=== PATIENT | male | born 1955 | race Caucasian/White ===

== ENCOUNTER 2018-02-18 09:46 | Observation (INO) | payer OTHER, SELFPAY ==
[2018-02-18] VITALS (14 sets, daily range): BP systolic 130–165; BP diastolic 60–105; PULSE 65–92; RESP 14–19; TEMP 36.5–37; O2SAT 93–100; BMI 21.2; BMI 20.2; BMI 20.3
--- NOTE | 2018-02-18 09:54 | EKG12_ITS ---
Test Reason : DYSRHYTHMIA Blood Pressure : / mmHG Vent. Rate : 074 BPM Atrial Rate : 074 BPM P-R Int : 116 ms QRS Dur : 102 ms QT Int : 404 ms P-R-T Axes : 069 067 058 degrees QTc Int : 448 ms Normal sinus rhythm Normal ECG Confirmed by RACQUEL CRANDALL, KARISSA ([id number]), material expeditor CHAVO CONTRERAS ([id number]) on 02/23/2018 2:43:55 PM Referred By: KALPESH Confirmed By:KARISSA CLEMENT MD
--- NOTE | 2018-02-18 09:54 | RAD_ITS ---
STUDY: X-RAY CHEST REASON FOR EXAM: Male, 62 years old. Disorientation TECHNIQUE: 2 AP portable views. 2 views needed to include the costophrenic angles COMPARISON: None. FINDINGS: EKG leads overlie the chest Lungs are hyperexpanded with chronic interstitial changes, no superimposed acute pulmonary process. There is no demonstrated pleural abnormality. Normal size heart. Normal mediastinum and chandrika. Normal visualized pulmonary arteries. Normal visualized aortic arch and descending thoracic aorta. Normal visualized thoracic spine. Normal visualized ribs, clavicles, and shoulders. There is no demonstrated abnormality of the visualized soft tissue structures of the upper abdomen. RAD/Chest 1 View IMPRESSION: Hyperexpanded lungs with chronic interstitial changes, no superimposed acute pulmonary process Electronically Signed: Osvaldo Weston MD at 10:44 EDT , Service support ,
--- NOTE | 2018-02-18 09:54 | CT_ITS ---
STUDY: CT BRAIN WITHOUT CONTRAST REASON FOR EXAM: Male, 62 years old. Headache and blurred vision upon awakening, disorientation RADIATION DOSAGE (If Supplied By Facility): CTDIvol = ( 44.99 ) mGy, DLP = ( 796.11 ) mGycm TECHNIQUE: Transaxial CT imaging of the brain was performed without administration of intravenous contrast material. Individualized dose optimization techniques were used for this CT. COMPARISON: None. FINDINGS: Normal soft tissue structures. Normal calvarium. Normal size ventricles and extra-axial spaces for the patient's age. Normal white matter tracts of the cerebral hemispheres. Normal basal ganglia and thalami. Normal brainstem. Normal cerebellum. There is no intracranial hemorrhage. There are no findings of an acute ischemic infarction. Normal visualized paranasal sinuses. CT/Brain/Head without Contrast IMPRESSION: Chronic involutional changes of the brain. No acute hemorrhage Electronically Signed: Osvaldo Weston MD at 10:36 EDT , Service support ,
--- NOTE | 2018-02-18 09:59 | NURSING ---
NO OLD EKGS
--- NOTE | 2018-02-18 10:00 | ED.VISSUMM ---
- ER Visit Summary Date of Service: 02/18/18 Chief Complaint: Awoke with right frontal headache, diplopia and nausea and vomiting ?1. History of Present Illness: The patient is a 62 M who awoke at 0500 with right frontal headache with diplopia and had one episode of emesis. He states his balance is off. Female diesel inspector with him states she has had a significant weight loss recently. The weight loss is unintentional. He is a smoker one pack per day since he was a teenager. Upon further questioning he has history of sweats. He denies any blurred vision, trouble with speech or swallowing. Denies ringing in his ears or decreased hearing. He denies cough, sputum production, dyspnea at rest. He has had slight dyspnea with exertion. He denies any chest discomfort or any type of chest pain. He denies hematemesis, melena hematochezia. He denies dysuria, frequency, urgency hematuria. He denies any bone or back pain. He denies any skin lesions. He is not a good informant. Physical Examination: Vital signs are unremarkable. Blood pressure is slightly elevated. Head is atraumatic normocephalic. Pupils are equal round reactive. Extraocular muscles are intact. TMs are pearly white with landmarks noted. Nares patent with no drainage. Posterior pharynx without erythema or exudate. Uvula is midline. There is no dysphonia or dysphasia. Trachea is midline. There is no stridor with auscultation of the neck. There is no carotid bruit. Heart is regular without murmur, gallop or rub. S1 and S2 are normal. Lungs are clear to auscultation with good movement of air bilaterally. Abdomen soft nontender. There is no palpable cell mass. He is alert and oriented ?3. Motor spiral 5. Sensations intact. Cerebellar testing with finger-nose to finger and heel to taylor was performed adequately. He has a shuffled gait. DTRs are symmetric. There is no clonus or Babinski sign. He withdraws when assessing for Babinski sign and difficult to determine if he does or does not have a Babinski sign. Cranial 2 through 12 are intact. There is no nystagmus. There is evidence of peripheral cataracts. No papilledema was noted on funduscopic exam Test Results: CBC, BMP and coags are normal. Two-view chest x-ray reveals hyperaeration with no acute pulmonary process. Cardiac silhouette and mediastinum are normal. Osseous structures are normal. CT of the head was reviewed by me interpreted radiologist as negative for any acute findings. Emergency Department Course and Treatment: With unintentional weight loss sweats concern patient may have malignancy. With complaint of headache diplopia concern for intracranial bleed, versus metastasis versus other cause. Will obtain a CT of the head to evaluate for intercranial process. Chest x-ray since she is a smoker and to evaluate for mass, neoplasm. Baseline blood work was ordered as well. Treatment Plan: Since patient is complaining of diplopia the hospitalist was paged for further evaluation i.e. MRI etc. Disposition: 23 hours observation PCU Impression: 1. Diplopia 2. Right frontal headache with nausea and vomiting 3. Unintentional weight loss 4. History of COPD 5. History of tobacco use This note was generated with [employer] dictation software. It may contain incorrect words, spelling, and punctuation that were not noted in review of the chart prior to signing ED Disposition - Plan for ED Patient: Chief Complaint: Neuro S/Sx
[2018-02-18 10:13] LABS: Absolute Lymphocyte Count 1.58 X10^3/ul (0.83-4.51); Absolute Neutrophil Count 4.4 X10^3/uL (2.0-7.7); Basophil# 0.01 X10^3/uL; Basophil% 0.1 % (0-1); Eosinophil# 0.08 X10^3/uL; Eosinophils% 1.2 % (0-5); Hematocrit 43.6 % (40-54); Lymphocyte # 1.58 X10^3/ul (4.0); Lymphocyte % 22.8 % (19-41); Mean Corp Hgb Conc 34.4 g/gl (32-36); Mean Platelet Vol. 9.7 fl (6.2-12.0); Neutrophil # 4.35 X10^3/uL (2.7-7.7); Neutrophil % 62.6 % (47-70); Platelet Count 172 K/mm3 (150-450); RBC Distribution Width CV 13.6 % (11.6-14.6); RBC Distribution Width SD 46.8 fl (35.1-43.9); Red Blood Count 4.54 M/mm3 (4.6-6.2); White Blood Count 6.9 K/mm3 (4.4-11.0)
[2018-02-18 10:17] LABS: POSITIVE COUNT NO; POSITIVE DIFFERENTIAL NO; POSITIVE MORPHOLOGY NO
[2018-02-18 10:19] LABS: Prothrombin Time (Protime)PT. 12.8 SECONDS (11.7-14.9)
[2018-02-18 10:20] LABS: Partial Thromboplast Time 26.4 Seconds (24.1-36.2)
[2018-02-18 10:24] LABS: Anion Gap 3 (5-15); BUN 10 mg/dL (7-18); BUN/Creat Ratio 13.8 RATIO (10-20); Calcium,Total 8.8 mg/dL (8.5-10.1); Chloride 105 mmol/L (98-107); Creatinine, Serum 0.72 mg/dL (0.70-1.30); EST Glomerular Filtration Rate 117 mL/min (>60); Est Glom Filt Rate - Afr Amer 141 mL/min (>60); Estimated Creatinine Clearance 93.72 ml/min; Glucose 98 mg/dL (74-106); Potassium 4.3 mmol/L (3.5-5.1); Sodium Level 139 mmol/L (136-145)
[2018-02-18] MEDS: Ondansetron 4 MG/2 ML Vial IV (10:31)
[2018-02-18 11:01] LABS: Bedside Glucose 93 mg/dL (70-110)
--- NOTE | 2018-02-18 11:35 | NURSING ---
DR HERNANDEZ FOR DR POSEY
--- NOTE | 2018-02-18 11:41 | NURSING ---
PCU OBS DIPLOPIA PAINTSIL
--- NOTE | 2018-02-18 12:20 | NURSING ---
called er charge to accept patient
--- NOTE | 2018-02-18 13:23 | MRI_ITS ---
STUDY: MRA OF THE HEAD WITHOUT CONTRAST REASON FOR EXAM: Male, 62 years old. Diplopia and dizziness TECHNIQUE: 3-D pcuh-xn-ltnhmv (TOF) imaging was performed with MIPs. The study was performed unenhanced. COMPARISON: None. FINDINGS: Normal bilateral petrous carotid arteries. Normal right cavernous carotid artery with a normal supraclinoid bifurcation. Normal left cavernous carotid artery with a normal supraclinoid bifurcation. Severe diffuse narrowing of the right A1 segments of the anterior cerebral artery. Normal left A1 segments of the anterior cerebral artery. Anterior communicating artery not visualized consistent with normal variant. Normal bilateral A2 segments of the anterior cerebral arteries. Normal right M1 and M2 segments of the middle cerebral arteries, with a normal M1 bifurcation. Normal left M1 and M2 segments of the middle cerebral arteries, with a normal M1 bifurcation. Posterior communicating arteries are not visualized consistent with normal variant. Normal bilateral vertebral arteries. Normal basilar artery with a normal basilar bifurcation. The visualized bilateral superior cerebellar (SCA) arteries are normal. Normal bilateral P1, P2 and visualized P3 segments of the posterior cerebral arteries. There is no demonstrated aneurysm of the [place]. There is no major vessel occlusion or hemodynamically significant stenosis. There is no demonstrated abnormality of the visualized brain. MRI/MRA Head ONLY without Contrast IMPRESSION: Severely diffusely narrowed A1 segment of the right anterior cerebral artery. No other significant atherosclerotic changes Electronically Signed: Dave Diez MD at 16:09 EDT , Service support ,
--- NOTE | 2018-02-18 13:23 | MRI_ITS ---
STUDY: MRA NECK WITH AND WITHOUT CONTRAST REASON FOR EXAM: Male, 62 years old. Diplopia and dizziness TECHNIQUE: 3-D wmuz-bp-opjyaf (TOF) imaging was performed in an 1.5 T MRI scanner. 6 ml of Gadavist was administered for the contrast enhanced images. COMPARISON: None. FINDINGS: RIGHT CAROTID ARTERIES: Normal right common carotid artery (CCA). Normal right common carotid bulb. Normal origin of the right internal carotid (ICA) artery without a hemodynamically significant stenosis. Normal visualized cervical portion of the right internal carotid artery. Normal origin of the right external carotid artery (ECA). LEFT CAROTID ARTERIES: Normal left common carotid artery (CCA). Normal left common carotid bulb. Normal origin of the left internal carotid (ICA) artery without a hemodynamically significant stenosis. Normal visualized cervical portion of the left internal carotid artery. Normal origin of the left external carotid artery (ECA). VERTEBRAL ARTERIES: Normal antegrade flow within the bilateral vertebral artery without a hemodynamically significant stenosis. MRI/MRA Neck WITH and W/O Contrast IMPRESSION: Normal bilateral cervical carotid and vertebral arteries. Electronically Signed: Dave Diez MD at 16:10 EDT , Service support ,
--- NOTE | 2018-02-18 13:25 | MRI_ITS ---
STUDY: MRI BRAIN WITHOUT CONTRAST REASON FOR EXAM: Male, 62 years old. Diplopia and dizziness TECHNIQUE: Standardized multiplanar fat and water weighted pulse sequences were obtained. COMPARISON: CT of the brain on February 18, 2018 FINDINGS: Mild atrophy and minor periventricular white matter ischemic changes without evidence for acute infarct. Normal bilateral basal ganglia. Normal thalami. There is no extra-axial fluid accumulation. Normal flow voids within the major intracranial circulation suggesting patency by spin echo criteria. Normal sella turcica, pituitary gland, infundibular stalk, optic chiasm and hypothalamus. Normal tectal plate and pineal gland. Normal midbrain, carmen and medulla. Normal cerebellum. Normal basal cisterns. Normal bilateral temporal bones. Normal bilateral internal auditory canals. No demonstrated orbital abnormality, within the constraints of a routine brain study. Mild bilateral maxillary and ethmoid sinusitis. Normal calvarium and skull base. Normal visualized soft tissue structures. Normal visualized upper cervical spine. MRI/Brain without Contrast IMPRESSION: Minor periventricular white matter ischemic change without evidence for acute infarct Electronically Signed: Dave Diez MD at 16:07 EDT , Service support ,
--- NOTE | 2018-02-18 13:27 | HP.PCM_ITS ---
Problem List (1) Diplopia Status: Acute (2) COPD (chronic obstructive pulmonary disease) Status: Chronic Qualifiers: Emphysema type: unspecified (3) Nicotine dependence Status: Chronic Qualifiers: Nicotine product type: cigarettes Substance use status: unspecified nicotine-induced disorder Qualified Code(s): F17.219 - Nicotine dependence, cigarettes, with unspecified nicotine-induced disorders History of Present Illness Date of Admission: 02/18/18 Chief Complaint: Double vision - 1 day The patient is a 62 year old M past medical history of nicotine dependence, COPD , not on home oxygen who comes seen with complaints of sudden onset of difficulty seen. Patient at baseline with glasses for reading but started seeing double today. Denies any headaches or numbness or tingling in any of his extremities. The double vision is worse when he bends his head down or tries to look far. Vitals in the ED was stable, routine blood work was unremarkable. CT scan of the brain showed chronic indwelling treat changes with no acute hemorrhage. CXR was negative Patient had an MRI of the brain that showed no acute infarct. MRA of the head showed severely narrowed anterior cerebral artery stenosis MRA of the head was normal Past Medical History Past Medical History (Chronic Problems): Chronic Problems COPD (chronic obstructive pulmonary disease) (Chronic) Nicotine dependence (Chronic) Allergies No Known Allergies Allergy (Verified 02/18/18 09:48) Home Medications: Ambulatory Orders Medication Instructions Recorded Albuterol Aerosols [Ventolin 2.5 mg INHALATION Q6H PRN PRN 02/18/18 Aerosols] Albuterol Inhaler [Ventolin Hfa 1 - 2 puff INHALATION Q4H PRN PRN 02/18/18 (SP)] Surgical History: no surgical history Lives: Spouse/ Significant Other Smoking Status: Current every day smoker - *Family History Paternal History Items: Cancer - brain Maternal History Items: Unknown Review of Systems Constitutional: Denies: Anorexia, Chills, Fever, Malaise, Weakness, Weight Change Eyes: Reports: Blurred vision, Double vision, Vision Change. Denies: Cataracts , Conjunctivae Inflammation, Pain, Redness HEENT: Denies: Difficulty Hearing, Difficulty Swallowing, Head Aches, Sinus Congestion, Sinus Drainage Cardiovascular: Denies: Chest Pain, Claudication, Chest Pressure, Chest Tightness, Orthopnea, Palpitations, Paroxysmal Noc. Dyspnea Respiratory: Denies: Cough, Hemoptysis, Pleuritic Pain, Shortness of Breath, Shortness of breath at rest, Shortness of breath upon exertion, Sputum production Gastrointestinal: Denies: Abdominal Pain, Constipation, Hematemesis, Nausea, Vomiting Genitourinary: Denies: Dysuria, Frequency, Incontinence Musculoskeletal: Denies: Joint Pain, Joint stiffness, Joint swelling, Joint Tenderness Skin: Denies: Rash, Wounds Neurological: Denies: Difficulty swallowing, Focal weakness, Numbness, Tingling Psychiatric: Denies: Anxiety, Depression, Homicidal Ideations, Suicidal Ideations Hematologic/ Lymphatic: Denies: Easy Bruising, Easy Bleeding VTE Information - Inpt Only VTE Present on Admission: No VTE Pharm Prophylaxis ordered?: Yes Patient Problems: Active and Suspected Problems Diplopia (Acute) - Physical Exam General: Alert, Oriented x3, Cooperative, No apparent distress HEENT: Atraumatic, PERRLA, EOMI, Normocephalic Oral: Moist Mucosa Neck: Supple Lungs: Clear to auscultation, Normal air movement Cardiovascular: Regular rate, Regular Rhythm, Normal S1, Normal S2, No murmurs Abdomen: Bowel Sounds Present, Soft, Non Tender, Non-Distended, No Hepato- splenomegaly Extremities: No edema Skin: No rashes, No breakdown Musculoskeletal: No Tenderness to Palpation of Joints or Extremities Neurological: Cranial nerves II-XII grossly intact, Neuro grossly intact Psych/Mental Status: Normal Affect, Appropriate Vital Signs Temp Pulse Resp BP Pulse Ox 98.0 F 82 18 135/82 H 94 02/18/18 12:47 02/18/18 13:20 02/18/18 12:47 02/18/18 12:47 02/18/18 12:47 Oxygen Delivery Method Room Air Weight: 58.8 kg Body Mass Index (BMI) 20.2 Assessment/Plan All Active Problems Diplopia (Acute) 62 year old M past medical history of nicotine dependence, COPD, not on home oxygen who comes seen with complaints of sudden onset of difficulty seen. Patient at baseline with glasses for reading but started seeing double today. 1. Acute onset diplopia, related to acute stroke, MRI showed no stroke, will monitor overnight, would need referral to ophthalmology for further evaluation 2. Incidental finding of severely narrowed right cerebral artery, will put patient on aspirin, lipid profile in am 3. Nicotine dependence, will put on nicotine patch and gum 4. COPD, not on oxygen 5. DVT PPx- Lovenox SC Code Visit Inpatient E&M: 04615 Init Hosp L3
[2018-02-18 14:16] LABS: Hemoglobin A1c 5.1 % (4.2-6.3)
[2018-02-18] MEDS: Acetaminophen 325 MG Tablet 650 MG PO (15:21)
[2018-02-18] MEDS: Thiamine Hydrochloride 100 MG Tablet PO (16:13)
[2018-02-18] MEDS: Ipratropium/Albuterol Sulfate 3 ML AMPUL.NEB INHALATION (21:50)
[2018-02-19] VITALS (15 sets, daily range): BP systolic 117–142; BP diastolic 64–88; PULSE 59–81; RESP 16–18; TEMP 36.5–37; O2SAT 96–99
[2018-02-19] MEDS: Acetaminophen 325 MG Tablet 650 MG PO (00:34)
[2018-02-19 06:13] LABS: Anion Gap 6 (5-15); BUN 14 mg/dL (7-18); BUN/Creat Ratio 19.3 RATIO (10-20); Calcium,Total 8.5 mg/dL (8.5-10.1); Chloride 108 mmol/L (98-107); Cholesterol 127 mg/dL (200); Creatinine, Serum 0.72 mg/dL (0.70-1.30); EST Glomerular Filtration Rate 117 mL/min (>60); Est Glom Filt Rate - Afr Amer 142 mL/min (>60); Estimated Creatinine Clearance 89.61 ml/min; Glucose 88 mg/dL (74-106); High Density Lipoprotein 63 mg/dL; Sodium Level 142 mmol/L (136-145); Triglycerides 77 mg/dL; Very Low Density Lipoprotein 15 mg/dL (5-40)
[2018-02-19] MEDS: Ipratropium/Albuterol Sulfate 3 ML AMPUL.NEB INHALATION ×4 (07:45→19:07)
[2018-02-19] MEDS: Folic Acid 1 MG Tablet PO (09:36)
[2018-02-19] MEDS: Multivitamins,Ther W-Minerals Tablet 1 TABLET PO (09:37)
[2018-02-19] MEDS: Thiamine Hydrochloride 100 MG Tablet PO ×2 (09:37→16:22)
[2018-02-19] MEDS: Enoxaparin 40 MG/0.4 ML Syringe SC (09:38)
--- NOTE | 2018-02-19 11:48 | ECHOCS_ITS ---
Reason For Study: Stroke Procedure This was a 2D Doppler, Color Flow transthoracic echocardiogram. The exam was of adequate technical quality. Exam performed portable in patient room. Left Ventricle Normal LV size. Left ventricular systolic function is normal. The estimated ejection fraction is 55 %. Normal diastology for age. No regional wall motion abnormalities noted. Right Ventricle Normal RV size. Normal systolic function. Atria Normal left atrium. Normal right atrium. Agitated saline contrast study c/w a right to left interatrial shunt cw/ a small PFO vs. ASD. Mitral Valve There is no mitral annular calcification. Normal mitral valve. Trivial mitral valve insufficiency. Tricuspid Valve Normal tricuspid valve. Trivial tricuspid valve insufficiency. Aortic Valve Trisinus/trileaflet aortic valve. Normal aortic valve. Pulmonic Valve The pulmonic valve is not well visualized. Trivial pulmonic valve insufficiency. Great Vessels Normal sized aortic root. Pericardium/Pleural No pericardial effusion. Medication Performed a rapid injection of agitated mix of 9 cc saline and 1cc air to assess for atrial septal defect. MMode/2D Measurements & Calculations LVIDd: 4.8 cm IVSd: 0.66 cm Ao root diam: 3.8 cm LVIDs: 3.8 cm LVPWd: 1.1 cm LA dimension: 3.0 cm FS: 20.8 % LAV(MOD-bp): 40.7 ml LVAd ap4: 27.1 cm2 SV(MOD-sp4): 39.8 ml LAV(MOD-bp) Indexed: 24.2 ml/m2 EDV(MOD-sp4): 79.4 ml LAV(MOD-sp2): 53.2 ml EDV(sp4-el): 80.7 ml LAV(MOD-sp4): 30.7 ml LVAs ap4: 16.7 cm2 ESV(MOD-sp4): 39.5 ml ESV(sp4-el): 37.4 ml EF(MOD-sp4): 50.2 % EF(sp4-el): 53.7 % SV(sp4-el): 43.3 ml LA A4 area: 13.6 cm2 RA A4 area: 11.0 cm2 Time Measurements MV dec time: 0.28 sec Doppler Measurements & Calculations MV E max magnus: 73.6 cm/sec Lat Peak E' Magnus: 11.5 cm/sec Med Peak E' Magnus: 8.9 cm/sec MV A max magnus: 88.3 cm/sec E/E' lat: 6.4 E/E' med: 8.2 MV E/A: 0.83 MV V2 max: 96.6 cm/sec MV P1/2t max magnus: 84.6 cm/sec Ao V2 max: 132.6 cm/sec MV max P.7 mmHg MV P1/2t: 123.2 msec Ao max P.0 mmHg MV V2 mean: 56.0 cm/sec MV dec slope: 201.2 cm/sec2 Ao V2 mean: 87.0 cm/sec MV mean P.4 mmHg MVA(P1/2t): 1.8 cm2 Ao mean P.4 mmHg MV V2 VTI: 33.4 cm Ao V2 VTI: 23.3 cm LV V1 max: 107.2 cm/sec PA V2 max: 88.3 cm/sec LV V1 max P.6 mmHg LV V1 mean P.0 mmHg LV V1 mean: 65.2 cm/sec LV V1 VTI: 20.6 cm Interpretation Summary Left ventricular systolic function is normal. The estimated ejection fraction is 55 %. Trivial mitral valve insufficiency. Trivial tricuspid valve insufficiency. Trivial pulmonic valve insufficiency. Normal diastology for age. Agitated saline contrast study c/w a right to left interatrial shunt cw/ a small PFO vs. ASD. Ordering Physician: Edward Morocho Performed By: Tyree Crespo RCS
--- NOTE | 2018-02-19 17:26 | PCM.PN.HOSP ---
Patient Problems: Active and Suspected Problems Diplopia (Acute) Subjective: Patient seen and examined. He feels better, blurred vision is still present when he is looking very far. Denies headache, dizziness. Vitals/I&O's: Vital Signs Temp Pulse Resp BP Pulse Ox 98.6 F 72 18 117/64 96 02/19/18 16:15 02/19/18 16:15 02/19/18 16:15 02/19/18 16:15 02/19/18 16:15 Oxygen Delivery Method Room Air Weight: 58.8 kg Body Mass Index (BMI) 20.2 Intake and Output for Last 24 Hours 02/17/18 02/18/18 02/19/18 23:59 23:59 23:59 Intake Total 480 / 480 1080 / 1080 Balance 480 / 480 1080 / 1080 General: Alert, Oriented x3, Cooperative HEENT: Atraumatic, PERRLA, EOMI, Normocephalic Oral: Moist Mucosa Neck: Supple, No JVD, Negative Carotid Bruits Lungs: Clear to auscultation, Normal air movement Cardiovascular: Regular rate, Regular Rhythm, Normal S1, Normal S2, No murmurs Abdomen: Bowel Sounds Present, Soft, Non Tender, Non-Distended, No Hepato-splenomegaly Extremities: No edema Skin: No rashes, No breakdown Musculoskeletal: No Tenderness to Palpation of Joints or Extremities Lymphatic: No Cervical, Supraclavicular, or Inguinal Adenopathy Neurological: Cranial nerves II-XII grossly intact, Neuro grossly intact Psych/Mental Status: Normal Affect, Appropriate Laboratory Results 02/19/18 05:26: Sodium 142, Potassium 4.0, Chloride 108 H, Carbon Dioxide 28.0, Anion Gap 6, BUN 14, Creatinine 0.72, Estim Creat Clear Calc 89.61, Est GFR (MDRD) Af Amer 142, Est GFR (MDRD) Non-Af 117, BUN/Creatinine Ratio 19.3, Glucose 88, Calcium 8.5, Triglycerides 77, Cholesterol 127, LDL Cholesterol 49, VLDL Cholesterol 15, HDL Cholesterol 63 Current Medications Acetaminophen (Tylenol) 650 mg PO Q6H PRN PRN PRN Reason: Mild Pain (1-3)/Temp > 100.7 F Last Admin: 02/19/18 00:34 Dose: 650 mg Albuterol Sulfate (Ventolin Aerosols) 2.5 mg INHALATION Q6H PRN PRN PRN Reason: SOB &/OR WHEEZING Albuterol/Ipratropium (Duoneb) 3 ml INHALATION Q4HWA.RT [facility] Last Admin: 02/19/18 14:58 Dose: 3 ml Bisacodyl (Dulcolax) 5 mg PO DAILY PRN PRN PRN Reason: Constipation Enoxaparin Sodium (Lovenox) 40 mg SC DAILY@1000 [facility] Last Admin: 02/19/18 09:38 Dose: 40 mg Folic Acid (Folic Acid) 1 mg PO DAILY@0800 [facility] Stop: 02/21/18 08:01 Last Admin: 02/19/18 09:36 Dose: 1 mg Lorazepam (Ativan) 2 mg PO Q2H PRN PRN; Protocol PRN Reason: CIWA score > 8 but <15 Lorazepam (Ativan) 2 mg PO UD PRN; Protocol PRN Reason: CIWA score >/=15. Lorazepam (Ativan) 2 mg IV Q2H PRN PRN; Protocol PRN Reason: CIWA score > 8 but <15 Lorazepam (Ativan) 2 mg IV UD PRN; Protocol PRN Reason: CIWA score >/=15. Magnesium Hydroxide (Milk Of Magnesia) 30 ml PO DAILY PRN PRN Reason: Constipation Multivitamins/Minerals ([facility]ivitamin With Minerals) [facility] Last Admin: 02/19/18 09:37 Dose: 1 tablet Nicotine (Nicoderm Cq (Pbkc)) 21 mg TRANSDERM. DAILY [facility] Last Admin: 02/19/18 09:37 Dose: Not Given Nicotine Polacrilex ([place] Nicotine (Bkc)) 2 mg PO Q2H PRN PRN PRN Reason: Nicotine Craving Nutritional Formula (Lactose Free) (Ensure Enlive) 120 ml PO 4X/DAY [facility] Last Admin: 02/19/18 16:23 Dose: 120 ml Ondansetron HCl (Zofran) 4 mg IV Q8H PRN PRN PRN Reason: NAUSEA Psyllium Hydrophilic Mucilloid (Metamucil) 1 packet PO DAILY PRN PRN PRN Reason: CONSTIPATION Sodium Chloride () 5 - 30 ml IV UD PRN PRN Reason: SALINE FLUSH Thiamine HCl (Vitamin B1) 100 mg PO BIDCM [facility] Stop: 02/21/18 08:01 Last Admin: 02/19/18 16:22 Dose: 100 mg Medical Necessity - Tobacco Use Smoking Status: Current every day smoker Assessment/Plan All Active Problems Diplopia (Acute) 62 year old M past medical history of nicotine dependence, COPD, not on home oxygen who comes seen with complaints of sudden onset of difficulty seen. Patient at baseline with glasses for reading but started seeing double today. 1. Acute onset diplopia, likely related to acute stroke, MRI showed no stroke, 2d-ECHO is pending, neurology consultged HgbA1c 5.1, Lipid profile shows TChol 127, LDL 49, Tri 77, HDL 63. Will wait on 2d-ech report. Would need referral to ophthalmology for further evaluation 2. Incidental finding of severely narrowed right cerebral artery, on aspirin, lipid profile appears controlled 3. Nicotine dependence, on nicotine patch and gum 4. COPD, not on oxygen, on as needed breathing treatment 5. DVT PPx- Lovenox SC Code Visit Inpatient E&M: 12031 Subs Hosp L2
--- NOTE | 2018-02-19 17:31 | PN_ITS ---
Patient Problems: Active and Suspected Problems Diplopia (Acute) Subjective: Patient seen and examined. He feels better, blurred vision is still present when he is looking very far. Denies headache, dizziness. Vitals/I&O's: Vital Signs Temp Pulse Resp BP Pulse Ox 98.6 F 72 18 117/64 96 02/19/18 16:15 02/19/18 16:15 02/19/18 16:15 02/19/18 16:15 02/19/18 16:15 Oxygen Delivery Method Room Air Weight: 58.8 kg Body Mass Index (BMI) 20.2 Intake and Output for Last 24 Hours 02/17/18 02/18/18 02/19/18 23:59 23:59 23:59 Intake Total 480 / 480 1080 / 1080 Balance 480 / 480 1080 / 1080 General: Alert, Oriented x3, Cooperative HEENT: Atraumatic, PERRLA, EOMI, Normocephalic Oral: Moist Mucosa Neck: Supple, No JVD, Negative Carotid Bruits Lungs: Clear to auscultation, Normal air movement Cardiovascular: Regular rate, Regular Rhythm, Normal S1, Normal S2, No murmurs Abdomen: Bowel Sounds Present, Soft, Non Tender, Non-Distended, No Hepato- splenomegaly Extremities: No edema Skin: No rashes, No breakdown Musculoskeletal: No Tenderness to Palpation of Joints or Extremities Lymphatic: No Cervical, Supraclavicular, or Inguinal Adenopathy Neurological: Cranial nerves II-XII grossly intact, Neuro grossly intact Psych/Mental Status: Normal Affect, Appropriate Laboratory Results 02/19/18 05:26: Sodium 142, Potassium 4.0, Chloride 108 H, Carbon Dioxide 28.0, Anion Gap 6, BUN 14, Creatinine 0.72, Estim Creat Clear Calc 89.61, Est GFR ( MDRD) Af Amer 142, Est GFR (MDRD) Non-Af 117, BUN/Creatinine Ratio 19.3, Glucose 88, Calcium 8.5, Triglycerides 77, Cholesterol 127, LDL Cholesterol 49, VLDL Cholesterol 15, HDL Cholesterol 63 Current Medications Acetaminophen (Tylenol) 650 mg PO Q6H PRN PRN PRN Reason: Mild Pain (1-3)/Temp > 100.7 F Last Admin: 02/19/18 00:34 Dose: 650 mg Albuterol Sulfate (Ventolin Aerosols) 2.5 mg INHALATION Q6H PRN PRN PRN Reason: SOB &/OR WHEEZING Albuterol/Ipratropium (Duoneb) 3 ml INHALATION Q4HWA.RT [facility] Last Admin: 02/19/18 14:58 Dose: 3 ml Bisacodyl (Dulcolax) 5 mg PO DAILY PRN PRN PRN Reason: Constipation Enoxaparin Sodium (Lovenox) 40 mg SC DAILY@1000 [facility] Last Admin: 02/19/18 09:38 Dose: 40 mg Folic Acid (Folic Acid) 1 mg PO DAILY@0800 [facility] Stop: 02/21/18 08:01 Last Admin: 02/19/18 09:36 Dose: 1 mg Lorazepam (Ativan) 2 mg PO Q2H PRN PRN; Protocol PRN Reason: CIWA score > 8 but <15 Lorazepam (Ativan) 2 mg PO UD PRN; Protocol PRN Reason: CIWA score >/=15. Lorazepam (Ativan) 2 mg IV Q2H PRN PRN; Protocol PRN Reason: CIWA score > 8 but <15 Lorazepam (Ativan) 2 mg IV UD PRN; Protocol PRN Reason: CIWA score >/=15. Magnesium Hydroxide (Milk Of Magnesia) 30 ml PO DAILY PRN PRN Reason: Constipation Multivitamins/Minerals ([facility]amin [facility]erals) [facility] Last Admin: 02/19/18 09:37 Dose: 1 tablet Nicotine (Nicoderm Cq (Pbkc)) 21 mg TRANSDERM. DAILY [facility] Last Admin: 02/19/18 09:37 Dose: Not Given Nicotine Polacrilex (Rugby Nicotine (Bkc)) 2 mg PO Q2H PRN PRN PRN Reason: Nicotine Craving Nutritional Formula (Lactose Free) (Ensure Enlive) 120 ml PO 4X/DAY [facility] Last Admin: 02/19/18 16:23 Dose: 120 ml Ondansetron HCl (Zofran) 4 mg IV Q8H PRN PRN PRN Reason: NAUSEA Psyllium Hydrophilic Mucilloid (Metamucil) 1 packet PO DAILY PRN PRN PRN Reason: CONSTIPATION Sodium Chloride () 5 - 30 ml IV UD PRN PRN Reason: SALINE FLUSH Thiamine HCl (Vitamin B1) 100 mg PO BIDCM [facility] Stop: 02/21/18 08:01 Last Admin: 02/19/18 16:22 Dose: 100 mg Medical Necessity - Tobacco Use Smoking Status: Current every day smoker Assessment/Plan All Active Problems Diplopia (Acute) 62 year old M past medical history of nicotine dependence, COPD, not on home oxygen who comes seen with complaints of sudden onset of difficulty seen. Patient at baseline with glasses for reading but started seeing double today. 1. Acute onset diplopia, likely related to acute stroke, MRI showed no stroke, 2d-ECHO is pending, neurology consultged HgbA1c 5.1, Lipid profile shows TChol 127, LDL 49, Tri 77, HDL 63. Will wait on 2d-ech report. Would need referral to ophthalmology for further evaluation 2. Incidental finding of severely narrowed right cerebral artery, on aspirin, lipid profile appears controlled 3. Nicotine dependence, on nicotine patch and gum 4. COPD, not on oxygen, on as needed breathing treatment 5. DVT PPx- Lovenox SC Code Visit Inpatient E&M: 17760 Subs Hosp L2
[2018-02-20] VITALS (8 sets, daily range): BP systolic 118–143; BP diastolic 71–78; PULSE 68–98; RESP 16–18; TEMP 36.5–36.9; O2SAT 95–99
[2018-02-20] MEDS: Ipratropium/Albuterol Sulfate 3 ML AMPUL.NEB INHALATION ×2 (07:35→10:42)
--- NOTE | 2018-02-20 09:00 | PN_ITS ---
Patient Problems: Active and Suspected Problems Diplopia (Acute) Vitals/I&O's: Vital Signs Temp Pulse Resp BP Pulse Ox 97.7 F L 72 16 139/78 H 95 02/20/18 03:45 02/20/18 07:35 02/20/18 07:35 02/20/18 03:45 02/20/18 07:35 Oxygen Delivery Method Room Air Weight: 58.8 kg Body Mass Index (BMI) 20.2 Intake and Output for Last 24 Hours 02/18/18 02/19/18 02/20/18 23:59 23:59 23:59 Intake Total 480 / 480 1440 / 1440 240 / 240 Balance 480 / 480 1440 / 1440 240 / 240 Current Medications Acetaminophen (Tylenol) 650 mg PO Q6H PRN PRN PRN Reason: Mild Pain (1-3)/Temp > 100.7 F Last Admin: 02/19/18 00:34 Dose: 650 mg Albuterol Sulfate (Ventolin Aerosols) 2.5 mg INHALATION Q6H PRN PRN PRN Reason: SOB &/OR WHEEZING Albuterol/Ipratropium (Duoneb) 3 ml INHALATION Q4HWA.RT [facility] Last Admin: 02/20/18 07:35 Dose: 3 ml Bisacodyl (Dulcolax) 5 mg PO DAILY PRN PRN PRN Reason: Constipation Enoxaparin Sodium (Lovenox) 40 mg SC DAILY@1000 [facility] Last Admin: 02/19/18 09:38 Dose: 40 mg Folic Acid (Folic Acid) 1 mg PO DAILY@0800 [facility] Stop: 02/21/18 08:01 Last Admin: 02/19/18 09:36 Dose: 1 mg Lorazepam (Ativan) 2 mg PO Q2H PRN PRN; Protocol PRN Reason: CIWA score > 8 but <15 Lorazepam (Ativan) 2 mg PO UD PRN; Protocol PRN Reason: CIWA score >/=15. Lorazepam (Ativan) 2 mg IV Q2H PRN PRN; Protocol PRN Reason: CIWA score > 8 but <15 Lorazepam (Ativan) 2 mg IV UD PRN; Protocol PRN Reason: CIWA score >/=15. Magnesium Hydroxide (Milk Of Magnesia) 30 ml PO DAILY PRN PRN Reason: Constipation Multivitamins/Minerals (Multivitamin With Minerals) 1 tablet PO DAILYCM [facility] Last Admin: 02/19/18 09:37 Dose: 1 tablet Nicotine (Nicoderm Cq (Pbkc)) 21 mg TRANSDERM. DAILY [facility] Last Admin: 02/19/18 09:37 Dose: Not Given Nicotine Polacrilex (Rugby Nicotine (Bkc)) 2 mg PO Q2H PRN PRN PRN Reason: Nicotine Craving Nutritional Formula (Lactose Free) (Ensure Enlive) 120 ml PO 4X/DAY [facility] Last Admin: 02/19/18 21:41 Dose: 120 ml Ondansetron HCl (Zofran) 4 mg IV Q8H PRN PRN PRN Reason: NAUSEA Psyllium Hydrophilic Mucilloid (Metamucil) 1 packet PO DAILY PRN PRN PRN Reason: CONSTIPATION Sodium Chloride () 5 - 30 ml IV UD PRN PRN Reason: SALINE FLUSH Thiamine HCl (Vitamin B1) 100 mg PO BIDCM [facility] Stop: 02/21/18 08:01 Last Admin: 02/19/18 16:22 Dose: 100 mg Medical Necessity - Tobacco Use Smoking Status: Current every day smoker Assessment/Plan All Active Problems Diplopia (Acute)
--- NOTE | 2018-02-20 09:01 | NURSING ---
called [facility] to cancel appointment for 02/20.
[2018-02-20] MEDS: Thiamine Hydrochloride 100 MG Tablet PO (10:34)
[2018-02-20] MEDS: Enoxaparin 40 MG/0.4 ML Syringe SC (10:34)
[2018-02-20] MEDS: Folic Acid 1 MG Tablet PO (10:34)
[2018-02-20] MEDS: Multivitamins,Ther W-Minerals Tablet 1 TABLET PO (10:34)
[2018-02-20] MEDS: Atorvastatin Calcium 40 MG Tablet PO (10:38)
--- NOTE | 2018-02-20 11:58 | DCINST_ITS ---
- Discharge Diagnoses Current Active Problems: Current Active and Chronic Problems Diplopia (Acute) COPD (chronic obstructive pulmonary disease) (Chronic) Nicotine dependence (Chronic) You will use the following diet at home:: Calorie/Carbohydrate Controlled ( specify 1200, 1400, etc), Other - no alcohol Your food should be the consistency of: Regular Your liquids should be the consistency of: Regular/Thin Discharge Activity: May Not Drive - until cleared by opthalmology Allergies/Adverse Reactions: Allergies No Known Allergies Allergy (Verified 02/18/18 09:48) Medications to take at Discharge Albuterol Aerosols [Ventolin Aerosols] 2.5 mg INHALATION Q6H PRN PRN 02/18/18 Albuterol Inhaler [Ventolin Hfa] 1 - 2 puff INHALATION Q4H PRN PRN 02/18/18 Aspirin [Aspirin, Baby] 81 mg PO DAILY@0800 tab.chew 02/20/18 Atorvastatin Calcium [Lipitor] 40 mg PO DAILY #30 tab 02/20/18 Folic Acid 1 mg PO DAILY@0800 #30 tab 02/20/18 Nicotine [Nicoderm Cq] 21 mg TRANSDERM. DAILY #14 patch 02/20/18 Thiamine Hydrochloride [Vitamin B1] 100 mg PO BIDCM #30 tab 02/20/18 The following prescriptions were given: Atorvastatin Calcium [Lipitor] 40 mg PO DAILY #30 tab Folic Acid 1 mg PO DAILY@0800 #30 tab Nicotine [Nicoderm Cq] 21 mg TRANSDERM. DAILY #14 patch Thiamine Hydrochloride [Vitamin B1] 100 mg PO BIDCM #30 tab Please follow up with your Primary Care Physician in: 2 weeks Test Results: Test results from this visit will be discussed in further detail at your follow- up appointment, if applicable. Please Follow Up With: Paul Raymond MD - opthalmology When: 1-2 days Please Follow Up With: Edward Morocho MD When: 2-4 weeks Proposed Discharge Date: 02/20/18
--- NOTE | 2018-02-20 14:25 | PCM.DC.SUM ---
<Arthur Santana - Last Filed: 02/20/18 14:25> Discharge Date and Diagnosis Date of Admission: 02/18/18 Date of Discharge: 02/20/18 - Primary Discharge Diagnosis Diplopia 2/2 MRI negative CVA/acute stroke incidental finding of severely narrowed Right anterior cerebral artery small PFO/ASD not felt to be clinically significant Nicotine abuse Alcohol abuse COPD - Secondary Discharge Diagnosis Chronic Problems COPD (chronic obstructive pulmonary disease) (Chronic) Nicotine dependence (Chronic) Hospital Course and Treatment Imaging Results: CT/Brain/Head without Contrast IMPRESSION: Chronic involutional changes of the brain. No acute hemorrhage MRI/MRA Head ONLY without Contrast IMPRESSION: Severely diffusely narrowed A1 segment of the right anterior cerebral artery. No other significant atherosclerotic changes MRI/Brain without Contrast IMPRESSION: Minor periventricular white matter ischemic change without evidence for acute infarct Echo: Interpretation Summary Left ventricular systolic function is normal. The estimated ejection fraction is 55 %. Trivial mitral valve insufficiency. Trivial tricuspid valve insufficiency. Trivial pulmonic valve insufficiency. Normal diastology for age. Agitated saline contrast study c/w a right to left interatrial shunt cw/ a small PFO vs. ASD. Consults: Neurology - Morocho Operations: None Procedures: 2-D Echocardiogram Summary of Care Provided: Physical exam on day of discharge: General: Resting comfortably NAD Psych: A/Ox3 normal affect HEENT: PEARRLA AT NC Neck: Supple NT CV: RRR no m/t/r/g/h Resp: CTA Abd: [id number] Soft NT no guarding or rigidity Ext: DP2+= no edema Skin: W/D normal turgor Lymph/Heme: No active bleeding or adenopathy Neuro: CN2-12 intact Hospital course: The patient is a 62 year old M with a hx of nicotine abuse, alcohol abuse, COPD, who presented to the ER with chief complaint of diplopia and blurry right sided vision of sudden onset on the day of presentation. He udnerwent CT brain, MRI and MRA of the head and neck and was not fount to have any changes c/w a stroke. He did have an incidental finding of a severely narrowed right cerebral artery. Neuro was consulted. He was felt to have had an MRI negative stroke. He was placed on aspirin and statin. He was placed on nicotine patches and CIWA protocol while here as well. He underwent an echocardiogram which did show a small right to left shunt c/w either a VSD or PFO. LDL was 49. A1C was 5.1. His diplopia had resolved on the day of discharge, and his blurry vision had significantly improved. He did have intact peripheral vision and was able to read with the affected eye up close, stating that his vision was rapidly improving. he was advised to follow up with ophthalmology within the next 2 days and was advised not to drive until cleared by ophthalmology. He was prescribed nicotine patches and strongly advised to discontinue smoking. Please also follow up with your PCP in 1-2 weeks and with neurology as an outpatient in 2-4 weeks. The patient was discharged home in stable condition. This patient was seen by Arthur Santana PA-C under the supervision of Doctor Cheung. [] Discharge Diet: No Restrictions Discharge Activity: May Not Drive - until cleared by opthalmology Home Medications: Medications to take at Discharge Albuterol Aerosols [Ventolin Aerosols] 2.5 mg INHALATION Q6H PRN PRN 02/18/18 Albuterol Inhaler [Ventolin Hfa] 1 - 2 puff INHALATION Q4H PRN PRN 02/18/18 Aspirin [Aspirin, Baby] 81 mg PO DAILY@0800 tab.chew 02/20/18 Atorvastatin Calcium [Lipitor] 40 mg PO DAILY #30 tab 02/20/18 Folic Acid 1 mg PO DAILY@0800 #30 tab 02/20/18 Nicotine [Nicoderm Cq] 21 mg TRANSDERM. DAILY #14 patch 02/20/18 Thiamine Hydrochloride [Vitamin B1] 100 mg PO BIDCM #30 tab 02/20/18 Following Prescrptions Were Given to Patient: Atorvastatin Calcium [Lipitor] 40 mg PO DAILY #30 tab Folic Acid 1 mg PO DAILY@0800 #30 tab Nicotine [Nicoderm Cq] 21 mg TRANSDERM. DAILY #14 patch Thiamine Hydrochloride [Vitamin B1] 100 mg PO BIDCM #30 tab Primary Care Physician: Justino Cook MD [Primary Care Provider] - Please follow up with your Primary Care Physician in: 2 weeks Please Follow Up With: Paul Raymond MD - opthalmology When: 1-2 days Please Follow Up With: Edward Morocho MD When: 2-4 weeks Medical Necessity - Tobacco Use Smoking Status: Current every day smoker Meaningful Use Info Meaningful Use Diagnoses (Choose all that apply): Ischemic CVA - CVA Therapy Assessed for PT,OT and/or ST?: Yes - Ischemic Stroke Antithrombotic order at d/c?: Yes Dx of Atrial fib/flutter?: No Statins at discharge?: Yes Primary Dx Acute Ischemic CVA?: Yes IV tPA ordered during stay?: No Reason IV t-PA not ordered: Procedure not Indicated <Veronica Cheung - Last Filed: 02/20/18 14:57> Discharge Date and Diagnosis - Secondary Discharge Diagnosis Chronic Problems COPD (chronic obstructive pulmonary disease) (Chronic) Nicotine dependence (Chronic) Hospital Course and Treatment Summary of Care Provided: The patient is a 62 year old M [] Disposition: Home Minutes spent on discharge:: 45 Patient Condition:: Stable Code Visit Inpatient E&M: 76225 Disch Hosp
--- NOTE | 2018-02-20 14:37 | DS.PCM_ITS ---
<Arthur Santana - Last Filed: 02/20/18 14:25> Discharge Date and Diagnosis Date of Admission: 02/18/18 Date of Discharge: 02/20/18 - Primary Discharge Diagnosis Diplopia 2/2 MRI negative CVA/acute stroke incidental finding of severely narrowed Right anterior cerebral artery small PFO/ASD not felt to be clinically significant Nicotine abuse Alcohol abuse COPD - Secondary Discharge Diagnosis Chronic Problems COPD (chronic obstructive pulmonary disease) (Chronic) Nicotine dependence (Chronic) Hospital Course and Treatment Imaging Results: CT/Brain/Head without Contrast IMPRESSION: Chronic involutional changes of the brain. No acute hemorrhage MRI/MRA Head ONLY without Contrast IMPRESSION: Severely diffusely narrowed A1 segment of the right anterior cerebral artery. No other significant atherosclerotic changes MRI/Brain without Contrast IMPRESSION: Minor periventricular white matter ischemic change without evidence for acute infarct Echo: Interpretation Summary Left ventricular systolic function is normal. The estimated ejection fraction is 55 %. Trivial mitral valve insufficiency. Trivial tricuspid valve insufficiency. Trivial pulmonic valve insufficiency. Normal diastology for age. Agitated saline contrast study c/w a right to left interatrial shunt cw/ a small PFO vs. ASD. Consults: Neurology - Morocho Operations: None Procedures: 2-D Echocardiogram Summary of Care Provided: Physical exam on day of discharge: General: Resting comfortably NAD Psych: A/Ox3 normal affect HEENT: PEARRLA AT NC Neck: Supple NT CV: RRR no m/t/r/g/h Resp: CTA Abd: [id number] Soft NT no guarding or rigidity Ext: DP2+= no edema Skin: W/D normal turgor Lymph/Heme: No active bleeding or adenopathy Neuro: CN2-12 intact Hospital course: The patient is a 62 year old M with a hx of nicotine abuse, alcohol abuse, COPD , who presented to the ER with chief complaint of diplopia and blurry right sided vision of sudden onset on the day of presentation. He udnerwent CT brain, MRI and MRA of the head and neck and was not fount to have any changes c/w a stroke. He did have an incidental finding of a severely narrowed right cerebral artery. Neuro was consulted. He was felt to have had an MRI negative stroke. He was placed on aspirin and statin. He was placed on nicotine patches and CIWA protocol while here as well. He underwent an echocardiogram which did show a small right to left shunt c/w either a VSD or PFO. LDL was 49. A1C was 5.1. His diplopia had resolved on the day of discharge, and his blurry vision had significantly improved. He did have intact peripheral vision and was able to read with the affected eye up close, stating that his vision was rapidly improving. he was advised to follow up with ophthalmology within the next 2 days and was advised not to drive until cleared by ophthalmology. He was prescribed nicotine patches and strongly advised to discontinue smoking. Please also follow up with your PCP in 1-2 weeks and with neurology as an outpatient in 2-4 weeks. The patient was discharged home in stable condition. This patient was seen by Arthur Santana PA-C under the supervision of Doctor Cheung. [] Discharge Diet: No Restrictions Discharge Activity: May Not Drive - until cleared by opthalmology Home Medications: Medications to take at Discharge Albuterol Aerosols [Ventolin Aerosols] 2.5 mg INHALATION Q6H PRN PRN 02/18/18 Albuterol Inhaler [Ventolin Hfa] 1 - 2 puff INHALATION Q4H PRN PRN 02/18/18 Aspirin [Aspirin, Baby] 81 mg PO DAILY@0800 tab.chew 02/20/18 Atorvastatin Calcium [Lipitor] 40 mg PO DAILY #30 tab 02/20/18 Folic Acid 1 mg PO DAILY@0800 #30 tab 02/20/18 Nicotine [Nicoderm Cq] 21 mg TRANSDERM. DAILY #14 patch 02/20/18 Thiamine Hydrochloride [Vitamin B1] 100 mg PO BIDCM #30 tab 02/20/18 Following Prescrptions Were Given to Patient: Atorvastatin Calcium [Lipitor] 40 mg PO DAILY #30 tab Folic Acid 1 mg PO DAILY@0800 #30 tab Nicotine [Nicoderm Cq] 21 mg TRANSDERM. DAILY #14 patch Thiamine Hydrochloride [Vitamin B1] 100 mg PO BIDCM #30 tab Primary Care Physician: Justino Cook MD [Primary Care Provider] - Please follow up with your Primary Care Physician in: 2 weeks Please Follow Up With: Paul Raymond MD - opthalmology When: 1-2 days Please Follow Up With: Edward Morocho MD When: 2-4 weeks Medical Necessity - Tobacco Use Smoking Status: Current every day smoker Meaningful Use Info Meaningful Use Diagnoses (Choose all that apply): Ischemic CVA - CVA Therapy Assessed for PT,OT and/or ST?: Yes - Ischemic Stroke Antithrombotic order at d/c?: Yes Dx of Atrial fib/flutter?: No Statins at discharge?: Yes Primary Dx Acute Ischemic CVA?: Yes IV tPA ordered during stay?: No Reason IV t-PA not ordered: Procedure not Indicated <Veronica Cheung - Last Filed: 02/20/18 14:57> Discharge Date and Diagnosis - Secondary Discharge Diagnosis Chronic Problems COPD (chronic obstructive pulmonary disease) (Chronic) Nicotine dependence (Chronic) Hospital Course and Treatment Summary of Care Provided: The patient is a 62 year old M [] Disposition: Home Minutes spent on discharge:: 45 Patient Condition:: Stable Code Visit Inpatient E&M: 42320 Disch Hosp
== END 2018-02-20 13:23 | disposition home or self-care (01) ==
LOC: ED 11:43 → PCU 11:50
PROVIDERS: Admitting Provider Internal Medicine; Emergency Provider Emergency Medicine; Visit Provider Internal Medicine
DX: H53.2 Diplopia (principal); Q21.1 Atrial septal defect; J44.9 Chronic obstructive pulmonary disease, unspecified; I08.1 Rheumatic disorders of both mitral and tricuspid valves; F17.210 Nicotine dependence, cigarettes, uncomplicated; R11.2 Nausea with vomiting, unspecified; G44.89 Other headache syndrome; R42 Dizziness and giddiness
CPT/HCPCS: 36415; 70450; 70544; 70549; 70551; 71045; 80048; 80061; 82962; 83036; 85025; 85610; 85730; 92507; 92523; 93005; 93306; 94640; 96372; 96374; 97161; 97802; 99218; 99285; A9585; A4216; G0378; J2405

== ENCOUNTER 2019-12-27 21:56 | Emergency (ER) | payer OTHER, SELFPAY ==
[2019-03-29 14:34] VITALS: BMI 20.2
[2019-12-27 21:57] VITALS: BP 155/93; PULSE 87; RESP 18; TEMP 37.1; O2SAT 96; BMI 20.1
[2019-12-27 23:03] LABS: Absolute Lymphocyte Count 2.63 X10^3/uL (0.83-4.51); Basophil# 0.04 X10^3/uL; Basophil% 0.5 % (0-1); Eosinophils% 5.1 % (0-5); Hematocrit 39.5 % (40-54); Hemoglobin 13.2 g/dL (13.0-16.5); Lymphocyte # 2.63 X10^3/ul (4.0); Lymphocyte % 33.2 % (19-41); Mean Corp Hgb Conc 33.4 g/dL (32-36); Mean Corpuscular Hgb 32.8 pg (27.0-32.0); Mean Corpuscular Volume 98.3 fL (80-94); Mean Platelet Vol. 9.5 fl (6.2-12.0); Monocyte# 0.81 X10^3/uL; Monocyte% 10.2 % (0-10); NRBC Flagged by Analyzer 0 % (0-5); Neutrophil % 50.6 % (47-70); Platelet Count 156 K/mm3 (150-450); RBC Distribution Width SD 46.1 fl (35.1-43.9); Red Blood Count 4.02 M/mm3 (4.6-6.2); White Blood Count 7.9 K/mm3 (4.4-11.0)
--- NOTE | 2019-12-27 23:10 | ED.DCSUM_ITS ---
History of Present Illness Chief Complaint: Rash Detail of Chief Complaint: Rash followed by blistering Informant: Patient Onset: Today Context: Sudden Onset Timing: Continuous Quality: Nonpruritic rash followed by blisters Location: Leg Current Severity: Mild Maximum Severity: Mild Worsened by: Nothing Relieved by: Nothing Associated Symptoms: Slight pain at best Narrative: Patient is a 64-year-old male with history hypertension who presents with rash that was first noted this morning. He now has blisters. He denies fever, chills or night sweats. He denies recent radiation or ultraviolet light therapy. He has no known history of autoimmune disorder. He denies myalgias or arthralgias. He denies joint swelling. Prior similar symptoms: No Recent Illness/Hospitalization: No - Past Medical History (1) Diplopia Status: Acute (2) COPD (chronic obstructive pulmonary disease) Status: Chronic (3) Nicotine dependence Status: Chronic Past Medical History - Allergies and Home Meds Allergies/Adverse Reactions: Allergies No Known Allergies Allergy (Verified 03/29/19 11:04) Primary Care Physician: Justino Hodgson MD [Primary Care Provider] - Prior records reviewed: Yes Surgical History: no surgical history Lives: Alone Smoking Status: Current every day smoker Alcohol: None Drugs: None - Family History Paternal Family History: Reports: Cancer - brain Maternal Family History: Reports: Unknown Review of Systems General: Denies: Chills, Fever, Malaise, Subjective, Weight loss Eyes: Denies: Visual changes - bilaterally, Blurred Vision - bilaterally ENT: Denies: Bilateral ear pain, Rhinorrhea, Sore throat Cardiovascular: Denies: Chest pain, Palpitations Respiratory: Denies: Dyspnea, Cough, Dyspnea on exertion Gastrointestinal: Denies: Abdominal pain, Nausea, Vomiting Genitourinary: Denies: Dysuria, Hematuria Musculoskeletal: Denies: Myalgias, Arthralgias, Neck pain, Back pain, Swelling, Extremity Pain Skin: Denies: Rash, Wounds Neurological: Denies: Headache, Parasthesia Endocrine: Denies: Polyuria, Polydipsia Hematologic: Denies: Easy bruising, Easy bleeding Physical Exam Vital Signs/Narrative: Vital Signs Temp Pulse Resp BP Pulse Ox 12/27/19 21:57 98.8 F 87 18 155/93 H 96 Inital Vital Signs reviewed: Yes General: Well nourished, Well developed, No Acute Distress Head: Normocephalic, Atraumatic Eyes: Perrl, EOMI ENT: Moist mucous membranes, No rhinorrhea, TM's clear, - - There are no mucosal lesions i.e. oral or conjunctivo- Neck: Supple, Nontender, No lymphadenopathy, No JVD Cardiovascular: Regular rate, Regular rhythm, No murmurs, Normal S1, Normal S2 Respiratory: No distress, CTA bilaterally, Chest nontender Abdomen: Soft, Nontender, Nondistended, Normal bowel sounds Back: Nontender, Normal Inspection. Negative for: CVA tenderness Extremities: Nontender, No edema Skin: Normal color, No rash, No Trauma. Negative for: Cyanosis, Diaphoresis, Jaundice Neurological: Alert, Oriented x3, Cranial nerves II-XII grossly intact, Normal Strength, Normal Sensation Psychological: Normal affect, Normal Mood Diagnostic/Tx/Re-eval Laboratory Results 12/27/19 12/27/19 22:50 22:50 WBC 7.9 RBC 4.02 L Hgb 13.2 Hct 39.5 L MCV 98.3 H MCH 32.8 H MCHC 33.4 RDW Std Deviation 46.1 H RDW Coeff of Jose 13.0 Plt Count 156 MPV 9.5 Immature Gran % (Auto) 0.400 Neut % (Auto) 50.6 Lymph % (Auto) 33.2 Nelson % (Auto) 10.2 H Eos % (Auto) 5.1 H Baso % (Auto) 0.5 Absolute Neuts (auto) 4.0 Absolute Lymphs (auto) 2.63 Nucleated RBC % 0 Sodium 139 Potassium 3.7 Chloride 101 Carbon Dioxide 28.0 Anion Gap 10 BUN 7 Creatinine 0.75 Estim Creat Clear Calc 83.31 Est GFR (MDRD) Af Amer 135 Est GFR (MDRD) Non-Af 112 BUN/Creatinine Ratio 9.4 L Glucose 91 Calcium 8.6 Total Bilirubin 0.50 AST 24 ALT 30 Alkaline Phosphatase 71 Total Protein 6.7 Albumin 3.4 Globulin 3.3 Albumin/Globulin Ratio 1.0 Comprehensive metabolic panel is normal. CBC is unremarkable. - Medical Decision Making She presents with initially erythematous rash and now blisters. Concern patient has pemphigoid. Other causes would include pemphigus. Doubt patient has ETN since he does not have a Nikolsky sign. Patient's presentation does not suggest herpes varicella-zoster, contact dermatitis or general herpes. Patient's laboratory studies unremarkable. Dr. Henderson who is apparently on-call for dermatology was paged. There is been no response. ED Disposition - Plan for ED Patient: Disposition: Home or Assisted Living Diagnosis: Bullous pemphigoid Referrals: Justino Hodgson MD [Primary Care Provider] - Wendy Dalton MD [NON-STAFF] - 1 Day for another exam Additional Instructions: Your diagnosis is pemphigoid. There is no information on this. It is important for you to call Dr. Dalton in the morning for urgent follow-up.
[2019-12-27 23:14] LABS: AST(SGOT) 24 U/L (15-37); Alanine Aminotransfer ALT/SGPT 30 U/L (16-61); Albumin, Serum 3.4 g/dL (3.2-5.0); Alkaline Phosphatase 71 U/L (45-117); Anion Gap 10 (5-15); BUN 7 mg/dL (7-18); BUN/Creat Ratio 9.4 RATIO (10-20); Calcium,Total 8.6 mg/dL (8.5-10.1); Chloride 101 mmol/L (98-107); Creatinine, Serum 0.75 mg/dL (0.70-1.30); EST Glomerular Filtration Rate 112 mL/min (>60); Est Glom Filt Rate - Afr Amer 135 mL/min (>60); Estimated Creatinine Clearance 83.31 ml/min; Globulin 3.3 g/dL (2.2-4.2); Glucose 91 mg/dL (74-106); Potassium 3.7 mmol/L (3.5-5.1); Protein, Total 6.7 g/dL (6.4-8.2); Sodium Level 139 mmol/L (136-145)
== END 2019-12-28 00:11 | disposition home or self-care (01) ==
LOC: ED 12-28 00:04
PROVIDERS: Emergency Provider Emergency Medicine; PCP Family Medicine
DX: L12.0 Bullous pemphigoid (principal); J44.9 Chronic obstructive pulmonary disease, unspecified; I10 Essential (primary) hypertension; F17.200 Nicotine dependence, unspecified, uncomplicated
CPT/HCPCS: 80053; 85025; 99283; A4216

== ENCOUNTER 2021-03-11 10:21 | Day surgery (SDC) | payer BC, SELFPAY ==
--- NOTE | 2021-03-11 | COLBX_PTH ---
PATIENT: WILY ARSHAD LOC: EN U#:[id number] AGE/SX: 65/M ROOM: RE03/11/[address]: Dr. Joni Sky MD : 1955 BED: DIS: 03/11/2021 SPEC #: [id number] RECD: 03/11/21 15:52 STATUS: RON REEmre #: [id number] CHING: 03/11/21 00:[address]: Joni Sky DEPT: SURGICAL PATHOLOGY RECD BY: Zac Roche ENTERED: 03/12/21 08:03 SP TYPE: COLON BX OT DR: Dr. Justino Hodgson MD Tissues: A - Descending colon B - Rectum, NOS Procedures: Surgery Specimen Level IV HEADER OPERATION: Colonoscopy (MAC) PRE-OP DIAGNOSIS: Screening TISSUE SUBMITTED: A ? Descending colon polyp, B ? Rectum polyp MICROSCOPIC DIAGNOSIS A. Descending colon polyp, biopsy: Minute fragments of tissue did not survive processing. B. Rectum polyp, biopsy: Fragments of tubular adenoma. SJ:emperatriz 03/13/2021 COMMENT Case has been reviewed in consultation with Dr. Galan who concurs with the above diagnosis. IDC:AM MICROSCOPIC DESCRIPTION Slides are reviewed. GROSS DESCRIPTION A - Received in fixative is one container labeled with the patient's name and designated descending colon polyp. The specimen consists of minute fragments of light [place] rio tissue that in aggregate measure <0.1 x <0.1 x <0.1 cm. The specimen is totally submitted in one cassette. B - Received in fixative is one container labeled with the patient's name and designated rectal polyp. The specimen consists of multiple irregular fragments of light [place] ri[place] soft tissue that in aggregate measure 0.5 x 0.3 x 0.1 cm. The specimen is totally submitted in one cassette. / AM:emperatriz 03/12/21 TC:1 CPT: 97555 x2
[2021-03-11 12:08] VITALS: BP 153/103; PULSE 73; RESP 16; TEMP 36.3; O2SAT 100; BMI 18.4
--- NOTE | 2021-03-11 12:50 | PCM.HP.BLA ---
History and Physical Date of Admission: 03/11/21 HISTORY AND PHYSICAL ? Luís Brady 1955 ? REFERRING PHYSICIAN: Dee Hayden APRN.C* ? CHIEF COMPLAINT: Consult (colonoscopy consult) ? HPI: The patient is a 65 year old male referred for endoscopy. Luís notes no history of colon complaints. ? The patient notes no history of upper GI complaints. ? Luís has not undergone prior endoscopy. ? The patient is being seen by me today at the request of Dr. Hayden for my opinion and advice regarding Special screening for malignant neoplasms, colon. ? ? PAST MEDICAL HISTORY PAST MEDICAL HISTORY Diagnosis Date ? Alcohol abuse ? ? BPH (benign prostatic hyperplasia) ? ? Cerebral artery disease ? ? COPD (chronic obstructive pulmonary disease) (HCC) ? ? Marijuana use ? ? weekly ? Noncompliance ? ? Right inguinal hernia 11/17/14 ? Tobacco use ? ? ? PAST SURGICAL HISTORY PAST SURGICAL HISTORY Procedure Laterality Date ? PAST SURGICAL HISTORY OF ? 11/17/14 ? laparoscopic R inguinal herniorrhaphy; Dr. Sky ? ? ? CURRENT MEDICATIONS Current Outpatient Medications Medication Sig ? albuterol HFA (VENTOLIN HFA) 90 mcg/actuation inhaler Inhale 2 Puffs as instructed every 4 hours as needed for wheezing/shortness of breath. ? ipratropium-albuterol (DUONEB) 0.5 mg-3 mg(2.5 mg base)/3 mL nebu IInhale by nebulizer over 5-15 minutes four (4) times a day. ? guaiFENesin (MUCINEX) 600 mg 12 hr tablet Take 2 tablets by mouth twice daily. ? aspirin, enteric coated (ASPIRIN, ENTERIC COATED) 81 mg EC tablet Take 81 mg by mouth once daily. ? COMPOUNDED PRESCRIPTION 1 Each as needed. NEBULIZER FOR HOME USE. ICD10: J44.9 ? COMPOUNDED PRESCRIPTION aerosol nebulizer Dx copd ? tamsulosin ER (FLOMAX) 0.4 mg cap Take 1 capsule by mouth daily at bedtime. (Patient not taking: Reported on 01/18/2021 ) ? Thiamine HCl (VITAMIN B-1) 250 mg tablet Take 250 mg by mouth once daily. (Patient not taking: Reported on 01/18/2021 ) ? atorvastatin (LIPITOR) 40 mg tablet Take 1 tablet by mouth daily at bedtime. For cholesterol. (Patient not taking: Reported on 01/09/2021 ) ? folic acid 1 mg tablet Take 1 tablet by mouth once daily. (Patient not taking: Reported on 01/09/2021 ) ? No current facility-administered medications for this visit. ? ? ALLERGIES: Patient has no known allergies. ? PERSONAL HISTORY: SOCIAL HISTORY Social History ? Tobacco Use ? Smoking status: Current Every Day Smoker ? ? Packs/day: 1.00 ? ? Years: 50.00 ? ? Pack years: 50.00 ? ? Types: Cigarettes ? Smokeless tobacco: Never Used Vaping Use ? Vaping Use: Never used Substance Use Topics ? Alcohol use: Yes ? ? Alcohol/week: 150.0 standard drinks ? ? Types: 60 Cans of Beer (12oz) per week ? ? Comment: 6 pack daily, 30 cans on weekend ? Drug use: Yes ? ? Types: Marijuana ? ? Comment: occasional ? FAMILY HISTORY: FAMILY HISTORY FAMILY HISTORY Problem Relation Age of Onset ? Heart Father ? ? Stroke Father ? ? Coronary Artery Disease Father 80 ? CABG x4 ? Diabetes Sister ? ? Diabetes Paternal Grandmother ? ? ? REVIEW OF SYMPTOMS: The review of systems data was entered by the nurse and reviewed by me ? Nursing Notes: Shameka Dooley RN 01/18/2021 9:18 AM Signed REVIEW OF SYSTEMS: General: The patient notes fatigue, notes weight loss, denies weight gain, denies feeling hot, and denies feelings of cold. Eyes: The patient denies glaucoma, denies eye injury/surgery, wears glasses or contacts. Ear/Nose/Throat: The patient denies allergies, denies hayfever, denies ear infections, and denies bloody noses. Cardiovascular: The patient denies chest pain, denies heart disease, denies high blood pressure,denies cardiac stent, denies prior heart attack, denies irregular heart beat, denies high cholesterol, denies poor circulation, denies heart failure, other cardiac issues, denies claudication, denies cold feet, denies peripheral arterial stent. Respiratory: The patient denies tuberculosis, denies pneumonia, notes frequent cough, denies pulmonary embolism, denies shortness of breath, and denies coughing up blood. Gastrointestinal: The patient denies difficulty swallowing, denies acid reflux, denies ulcers, denies vomiting, denies jaundice/hepatitis, denies gallbladder problems, denies black or tarry stools, denies hemorrhoids, denies bleeding from rectum, denies diverticulitis, denies constipation, denies diarrhea, denies loss of stool control, and denies hernias. Kidney/Bladder: The patient denies kidney stones, denies urine infections, and denies bloody urine. Skin: The patient denies a history of skin cancer, notes bleeding/changing moles, and denies a history of skin rash. Neurologic: The patient denies a history of epilepsy/convulsions, denies headaches, denies head/spinal injuries, and denies stroke/TIA. Psychiatric: The patient denies psychiatric medications, denies depression, and denies voices, denies substance abuse. Endocrine: The patient denies thyroid disorders, denies diabetes, and denies hormonal problems. Hematologic: The patient denies a history of bruising, denies bleeding, and denies anemia, denies blood clots. Infections: The patient denies a history of measles and mumps, denies rheumatic fever, and denies sexually transmitted diseases. Musculoskeletal: The patient denies back pain/injury, denies back problems, denies sciatica, denies knee/foot trouble, denies arthritis, or denies gout. ? ? When was patient's last Mammogram screening? N/A ? Last Colonoscopy: None ? Shameka Dooley RN ? PHYSICAL EXAMINATION: ? General: The patient is 65 year old male, well nourished, well hydrated in no acute distress. The patient is oriented to time, place, and person. ? VITALS: Blood pressure 146/80, pulse 90, temperature 36.1 ?C (97 ?F), height 170.2 cm (5' 7), weight 55.2 kg (121 lb 12.8 oz), SpO2 99 %. Body mass index is 19.08 kg/m?. ? HEENT: Normal cephalic, ataumatic, pupils are equally round, sclera are anicteric, mucous membranes are moist, oropharynx is clear. Neck has no masses, asymmetry or lymphadenopathy. Thyroid is unremarkable. ? Respiratory: Clear to auscultation and percussion. Normal respiratory excursion and pattern. ? Cardiac: Examination is regular rate and rhythm. ? Abdominal exam: Soft, nontender, with no palpable masses. No hepatosplenomegaly. No palpable hernias. ? Rectal exam: exam deferred ? Extremities: no clubbing, cyanosis or edema. No adenopathy. ? Other: ? LABORATORY VALUES: As Noted ? RADIOLOGIC STUDIES: As Noted ? Assessment IMPRESSION: Special screening for malignant neoplasms, colon ? PLAN: I plan to perform lower endoscopy. We discussed the risks and benefits of the planned endoscopy. I have informed the patient that complications can occur including failure to complete the endoscopy and perforation. The patient had the opportunity to ask questions concerning the planned endoscopy. My staff has also explained the procedure to the patient in understandable terms and has given the patient printed material concerning the procedure. The patient freely consents to surgery. ? I plan to use Miralax bowel preperation for endoscopy ? The patient has medical comorbidities for which I plan to perform the procedure under monitored anesthetic care. ? Diagnoses: (Z12.11) Special screening for malignant neoplasms, colon ? ? My findings have been communicated to Tre Hodgson MD via shared medical record. This note will be forwarded to Tre Hodgson MD. Return to Clinic: The patient is instructed to follow-up with me 1 week post operatively. ? COVID (Procedure Consent) Procedure Criteria ? Procedure Criteria: Yes Elective The surgeon/proceduralist and patient have discussed in detail the risk of exposure to and/or potential harm posed by the COVID-19 virus with having a surgery/procedure at this time versus the risk of? delaying the surgery/procedure. It is not possible to know either the risk of delaying the surgery or procedure or chance of getting an infection with perfect accuracy, but a joint decision was made between the patient and the surgeon/proceduralist ?to proceed at this time with the scheduled surgery/procedure as indicated on the consent form. ? ? Joni Sky III, MD I have re-examined the patient. There are no clinical changes since date of exam.
--- NOTE | 2021-03-11 12:55 | OP.COLON_ITS ---
Patient Name: Luís Brady Procedure Date: 03/11/2021 12:17 PM Date of : 1955 Age: 65 Procedure: Colonoscopy Indications: Screening for colorectal malignant neoplasm Providers: Joni Sky MD Medicines: See the Anesthesia note for documentation of the administered medications Patient Profile: This is a 65 year old male. Refer to note in patient chart for documentation of history and physical. Last Colonoscopy: none. The patient's first colonoscopy is today. Complications: No immediate complications. Procedure: Pre-Anesthesia Assessment: - Prior to the procedure, a History and Physical was performed, and patient medications and allergies were reviewed. The patient's tolerance of previous anesthesia was also reviewed. The risks and benefits of the procedure and the sedation options and risks were discussed with the patient. All questions were answered, and informed consent was obtained. Prior Anticoagulants: The patient has taken aspirin, last dose was 7 days prior to procedure. ASA Grade Assessment: II - A patient with mild systemic disease. After reviewing the risks and benefits, the patient was deemed in satisfactory condition to undergo the procedure. After I obtained informed consent, the scope was passed under direct vision. Throughout the procedure, the patient's blood pressure, pulse, and oxygen saturations were monitored continuously. The colonoscope was introduced through the anus and advanced to the cecum, identified by appendiceal orifice and ileocecal valve. The colonoscopy was performed without difficulty. The patient tolerated the procedure well. The quality of the bowel preparation was good. Scope In: 12:30:20 PM Scope Withdrawal Time 0 hours 9 minutes 16 seconds Scope Out: 12:48:14 PM Total Procedure Duration Time 0 hours 17 minutes 54 seconds Findings: Two sessile polyps were found in the rectum and descending colon. The polyps were 6 to 7 mm in size. These polyps were removed with a hot snare. Resection and retrieval were complete. Non-bleeding internal hemorrhoids were found during retroflexion. The hemorrhoids were mild and small. The exam was otherwise without abnormality. Impression: - Two 6 to 7 mm polyps in the rectum and in the descending colon, removed with a hot snare. Resected and retrieved. - Non-bleeding internal hemorrhoids. - The examination was otherwise normal. The polyp that was located in the descending colon I did place a small clip on. I had good hemostasis. He had a very tortuous colon and it did take quite a bit of time to get through it. He would not be a good candidate for anything less then MAC anesthesia. Recommendation: - Discharge patient to home. - Resume previous diet. - Continue present medications. - Await pathology results. - Repeat colonoscopy in 3 - 5 years for surveillance. - Return to my office in 1 week. Procedure Code(s): --- Professional --- 29827, Colonoscopy, flexible; with removal of tumor(s), polyp(s), or other lesion(s) by snare technique Diagnosis Code(s): --- Professional --- Z12.11, Encounter for screening for malignant neoplasm of colon K62.1, Rectal polyp D12.4, Benign neoplasm of descending colon K64.8, Other hemorrhoids CPT copyright 2017 [employer]. All rights reserved. The codes documented in this report are preliminary and upon automobile and property underwriter review may be revised to meet current compliance requirements. MD Joni Wood MD 03/11/2021 12:54:59 PM This report has been signed electronically. Number of Addenda: 0 Note Initiated On: 03/11/2021 12:17 PM
--- NOTE | 2021-03-11 12:55 | OP.CCLET_ITS ---
03/11/2021 Justino Hodgson Re : Colonoscopy procedure for Luís Cr Rema This procedure was performed on Thursday, March 11, 2021. My impressions and recommendations are as follows: Impressions : - Two 6 to 7 mm polyps in the rectum and in the descending colon, removed with a hot snare. Resected and retrieved. - Non-bleeding internal hemorrhoids. - The examination was otherwise normal. The polyp that was located in the descending colon I did place a small clip on. I had good hemostasis. He had a very tortuous colon and it did take quite a bit of time to get through it. He would not be a good candidate for anything less then MAC anesthesia. Recommendations : - Discharge patient to home. - Resume previous diet. - Continue present medications. - Await pathology results. - Repeat colonoscopy in 3 - 5 years for surveillance. - Return to my office in 1 week. My findings are described in the full procedure note, which is enclosed. If I can be of further assistance, please feel free to contact me at Doctor phone number(s): , Fax: [phone], Work: . Sincerely, MD Joni Wood MD 03/11/2021 12:54:59 PM This report has been signed electronically.
[2021-03-11 12:56] VITALS: BP 143/93; BP 153/103; PULSE 79; RESP 14; TEMP 36; O2SAT 98
[2021-03-11 13:00] VITALS: BP 142/77; BP 153/103; PULSE 74; RESP 14; O2SAT 100
[2021-03-11 13:05] VITALS: BP 145/71; BP 153/103; PULSE 63; RESP 16; O2SAT 99
[2021-03-11 13:10] VITALS: BP 153/103; BP 162/76; PULSE 62; RESP 16; TEMP 35.9; O2SAT 100
[2021-03-11 13:30] VITALS: BP 153/103
== END 2021-03-11 13:43 | disposition home or self-care (01) ==
LOC: EN 10:22 → AC 12:00
PROVIDERS: PCP Family Medicine; Referring Provider Family Medicine; Visit Provider Surgery
PROC: 0DJD8ZZ Inspection of Lower Intestinal Tract, Via Natural or Artificial Opening Endoscopic (ICD-10-PCS; CPT 45378; principal; 2021-03-11 11:55)
DX: Z12.11 Encounter for screening for malignant neoplasm of colon (principal); K62.1 Rectal polyp; D12.4 Benign neoplasm of descending colon; K64.8 Other hemorrhoids; J44.9 Chronic obstructive pulmonary disease, unspecified; N40.0 Benign prostatic hyperplasia without lower urinary tract symptoms; F17.210 Nicotine dependence, cigarettes, uncomplicated; Z79.82 Long term (current) use of aspirin; Z82.49 Family history of ischemic heart disease and other diseases of the circulatory system; Z83.3 Family history of diabetes mellitus
CPT/HCPCS: 45385; 88305; J2405

== ENCOUNTER 2025-02-09 07:11 | Day surgery (SDC) | payer MEDICARE, SELFPAY ==
[2025-02-09] VITALS (7 sets, daily range): BP systolic 124–148; BP diastolic 73–90; PULSE 69–90; RESP 16; TEMP 36.1–37.2; O2SAT 100; BMI 19.9
[2025-02-09] MEDS: Lactated Ringers 1,000 ML 15 ML IV (07:53)
--- NOTE | 2025-02-09 08:30 | COLBX_PTH ---
PATIENT: WILY ARSHAD LOC: EN U#:[id number] AGE/SX: 69/M ROOM: RE02/09/[address]: Dr. Phil Sands DO : 1955 BED: DIS: 02/09/2025 SPEC #: [id number] RECD: 02/09/25 11:00 STATUS: RON BHUMI #: [id number] CHING: 02/09/25 08:[address]: Phil Sands DEPT: SURGICAL PATHOLOGY RECD BY: Lizzie Carvalho ENTERED: 02/09/25 11:37 SP TYPE: COLON BX OTHR DR: Dr. Justino Hodgson MD Tissues: A - Cecum, NOS B - Ascending colon C - COLON BIOPSY D - COLON BIOPSY E - Sigmoid colon biopsy Procedures: Surgery Specimen Level IV HEADER OPERATION: Colonoscopy, polypectomy, hemostasis PRE-OP DIAGNOSIS: Colonic polyp TISSUE SUBMITTED: Cecum polyp, ascending colon polyp, hepatic flexure post polypectomy site, splenic flexure polyp, sigmoid colon polyp. MICROSCOPIC DIAGNOSIS A. Colon, cecum, polyp, polypectomy: - Tubulovillous adenoma, multiple fragments. B. Colon, ascending, polyp, polypectomy: - Tubulovillous adenoma, multiple fragments. C. Colon, hepatic flexure, post polypectomy site, biopsy: - Hyperplastic polyp with focal fibrinopurulent debris consistent with ulceration. D. Colon, splenic flexure, polyp, polypectomy: - Tubular adenoma. E. Colon, sigmoid, polyp, polypectomy: - Tubular adenoma. MICROSCOPIC DESCRIPTION Slides are reviewed. GROSS DESCRIPTION Received in 5 formalin containers labeled with the patient's name and date of . Designated as: A. Cecum polyp is a 2.6 x 2.5 x 0.3 cm aggregate of del rio tissue fragments. Entirely submitted in 2 cassettes. B. Ascending colon polyp is a 2.7 x 1.5 x 0.3 cm aggregate of del rio tissue fragments. Entirely submitted in 1 cassette. C. Hepatic flexure post polypectomy site BX are 4 del rio tissue fragments, 0.1 cm to 0.4 cm. Entirely submitted in 1 cassette. D. Splenic flexure polyp is a 2.2 x 1.0 x 0.3 cm aggregate of del rio tissue fragments. Entirely submitted in 1 cassette. E. Sigmoid colon polyp are 2 del rio polypoid tissue fragments, 0.3 x 0.3 x 0.3 cm and 0.9 x 0.7 x 0.5 cm (inked black, sectioned). Entirely submitted in 1 cassette. MT 02/09/2025 CPT: 97902u9
--- NOTE | 2025-02-09 08:41 | PCM.PRE.AN2 ---
ASA Classification* ASA Classification ASA Classification: 3 Assessment & Plan Anesthesia* Anesthesia Assessment Anesthesia Assessment: Discussed sedation and/or anesthesia options, risks, benefits, and alternatives with patient/parents/legal guardian/POA. Questions invited. The patient/parents/legal guardian/POA seems to understand and agrees to proceed with anesthesia plan. Reviewed the physical assessment, medical history, allergy history and patient home medications list prior to surgery/procedure/anesthetic and documented any changes. Performed airway and anesthesia risk assessments. Anesthesia Type Anesthesia Type: MAC History Source History Obtained from:: Patient and Chart Anesthesia Focused Assessment* Temperature: 99.0 F Pulse Rate: 90 Blood Pressure: 148/81 Respiratory Rate: 16 Pulse Ox: 100 Oxygen Delivery Method: Room Air Airway Assessment Mouth opens: >3 cm Mallampati Score: II Teeth Condition: Missing Neck Range of motion (ROM): Full ROM Labs Anesthesia Preop lab: CBC WBC 7.9 K/mm3 (4.4-11.0) 12/27/19 22:50 12/27/19 RBC 4.02 M/mm3 (4.6-6.2) L 12/27/19 22:50 12/27/19 Hgb 13.2 g/dL (13.0-16.5) 12/27/19 22:50 12/27/19 Hct 39.5 % (40-54) L 12/27/19 22:50 12/27/19 Plt Count 156 K/mm3 (150-450) 12/27/19 22:50 12/27/19 CHEMISTRY Potassium 3.7 mmol/L (3.5-5.1) 12/27/19 22:50 12/27/19 Sodium 139 mmol/L (136-145) 12/27/19 22:50 12/27/19 BUN 7 mg/dL (7-18) 12/27/19 22:50 12/27/19 Creatinine 0.75 mg/dL (0.70-1.30) 12/27/19 22:50 12/27/19 Glucose 91 mg/dL (74-106) 12/27/19 22:50 12/27/19 POC Glucose 93 mg/dL (70-110) 02/18/18 10:30 02/18/18 COAG PT 12.8 SECONDS (11.7-14.9) 02/18/18 10:00 02/18/18 Pre-Assessment Diagnosis/Proposed Procedure Planned Operative Procedure(s): COLONOSCOPY Anesthesia History Anesthesia History - office professional: Anesthesia History - office professional Hx Hospitalization No 02/07/25 09:53 Any Problems With Anesthesia No 02/07/25 09:53 Cholinesterase deficiency No 02/07/25 09:53 You/Your Family Experience No 02/07/25 09:53 fever (hyperthermia) with Relationship Recent Exposure to Contagious No 02/09/25 07:50 Disease Does patient have nerve No 02/07/25 09:53 stimulator Patient instructed to have device shut off --Does patient have Pacemaker No 02/09/25 07:50 or ICD? When Was Last Pacemaker Check QUESTION #4 FULL TEXT: You/Your Family Experience fever (hyperthermia) with Anesthesia Last Oral Intake Last Oral intake: Last Oral Intake NPO since 06:15 02/09/25 07:50 Meds taken in AM with sips of Yes 02/09/25 07:50 water? Meds patient instructed to take am of surgery PONV PONV - office professional: PONV - office professional Female No 02/07/25 09:53 HX of Motion Sickness No 02/07/25 09:53 HX of N/V After Surgery No 02/07/25 09:53 Non-Smoker No 02/07/25 09:53 Duration of Surgery greater No 02/07/25 09:53 than 60 minutes Number of Risk Factors PONV Score Height & Weight Height & Weight: Anesthesia: Height & Weight Height 5 ft 7 in 02/09/25 07:50 Weight: 57.7 kg 02/09/25 07:50 Body Mass Index (BMI) 19.9 02/09/25 07:50 Respiratory Assessment Respiratory Assessment - office professional: Respiratory Tract Infection Hx - office professional Hx Respiratory Tract Infection No 02/07/25 09:53 STOP Sleep Apnea STOP Sleep Apnea - office professional: STOP Sleep Apnea - office professional Hx Hypertension Yes 02/07/25 09:53 Hx Sleep Apnea No 02/07/25 09:53 CPAP No 03/11/21 12:56 BIPAP No 11/10/14 10:20 Do you snore loudly (louder No 02/07/25 09:53 than talking or can be heard Do you often feel tired/ No 02/07/25 09:53 fatigued/ sleepy during daytime? Has anyone observed you stop No 02/07/25 09:53 breathing during sleep? STOP Results Negative 02/07/25 09:53 QUESTION #5 FULL TEXT : Do you snore loudly (louder than talking or can be heard through closed doors)? Tobacco Use History Tobacco Use History - office professional: Tobacco Use History - office professional Tobacco Use Smoking Status Current every day smoker 02/07/25 09:53 Hx Tobacco Use Yes 02/07/25 09:53 Years Smoking Packs Smoked per Day Smoking Cessation Date was within the last 15 years Hx Smoking Cessation Date Hx Smoking Cessation Counseling Hematologic Medial History Hematologic Hx - office professional: Hematologic Medical Hx - camp assistant Hx of Blood Transfusion No 02/07/25 09:53 Hx of Transfusion in last 3 No 02/07/25 09:53 Months Date of Last Transfusion (if within last 3 months) Ever experience any problems No 02/07/25 09:53 with transfusion(s)? Specify any problems Hx of Preganancy in last 3 N/A 02/07/25 09:53 Months Nurse Filling Out Transfusion [facility] 02/07/25 09:53 & Questions: Date: 02/07/25 02/07/25 09:53 Time: 10:00 02/07/25 09:53 Patient unable to answer at this time (ie. confused, unrespo /Reproduction History /Reproductive History - office professional: /Reproductive Hx- office professional Hx Now No 02/07/25 09:53 Gestational Age (in weeks): EDC: Hx Hx Para Hx Section SAB No 02/07/25 09:53 Active Medications Active Medications: Current Medications Generic Name Dose Route Start Last Admin Trade Name Freq PRN Reason Stop Dose Admin Lactated Ringer's 1,000 mls @ 15 mls/hr 02/09/25 07:30 02/09/25 07:53 IV 15 mls/hr .Q48H JOSÉ MIGUEL Administration PFSH Medical History Open wound High cholesterol Injury of head and neck Shortness of breath on exertion Wears glasses Alcohol use Smoker Emphysema, unspecified History of echocardiogram Asthma Anemia Shortness of breath Weight loss, unintentional Home Medications ?Medication ?Instructions ?Recorded ?Last Taken ?Type albuterol sulfate 2.5 mg/3 mL 2.5 mg inhalation Q6H PRN PRN Sob 02/18/18 02/09/25 06:30 History (0.083 %) solution for nebulization &/Or Wheezing albuterol sulfate 90 mcg/actuation 1 - 2 puff inhalation Q4H PRN PRN 02/18/18 02/18/18 History aerosol inhaler Sob &/Or Wheezing atorvastatin 20 mg tablet 20 mg PO QDAY 12/07/24 Unknown History lisinopril 20 mg tablet 20 mg PO QDAY 12/07/24 Unknown History fluticasone 250 mcg-salmeterol 50 1 ea inhalation BID 02/07/25 Unknown History mcg/dose blistr powdr for inhalation umeclidinium 62.5 mcg/actuation 1 inh inhalation DAILY 02/07/25 02/09/25 06:30 History blister powder for inhalation (Incruse Ellipta) Allergy/AdvReac Type Severity Reaction Status Date / Time No Known Allergies Allergy Verified 02/09/25 07:48 Surgical History History of hernia repair Social History Smoking Status: Current every day smoker tobacco type: cigarettes Tobacco: How many years used: 40 alcohol intake: current alcohol intake frequency: 0-2 drinks per day Alcohol type: beer Review of Systems (Anesthesia) ROS Narrative System reviewed and no additional complaints, except as documented.
--- NOTE | 2025-02-09 09:11 | HP.PCM_ITS ---
HPI - General General Date of Admission: 02/09/25 Date of Service: 02/09/25 Chief Complaint: Personal history of polyps HPI Narrative WILY ARSHAD, is a 69 M who presents with the Chief Complaint: large colon polyps Screening colonoscopy 8.; - Two 6 to 7 mm polyps in the rectum and in the descending colon, removed with a hot snare. Resected and retrieved. - Non-bleeding internal hemorrhoids. - The examination was otherwise normal. The polyp that was located in the descending colon I did place a small clip on. I had good hemostasis. He had a very tortuous colon and it did take quite a bit of time to get through it. He would not be a good candidate for anything less then MAC anesthesia. Colonoscopy 11.23.24; non bleeding internal hemorrhoids, polyps in the cecum, hepatic flexure, transverse colon and descending colon. Path consistent with TA. Large polyps unable to be remove at the proximal cecal rim, pre and post hepatic flexure and sigmoid colon. OV 5.14.25 Pt here today for establishment with [facility] for colonposcy. Pt underwent recent colonoscopy with [facility] general surgery showed many polyps with a few too large to remove. He denies abd pain, constipation, diarrhea, or blood in her stool. [facility] Medical History Open wound High cholesterol Injury of head and neck Shortness of breath on exertion Wears glasses Alcohol use Smoker Emphysema, unspecified History of echocardiogram Asthma Anemia Shortness of breath Weight loss, unintentional Home Medications ?Medication ?Instructions ?Recorded ?Last Taken ?Type albuterol sulfate 2.5 mg/3 mL 2.5 mg inhalation Q6H NJ N PRN Sob 02/18/18 02/09/25 06:30 History (0.083 %) solution for nebulization &/Or Wheezing albuterol sulfate 90 mcg/actuation 1 - 2 puff inhalati on Q4H PRN PRN 02/18/18 02/18/18 History aerosol inhaler Sob &/Or Wheezing atorvastatin 20 mg tablet 20 mg PO QDAY 12/07/24 Unkno wn History lisinopril 20 mg tablet 20 mg PO QDAY 12/07/24 Unkno wn History fluticasone 250 mcg-salmeterol 50 1 ea inhalation BID 02/07/25 Unknown History mcg/dose blistr powdr for inhalation umeclidinium 62.5 mcg/actuation 1 inh inhalation DAILY 02/07/25 02/09/25 06:30 History blister powder for inhalation (Incruse Ellipta) Allergy/AdvReac Type Severity Reaction Status Date / Time No Known Allergies Allergy Verified 02/09/25 07:48 Surgical History History of hernia repair Social History Smoking Status: Current every day smoker tobacco type: cigarettes Tobacco: How many years used: 40 alcohol intake: current alcohol intake frequency: 0-2 drinks per day Alcohol type: beer ROS Constitutional Constitutional: Denies fatigue, fever(s), poor appetite, weight gain or weight loss Gastrointestinal Gastrointestinal: Denies belching, bloating, change in bowel habits, change in stool character, chewing difficulty, coffee ground emesis, constipation, cramping, diarrhea, dyspepsia, dysphagia, early satiety, excessive flatus, fecal incontinence, heartburn, hematemesis, hematochezia, hemorrhoids, loose stools, melena, nausea, odynophagia, rectal bleeding, tenesmus, vomiting or weight changes Vital Signs Vital Signs Vital Signs: 02/09/25 07:50 02/09/25 07:50 02/09/25 08:42 Temperature 99.0 F 99.0 F Temperature Source Temporal Pulse Rate 90 90 Respiratory Rate 16 16 Respiratory Pattern Normal Blood Pressure 148/81 H 148/81 H Blood Pressure Mean 103 Blood Pressure Source Monitor Blood Pressure Position Sitting Blood Pressure Location Right Arm Pulse Ox 100 100 Oxygen Delivery Method Room Air Room Air Weight Weight: 127 lb 3.307 oz Body Mass Index (BMI) 19.9 Physical Exam Const alert, oriented x3, no apparent distress and healthy appearing General Appearance: cooperative GI normal to inspection, nondistended, normoactive bowel sounds, soft to palpation, non-tender and non-distended Percussion: normal to percussion Rectal Exam: deferred Assessment & Plan Assessment/Plan (1) Colonic polyp: PLAN: Assessment and Plan Assessment and Plan (1) Colonic polyp: Status: Acute Plan: This is a 69 yo male pt here today after colonoscopy in October 2023 with many polyps (pathology revealing tubular adenomas). Pt had polyps that were too large for removal. Report does not mention the size of the unresected polyps but locations include the cecal rim, pre and post hepatic flexure and the sigmoid colon. He was referred to [facility] but preferred to stay local. He will be scheduled for colonoscopy today. -Colonoscopy with polyp resection -f/u after procedure
--- NOTE | 2025-02-09 10:14 | PCM.POST.ANE ---
Anesthesia: Postop Eval I Current Vital Signs Temperature: 97 F Pulse Rate: 74 Blood Pressure: 124/73 Respiratory Rate: 16 Pulse Ox: 100 Oxygen Delivery Method: Room Air Assessment Airway patent: Yes Spontaneous unlabored respirations: Yes Mental status: Awake and Calm nausea: No Vomiting: No Anesthesia Complication: No Fluid Hydration Crystalloid volume administer (ml): 500 Total IV fluid infused: 500 Progress Note Anesthesia document: Postop Eval 1 completed: Yes
--- NOTE | 2025-02-09 10:16 | OP.COLON_ITS ---
Patient Name: Luís Brady Procedure Date: 02/09/2025 9:13 AM Date of : 1955 Age: 69 Procedure: Colonoscopy Indications: High risk colon cancer surveillance: Personal history of colonic polyps Providers: Phil Sands DO Referring MD: Justino Hodgson Medicines: Monitored Anesthesia Care Patient Profile: This is a 69 year old male. Refer to note in patient chart for documentation of history and physical. Last Colonoscopy: several years ago. Complications: No immediate complications. Procedure: Pre-Anesthesia Assessment: - Prior to the procedure, a History and Physical was performed, and patient medications and allergies were reviewed. The patient is competent. The risks and benefits of the procedure and the sedation options and risks were discussed with the patient. All questions were answered and informed consent was obtained. Patient identification and proposed procedure were verified by the physician in the pre-procedure area. Mental Status Examination: alert and oriented. Airway Examination: normal oropharyngeal airway and neck mobility. Respiratory Examination: clear to auscultation. CV Examination: normal. Prophylactic Antibiotics: The patient does not require prophylactic antibiotics. Prior Anticoagulants: The patient has taken no anticoagulant or antiplatelet agents. ASA Grade Assessment: II - A patient with mild systemic disease. After reviewing the risks and benefits, the patient was deemed in satisfactory condition to undergo the procedure. The anesthesia plan was to use monitored anesthesia care (MAC). Immediately prior to administration of medications, the patient was re-assessed for adequacy to receive sedatives. The heart rate, respiratory rate, oxygen saturations, blood pressure, adequacy of pulmonary ventilation, and response to care were monitored throughout the procedure. The physical status of the patient was re-assessed after the procedure. After I obtained informed consent, the scope was passed under direct vision. Throughout the procedure, the patient's blood pressure, pulse, and oxygen saturations were monitored continuously. The Colonoscope was introduced through the anus and advanced to the cecum, identified by appendiceal orifice and ileocecal valve. The colonoscopy was performed without difficulty. The patient tolerated the procedure well. The quality of the bowel preparation was adequate. The ileocecal valve, appendiceal orifice, and rectum were photographed. Scope In: 9:24:02 AM Scope Withdrawal Time 0 hours 32 minutes 46 seconds Scope Out: 10:00:54 AM Total Procedure Duration Time 0 hours 36 minutes 52 seconds Findings: The perianal and digital rectal examinations were normal. Ten sessile polyps were found in the sigmoid colon, splenic flexure, hepatic flexure, ascending colon and cecum. The polyps were 1 to 2 mm in size. These polyps were removed with a piecemeal technique using a hot snare. Resection and retrieval were complete. Verification of patient identification for the specimen was done by the nurse. Estimated blood loss was minimal. To prevent bleeding post-intervention, two hemostatic clips were successfully placed. 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 There was no bleeding at the end of the procedure. Eight sessile polyps were found in the splenic flexure, hepatic flexure and ascending colon. The polyps were 4 mm in size. Coagulation for destruction of remaining portion of lesion using monopolar probe was successful. Estimated blood loss was minimal. Localized moderate mucosal changes characterized by congestion (edema), erosions and erythema were found at the hepatic flexure. Biopsies were taken with a cold forceps for histology. Verification of patient identification for the specimen was done. Estimated blood loss was minimal. Impression: - Ten 1 to 2 mm polyps in the sigmoid colon, at the splenic flexure, at the hepatic flexure, in the ascending colon and in the cecum, removed piecemeal using a hot snare. Resected and retrieved. - Eight 4 mm polyps at the splenic flexure, at the hepatic flexure and in the ascending colon. Treated with a monopolar probe. - Localized moderate mucosal changes were found at the hepatic flexure secondary to ischemic colitis. Biopsied. Recommendation: - Discharge patient to home. - Resume previous diet. - Continue present medications. - Await pathology results. - Repeat colonoscopy in 1 year for surveillance. Procedure Code(s): --- Professional --- 42344, Colonoscopy, flexible; with ablation of tumor(s), polyp(s), or other lesion(s) (includes pre- and post-dilation and guide wire passage, when performed) 33151, 59, Colonoscopy, flexible; with removal of tumor(s), polyp(s), or other lesion(s) by snare technique 72497, 59, Colonoscopy, flexible; with biopsy, single or multiple CPT copyright 2021 [employer]. All rights reserved. The codes documented in this report are preliminary and upon clerical investigator review may be revised to meet current compliance requirements. Phil Sands DO 02/09/2025 10:16:08 AM This report has been signed electronically. Number of Addenda: 0 Note Initiated On: 02/09/2025 9:13 AM
--- NOTE | 2025-02-09 10:17 | OP.CCLET_ITS ---
02/09/2025 Justino Hodgson Re : Colonoscopy procedure for Luís Menjivarantonio This procedure was performed on January. My impressions and recommendations are as follows: Impressions : - Ten 1 to 2 mm polyps in the sigmoid colon, at the splenic flexure, at the hepatic flexure, in the ascending colon and in the cecum, removed piecemeal using a hot snare. Resected and retrieved. - Eight 4 mm polyps at the splenic flexure, at the hepatic flexure and in the ascending colon. Treated with a monopolar probe. - Localized moderate mucosal changes were found at the hepatic flexure secondary to ischemic colitis. Biopsied. Recommendations : - Discharge patient to home. - Resume previous diet. - Continue present medications. - Await pathology results. - Repeat colonoscopy in 1 year for surveillance. My findings are described in the full procedure note, which is enclosed. If I can be of further assistance, please feel free to contact me at . Sincerely, Phil Sands, 02/09/2025 10:16:08 AM This report has been signed electronically.
--- NOTE | 2025-02-09 10:44 | PCM.POSTANE2 ---
Anesthesia Postop Eval I Sum Postop Eval Completion status Anesthesia document: Postop Eval 1 completed: Yes Anesthesia Postop Eval I Summary Anesthesia Postop Eval I Summary: Anesthesia Postop Eval I: Assessment Summary Airway patent Yes 02/09/25 10:15 [email or web address] Spontaneous unlabored Yes 02/09/25 10:15 [email or web address] respirations Mental status Awake,Calm 02/09/25 10:15 [email or web address] nausea No 02/09/25 10:15 [email or web address] Vomiting No 02/09/25 10:15 [email or web address] Anesthesia Postop Eval I: Fluid Summary Crystalloid volume administer 500 02/09/25 10:15 [email or web address] (ml) Colloids volume administered ( ml) Blood Product volume administered (ml) Total IV fluid infused 500 02/09/25 10:15 [email or web address] Anesthesia Postop Eval I: Summary Notes Anesthesia Complication No 02/09/25 10:15 [email or web address] Anesthesia Complication Comment: Post-operative progress note Anesthesia: Postop Eval II Evaluation Mental status: Awake and Calm Pain Level: 1 nausea: No Vomiting: No Complications Anesthesia Complication: No
== END 2025-02-09 11:02 | disposition home or self-care (01) ==
LOC: EN 07:11 → AC 07:13
PROVIDERS: PCP Family Medicine; Referring Provider Family Medicine; Visit Provider Internal Medicine Gastroenterology
PROC: 0DJD8ZZ Inspection of Lower Intestinal Tract, Via Natural or Artificial Opening Endoscopic (ICD-10-PCS; CPT 45378; principal; 2025-02-09 08:25)
DX: Z12.11 Encounter for screening for malignant neoplasm of colon (principal); K55.9 Vascular disorder of intestine, unspecified; Z86.0100 Personal history of colon polyps, unspecified; E78.00 Pure hypercholesterolemia, unspecified; D12.0 Benign neoplasm of cecum; D12.2 Benign neoplasm of ascending colon; D12.3 Benign neoplasm of transverse colon; D12.5 Benign neoplasm of sigmoid colon
CPT/HCPCS: 45380; 45385; 45388; 88305; J2405

== ENCOUNTER 2025-02-11 13:20 | Emergency (ER) | payer MEDICARE, SELFPAY ==
[2025-02-11 13:21] VITALS: BP 138/92; PULSE 96; RESP 18; TEMP 36.6; O2SAT 98; BMI 19.6
--- NOTE | 2025-02-11 13:49 | CT_ITS ---
PROCEDURE: ABDOMEN/PELVIS W IV CONT ONLY 02/11/2025 REASON FOR EXAM: PAIN, S/P POLYPECTOMIES TECHNIQUE: ABDOMEN/PELVIS W IV CONT ONLY Coronal and Sagittal reconstruction series were provided. CONTRAST: Isovue 370 VOLUME: 100 mL One or more dose reduction techniques were used (e.g., Automated exposure control, adjustment of the mA and/or kV according to patient size, use of iterative reconstruction technique. RADIATION DOSE SUMMARY: DLP: 300 mGycm COMPARISON: None. FINDINGS: Lung bases: Emphysema with bibasilar atelectasis. Liver: The liver is normal in size without suspicious hepatic mass. The major portal veins are patent. No biliary ductal dilation. Gallbladder: No radiopaque stones within the gallbladder. Spleen: Normal in size. Pancreas: Mildly atrophic. Adrenals: Tiny right adrenal nodule, likely an adenoma. Kidneys: No hydronephrosis or nephrolithiasis. Bladder: The urinary bladder is minimally distended. Reproductive Organs: Dystrophic calcifications within the prostate gland. Bowel: The bowel loops are nondilated. Mild multifocal wall thickening of the ascending and transverse colon. Surgical clips seen within the terminal ileum. No ascites or free air. Normal appendix. Lymph nodes: No suspicious lymphadenopathy. Vasculature: Severe mixed plaque of the aortoiliac vessels. Bones/soft tissues: Mild thoracolumbar spondylosis. Numerous surgical anchors throughout the ventral abdominal wall, compatible with prior hernia repair. CT/Abdomen/Pelvis W IV Cont ONLY IMPRESSION: 1. No acute abdominopelvic finding. 2. Mild wall thickening of the ascending and transverse colon, which may be sec ondary to incomplete distention or focal colitis. 3. Emphysema. Reading Location: [id number]
--- NOTE | 2025-02-11 13:53 | ED.VIS.GI ---
HPI HPI - GI History of Present Illness Chief Complaint: Abd Pain Informant: patient and family Narrative Narrative: Referred here by GI for evaluation. 2 days post colonoscopy with multiple polypectomies. Brother was on the phone reporting nearly 20 was removed. Patient had bowel movement yesterday with laxative denies any bloody stools. Appendectomy in the past. Pain in the right lower quadrant. No fever or chills. They spoke with on-call provider today was referred to the ED. No nausea vomiting no fevers. [facility] Medical History Open wound High cholesterol Injury of head and neck Shortness of breath on exertion Wears glasses Alcohol use Smoker Emphysema, unspecified History of echocardiogram Asthma Anemia Shortness of breath Weight loss, unintentional Home Medications ?Medication ?Instructions ?Recorded ?Last Taken ?Type albuterol sulfate 2.5 mg/3 mL 2.5 mg inhalation Q6H PRN PRN Sob 02/18/18 02/09/25 06:30 History (0.083 %) solution for nebulization &/Or Wheezing albuterol sulfate 90 mcg/actuation 1 - 2 puff inhalation Q4H PRN PRN 02/18/18 02/18/18 History aerosol inhaler Sob &/Or Wheezing atorvastatin 20 mg tablet 20 mg PO QDAY 12/07/24 Unknown History lisinopril 20 mg tablet 20 mg PO QDAY 12/07/24 Unknown History fluticasone 250 mcg-salmeterol 50 1 ea inhalation BID 02/07/25 Unknown History mcg/dose blistr powdr for inhalation umeclidinium 62.5 mcg/actuation 1 inh inhalation DAILY 02/07/25 02/09/25 06:30 History blister powder for inhalation (Incruse Ellipta) ciprofloxacin HCl 500 mg tablet 500 mg PO BID #14 TABLETS 02/11/25 Unknown Rx docusate sodium 100 mg capsule 100 mg PO BID #60 caps 02/11/25 Unknown Rx (Colace) metronidazole 500 mg tablet 500 mg PO TID #20 tabs 02/11/25 Unknown Rx oxycodone-acetaminophen 5 mg-325 1 tab PO Q6H PRN PRN Pain 3 days 02/11/25 Unknown Rx mg tablet #12 TABLETS Allergy/AdvReac Type Severity Reaction Status Date / Time No Known Allergies Allergy Verified 02/11/25 13:23 Surgical History History of hernia repair Social History Smoking Status: Current every day smoker tobacco type: cigarettes Tobacco: How many years used: 40 alcohol intake: current alcohol intake frequency: 0-2 drinks per day Alcohol type: beer ROS ROS ED Constitutional Constitutional ED: Denies chills, fever(s) or sweats ENT ENT ED: Denies sore throat Cardiovascular Cardiovascular: Denies chest pain, leg edema, palpitations or racing heartbeat Respiratory/Chest Respiratory/Chest: Denies cough, dyspnea or dyspnea on exertion Gastrointestinal Gastrointestinal: Reports abdominal pain; Denies diarrhea, nausea or vomiting Genitourinary Genitourinary ED: Denies dysuria, hematuria or urinary frequency Musculoskeletal Musculoskeletal: Denies back pain, extremity pain or neck pain Integumentary Denies rash or wounds Neurologic Neurologic: Denies headache(s), paresthesias or weakness EXAM Physical Exam Const Vital Signs: 02/11/25 13:21 02/11/25 15:21 02/11/25 17:00 Temperature 98 F Temperature Source Oral Pulse Rate 96 65 82 Respiratory Rate 18 16 16 Blood Pressure 138/92 H 144/77 H 164/84 H Blood Pressure Mean 107 99 110 Pulse Ox 98 98 99 Oxygen Delivery Method Room Air Room Air Room Air 02/11/25 18:22 Temperature 98 F Temperature Source Pulse Rate 72 Respiratory Rate 16 Blood Pressure 165/88 H Blood Pressure Mean 113 Pulse Ox 99 Oxygen Delivery Method Positive well nourished and well developed General Appearance ED: well developed and NAD HEENT Reports moist mucous membranes normocephalic and atraumatic Eyes General Eye ED: Yes normal appearance of both eyes Neck full ROM Chest Wall Chest: Negative for tenderness Resp normal respiratory effort and normal air movement Effort and Inspection: symmetric chest movement; Negative for respiratory distress Cardio regular rate, regular rhythm and no murmurs Peripheral Pulses: pulses 2+ throughout GI normal to inspection, nondistended, normoactive bowel sounds GI Narrative: Tenderness right lower quadrant no guarding or rebound. No distention. Palpation: Negative for guarding or rebound tenderness present Extremity normal to inspection General Extremety ED: Negative for edema or tenderness General Extremity: Negative for edema Neuro oriented x3 and no sensory deficits noted Sensorium / Orientation: awake and alert Skin no rashes or lesions noted and no wounds MDM MDM MDM Narrative Medical decision making narrative: Interventions / MDM: Differential diagnosis:postop abdominal pain, colitis Diagnosis considered but do not suspect: Pneumoperitoneum however CT negative. My EKG interpretation: N/A Imaging independently reviewed and interpreted by myself: CT abdomen pelvis IV contrast: No perforations, thickening ascending and transverse colon incomplete distention versus focal colitis per radiology. External documents reviewed: Colonoscopy 2 days ago total of 18 polyps removed. Test considered but not ordered:N/A ED course: Vital stable nontoxic bowel movement yesterday no bloody stools. Increasing pain right lower quadrant no peritonitis findings. Recheck labs obtain CT scan to rule out any complications. 1525: White count normal at 9.3 hemoglobin [address] Creatinine 0.[address]. CT scan thickening a; was transverse colon. There is no perforations. I backline discussion with GI DrMarcelle Sands, who knows him well. Reported there were ischemic colitis concerns on his colonoscopy. Biopsies were pending. He recommended 2 L of lactic ringer bolus. Started him on Cipro and Flagyl for 7 days pain control as needed. Patient declines any pain medicines. Fluids and antibiotics are ordered. 1655: Patient changes mind requesting pain medicines. Oral oxycodone ordered. 1730: Fluids and antibiotic still running at this time. Pain controlled. I did update patient and brother as he requested. Plan for discharge outpatient follow-up once fluids are all done. Patient given prescription for stool softeners as he states difficulty with bowel movements. Re-evaluation: stable Disposition discussed with patient/family/significant other: Patient and family Case discussed with consulting clinician: Gastroenterology This note was generated with PowerPot dictation software. It may contain incorrect words, spelling, and punctuation that were not noted in checking the note before signing. Lab Data Attestation: I reviewed the patient's lab results. Labs: Laboratory Results - last 24 hr 02/11/25 13:56 WBC 9.3 RBC 3.96 L Hgb 13.2 Hct 38.1 L MCV 96.2 H MCH 33.3 H MCHC 34.6 RDW Std Deviation 41.9 RDW Coeff of Jose 11.9 Plt Count 165 MPV 9.6 Immature Gran % (Auto) 0.500 Neut % (Auto) 71.4 H Lymph % (Auto) 15.0 L Darke % (Auto) 11.1 H Eos % (Auto) 1.7 Baso % (Auto) 0.3 Absolute Neuts (auto) 6.7 Absolute Lymphs (auto) 1.40 Nucleated RBC % 0 Sodium 136 Potassium 4.0 Chloride 103 Carbon Dioxide 21.7 Anion Gap 12 BUN 8 Creatinine 0.79 Estim Creat Clear Calc 71.12 Est GFR (MDRD) Non-Af 97 BUN/Creatinine Ratio 9.6 L Glucose 81 Calcium 9.0 Radiography Diagnostic Testing: Clinical Impression(s) from Imaging Studies Abdomen/Pelvis CT 02/11/25 13:49 IMPRESSION: 1. No acute abdominopelvic finding. 2. Mild wall thickening of the ascending and transverse colon, which may be secondary to incomplete distention or focal colitis. 3. Emphysema. Reading Location: [facility] Discharge Plan Triage Chief Complaint: Abd Pain ED Provider: Alex Bateman Dx/Rx/DC Orders Clinical Impression: Colitis, Abdominal pain, Status post colonoscopy with polypectomy Instructions: ED Understanding Colitis Prescriptions: New metronidazole 500 mg tablet 500 mg PO TID Qty: 20 0RF ciprofloxacin HCl 500 mg tablet 500 mg PO BID Qty: 14 0RF oxycodone-acetaminophen 5-325 mg tablet 1 tab PO Q6H PRN PRN (Reason: Pain) 3 Days Qty: 12 0RF docusate sodium [Colace] 100 mg capsule 100 mg PO BID Qty: 60 0RF No Action lisinopril 20 mg tablet 20 mg PO QDAY atorvastatin 20 mg tablet 20 mg PO QDAY albuterol sulfate 2.5 MG/3 ML solution for nebulization 2.5 mg inhalation Q6H PRN PRN (Reason: Sob &/Or Wheezing) Patient Comments: NORMALLY USES IT BID albuterol sulfate 1 INHALER inhaler 1 - 2 puff inhalation Q4H PRN PRN (Reason: Sob &/Or Wheezing) fluticasone propion-salmeterol 250-50 mcg/dose blister with device 1 ea inhalation BID Incruse Ellipta 62.5 mcg/actuation blister with device 1 inh inhalation DAILY Primary Care Provider: Justino Hodgson Referrals: Justino Hodgson MD [Primary Care Provider] - Phil Sands DO [Med Staff - Active Staff] - 1-2 Weeks Activity Restrictions/Additional Instructions: CT scan with no perforations. Thickening bowels ascending transverse colon. Discussed with Dr. Sands, you are given additional fluids take antibiotic as prescribed pain medicine as needed. Take the stool softeners. Follow-up with him in the next 1 to 2 weeks. Print Language: Mexican Disposition Disposition: Home, Self Care Discharge Date/Time: 02/11/25 18:23
[2025-02-11] MEDS: 0.9% Normal Saline (1000mL) 1,000 ML 125 ML IV (13:56)
--- OUTSIDE RECORDS SUMMARY | 2025-02-11 14:08 | XMS RPT_ITS | CCD ---
Author Organization [facility] CliniSymd Care Team Providers Care Industrial Technology Teacher Name Role Phone Lucia Hodgson MD Primary Care Provider Lucia Hodgson MD Primary Care Provider Podlogar RN SURGICAL.Dee DELGADILLO Unavailable Knoble RN SURGICAL.Gladis DELGADILLO Unavailable Knoble RN SURGICAL.Gladis DELGADILLO Unavailable MELINDA WRIGHT Attending Unavailable RAEGAN GONZALEZ Referring Unavailable LUCIA HODGSON Primary Care Unavailab yodit Hodgson MD, Dr. Badillo Primary Care Provider Dr. Justino Hodgson MD Referring Provider [phone] Shruthi Loaiza Attending Provider [phone] Knoble RN SURGICAL.Gladis DELGADILLO Unavailable Knoble RN SURGICAL.Gladis DELGADILLO Unavailable LUCIA HODGSON Attending Unavailab LUCIA Gore Primary Care Unavailab LUCIA Gore Referring Unavailab LUCIA Gore Primary Care Unavailab LUCIA Gore Referring Unavailab le LUCIA HODGSON Primary Care Unavailab RAEGAN Bauer Attending Unavailable LUCIA HODGSON Primary Care Unavailab LUCIA Gore Referring Unavailab KENNEDY Ng Attending Unavailable LUCIA HODGSON Primary Care Unavailab LUCIA Gore Primary Care Unavailab le PODDEE SHANE Attending Unavailable LUCIA HODGSON Primary Care Unavailab le DEE HAYDEN Referring Unavailable Dr. Phil Sands DO Attending Provider Friend Dr. Phil MIRANDA Other Provider [phone] Shruthi De La Cruz Attending Unavailable Justino Hodgson Referring Unavailable Justino Hodgson Primary Care Unavailable Justino Hodgson Primary Care Unavailable FriendPhil Attending Unavailable Phil Sands Consulting Unavailable Justino Hodgson Referring Unavailable FriendPhil Attending Unavailable Justino Hodgson Referring Unavailable Justino Hodgson Primary Care Unavailable Medications Current Medications Medication Drug Class(es) Dates Sig (Normalized) Sig (Original) [id number] actuat albuterol 0.09 mg/actuat metered dose inhaler (20 sources) beta2-Adrenergic Agonist Start: 08-04-2023 End: 05-18-2024 take 2 puff(s) by inhalation every four hours as needed for wheezing albuterol HFA (VENTOLIN HFA) 90 mcg/actuation inhaler Indications: COPD (chronic obstructive pulmonary disease) with acute bronchitis (HCC) Inhale 2 Puffs as instructed every 4 hours as needed for wheezing/shortness of breath. 18 g 3 05/18/2024 Active Start: 12-17-2022 take 2 puff(s) by in halation every four hours as needed for wheezing albuterol HFA (VENTOLIN HFA) 90 mcg/actuation inhaler Indications: COPD (chronic obstructive pulmonary disease) with acute bronchitis (HCC) Inhale 2 Puffs as instructed every 4 hours as needed for wheezing/shortness of breath. 18 g 3 12/17/2022 Active Start: 05-08-2022 End: 08-05-2022 take 2 puff(s) by inhalation every four hours as needed for wheezing albuterol HFA (VENTOLIN HFA) 90 mcg/actuation inhaler Indications: COPD (chronic obstructive pulmonary disease) with acute bronchitis (HCC) Inhale 2 Puffs as instructed every 4 hours as needed for wheezing/shortness of breath. 18 g 3 08/05/2022 Active Start: 04-08-2021 End: 02-06-2022 take 2 puff(s) by inhalation every four hours as needed for wheezing albuterol HFA (VENTOLIN HFA) 90 mcg/actuation inhaler Indications: COPD (chronic obstructive pulmonary disease) with acute bronchitis (HCC) Inhale 2 Puffs as instructed every 4 hours as needed for wheezing/shortness of breath. 18 g 1 02/06/2022 Active Start: 01-09-2021 End: 02-12-2021 take 2 puff(s) by inhalation every four hours as needed for wheezing albuterol HFA (VENTOLIN HFA) 90 mcg/actuation inhaler Indications: COPD (chronic obstructive pulmonary disease) with acute bronchitis (HCC) (HCC) Inhale 2 Puffs as instructed every 4 hours as needed for wheezing/shortness of breath. 18 g 01/09/2021 02/12/2021 Discontinued Start: 02-18-2018 Albuterol Sulf ate 1 INHALER inhaler Active 1 - 2 NMA inhalation EVERY 4 HOURS NEEDED as needed for Sob &/Or Wheezing February 18, 2018 12:00am Start: 11-10-2014 End: 03-29-2019 take 2.5 mg by inhalation every six hours as needed for wheezing Albuterol Sulfate 2.5 MG/3 ML solution for nebulization Active 2.5 mg inhalation EVERY 6 HOURS NEEDED as needed for Sob &/Or Wheezing February 18, 2018 12:00am Start: 11-10-2014 End: 03-29-2019 Albuterol Sulfate 1 INHALER inhaler Discontinued 2 NMA INHALATION EVERY 6 HOURS NEEDED as needed for Sob &/Or Wheezing November 10, 2014 12:00am March 29, 2019 11:06am Comment on above: Inhale 2 Puffs as in structed every 4 hours as needed for wheezing/shortness of breath. albuterol 0.833 mg/ml / ipratropium bromide 0.167 mg/ml inhalation solution (20 sources) Anticholinergic, beta2-Adrenergic Agonist Start: 12-15-2024 ipratropium-albuterol (DUONEB) 0.5 mg-3 mg(2.5 mg base)/3 mL nebu Indications: COPD (chronic obstructive pulmonary disease) with acute bronchitis (HCC) , Other emphysema (HCC) IInhale by nebulizer over 5-15 minutes four (4) times a day. 150 mL 3 12/15/2024 Active Start: 08-04-2023 End: 12-29-2023 ipratropium-albuterol (DUONE B) 0.5 mg-3 mg(2.5 mg base)/3 mL nebu Indications: COPD (chronic obstructive pulmonary disease) with acute bronchitis (HCC) , Other emphysema (HCC) IInhale by nebulizer over 5-15 minutes four (4) times a day. 150 mL 3 12/29/2023 Active Start: 04-08-2021 End: 10-27-2022 ipratropium-albuterol (DUONE B) 0.5 mg-3 mg(2.5 mg base)/3 mL nebu Indications: COPD (chronic obstructive pulmonary disease) with acute bronchitis (HCC) , Other emphysema (HCC) IInhale by nebulizer over 5-15 minutes four (4) times a day. 150 mL 3 10/27/2022 Active Start: 01-09-2021 End: 02-12-2021 ipratropium-albuterol (DUONE B) 0.5 mg-3 mg(2.5 mg base)/3 mL nebu Indications: COPD (chronic obstructive pulmonary disease) with acute bronchitis (HCC) (HCC) , Other emphysema (HCC) IInhale by nebulizer over 5-15 minutes four (4) times a day. 50 Vial 01/09/2021 02/12/2021 Discontinued Comment on above: IInhale by nebulizer over 5-15 minutes four (4) times a day. atorvastatin 20 mg oral tablet (20 sources) HMG-CoA Reductase Inhibitor Start: take 1 tablet by mouth once daily Atorvastatin 20 mg tablet Active 20 mg PO daily December 07, 2024 12:00am Start: 02-20-2018 End: 03-08-2021 take 1 tablet by mouth once daily Atorvastatin 40 MG tablet Discontinued 40 mg PO DAILY 30 February 20, 2018 12:00am March 29, 2019 11:05am COMPOUNDED PRESCRIPTION (20 sources) Start: 03-20-2017 COMPOUNDED PRE SCRIPTION Indications: Chronic obstructive pulmonary disease, unspecified COPD type (HCC) 1 Each as needed. NEBULIZER FOR HOME USE. ICD10: J44.9 1 Each 03/20/2017 Active Start: 03-20-2017 COMPOUNDED PRE SCRIPTION Indications: Chronic obstructive pulmonary disease, unspecified COPD type (HCC) 1 Each as needed. NEBULIZER FOR HOME USE. ICD10: J44.9 1 Each 0 03/20/2017 Active Start: 01-01-2010 COMPOUNDED PRE SCRIPTION aerosol nebulizer Dx copd 1 0 01/01/2010 Active Comment on above: aerosol nebulizer Dx copd 1 Each as needed. NE BULIZER FOR HOME USE. ICD10: J44.9 Fluticasone Propion-Salmeterol (20 sources) Corticosteroid, beta2-Adrenergic Agonist Start: 02-07-2025 Fluticasone Propion-Salmeterol 250-50 mcg/dose blister with device Active 1 NMA INHALATION TWICE A DAY February 07, 2025 12:00am Start: 09-19-2024 End: 03-18-2025 take 1 puff(s) by mouth twice daily fluticasone-salmeterol (ADVAIR DISKUS) 250-50 mcg/dose inhaler Indications: COPD (chronic obstructive pulmonary disease) with acute bronchitis (HCC) Inhale 1 Puff as instructed two times a day. Rinse and gargle mouth after use with water. 180 Each 1 09/19/2024 03/18/2025 Active Start: 09-19-2024 End: 03-18-2025 take 1 puff(s) by mouth twice daily fluticasone-salmeterol (ADVAIR DISKUS) 250-50 mcg/dose inhaler Indications: COPD (chronic obstructive pulmonary disease) with acute bronchitis (HCC) (HCC) Inhale 1 Puff as instructed two times a day. Rinse and gargle mouth after use with water. 180 Each 1 09/19/2024 03/18/2025 Active Start: 12-31-2022 take 1 puff(s) by mo ut twice daily fluticasone-salmeterol (ADVAIR DISKUS) 250-50 mcg/dose inhaler Indications: COPD (chronic obstructive pulmonary disease) with acute bronchitis (HCC) Inhale 1 Puff as instructed twice daily. Rinse and gargle mouth after use with water. 60 Each 5 12/31/2022 Active Start: 12-14-2021 End: 12-31-2022 take 1 puff(s) by mouth twice daily fluticasone-salmeterol (ADVAIR DISKUS) 250-50 mcg/dose inhaler Indications: COPD (chronic obstructive pulmonary disease) with acute bronchitis (HCC) Inhale 1 Puff as instructed twice daily. Rinse and gargle mouth after use with water. 60 Each 12/14/2021 12/31/2022 Discontinued Start: 12-14-2021 take 1 puff(s) by [facility] twice daily fluticasone-salmeterol (ADVAIR DISKUS) 250-50 mcg/dose inhaler Indications: COPD (chronic obstructive pulmonary disease) with acute bronchitis (HCC) Inhale 1 Puff as instructed twice daily. Rinse and gargle mouth after use with water. 60 Each 12/14/2021 Active Start: 12-14-2021 take 1 puff(s) by [facility] twice daily fluticasone-salmeterol (ADVAIR DISKUS) 250-50 mcg/dose inhaler Indications: COPD (chronic obstructive pulmonary disease) with acute bronchitis (HCC) Inhale 1 Puff as instructed twice daily. Rinse and gargle mouth after use with water. 60 Each 12/14/2021 Active Comment on above: Inhale 1 Puff as ins tructed twice daily. Rinse and gargle mouth after use with water. hydroCHLOROthiazide 25 mg oral tablet (20 sources) Thiazide Diuretic Start: 2023 End: 2023 take 1 tablet by mouth once daily hydroCHLOROthiazide 25 mg tablet Indications: Essential hypertension Take 1 tablet by mouth once daily. 30 tablet 2 03/23/2024 Active Start: 08-25-2023 End: 09-08-2023 take 1 capsule by mouth once daily hydroCHLOROthiazide 12.5 mg capsule Indications: Essential hypertension Take 1 capsule by mouth once daily. 30 capsule 2 08/25/2023 09/08/2023 Discontinued Comment on above: Take 1 tablet by [facility] once daily. Take 1 capsule by [facility] once daily. lisinopril 20 mg oral tablet (2 sources) Angiotensin Converting Enzyme Inhibitor Start: take 1 tablet by mouth once daily Lisinopril 20 mg tablet Active 20 mg PO daily December 07, 2024 12:00am polyethylene glycol 3350 026801 mg / potassium chloride 2970 mg / sodium bicarbonate 6740 mg / sodium chloride 5860 mg / sodium sulfate 00504 mg powder for oral solution (2 sources) Osmotic Laxative Start: End: peg 3350-Electrolytes (GOLYTELY) 236-22.74-6.74 -5.86 gram suspension Indications: Colon cancer screening , History of colonic polyps Take 4,000 mL by mouth one time only for 1 dose. Refer to printed prep instructions from your provider. 4000 mL 10/20/2024 10/20/2024 Active Start: 01-09-2021 End: 01-09-2021 peg 3350-electrolytes (COLYT E) 240-22.72-6.72 -5.84 gram solution Indications: Special screening for malignant neoplasms, colon Take 4,000 mL by mouth one time only for 1 dose. 4000 mL 01/09/2021 01/09/2021 10 actuat tiotropium 0.0025 mg/actuat inhalation spray (5 sources) Anticholinergic Start: 07-02-2022 End: 06-29-2023 take 2 puff(s) by inhalation once daily, then take 2 puff(s) by inhalation once daily tiotropium bromide (SPIRIVA RESPIMAT) 2.5 mcg/actuation inhaler Indications: COPD (chronic obstructive pulmonary disease) with acute bronchitis (HCC) Inhale 2 Puffs as instructed once daily. Inhale two puffs once daily. 1 Each 5 12/31/2022 06/29/2023 Active Comment on above: Inhale 2 Puffs as in structed once daily. Inhale two puffs once daily. Umeclidinium (20 sources) Anticholinergic Start: 02-07-2025 take 62.5 ug by inhalation once daily Umeclidinium (Umeclidinium 62.5 Mcg/Actuation Blister Powder For Inhalation) 62.5 mcg/actuation blister with device Active 1 NMA INHALATION DAILY February 07, 2025 12:00am Start: 01-01-2023 End: 09-19-2024 take 1 puff(s) by inhalation once daily umeclidinium (INCRUSE ELLIPTA) 62.5 mcg/actuation inhaler Indications: COPD (chronic obstructive pulmonary disease) with acute bronchitis (HCC) Inhale 1 Puff as instructed once daily. 30 Each 5 03/23/2024 Active Comment on above: Inhale 1 Puff as ins tructed once daily. Completed/Discontinued Medications Medication Drug Class(es) Dates Sig (Normalized) Sig (Original) acetaminophen 325 mg / oxyCODONE hydrochloride 5 mg oral tablet (2 sources) Opioid Agonist Start: 11-17-2014 End: 03-29-2019 Oxycodone-Acetamin ophen 1 TABLET tablet Discontinued 1 - 2 {tbl} PO EVERY 4 HOURS NEEDED as needed for Pain 30 0 November 17, 2014 12:00am March 29, 2019 11:05am aspirin 81 mg chewable tablet (5 sources) Platelet Aggregation Inhibitor, Nonsteroidal Anti-inflammatory Drug Start: 02-20-2018 End: 03-29-2019 take 1 tablet by mouth once daily Aspirin 81 MG tablet,chewable Discontinued 81 mg PO DAILY@0800 0 February 20, 2018 12:00am March 29, 2019 11:05am End: 12-14-2021 take 1 tablet by mouth once daily aspirin, enteric coated (ASPIRIN, ENTERIC COATED) 81 mg EC tablet Take 81 mg by mouth once daily. 12/14/2021 Discontinued Comment on above: Take 81 mg by mouth once daily. betamethasone 3 mg/ml / betamethasone acetate 3 mg/ml injectable suspension (1 source) Corticosteroid Start: 2023 End: 2023 betamethasone acetate-betamethaso ne sodium phosphate 6 mg injection (CELESTONE) bisacodyl 5 mg delayed release oral tablet (2 sources) Stimulant Laxative Start: 2020 End: 2021 Bisacodyl (DULCOLAX) 5 mg tab Use as directed for Miralax / Gatorade Bowel Prep Kit 4 tablet 0 01/24/2021 12/14/2021 Discontinued Comment on above: Use as directed for Miralax / Gatorade Bowel Prep Kit calcium chloride 0.0014 meq/ml / potassium chloride 0.004 meq/ml / sodium chloride 0.103 meq/ml / sodium lactate 0.028 meq/ml injectable solution (1 source) Start: 2024 End: 2024 take 30 mL intravenously every hour 30 mL/hr, INTRAVENOUS, CONTINUOUS, Starting on Thu11/23/24 at 1000, Until Thu11/23/24 at 1154, Preprocedure folic acid 1 mg oral tablet (3 sources) Start: 2017 End: 2020 take 1 tablet by mouth once daily Folic Acid 1 MG tablet Discontinued 1 mg PO DAILY@0800 30 0 February 20, 2018 12:00am March 29, 2019 11:05am Gatorade Sports Drink (2 sources) Start: 2020 End: 2021 Gatorade Sports Drink Use as directed for Miralax / Gatorade Bowel Prep Kit 64 oz 0 01/24/2021 12/14/2021 Discontinued Start: 01-24-2021 Gatorade Sport s Drink Use as directed for Miralax / Gatorade Bowel Prep Kit 64 oz 0 01/24/2021 Active Comment on above: Use as directed for Miralax / Gatorade Bowel Prep Kit 12 hr guaiFENesin 600 mg extended release oral tablet (3 sources) Start: End: take 2 tablets by mouth twice daily guaiFENesin (MUCINEX) 600 mg 12 hr tablet Take 2 tablets by mouth twice daily. 60 tablet 01/09/2021 12/14/2021 Discontinued Comment on above: Take 2 tablets by [facility] twice daily. 10 ml lidocaine hydrochloride 10 mg/ml injection (1 source) Antiarrhythmic, Amide Local Anesthetic Start: End: lidocaine (PF) 10 mg/mL (1 %) 4 mL injection (XYLOCAINE) meloxicam 15 mg oral tablet (5 sources) Nonsteroidal Anti-inflammatory Drug Start: End: take 1 tablet by mouth once daily at mealtime meloxicam (MOBIC) 15 mg tablet Indications: Chronic right shoulder pain Take 1 tablet by mouth once daily. With food. 30 tablet 08/25/2023 09/23/2023 Discontinued Comment on above: Take 1 tablet by [facility] once daily. With food. 24 hr nicotine 0.875 mg/hr transdermal system (2 sources) Cholinergic Nicotinic Agonist Start: End: apply 21 mg transdermal route once daily Nicotine 21 MG patch Discontinued 21 mg TRANSDERM. DAILY 14 February 20, 2018 12:00am March 29, 2019 11:05am polyethylene glycol 3350 43144 mg powder for oral solution (2 sources) Osmotic Laxative Start: End: polyethylene glycol 3350 (MIRALAX, GLYCOLAX) 17 gram/dose powder Use as directed for Miralax / Gatorade Bowel Prep Kit 238 g 0 01/24/2021 12/14/2021 Discontinued Comment on above: Use as directed for Miralax / Gatorade Bowel Prep Kit tamsulosin hydrochloride 0.4 mg oral capsule (1 source) alpha-Adrenergic Elif Start: 020 End: take 1 capsule by mouth once daily at bedtime tamsulosin ER (FLOMAX) 0.4 mg cap Take 1 capsule by mouth daily at bedtime. 30 capsule 5 09/12/2019 03/08/2021 Discontinued thiamine 100 mg oral tablet (3 sources) Start: 018 End: 019 take 1 tablet by mouth twice daily at mealtime Thiamine Hcl (Vitamin B1) 100 MG tablet Discontinued 100 mg PO TWICE DAILY WITH MEALS 30 0 February 20, 2018 12:00am March 29, 2019 11:05am End: 03-08-2021 take 1 tablet by mouth once daily Thiamine HCl (VITAMIN B-1) 250 mg tablet Take 250 mg by mouth once daily. 03/08/2021 Discontinued Problems Active Problems Problem Classification Problem Date Documented Date Episodic/Chronic Alcohol-related disorders (20 sources) Alcohol abuse; Translations: [Alcohol abuse, uncomplicated] 08-30-2018 Chronic Blindness and vision defects (2 sources) Diplopia; Translations: [Diplopia] 03-09-2018 Episodic Chronic obstructive pulmonary disease and bronchiectasis (20 sources) Chronic obstructive lung disease co-occurrent with acute bronchitis; Translations: [Chronic obstructive pulmonary disease with (acute) lower respiratory infection] Onset: 05-25-2012 Chronic Disorders of lipid metabolism (4 sources) Mixed hyperlipidemia; Translations: [Mixed hyperlipidemia] Onset: 09-19-2024 Chronic Essential hypertension (20 sources) Essential hypertension; Translations: [Essential (primary) hypertension] Onset: 08-25-2023 09-08-2023 Chronic Hyperplasia of prostate (20 sources) Benign prostatic hyperplasia; Translations: [Benign prostatic hyperplasia without lower urinary tract symptoms] 09-12-2019 Chronic Immunizations and screening for infectious disease (12 sources) Patient encounter status; Translations: [Encounter for immunization] Episodic Osteoarthritis (1 source) Arthritis of shoulder region joint; Translations: [Primary osteoarthritis, unspecified shoulder] 08-31-2023 Chronic Other and ill-defined cerebrovascular disease (20 sources) Cerebrovascular disease; Translations: [Cerebrovascular disease, unspecified] 08-30-2018 Chronic Other and unspecified benign neoplasm (6 sources) History of polyp of colon; Translations: [History of colonic polyps] 09-25-2024 Episodic Other and unspecified benign neoplasm (5 sources) Polyp of colon; Translations: [Polyp of colon] 12-07-2024 Episodic Other and unspecified benign neoplasm (2 sources) Polyp of colon; Translations: [Polyp of colon] Onset: 02-09-2025 Episodic Other circulatory disease (3 sources) Elevated blood-pressure reading without diagnosis of hypertension; Translations: [Elevated blood-pressure reading, without diagnosis of hypertension] Episodic Other ear and sense organ disorders (1 source) Impacted cerumen of bilateral ears; Translations: [Impacted cerumen, bilateral] Episodic Other inflammatory condition of skin (2 sources) Bullous pemphigoid; Translations: [Bullous pemphigoid] 12-29-2019 Chronic Other non-traumatic joint disorders (3 sources) Chronic pain of right upper limb; Translations: [Pain in right shoulder] 08-31-2023 Episodic Other nutritional; endocrine; and metabolic disorders (4 sources) Weight loss; Translations: [Abnormal weight loss] Episodic Other screening for suspected conditions (not mental disorders or infectious disease) (5 sources) Encounter for screening for malignant neoplasm of colon; Translations: [Encounter for screening for malignant neoplasm of respiratory organs] Onset: 03-23-2024 Episodic Residual codes; unclassified (20 sources) Noncompliance with treatment; Translations: [Patient's noncompliance with other medical treatment and regimen] 08-31-2018 Episodic Residual codes; unclassified (20 sources) Tobacco use and exposure - finding; Translations: [Tobacco use] 09-12-2019 Episodic Residual codes; unclassified (1 source) Family history of cancer of colon; Translations: [Family history of malignant neoplasm of digestive organs] 10-20-2024 Episodic Residual codes; unclassified (2 sources) Tobacco use; Translations: [Tobacco use current] Onset: 09-12-2019 Episodic Substance-related disorders (2 sources) Nicotine dependence; Translations: [Nicotine dependence, unspecified, uncomplicated] 03-09-2018 Chronic Unclassified (1 source) History of colonic polyps; Translations: [History of colonic polyps] Onset: 11-23-2024 Past or Other Problems Problem Classification Problem Date Documented Da te Episodic/Chronic Abdominal hernia (20 sources) Right inguinal hernia ; Translations: [Unilateral inguinal hernia, without obstruction or gangrene, not specified as recurrent] Onset: 11-30-2014 07-22-2021 Episodic Acute bronchitis (1 source) Acute bronchitis, unspecified; Translations: [COPD (chronic obstructive pulmonary disease) with acute bronchitis (HCC) (HCC)] Onset: 03-23-2024 Episodic Other nutritional; endocrine; and metabolic disorders (1 source) Abnormal weight loss; Translations: [Weight loss] Onset: 03-23-2024 Episodic Residual codes; unclassified (20 sources) Tobacco user; Translations: [Tobacco use] Onset: 05-25-2012 05-25-2012 Episodic Substance-related disorders (20 sources) Marijuana user; Translations: [Cannabis use, unspecified, uncomplicated] Onset: 07-02-2022 Episodic Unclassified (5 sources) Patient encounter status 09-25-2024 Results Test Name Value Interpretation Reference Range Facility Colonoscopy Reporton 025 Colonoscopy Report [facility] Medical Records Department [address] [place] [address] Colonoscopy Report MR#: [id number] Acct: [id number] Name: WILY ARSHAD Rep #: [id number] : 1955 69 From: Phil Sands DO PCP: Dr. Justino Hodgson MD Status:[facility] Patient Name: Wily Arshad Procedure Date: 02/09/2025 9:13 AM Date of : 1955 Age: 69 Procedure: Colonoscopy Indications: High risk colon cancer surveillance: Personal history of colonic polyps Providers: Phil Sands DO Referring MD: Justino Hodgson Medicines: Monitored Anesthesia Care Patient Profile: This is a 69 year old male. Refer to note in patient chart for documentation of history and physical. Last Colonoscopy: several years ago. Complications: No immediate complications. Procedure: Pre-Anesthesia Assessment: - Prior to the procedure, a History and Physical was performed, and patient medications and allergies were reviewed. The patient is competent. The risks and benefits of the procedure and the sedation options and risks were discussed with the patient. All questions were answered and informed consent was obtained. Patient identification and proposed procedure were verified by the physician in the pre-procedure area. Mental Status Examination: alert and oriented. Airway Examination: normal oropharyngeal airway and neck mobility. Respiratory Examination: clear to auscultation. CV Examination: normal. Prophylactic Antibiotics: The patient does not require prophylactic antibiotics. Prior Anticoagulants: The patient has taken no anticoagulant or antiplatelet agents. ASA Grade Assessment: II - A patient with mild systemic disease. After reviewing the risks and benefits, the patient was deemed in satisfactory condition to undergo the procedure. The anesthesia plan was to use monitored anesthesia care (MAC). Immediately prior to administration of medications, the patient was re-assessed for adequacy to receive sedatives. The heart rate, respiratory rate, oxygen saturations, blood pressure, adequacy of pulmonary ventilation, and response to care were monitored throughout the procedure. The physical status of the patient was re-assessed after the procedure. After I obtained informed consent, the scope was passed under direct vision. Throughout the procedure, the patient's blood pressure, pulse, and oxygen saturations were monitored continuously. The Colonoscope was introduced through the anus and advanced to the cecum, identified by appendiceal orifice and ileocecal valve. The colonoscopy was performed without difficulty. The patient tolerated the procedure well. The quality of the bowel preparation was adequate. The ileocecal valve, appendiceal orifice, and rectum were photographed. Scope In: 9:24:02 AM Scope Withdrawal Time 0 hours 32 minutes 46 seconds Scope Out: 10:00:54 AM Total Procedure Duration Time 0 hours 36 minutes 52 seconds Findings: The perianal and digital rectal examinations were normal. Ten sessile polyps were found in the sigmoid colon, splenic flexure, hepatic flexure, ascending colon and cecum. The polyps were 1 to 2 mm in size. These polyps were removed with a piecemeal technique using a hot snare. Resection and retrieval were complete. Verification of patient identification for the specimen was done by the nurse. Estimated blood loss was minimal. To prevent bleeding post-intervention, two hemostatic clips were successfully placed. 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 There was no bleeding at the end of the procedure. Eight sessile polyps were found in the splenic flexure, hepatic flexure and ascending colon. The polyps were 4 mm in size. Coagulation for destruction of remaining portion of lesion using monopolar probe was successful. Estimated blood loss was minimal. Localized moderate mucosal changes characterized by congestion (edema), erosions and erythema were found at the hepatic flexure. Biopsies were taken with a cold forceps for histology. Verification of patient identification for the specimen was done. Estimated blood loss was minimal. Impression: - Ten 1 to 2 mm polyps in the sigmoid colon, at the splenic flexure, at the hepatic flexure, in the ascending colon and in the cecum, removed piecemeal using a hot snare. Resected and retrieved. - Eight 4 mm polyps at the splenic flexure, at the hepatic flexure and in the ascending colon. Treated with a monopolar probe. - Localized moderate mucosal changes were found at the hepatic flexure secondary to ischemic colitis. Biopsied. Recommendation: - Discharge patient to home. - Resume previous diet. - Continue present medications. - Await pathology results. - Repeat colonoscopy in 1 year for surveillance. Procedure Code(s): --- Professional --- 33080, Colonoscopy, flexib (more content not included)... [facility] MR/POSTOP.[facility] 02-09-2025 MR/POSTOP.[facility] Medical Records Department [address] [place] [address] Anesthesia Postop Eval I 02/09/25 1014 MR#: [id number] Acct: [id number] Name: WILY ARSHAD Rep #: [id number] : 1955 69 From: Paul Santiago PCP: Dr. Justino Hodgson MD Status:REG SDC Y Race: C Location: [place] [address] Anesthesia: Postop Eval I Current Vital Signs Temperature: 97 F Pulse Rate: 74 Blood Pressure: 124/73 Respiratory Rate: 16 Pulse Ox: 100 Oxygen Delivery Method: Room Air Assessment Airway patent: Yes Spontaneous unlabored respirations: Yes Mental status: Awake and Calm nausea: No Vomiting: No Anesthesia Complication: No Fluid Hydration Crystalloid volume administer (ml): 500 Total IV fluid infused: 500 Progress Note Anesthesia document: Postop Eval 1 completed: Yes 02/09/25 1015 Date Paul Santiago Cosigner Signature: Date CC: Signed Normal [facility] MR/[id number] 02-09-2025 MR/POSTOPAN2 [facility] Medical Records Department [address] [place] [address] Anesthesia Postop Eval II 02/09/25 1044 MR#: [id number] Acct: [id number] Name: WILY ARSHAD Rep #: [id number] : 1955 69 From: Valente Jensen MD PCP: Dr. Justino Hodgson MD Status:REG SDC Y Race: C Location: [facility] Anesthesia Postop Eval I Sum Postop Eval Completion status Anesthesia document: Postop Eval 1 completed: Yes Anesthesia Postop Eval I Summary Anesthesia Postop Eval I Summary: Anesthesia Postop Eval I: Assessment Summary Airway patent Yes 02/09/25 10:15 [email or web address] Spontaneous unlabored Yes 02/09/25 10:15 [email or web address] respirations Mental status Awake,Calm 02/09/25 10:15 [email or web address] nausea No 02/09/25 10:15 [email or web address] Vomiting No 02/09/25 10:15 [email or web address] Anesthesia Postop Eval I: Fluid Summary Crystalloid volume administer 500 02/09/25 10:15 [email or web address] (ml) Colloids volume administered ( ml) Blood Product volume administered (ml) Total IV fluid infused 500 02/09/25 10:15 [email or web address] Anesthesia Postop Eval I: Summary Notes Anesthesia Complication No 02/09/25 10:15 [email or web address] Anesthesia Complication Comment: Post-operative progress note Anesthesia: Postop Eval II Evaluation Mental status: Awake and Calm Pain Level: 1 nausea: No Vomiting: No Complications Anesthesia Complication: No 02/09/25 1044 Date Valente Jensen MD Cosigner Signature: Date CC: Signed Normal [facility] Surgery Specimen Level Dennis 02-09-2025 Surgery Specimen Level IV Patient Age/Sex Location Account Attending Physician WILY ARSHAD 69/M EN [id number] Phil Sands DO Specimen: [id number] Received: 02/09/25 Status: RON Granados Num: [id number] Spec Type: COLON BX Subm Dr: Phil Sands, HEADER OPERATION: Colonoscopy, polypectomy, hemostasis PRE-OP DIAGNOSIS: Colonic polyp TISSUE SUBMITTED: Cecum polyp, ascending colon polyp, hepatic flexure post polypectomy site, splenic flexure polyp, sigmoid colon polyp. MICROSCOPIC DIAGNOSIS A. Colon, cecum, polyp, polypectomy: - Tubulovillous adenoma, multiple fragments. B. Colon, ascending, polyp, polypectomy: - Tubulovillous adenoma, multiple fragments. C. Colon, hepatic flexure, post polypectomy site, biopsy: - Hyperplastic polyp with focal fibrinopurulent debris consistent with ulceration. D. Colon, splenic flexure, polyp, polypectomy: - Tubular adenoma. E. Colon, sigmoid, polyp, polypectomy: - Tubular adenoma. MICROSCOPIC DESCRIPTION Slides are reviewed. GROSS DESCRIPTION Received in 5 formalin containers labeled with the patient's name and date of . Designated as: A. Cecum polyp is a 2.6 x 2.5 x 0.3 cm aggregate of [place] rio tissue fragments. Entirely submitted in 2 cassettes. B. Ascending colon polyp is a 2.7 x 1.5 x 0.3 cm aggregate of [place] rio tissue fragments. Entirely submitted in 1 cassette. C. Hepatic flexure post polypectomy site BX are 4 [place] tissue fragments, 0.1 cm to 0.4 cm. Entirely submitted in 1 cassette. D. Splenic flexure polyp is a 2.2 x 1.0 x 0.3 cm aggregate of [place] rio tissue fragments. Entirely submitted in 1 cassette. E. Sigmoid colon polyp are 2 [place] polypoid tissue fragments, 0.3 x 0.3 x 0.3 cm and 0.9 x 0.7 x 0.5 cm (inked black, sectioned). Entirely submitted in 1 cassette. AK 02/09/2025 [facility]: [id number] Patient Age/Sex Location Account Attending Physician WILY ARSHAD 69/M EN [id number] Philronald Sands DO Signed (signature on file) Dr. Kennedy Trammell MD 02/10/[address] [facility] Comment on above: Performed By: #### P DARREN #### [facility] Laboratory [facility] [place] [address] [place], [address] CNOVchristophe 01-30-2025 CN Office Visit (PULMWS ) WILY ARSHAD ([id number]) 1955 M Date Time Provider Department 7/7/25 2:30 PM KENNEDY MORENO PULMWS During your visit today, we recorded the following information about you: Pulse Respiration Blood pressure Weight 77/minute 16/minute 122/80 58.5 kg Kennedy Moreno APRN.CNP 01/30/2025 4:23 PM Signed LUNG SCREENING VISIT PRIMARY CARE PHYSICIAN: Lucia Hodgson MD PULMONARY PROVIDER: none Results will be communicated via letter or electronic record if applicable. Visit Delivery: In Person Patient Visit Type: New to Screening Current or Ex-smoker? [Current Exam Type: baseline LDCT Number of Pack Years: 53 Current smoker (=0) or Number of Years since Quit: 0 REQUESTER: The referring provider advised the patient to have screening. HISTORY OF PRESENT ILLNESS: Wily Arshad is a 69 year old Active smoker who presents for lung screening. Currently smoking 1/2 PPD. Using nicorette gum. Spoke to his brother Luis and he agrees with recommendation for LDCT. Respiratory symptoms include: SOB: No Chest tightness: No Coughing: Yes: With mucus Clear Hemoptysis: No Wheezing: Yes Fever/Chills: No Recent Respiratory Infection: No Unintentional weight loss: No, drops weight in the summer usually. Never weighed more than 140-150 lbs Last 6 Encounter Wt Readings: Date: Wt: 01/30/2025 58.5 kg (128 lb 15.5 oz) 10/20/2024 59.9 kg (132 lb) 09/19/2024 60.3 kg (133 lb) 03/23/2024 57.5 kg (126 lb 12.8 oz) 09/23/2023 62.4 kg (137 lb 9.6 oz) 09/08/2023 62.1 kg (137 lb) ECOG PERFORMANCE STATUS: 0- Fully active, able to carry on all pre-disease performance w/o restriction. Modified Medical Research [place] Dyspnea Scale (MMRC) I only get breathless with strenous exercise 0 PAST MEDICAL HISTORY Diagnosis Date Alcohol abuse BPH (benign prostatic hyperplasia) Cerebral artery disease COPD (chronic obstructive pulmonary disease) (HCC) Diastasis recti Essential hypertension Marijuana use weekly Noncompliance Right inguinal hernia 11/17/2014 Tobacco use PAST SURGICAL HISTORY Procedure Laterality Date COLSC FLX W/RMVL OF TUMOR POLYP LESION SNARE TQ 03/11/2021 Dr. Sky. 2 polyps. repeat 3-5 years PAST SURGICAL HISTORY OF 11/17/2014 laparoscopic R inguinal herniorrhaphy; Dr. Sky FAMILY HISTORY Problem Relation Age of Onset Stroke Mother other (CKD) Mother COPD Mother Depression Mother other (CHF) Mother other (High cholesterol) Mother Heart Father Stroke Father Coronary Artery Disease Father 80 CABG x4 Prostate Cancer Father Colon Cancer Father Diabetes Sister COPD Sister Asthma Sister other (RLS) Sister other (High cholesterol) Brother Depression Brother Anxiety disorder Brother other (High cholesterol) Brother Hypertension Brother No Known Problems Brother Cancer Maternal Grandmother No Known Problems Maternal Grandfather Diabetes Paternal Grandmother Pancreatic Cancer Paternal Grandfather ipratropium-albuterol (DUONEB) 0.5 mg-3 mg(2.5 mg base)/3 mL nebu IInhale by nebulizer over 5-15 minutes four (4) times a day. fluticasone-salmeterol (ADVAIR DISKUS) 250-50 mcg/dose inhaler Inhale 1 Puff as instructed two times a day. Rinse and gargle mouth after use with water. albuterol HFA (VENTOLIN HFA) 90 mcg/actuation inhaler Inhale 2 Puffs as instructed every 4 hours as needed for wheezing/shortness of breath. atorvastatin (LIPITOR) 20 mg tablet Take 1 tablet by mouth daily at bedtime. For cholesterol. hydroCHLOROthiazide 25 mg tablet Take 1 tablet by mouth once daily. umeclidinium (INCRUSE ELLIPTA) 62.5 mcg/actuation inhaler Inhale 1 Puff as instructed once daily. COMPOUNDED PRESCRIPTION 1 Each as needed. NEBULIZER FOR HOME USE. ICD10: J44.9 COMPOUNDED PRESCRIPTION aerosol nebulizer Dx copd ALLERGIES No Known Allergies The medications and allergies were reviewed and reconciled for this patient and deemed current. Lung Cancer Risk Factors: 1.Tobacco Use: Start Age 16, Quit Age: N/A, Average packs per day 1, Pack Years 54 2. Passive Smoke Exposure: Yes, as an Adult 3. Personal hx of malignancy: No, Type of Cancer: 4. Significant exposures (1 year or more of exposure): Painting, 5. Race: White 6. Education: Less than High School 7. BMI:Body mass index is 20.2 kg/m?. Patient-entered Height: 5'7 Patient-entered Weight: 125 pounds 8. COPD: No 9. Pneumonia in the past 5 years: No 10. Is there a history of lung cancer in a first degree relative? No 11. Is there a history of lung cancer in a non-first degree relative? No 12. Is there a history of any other cancer in a first degree relative? Yes Health Maintenance Immunization History Administered Date(s) Administered COVID-19 original vaccine, age 12+ yr, monovalent ([employer] - PURPLE TOP) 10/22/2020 11/12/2020 COV (more content not included)... Normal [facility] Gastroenterology Visit Repor ton 12-07-2024 Gastroenterology Visit Report [facility] Gastroenterology [address] [place] [address] OFFICE VISIT Date of Service: 12/07/24 MR#: [id number] Acct: [id number] Name: WILY ARSHAD Rep #: [id number] : 1955 Provider: REFUGIO Hameed Age/Sex: 69/M [place] [facility] [place] Signed Intake Vital Signs 03/11/21 12:08 Height 5 ft 7 in Intake Visit Reasons: needs another colonoscopy Chief Complaint: large colon polyps Allergies No Known Allergies Allergy (Verified 03/11/21 12:18) Medications ???Medication ???Instructions ???Recorded ???Confirmed ???Type albuterol sulfate 2.5 mg/3 mL 2.5 mg inhalation Q6H PRN PRN Sob 02/18/18 03/08/21 History (0.083 %) solution for nebulization /Or Wheezing albuterol sulfate 90 mcg/actuation 1 - 2 puff inhalation Q4H PRN ID N 02/18/18 03/08/21 History aerosol inhaler Sob /Or Wheezing atorvastatin 20 mg tablet 20 mg PO QDAY 12/07/24 12/07/24 Hi story lisinopril 20 mg tablet 20 mg PO QDAY 12/07/24 12/07/24 Hi story Have you fallen in the past year?: No PFSH Medical History (Updated 12/07/24 @ 16:10 by REFUGIO Hameed) Wears glasses Alcohol use Smoker Emphysema, unspecified History of echocardiogram Asthma Anemia Shortness of breath Weight loss, unintentional Surgical History History of hernia repair Social History (Updated 03/29/19 @ 16:16 by Tanna Panchal NP, SILVERWARE BUFFER-C) Smoking Status: Current every day smoker tobacco type: cigarettes Tobacco: How many years used: 40 alcohol intake: current alcohol intake frequency: 0-2 drinks per day Alcohol type: beer HPI HPI Chief Complaint: large colon polyps Details: WILY ARSHAD, is a 69 M who presents to the office today for establishment with [facility]. Screening colonoscopy 03.11.21; - Two 6 to 7 mm polyps in the rectum and in the descending colon, removed with a hot snare. Resected and retrieved. - Non-bleeding internal hemorrhoids. - The examination was otherwise normal. The polyp that was located in the descending colon I did place a small clip on. I had good hemostasis. He had a very tortuous colon and it did take quite a bit of time to get through it. He would not be a good candidate for anything less then MAC anesthesia. Colonoscopy ..25; non bleeding internal hemorrhoids, polyps in the cecum, hepatic flexure, transverse colon and descending colon. Path consistent with TA. Large polyps unable to be remove at the proximal cecal rim, pre and post hepatic flexure and sigmoid colon. OV 5.14.25 Pt here today for establishment with [facility] for colonposcy. Pt underwent recent colonoscopy with [facility] general surgery showed many polyps with a few too large to remove. He denies abd pain, constipation, diarrhea, or blood in her stool. ROS Const Constitutional: No fatigue, fever(s) or weight change ENT ENT: No difficulty swallowing Cardio Cardiology: Positive for leg pain with exertion Gastro GI: No abdominal pain, belching, bloating, change in bowel habits, change in stool character, coffee ground emesis, constipation, cramping, diarrhea, heartburn, difficulty swallowing, feeling full early, excessive flatus, incontinent of stools, Vomiting blood/hematemesis, Blood in stool, loose stools, Black,tarry stools, nausea/dyspepsia, pain with swallowing, vomiting or other Musc Musculoskeletal: Positive for joint pain, back pain, joint swelling, muscle cramps, numbness, stiffness, tingling, Arthritis, leg pain at night and leg pain with exertion Skin Skin: No yellowing of the eye or itchy eyes Neuro Neurology: Positive for numbness and tingling Psych Psychiatric: Positive for anxiety and Positive for depression Endo Endocrine: No fatigue or weight change Aller/Imm Allergy/Immunologic: No itchy eyes Kash/Lymp Hematologic/Lymphatic: Positive for easy bruising; No easy bleeding Exam Const General: cooperative and comfortable Nutritional Appearance: thin HENMT Head: normal to inspection Neck Neck: normal visual inspection Chest Chest palpation inspection: normal inspection of the chest Resp Effort Inspection: normal respiratory effort and able to speak in complete sentences Cardio Rate: regular rate Rhythm: regular rhythm GI Inspection: normal to inspection Auscultation: normal bowel sounds Palpation: soft Assessment and Plan Assessment and Plan (1) Colonic polyp: Status: Acute Plan: This is a 69 yo male pt here today after colonoscopy in October 2023 with many polyps (pathology revealing tubular adenomas). Pt had polyps that were too large for removal. Report does not mention the size of the unresected polyps but locations include the cecal rim, pre and post hepatic flexure and the sigmoid colon. [facility] was [facility] b (more content not included)... Normal [facility] ANES POSTPROC EVALon 025 ANES POSTPROC EVAL HNO ID: [id number] Author: MED COREA MD Service: Anesthesiology Author Type: Anesthesiologist Type: Anesthesia Postprocedure Evaluation Filed: 11/23/2024 12:33 Note Text: POST ANESTHESIA EVALUATION NOTE : 1955 Procedure Summary Date: 11/23/24 Room / Location: [facility] Endoscopy Anesthesia Start: 1101 Anesthesia Stop: 1156 Procedure: COLONOSCOPY SCREENING Diagnosis: Colon cancer screening History of colonic polyps (High risk colon cancer surveillance: Personal History of adenomatous polyps) Scheduled Providers: Leigh Jacinto MD; Melinda Wright APRN.MAINTENANCE GROUNDSKEEPER Responsible Provider: Med Corea MD Anesthesia Type: general ASA Status: 3 Anesthesia Type: general Last Vitals Vitals Value Taken Time BP 175/91 11/23/24 1210 Temp 37 11/23/24 1230 Pulse 75 11/23/24 1216 Resp 18 11/23/24 1151 SpO2 100 % 11/23/24 1216 Vitals shown include unfiled device data. Post Anesthesia Patient Status Patient Evaluation: PACU. PACU/ICU Patient Condition: stable. Anticipated Disposition: phase 2 then home. Neurological Status: aware and responsive. Pulmonary Status: breathing comfortably on room air Airway Control: returned to baseline unsupported. Cardiovascular Status: stable. Pain Management: clinically adequate - multimodal analgesia pain management approach Postoperative Hydration: acceptable. Intraoperative Events: no significant anesthesia events Recommendation: continue current plan of care. Anesthesia Observations No Documentation SIGNATURE: Med Corea MD PATIENT NAME: Wily Arshad DATE: November 23, 2024 TIME: 12:30 PM CSN: [id number] Normal [facility] ANES PRE-OPon 11-23-2024 ANES PRE-OP HNO ID: [id number] Author: MED COREA MD Service: Anesthesiology Author Type: Anesthesiologist Type: Anesthesia Preprocedure Evaluation Filed: 11/23/2024 10:39 Note Text: ANESTHESIOLOGY DAY OF SURGERY NOTE : 1955 Procedure Information Date/Time: 11/23/24 1145 Scheduled providers: Leigh Jacinto MD; Melinda Wright APRN.MAINTENANCE GROUNDSKEEPER Procedure: COLONOSCOPY SCREENING Location: [facility] Endoscopy Estimated body mass index is 20.67 kg/m? as calculated from the following: Height as of 10/20/24: 170.2 cm (5' 7). Weight as of 10/20/24: 59.9 kg (132 lb). Most recent hematocrit and potassium results: Hematocrit 42.5 03/23/2024 Potassium 4.2 09/19/2024 Relevant Problems CARDIO (+) Essential hypertension PULMONARY (+) COPD (chronic obstructive pulmonary disease) (HCC) I - PHYSICAL EVALUATION AIRWAY Patient intubated: No. Mallampati: II. TM distance: >3 FB. Neck ROM: full ROM without neurological symptoms. Mouth opening: adequate. Short neck: no. Thick neck: no DENTAL Dental findings: teeth intact and poor dentition. Additional exam findings: no II - ANESTHESIA PLAN ASA Score: 3 Anesthetic Plan: MAC NPO Status: adequate Beta Elif Monitoring Plan Monitoring plan: Standard ASA. Post Procedure Analgesic Plan Postoperative analgesic plan: parenteral or oral opioids and multimodal analgesia. Informed Consent Anesthetic risks, benefits, alternatives, personnel and consent discussed: yes. Patient / Responsible Republican agrees to proceed: yes Patient / Surrogate agrees to blood products: yes DNR status not reviewed with patient and/or family prior to surgery. Significant changes in the patient condition since the History and Physical, not otherwise documented in primary service progress note: no. Potential Anesthesia issues that may suggest increased risk of complications or contraindication to planned procedure: none. BP 163/83 11/23/24945 Pulse 91 11/23/24945 Resp 16 11/23/24945 Temp 36.6 ?C (97.9 ?F) 11/23/24945 SpO2 98 % 11/23/24945 Outpatient Medications as of 11/23/2024 Medication Sig - albuterol HFA (VENTOLIN HFA) 90 mcg/actuation inhaler Inhale 2 Puffs as instructed every 4 hours as needed for wheezing/shortness of breath. - atorvastatin (LIPITOR) 20 mg tablet Take 1 tablet by mouth daily at bedtime. For cholesterol. - fluticasone-salmeterol (ADVAIR DISKUS) 250-50 mcg/dose inhaler Inhale 1 Puff as instructed two times a day. Rinse and gargle mouth after use with water. - hydroCHLOROthiazide 25 mg tablet Take 1 tablet by mouth once daily. - umeclidinium (INCRUSE ELLIPTA) 62.5 mcg/actuation inhaler Inhale 1 Puff as instructed once daily. - ipratropium-albuterol (DUONEB) 0.5 mg-3 mg(2.5 mg base)/3 mL nebu IInhale by nebulizer over 5-15 minutes four (4) times a day. - COMPOUNDED PRESCRIPTION 1 Each as needed. NEBULIZER FOR HOME USE. ICD10: J44.9 - COMPOUNDED PRESCRIPTION aerosol nebulizer Dx copd Facility-Administered Medications as of 11/23/2024 Medication Dose Route Frequency - lidocaine (PF) 10 mg/mL (1 %) 1-2 mg injection (XYLOCAINE) 0.1-0.2 mL INTRADERMAL PRN - lactated ringers iv infusion 30 mL/hr INTRAVENOUS CONTINUOUS I have interviewed and examined the patient. I have reviewed the medical record and/or the pre-anesthesia evaluation, pertinent labs, and test results. This contains updated information obtained within 48 hours of Surgery/Procedure. SIGNATURE: Med Corea MD PATIENT NAME: Wily Arshad DATE: November 23, 2024 TIME: 10:37 AM CSN: [id number] Normal [facility] Colonoscopyon 11-23-2024 Colonoscopy [facility] Gastrointestinal Endoscopy Patient Name: Wily Arshad Procedure Date: 11/23/2024 10:59 AM Date of : 1955 Admit Type: Outpatient Age: 69 Room: [facility] Gender: Male Note Status: Finalized Attending MD: Leigh Jacinto MD, [id number] Procedure: Colonoscopy - screening high risk Indications: High risk colon cancer surveillance: Personal history of adenomatous colonic polyps Providers: Leigh Jacinto MD Patient Profile: Refer to note in patient chart for documentation of history and physical. Last Colonoscopy: 3 years ago. Referring Physician: Raegan Gonzalez (Referring MD) Medicines: See the Anesthesia note for documentation of the administered medications Complications: No immediate complications. Requesting Provider: Procedure: Pre-Anesthesia Assessment: - Monitored anesthesia care under the supervision of a MAINTENANCE GROUNDSKEEPER was determined to be medically necessary for this procedure based on review of the patient's medical history, medications, and prior anesthesia history. After I obtained informed consent, the scope was passed under direct vision. Throughout the procedure, the patient's blood pressure, pulse, and oxygen saturations were monitored continuously. The Colonoscope was introduced through the anus and advanced to the cecum, identified by the appendiceal orifice, IC valve and transillumination. The colonoscopy was performed without difficulty. The patient tolerated the procedure well. The quality of the bowel preparation was adequate to identify polyps greater than 10 mm in size. The appendiceal orifice and the rectum were photographed. Scope Withdrawal Time: 0 hours 24 minutes 3 seconds Moderate Sedation: MAC anesthesia was administered by the anesthesia team. Total Procedure Duration: 0 hours 31 minutes 54 seconds Findings: The perianal and digital rectal examinations were normal. Non-bleeding internal hemorrhoids were found. A 3 to 4 mm polyp was found in the hepatic flexure. The polyp was sessile. The polyp was removed with a cold snare. Resection and retrieval were complete. Verification of patient identification for the specimen was done by the nurse. Estimated blood loss was minimal. A 1 to 2 mm polyp was found in the cecum. The polyp was sessile. The polyp was removed with a cold snare. Resection and retrieval were complete. Estimated blood loss was minimal. A 3 to 5 mm polyp was found in the hepatic flexure. The polyp was sessile. The polyp was removed with a cold snare. Resection and retrieval were complete. Verification of patient identification for the specimen was done by the nurse. Estimated blood loss was minimal. A 7 to 10 mm polyp was found in the transverse colon. The polyp was sessile. The polyp was removed with a cold snare. Resection and retrieval were complete. To prevent bleeding after the polypectomy, one hemostatic clip was successfully placed (MR conditional). 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 There was no bleeding at the end of the procedure. Three sessile polyps were found in the descending colon. The polyps were 3 to 6 mm in size. These polyps were removed with a cold snare. Resection and retrieval were complete. Verification of patient identification for the specimen was done by the nurse. Estimated blood loss was minimal. The following polyps not removed due to large size - at proximal cecal rim, pre and post hepatic flexure, sigmoid colon (see images) -will refer to ELS at main [facility] Impression: - Non-bleeding internal hemorrhoids. - One 3 to 4 mm polyp at the hepatic flexure, removed with a cold snare. Resected and retrieved. - One 1 to 2 mm polyp in the cecum, removed with a cold snare. Resected and retrieved. - One 3 to 5 mm polyp at the hepatic flexure, removed with a cold snare. Resected and retrieved. - One 7 to 10 mm polyp in the transverse colon, removed with a cold snare. Resected and retrieved. Clip (MR conditional) was placed. Clip plug making operator: [employer]. - Three 3 to 6 mm polyps in the descending colon, removed with a cold snare. Resected and retrieved. Recommendation: - Repeat colonoscopy at the next available appointment next available location for advance endoscopist - will refer to main [facility]. They will review the above information and call you for an appointment. - Discharge patient to home (ambulatory). - Resume previous diet. - Patient has a contact number available for emergencies. The signs and symptoms of potential delayed complications were discussed with the patient. Return to normal activities tomorrow. Written discharge instructions were provided to the patient. - Continue present medications. Procedure Code(s): --- Professional --- 87996, Colonoscopy, flexible; with removal of tumor(s), polyp(s), or other lesion(s) by snare technique Diagnosis Code(s): --- Professional (more content not included)... Normal [facility] Colonoscopy Study observatio non 11-23-2024 [facility] Gastrointestinal Endoscopy Patient Name: Wily Arshad Procedure Date: 11/23/2024 10:59 AM Date of : 1955 Admit Type: Outpatient Age: 69 Room: [facility] A Gender: Male Note Status: Finalized Attending MD: Leigh Jacinto MD, [id number] Procedure: Colonoscopy - screening high risk Indications: High risk colon cancer surveillance: Personal history of adenomatous colonic polyps Providers: Leigh Jacinto MD Patient Profile: Refer to note in patient chart for documentation of history and physical. Last Colonoscopy: 3 years ago. Referring Physician: Raegan Gonzalez (Referring MD) Medicines: See the Anesthesia note for documentation of the administered medications Complications: No immediate complications. Requesting Provider: Procedure: Pre-Anesthesia Assessment: - Monitored anesthesia care under the supervision of a MAINTENANCE GROUNDSKEEPER was determined to be medically necessary for this procedure based on review of the patient's medical history, medications, and prior anesthesia history. After I obtained informed consent, the scope was passed under direct vision. Throughout the procedure, the patient's blood pressure, pulse, and oxygen saturations were monitored continuously. The Colonoscope was introduced through the anus and advanced to the cecum, identified by the appendiceal orifice, IC valve and transillumination. The colonoscopy was performed without difficulty. The patient tolerated the procedure well. The quality of the bowel preparation was adequate to identify polyps greater than 10 mm in size. The appendiceal orifice and the rectum were photographed. Scope Withdrawal Time: 0 hours 24 minutes 3 seconds Moderate Sedation: MAC anesthesia was administered by the anesthesia team. Total Procedure Duration: 0 hours 31 minutes 54 seconds Findings: The perianal and digital rectal examinations were normal. Non-bleeding internal hemorrhoids were found. A 3 to 4 mm polyp was found in the hepatic flexure. The polyp was sessile. The polyp was removed with a cold snare. Resection and retrieval were complete. Verification of patient identification for the specimen was done by the nurse. Estimated blood loss was minimal. A 1 to 2 mm polyp was found in the cecum. The polyp was sessile. The polyp was removed with a cold snare. Resection and retrieval were complete. Estimated blood loss was minimal. A 3 to 5 mm polyp was found in the hepatic flexure. The polyp was sessile. The polyp was removed with a cold snare. Resection and retrieval were complete. Verification of patient identification for the specimen was done by the nurse. Estimated blood loss was minimal. A 7 to 10 mm polyp was found in the transverse colon. The polyp was sessile. The polyp was removed with a cold snare. Resection and retrieval were complete. To prevent bleeding after the polypectomy, one hemostatic clip was successfully placed (MR conditional). 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 There was no bleeding at the end of the procedure. Three sessile polyps were found in the descending colon. The polyps were 3 to 6 mm in size. These polyps were removed with a cold snare. Resection and retrieval were complete. Verification of patient identification for the specimen was done by the nurse. Estimated blood loss was minimal. The following polyps not removed due to large size - at proximal cecal rim, pre and post hepatic flexure, sigmoid colon (see images) -will refer to ELS at main [facility] Impression: - Non-bleeding internal hemorrhoids. - One 3 to 4 mm polyp at the hepatic flexure, removed with a cold snare. Resected and retrieved. - One 1 to 2 mm polyp in the cecum, removed with a cold snare. Resected and retrieved. - One 3 to 5 mm polyp at the hepatic flexure, removed with a cold snare. Resected and retrieved. - One 7 to 10 mm polyp in the transverse colon, removed with a cold snare. Resected and retrieved. Clip (MR conditional) was placed. 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 (more content not included)... PROVATION [facility] Radiology Study observation (narrative) [facility] HISTORY PHYSICALon HISTORY PHYSICAL HNO ID: [id number] Author: LEIGH JACINTO MD Service: General Surgery Author Type: Physician Type: H&P Filed: 11/23/2024 09:49 Note Text: HISTORY AND PHYSICAL Wily Arshad : 1955 REFERRING PHYSICIAN: No referring provider defined for this encounter. CHIEF COMPLAINT: Patient presents with: Consult HPI: Wily is a 69 year old male referred for endoscopy. Wily notes due for screening colonoscopy- hx of polyps (2020) AND father with colon cancer. Wily denies abdominal pain.. Wily denies diarrhea. Wily denies constipation. Wily denies a change in bowel habits. Wily denies melena. Wily denies bright red blood per rectum. Wily denies hemorrhoids. Wily denies heartburn. Wily denies dysphagia. Wily denies a history of ulcers/ peptic ulcer disease. Wily has a hx of COPD- uses daily Incruse and advair- Has not needed nebulizer, denies worsening SOB, wheezing, recent illnesses or hospitalizations. COPD is managed by PCP. Wily has undergone prior endoscopy. Last colonoscopy was 02/[address] Sky at [facility]. Sedation:MAC Impression: -Two 6 to 7mm polyps in the rectum and in the descending colon, removed with a hot snare. Resected and retrieved. -Non bleeding internal hemorrhoids. -The examination was otherwise normal. The colon polyp that was located in the descending colon I did place a small clip on. I had good hemostasis. He had a very torturous colon and it did take quite a bit of time to get through it. He would no be a good candidate for anything less than MAC anesthesia. CURRENT MEDICATIONS Current Outpatient Medications Medication Sig fluticasone-salmeterol (ADVAIR DISKUS) 250-50 mcg/dose inhaler Inhale 1 Puff as instructed two times a day. Rinse and gargle mouth after use with water. albuterol HFA (VENTOLIN HFA) 90 mcg/actuation inhaler Inhale 2 Puffs as instructed every 4 hours as needed for wheezing/shortness of breath. atorvastatin (LIPITOR) 20 mg tablet Take 1 tablet by mouth daily at bedtime. For cholesterol. umeclidinium (INCRUSE ELLIPTA) 62.5 mcg/actuation inhaler Inhale 1 Puff as instructed once daily. ipratropium-albuterol (DUONEB) 0.5 mg-3 mg(2.5 mg base)/3 mL nebu IInhale by nebulizer over 5-15 minutes four (4) times a day. COMPOUNDED PRESCRIPTION 1 Each as needed. NEBULIZER FOR HOME USE. ICD10: J44.9 COMPOUNDED PRESCRIPTION aerosol nebulizer Dx copd peg 3350-Electrolytes (GOLYTELY) 236-22.74-6.74 -5.86 gram suspension Take 4,000 mL by mouth one time only for 1 dose. Refer to printed prep instructions from your provider. hydroCHLOROthiazide 25 mg tablet Take 1 tablet by mouth once daily. No current facility-administered medications for this visit. ALLERGIES: Patient has no known allergies. PAST MEDICAL HISTORY PAST MEDICAL HISTORY Diagnosis Date Alcohol abuse BPH (benign prostatic hyperplasia) Cerebral artery disease COPD (chronic obstructive pulmonary disease) (HCC) Diastasis recti Essential hypertension Marijuana use weekly Noncompliance Right inguinal hernia 11/17/2014 Tobacco use PAST SURGICAL HISTORY PAST SURGICAL HISTORY Procedure Laterality Date COLSC FLX W/RMVL OF TUMOR POLYP LESION SNARE TQ 03/11/2021 Dr. Sky. 2 polyps. repeat 3-5 years PAST SURGICAL HISTORY OF 11/17/2014 laparoscopic R inguinal herniorrhaphy; Dr. Sky FAMILY HISTORY FAMILY HISTORY Problem Relation Age of Onset Stroke Mother other (CKD) Mother COPD Mother Depression Mother other (CHF) Mother other (High cholesterol) Mother Heart Father Stroke Father Coronary Artery Disease Father 80 CABG x4 Prostate Cancer Father Colon Cancer Father Diabetes Sister COPD Sister Asthma Sister other (RLS) Sister other (High cholesterol) Brother Depression Brother Anxiety disorder Brother other (High cholesterol) Brother Hypertension Brother No Known Problems Brother Cancer Maternal Grandmother No Known Problems Maternal Grandfather Diabetes Paternal Grandmother Pancreatic Cancer Paternal Grandfather SOCIAL HISTORY Social History Tobacco Use Smoking status: Every Day Current packs/day: 1.00 Average packs/day: 1 pack/day for 50.0 years (50.0 ttl pk-yrs) Types: Cigarettes Smokeless tobacco: Never Vaping Use Vaping status: Never Used Substance Use Topics Alcohol use: Not Currently Alcohol/week: 21.0 standard drinks of alcohol Types: 21 Cans of beer per week Drug use: Yes Frequency: 2.0 times per week Types: Marijuana REVIEW OF SYMPTOMS: REVIEW OF SYSTEMS: General: The patient denies fatigue, denies weight loss, denies weight gain, denies feeling hot, and feelings of cold. Eyes: The patient denies glaucoma, denies eye injury/surgery, + glasses or contacts. Ear/Nose/Throat: The patient denies allergies, denies hayfever, denies ear infections, and denies bloody noses. Cardiovascular: The patient denies chest pain, denies he (more content not included)... [facility] Pathology biopsy report Tan (Tiss)on 11-23-2024 AP DISCLAIMER [facility] Comment on above: Order Comment: Speci men Type: TISSUE SPECIMEN Ordering Facility: [facility] Address: [address] [place] [address] Result Comment: Kobe Callahan Test (LDT) Disclaimer: Performance characteristics of immunohistochemical, immunofluorescent, and chromogenic in-situ hybridization tests have been determined by the performing laboratory within [facility]'s [facility] Pathology and Laboratory Medicine Department ([facility], [facility], [facility], [facility], [facility], [facility], or [facility]) in a manner consistent with CLIA requirements. One or more of these tests may not have been cleared or approved by the FDA. [facility] is regulated under CLIA as qualified to perform high-complexity testing. These tests are used for clinical purposes. These should not be regarded as investigational or for research. Positive and negative controls stain appropriately. Performed By: #### 6 6121-5 #### [facility] CLIA [id number] [address] [place] [address] [place] CASE REPORT Normal [facility] Comment on above: Order Comment: Speci men Type: TISSUE SPECIMEN Ordering Facility: [facility] Address: [address] [place] [address] Result Comment: Surg [facility] Pathology Report Case: [id number] Authorizing Provider: Leigh Jacinto MD Collected: 11/23/2024 11:12 AM Ordering Location: [facility] Endoscopy Received: 11/23/2024 01:43 PM Pathologist: Luis Morocho MD Specimens: A) - Colon, Descending, Polyp B) - Colon, Cecum, Polyp C) - Colon, Hepatic Flexure, Polyp D) - Colon, Transverse, Polyp Performed By: #### 6 6121-5 #### [facility] CLIA [id number] [address] [place] [address] [place] FINAL DIAGNOSIS [facility] Comment on above: Order Comment: Speci men Type: TISSUE SPECIMEN Ordering Facility: [facility] Address: [address] [place] [address] Result Comment: Jaqueline Ryan olon, descending, polyp, biopsy: - Fragments of tubular adenoma. B. Colon, cecum, polyp, biopsy: - Fragments of tubular adenoma. C. Colon, hepatic flexure, polyp, biopsy: - Fragments of tubular adenoma. D. Colon, transverse, polyp, biopsy: - Fragments of tubular adenoma. at 1207 EDT Performed By: #### 6 6121-5 #### [facility] CLIA [id number] [address] [place] [address] OF [facility] FINAL PERFORMING LAB Normal [facility] Comment on above: Order Comment: Speci men Type: TISSUE SPECIMEN Ordering Facility: [facility] Address: [address] [place] [address] Result Comment: Diag nostic interpretation performed at: [facility], [address] [place] [address] CLIA# [id number] Mems Device Scientist: José Antonio Montiel MD Performed By: #### 6 6121-5 #### [facility] CLIA [id number] [address] [place] [address] GROSS DESCRIPTION [facility] Comment on above: Order Comment: Speci men Type: TISSUE SPECIMEN Ordering Facility: [facility] Address: [address] [place] [address] Result Comment: A. C olon, Descending, Polyp Received in formalin are multiple pieces of [place], soft tissue aggregating to 1.4 x 0.3 x 0.1 cm. Totally submitted in one cassette. B. Colon, Cecum, Polyp Received in formalin are two pieces of [place], soft tissue aggregating to 0.8 x 0.2 x 0.1 cm. Totally submitted in one cassette. C. Colon, Hepatic Flexure, Polyp Received in formalin are two pieces of [place], soft tissue aggregating to 0.7 x 0.3 x 0.1 cm. Totally submitted in one cassette. D. Colon, Transverse, Polyp Received in formalin are multiple pieces of del iro, soft tissue aggregating to 0.9 x 0.3 x 0.1 cm. Totally submitted in one cassette. DB November 23, 2024 8:46 PM Gross examination performed at [facility], [address] [place] [address] Performed By: #### 6 6121-5 #### [facility] CLIA [id number] [address] [place] [address] [place] CNOVon 10-20-2024 CNOV Office Visit (GENSWS ) WILY ARSHAD ([id number]) 1955 M Date Time Provider Department 10/20/24 3:30 PM RAEGAN GONZALEZ During your visit today, we recorded the following information about you: Temperature Pulse Respiration Blood pressure 97.8 degrees 90/minute 14/minute 128/78 Weight Height 59.9 kg 1.702 m Raegan Gonzalez APRN.LEAD PONY RIDER 10/20/2024 3:47 PM Signed HISTORY AND PHYSICAL Wily Arshad : 1955 REFERRING PHYSICIAN: No referring provider defined for this encounter. CHIEF COMPLAINT: Patient presents with: Consult HPI: Wily is a 69 year old male referred for endoscopy. Wily notes due for screening colonoscopy- hx of polyps (2020) AND father with colon cancer. Wily denies abdominal pain.. Wily denies diarrhea. Wily denies constipation. Wily denies a change in bowel habits. Wily denies melena. Wily denies bright red blood per rectum. Wily denies hemorrhoids. Wily denies heartburn. Wily denies dysphagia. Wily denies a history of ulcers/ peptic ulcer disease. Wily has a hx of COPD- uses daily Incruse and advair- Has not needed nebulizer, denies worsening SOB, wheezing, recent illnesses or hospitalizations. COPD is managed by PCP. Wily has undergone prior endoscopy. Last colonoscopy was 02/[address] Sky at [facility]. Sedation:MAC Impression: -Two 6 to 7mm polyps in the rectum and in the descending colon, removed with a hot snare. Resected and retrieved. -Non bleeding internal hemorrhoids. -The examination was otherwise normal. The colon polyp that was located in the descending colon I did place a small clip on. I had good hemostasis. He had a very torturous colon and it did take quite a bit of time to get through it. He would no be a good candidate for anything less than MAC anesthesia. Current Outpatient Medications Medication Sig fluticasone-salmeterol (ADVAIR DISKUS) 250-50 mcg/dose inhaler Inhale 1 Puff as instructed two times a day. Rinse and gargle mouth after use with water. albuterol HFA (VENTOLIN HFA) 90 mcg/actuation inhaler Inhale 2 Puffs as instructed every 4 hours as needed for wheezing/shortness of breath. atorvastatin (LIPITOR) 20 mg tablet Take 1 tablet by mouth daily at bedtime. For cholesterol. umeclidinium (INCRUSE ELLIPTA) 62.5 mcg/actuation inhaler Inhale 1 Puff as instructed once daily. ipratropium-albuterol (DUONEB) 0.5 mg-3 mg(2.5 mg base)/3 mL nebu IInhale by nebulizer over 5-15 minutes four (4) times a day. COMPOUNDED PRESCRIPTION 1 Each as needed. NEBULIZER FOR HOME USE. ICD10: J44.9 COMPOUNDED PRESCRIPTION aerosol nebulizer Dx copd peg 3350-Electrolytes (GOLYTELY) 236-22.74-6.74 -5.86 gram suspension Take 4,000 mL by mouth one time only for 1 dose. Refer to printed prep instructions from your provider. hydroCHLOROthiazide 25 mg tablet Take 1 tablet by mouth once daily. No current facility-administered medications for this visit. ALLERGIES: Patient has no known allergies. PAST MEDICAL HISTORY Diagnosis Date Alcohol abuse BPH (benign prostatic hyperplasia) Cerebral artery disease COPD (chronic obstructive pulmonary disease) (HCC) Diastasis recti Essential hypertension Marijuana use weekly Noncompliance Right inguinal hernia 11/17/2014 Tobacco use PAST SURGICAL HISTORY Procedure Laterality Date COLSC FLX W/RMVL OF TUMOR POLYP LESION SNARE TQ 03/11/2021 Dr. Sky. 2 polyps. repeat 3-5 years PAST SURGICAL HISTORY OF 11/17/2014 laparoscopic R inguinal herniorrhaphy; Dr. Sky FAMILY HISTORY Problem Relation Age of Onset Stroke Mother other (CKD) Mother COPD Mother Depression Mother other (CHF) Mother other (High cholesterol) Mother Heart Father Stroke Father Coronary Artery Disease Father 80 CABG x4 Prostate Cancer Father Colon Cancer Father Diabetes Sister COPD Sister Asthma Sister other (RLS) Sister other (High cholesterol) Brother Depression Brother Anxiety disorder Brother other (High cholesterol) Brother Hypertension Brother No Known Problems Brother Cancer Maternal Grandmother No Known Problems Maternal Grandfather Diabetes Paternal Grandmother Pancreatic Cancer Paternal Grandfather Social History Tobacco Use Smoking status: Every Day Current packs/day: 1.00 Average packs/day: 1 pack/day for 50.0 years (50.0 ttl pk-yrs) Types: Cigarettes Smokeless tobacco: Never Vaping Use Vaping status: Never Used Substance Use Topics Alcohol use: Not Currently Alcohol/week: 21.0 standard drinks of alcohol Types: 21 Cans of beer per week Drug use: Yes Frequency: 2.0 times per week Types: Marijuana REVIEW OF SYMPTOMS: REVIEW OF SYSTEMS: General: The patient denies fatigue, denies weight loss, denies weight gain, denies feeling hot, and feelings of cold. Eyes: The patient denies glaucoma, den (more content not included)... [facility] Telephone (Trump[facility]) WILY ARSHAD ([id number]) 1955 M Date Time Provider Department 10/20/24 RAEGAN GONZALEZ [employer] During your visit today, we recorded the following information about you: Nathanael Paiz 10/20/2024 3:50 PM Signed 11-23-2024 Colon Arline Harding 11/16/2024 4:40 PM Signed Spoke with patient today to confirm colonoscopy procedure date AND bowel prep instructions with my phone number [phone]. Allergies As of Date: 10/20/2024 (No Known Allergies) Date Reviewed: 10/20/2024 Reviewed by: Raegan Gonzalez APRN.[employer] - Fully Assessed Reason for Visit: 11-23-2024 Colon [place] [Other] Prescriptions as of 11/16/2024 - fluticasone-salmeterol (ADVAIR DISKUS) 250-50 mcg/dose inhaler Inhale 1 Puff as instructed two times a day. Rinse and gargle mouth after use with water. - albuterol HFA (VENTOLIN HFA) 90 mcg/actuation inhaler Inhale 2 Puffs as instructed every 4 hours as needed for wheezing/shortness of breath. - atorvastatin (LIPITOR) 20 mg tablet Take 1 tablet by mouth daily at bedtime. For cholesterol. - hydroCHLOROthiazide 25 mg tablet Take 1 tablet by mouth once daily. - umeclidinium (INCRUSE ELLIPTA) 62.5 mcg/actuation inhaler Inhale 1 Puff as instructed once daily. - ipratropium-albuterol (DUONEB) 0.5 mg-3 mg(2.5 mg base)/3 mL nebu IInhale by nebulizer over 5-15 minutes four (4) times a day. - COMPOUNDED PRESCRIPTION 1 Each as needed. NEBULIZER FOR HOME USE. ICD10: J44.9 - COMPOUNDED PRESCRIPTION aerosol nebulizer Dx copd Meds Comments as of 12/27/2019: 12/27/19 Only using Albuterol inhaler and Duoneb. Does not take any other medications. Mary Masterson RN Problem List As Of Date 10/20/2024 Noted Resolved COPD (chronic obstructive pulmonary disease) [J*05/25/2012 Tobacco abuse [Z72.0] 05/25/2012 Right inguinal hernia [K40.90] 11/30/2014 Alcohol abuse [F10.10] Cerebral artery disease [I67.9] Noncompliance [Z91.199] Tobacco use [Z72.0] BPH (benign prostatic hyperplasia) [N40.0] Marijuana use [F12.90] 07/02/2022 Essential hypertension [I10] 08/25/2023 Encounter Status:Closed by ARLINE OSMAN on 11/16/[address] [facility] Abdominal Aorta for scree ningon 09-30-2024 IMPRESSION: No sonographic evidence of AAA. Investor Relations Associate: XUAN Transcribe Date/Time: Sep 30 2024 3:18P Dictated by : DICK CURRY MD This examination was interpreted and the report reviewed and electronically signed by: DICK CURRY MD on Sep 30 2024 3:19PM [facility] DIVISION OF RADIOLOGY * * *Final Report* * * DATE OF EXAM: Sep 30 2024 2:03PM [facility]28 - US SCREENING AAA / PROCEDURE REASON: Screening for abdominal aortic aneurysm * * * * Physician Interpretation * * * * EXAMINATION: SCREENING ABDOMINAL AORTA ULTRASOUND HISTORY: Screening. TECHNIQUE: Sonography of the abdominal aorta was performed. Images were obtained and stored in a permanent archive. MQ: USAOS_1 COMPARISON: None RESULT: Limitations: Bowel gas. AORTA (AP x TV): Proximal: 2.0 cm x 2.3 cm Mid (level of renal arteries): 1.9 cm x 1.9 cm Distal:2.0 cm x 2.1 cm Common Iliac Arteries (AP x TV): Right:1.1 cm x 1.1 cm Left: 1.2 cm x 1.2 cm Atherosclerotic plaque: present DIVISION OF RADIOLOGY Provider, [facility] - 09/30/2024 * * *Final Report* * * DATE OF EXAM: Sep 30 2024 2:03PM [facility] 1028 - US SCREENING AAA / PROCEDURE REASON: Screening for abdominal aortic aneurysm * * * * Physician Interpretation * * * * EXAMINATION: SCREENING ABDOMINAL AORTA ULTRASOUND HISTORY: Screening. TECHNIQUE: Sonography of the abdominal aorta was performed. Images were obtained and stored in a permanent archive. MQ: USAOS_1 COMPARISON: None RESULT: Limitations: Bowel gas. AORTA (AP x TV): Proximal: 2.0 cm x 2.3 cm Mid (level of renal arteries): 1.9 cm x 1.9 cm Distal:2.0 cm x 2.1 cm Common Iliac Arteries (AP x TV): Right:1.1 cm x 1.1 cm Left: 1.2 cm x 1.2 cm Atherosclerotic plaque: present IMPRESSION IMPRESSION: No sonographic evidence of AAA. Investor Relations Associate: XUAN Transcribe Date/Time: Sep 30 2024 3:18P Dictated by : DICK CURRY MD This examination was interpreted and the report reviewed and electronically signed by: DICK CURRY MD on Sep 30 2024 3:19PM EST [facility] Radiology Study observation (narrative) [facility] US Abdominal Aorta for chas Tapiaered By: Ccf Provider on 09-30-2024 [facility] US SCREENING AAAon US SCREENING AAA * * *Final Report* * * DATE OF EXAM: Sep 30 2024 2:03PM WR 1028 - US SCREENING AAA / PROCEDURE REASON: Screening for abdominal aortic aneurysm * * * * Physician Interpretation * * * * EXAMINATION: SCREENING ABDOMINAL AORTA ULTRASOUND HISTORY: Screening. TECHNIQUE: Sonography of the abdominal aorta was performed. Images were obtained and stored in a permanent archive. MQ: USAOS_1 COMPARISON: None RESULT: Limitations: Bowel gas. AORTA (AP x TV): Proximal: 2.0 cm x 2.3 cm Mid (level of renal arteries): 1.9 cm x 1.9 cm Distal:2.0 cm x 2.1 cm Common Iliac Arteries (AP x TV): Right:1.1 cm x 1.1 cm Left: 1.2 cm x 1.2 cm Atherosclerotic plaque: present IMPRESSION: No sonographic evidence of AAA. Investor Relations Associate: PSCB Transcribe Date/Time: Sep 30 2024 3:18P Dictated by : DICK CURRY MD This examination was interpreted and the report reviewed and electronically signed by: DICK CURRY MD on Sep 30 2024 3:19PM EST [id number] Normal [facility] CNPNon 09-21-2024 [facility] ([id number]) 1955 M Date Time Provider Department 09/21/24 [facility] During your visit today, we recorded the following information about you: Aminata Drake LPN 09/21/2024 1:20 PM Signed [facility] pharmacy calling asking to try to help patient get lower tier cost for his generic Advair rx. Was asking what diagnosis which gave what was on the rx. Asked if an other medication would work just as well, explained that is what the Dr ordered for the patient to be taking at visit on 09/19/2024. He said this case #[id number] would be going to review and patient would be notified via mail or phone call. Allergies As of Date: 09/21/2024 (No Known Allergies) Date Reviewed: 09/19/2024 Reviewed by: Sweetie Hutchinson LPN - Fully Assessed Reason for Visit: patient to get lower tier cost for rx [Other] Prescriptions as of 09/21/2024 - fluticasone-salmeterol (ADVAIR DISKUS) 250-50 mcg/dose inhaler Inhale 1 Puff as instructed two times a day. Rinse and gargle mouth after use with water. - albuterol HFA (VENTOLIN HFA) 90 mcg/actuation inhaler Inhale 2 Puffs as instructed every 4 hours as needed for wheezing/shortness of breath. - atorvastatin (LIPITOR) 20 mg tablet Take 1 tablet by mouth daily at bedtime. For cholesterol. - hydroCHLOROthiazide 25 mg tablet Take 1 tablet by mouth once daily. - umeclidinium (INCRUSE ELLIPTA) 62.5 mcg/actuation inhaler Inhale 1 Puff as instructed once daily. - ipratropium-albuterol (DUONEB) 0.5 mg-3 mg(2.5 mg base)/3 mL nebu IInhale by nebulizer over 5-15 minutes four (4) times a day. - COMPOUNDED PRESCRIPTION 1 Each as needed. NEBULIZER FOR HOME USE. ICD10: J44.9 - COMPOUNDED PRESCRIPTION aerosol nebulizer Dx copd Meds Comments as of 12/27/2019: 12/27/19 Only using Albuterol inhaler and Duoneb. Does not take any other medications. Mary Masterson RN Problem List As Of Date 09/21/2024 Noted Resolved COPD (chronic obstructive pulmonary disease) [J*05/25/2012 Tobacco abuse [Z72.0] 05/25/2012 Right inguinal hernia [K40.90] 11/30/2014 Alcohol abuse [F10.10] Cerebral artery disease [I67.9] Noncompliance [Z91.199] Tobacco use [Z72.0] BPH (benign prostatic hyperplasia) [N40.0] Marijuana use [F12.90] 07/02/2022 Essential hypertension [I10] 08/25/2023 Encounter Status:Closed by AMINATA DRAKE on 09/21/24 [facility] CNOVon 09-19-2024 CNOV Office Visit ([facility]AMP[facility] ) WILY ARSHAD ([id number]) 1955 M Date Time Provider Department 09/19/24 2:20 PM LUCIA HODGSON During your visit today, we recorded the following information about you: Pulse Respiration Blood pressure Weight 92/minute 16/minute 132/80 60.3 kg Lucia Hodgson MD 09/25/2024 10:42 AM Signed Chief Complaint Patient presents with: Follow Up: 6 month HPI Wily Arsahd is a 69 year old male who presents here today for Above Complaints. Accompanied today by his brother. Asking about getting PSA because he found out recently his father had prostate cancer before passing away. History of BPH. Not interested in rx. Getting up 1-2 times per night to urinate. Denies weak stream, straining, dysuria, hematuria. Patient states that he has not taken his HCTZ or lipitor in a few days. States that he forgets to take them. Has a pill box at home, but does not use it. Does not check BP at home. Denies HTN symptoms. COPD: patient using incruse Ellipta on a daily basis which does help with wheezing and SOB. Only on Advair once per day and is using some of his sister's rx. Needs refill today. Using Duoneb about 2 times per day to help with SOB. Still smoking 1 pack per day. Not interested in help with cessation. Refusing EKG for ASCVD risk >20%. Past medical history, appointments, medications, allergies reviewed. Previous Medical History PAST MEDICAL HISTORY Diagnosis Date Alcohol abuse BPH (benign prostatic hyperplasia) Cerebral artery disease COPD (chronic obstructive pulmonary disease) (HCC) Diastasis recti Essential hypertension Marijuana use weekly Noncompliance Right inguinal hernia 11/17/2014 Tobacco use Previous Surgical History PAST SURGICAL HISTORY Procedure Laterality Date COLSC FLX W/RMVL OF TUMOR POLYP LESION SNARE TQ 03/11/2021 Dr. Sky. 2 polyps. repeat 3-5 years PAST SURGICAL HISTORY OF 11/17/2014 laparoscopic R inguinal herniorrhaphy; Dr. Sky Family History FAMILY HISTORY Problem Relation Age of Onset Heart Father Stroke Father Coronary Artery Disease Father 80 CABG x4 Diabetes Sister Diabetes Paternal Grandmother Patient Allergies ALLERGIES No Known Allergies Current Medications Current Outpatient Medications on File Prior to Visit Medication Sig albuterol HFA (VENTOLIN HFA) 90 mcg/actuation inhaler Inhale 2 Puffs as instructed every 4 hours as needed for wheezing/shortness of breath. atorvastatin (LIPITOR) 20 mg tablet Take 1 tablet by mouth daily at bedtime. For cholesterol. umeclidinium (INCRUSE ELLIPTA) 62.5 mcg/actuation inhaler Inhale 1 Puff as instructed once daily. ipratropium-albuterol (DUONEB) 0.5 mg-3 mg(2.5 mg base)/3 mL nebu IInhale by nebulizer over 5-15 minutes four (4) times a day. COMPOUNDED PRESCRIPTION 1 Each as needed. NEBULIZER FOR HOME USE. ICD10: J44.9 COMPOUNDED PRESCRIPTION aerosol nebulizer Dx copd hydroCHLOROthiazide 25 mg tablet Take 1 tablet by mouth once daily. No current facility-administered medications on file prior to visit. Social History Social History Tobacco Use Smoking status: Every Day Current packs/day: 1.00 Average packs/day: 1 pack/day for 50.0 years (50.0 ttl pk-yrs) Types: Cigarettes Smokeless tobacco: Never Vaping Use Vaping status: Never Used Substance Use Topics Alcohol use: Yes Alcohol/week: 60.0 standard drinks of alcohol Types: 60 Cans of Beer (12oz) per week Comment: 6 pack daily, 30 cans on weekend Drug use: Yes Types: Marijuana Comment: occasional Review of Symptoms REVIEW OF SYSTEMS GENERAL: No weight loss, malaise or fevers RESPIRATORY: Negative for cough, hemoptysis, wheezing, COPD, dyspnea or shortness of breath CARDIOVASCULAR: Negative for chest pain, leg swelling, hypertension, CHF or palpitations GI: No nausea, vomiting, or diarrhea SKIN: Negative for lesions, rash, and itching EXAM: BP 132/80 Pulse 92 Resp 16 Wt 60.3 kg (133 lb) SpO2 99% BMI 20.83 kg/m? General Appearance: Well appearing, alert, in no acute distress, well-hydrated, well nourished.. Skin: Skin color, texture, turgor normal, no suspicious rashes or lesions. Lungs: Lungs clear to auscultation. No wheezing, rhonchi, rales.. Heart: RRR without murmur, gallop, or rubs. No ectopy. Abdomen: Normal abdominal exam, Abdomen soft, non-tender. Bowel sounds normal. No masses, organomegaly. Extremities: No deformities, edema, skin discoloration, clubbing or cyanosis. Good capillary refill. . Health Maintenance List Abdominal Aortic Aneurysm Screening Never done Depression Screening Never done Anxiety Screening Never done BP Controlled (<130/80) Never done Pneumococcal Vaccine: 50+(1 of 2 - PCV) Never done Colorectal Cancer Screening Never done Shingrix Vaccine(1 of 2) Never done RSV Vaccine(1 - Risk 60-74 ye (more content not included)... Normal [facility] Sawyer 09-19-2024 [facility] Telephone ([facility]) WILY ARSHAD ([id number]) 1955 M Date Time Provider Department 09/19/24 [facility] During your visit today, we recorded the following information about you: Maryse Carmona 09/19/2024 4:32 PM Signed Patient is scheduled for some appointments and has issues with transportation. Please assist. Melinda Muniz, JERE 09/20/2024 9:20 AM Signed Patient and Sw spoke and discussed [employer] for information regarding transit bus and help with discounted transit passes. Sw and patient also discussed Leigh Ann, Senior Agriculture Worker. Sw noted would be helpful for patient to speak with Leigh Ann to discuss community services that could be helpful to patient. Sw provided patient with [employer] phone number and address to reach out to for assistance. Patient notes that [employer] is close to his house and he can stop in there and see about transit stop and also discounted taxi passes. Allergies As of Date: 09/19/2024 (No Known Allergies) Date Reviewed: 09/19/2024 Reviewed by: Sweetie Hutchinson LPN - Fully Assessed Reason for Visit: transportation issues [Other] Prescriptions as of 09/20/2024 - fluticasone-salmeterol (ADVAIR DISKUS) 250-50 mcg/dose inhaler Inhale 1 Puff as instructed two times a day. Rinse and gargle mouth after use with water. - albuterol HFA (VENTOLIN HFA) 90 mcg/actuation inhaler Inhale 2 Puffs as instructed every 4 hours as needed for wheezing/shortness of breath. - atorvastatin (LIPITOR) 20 mg tablet Take 1 tablet by mouth daily at bedtime. For cholesterol. - hydroCHLOROthiazide 25 mg tablet Take 1 tablet by mouth once daily. - umeclidinium (INCRUSE ELLIPTA) 62.5 mcg/actuation inhaler Inhale 1 Puff as instructed once daily. - ipratropium-albuterol (DUONEB) 0.5 mg-3 mg(2.5 mg base)/3 mL nebu IInhale by nebulizer over 5-15 minutes four (4) times a day. - COMPOUNDED PRESCRIPTION 1 Each as needed. NEBULIZER FOR HOME USE. ICD10: J44.9 - COMPOUNDED PRESCRIPTION aerosol nebulizer Dx copd Meds Comments as of 12/27/2019: 12/27/19 Only using Albuterol inhaler and Duoneb. Does not take any other medications. Mary Masterson RN Problem List As Of Date 09/19/2024 Noted Resolved COPD (chronic obstructive pulmonary disease) [J*05/25/2012 Tobacco abuse [Z72.0] 05/25/2012 Right inguinal hernia [K40.90] 11/30/2014 Alcohol abuse [F10.10] Cerebral artery disease [I67.9] Noncompliance [Z91.199] Tobacco use [Z72.0] BPH (benign prostatic hyperplasia) [N40.0] Marijuana use [F12.90] 07/02/2022 Essential hypertension [I10] 08/25/2023 Encounter Status:Closed by MELINDA JUNG on 09/20/24 Normal [facility] Comprehensive metabolic 2000 panelon 09-19-2024 Albumin [Mass/Vol] 4.4 g/dL Normal 3.9-4.9 [facility] Comment on above: Order Comment: Speci men Type: BLOOD SPECIMENOrdering Facility: [facility] Address: [address] [place] [address] Performed By: #### 2 4323-8, 47892-8 ####[facility] LABIA [id number] [place] [address] [place] ALP [Catalytic activity/Vol] 66 U/L Normal 38-113 [facility] Comment on above: Order Comment: Speci men Type: BLOOD SPECIMENOrdering Facility: [facility] Address: [address] [place] [address] Performed By: #### 2 4323-8, 65986-7 ####[facility] LABCLIA [id number] [place] [address] [place] ALT [Catalytic activity/Vol] 14 U/L Normal 10-54 [facility] Comment on above: Order Comment: Speci men Type: BLOOD SPECIMENOrdering Facility: [facility] Address: [address] [place] [address] Performed By: #### 2 4323-8, 70991-2 ####[facility] LABCLIA [id number] [place] [address] [place] Anion gap [Moles/Vol] 11 mmol/L Normal 8-15 [facility] Comment on above: Order Comment: Speci men Type: BLOOD SPECIMENOrdering Facility: [facility] Address: [address] [place] [address] Performed By: #### 2 4323-8, 82600-2 ####[facility] LABCLIA [id number] [facility] [place] [address] [place] AST [Catalytic activity/Vol] 16 U/L Normal 14-40 [facility] Comment on above: Order Comment: Speci men Type: BLOOD SPECIMENOrdering Facility: [facility] Address: [address] [place] [address] Performed By: #### 2 4323-8, 40981-6 ####[facility] LABCLIA [id number] [place] [address] [place] Bilirubin [Mass/Vol] 0.3 mg/dL Normal 0.2-1.3 [facility] Comment on above: Order Comment: Speci men Type: BLOOD SPECIMENOrdering Facility: [facility] Address: [address] [place] [address] Performed By: #### 2 4323-8, 13144-7 ####[facility] LABIA [id number] [place] [address] [place] Calcium [Mass/Vol] 8.9 mg/dL Normal 8.5-10.2 [facility] Comment on above: Order Comment: Speci men Type: BLOOD SPECIMENOrdering Facility: [facility] Address: [address] [place], [place] [address] Performed By: #### 2 4323-8, 82076-3 ####[facility] LABCLIA [id number] [place] [id number] [place] Chloride [Moles/Vol] 103 mmol/L Normal 98-107 [facility] Comment on above: Order Comment: Speci men Type: BLOOD SPECIMENOrdering Facility: [facility] Address: [address] [place], [place] [address] Performed By: #### 2 4323-8, 28886-7 ####[facility] LABIA [id number] [place] [id number] [place] CO2 [Moles/Vol] 24 mmol/L Normal 22-30 [facility] Comment on above: Order Comment: Speci men Type: BLOOD SPECIMENOrdering Facility: [facility] Address: [address] [place] [address] Performed By: #### 2 4323-8, 36588-5 ####[facility] LABIA [id number] [place] [id number] [place] Creatinine [Mass/Vol] 0.75 mg/dL Normal 0.73-1.22 [facility] Comment on above: Order Comment: Speci men Type: BLOOD SPECIMENOrdering Facility: [facility] Address: [address] [place] [address] Performed By: #### 2 4323-8, 30425-4 ####[facility] LABIA [id number] [place] [address] [place] Creatinine and Glomerular filtration rate.predicted panel (S/P/Bld) 98 mL/min/1.73m??? Normal >=60 [facility] Comment on above: Order Comment: Speci men Type: BLOOD SPECIMENOrdering Facility: [facility] Address: [address] [place] [address] Result Comment: Marva mated Glomerular Filtration Rate (eGFR) is calculated using the 2020 CKD-EPI creatinine equation. This equation utilizes serum creatinine, sex, and age as parameters. The creatinine assay has traceable calibration to isotope dilution-mass spectrometry. Refer to KDIGO guidelines for clinical interpretation. In patients with unstable renal function, e.g. those with acute kidney injury, the eGFR may not accurately reflect actual GFR. Performed By: #### 2 4323-8, 95343-9 ####[facility] LABIA [id number] [place] [id number] [place] Glucose [Mass/Vol] 79 mg/dL Normal 74-99 [facility] Comment on above: Order Comment: Speci men Type: BLOOD SPECIMENOrdering Facility: [facility] Address: [address] [place] [address] Result Comment: The [place] Diabetes Association (ADA) provides guidance for cutoff values for fasting glucose and random glucose. The ADA defines fasting as no caloric intake for at least 8 hours. Fasting plasma glucose results between 100 to 125 mg/dL indicate increased risk for diabetes (prediabetes). Fasting plasma glucose results greater than or equal to 126 mg/dL meet the criteria for diagnosis of diabetes. In the absence of unequivocal hyperglycemia, results should be confirmed by repeat testing. In a patient with classic symptoms of hyperglycemia or hyperglycemic crisis, random plasma glucose results greater than or equal to 200 mg/dL meet the criteria for diagnosis of diabetes. Reference: Standards of Medical Care in Diabetes 2016, [place] Diabetes Association. Diabetes Care. 2016.39(Suppl 1). Performed By: #### 2 4323-8, 69190-8 ####[facility] LABCLIA [id number] [place] [address] [place] Potassium [Moles/Vol] 4.2 mmol/L Normal 3.7-5.1 [facility] Comment on above: Order Comment: Speci men Type: BLOOD SPECIMENOrdering Facility: [facility] Address: [address] [place] [address] Performed By: #### 2 4323-8, 09842-7 ####[facility] LABCLIA [id number] [place] [address] [place] Protein [Mass/Vol] 6.6 g/dL Normal 6.3-8.0 [facility] Comment on above: Order Comment: Speci men Type: BLOOD SPECIMENOrdering Facility: [facility] Address: [address] [place] [address] Performed By: #### 2 4323-8, 84552-6 ####[facility] LABCLIA [id number] [place] [address] [place] Sodium [Moles/Vol] 138 mmol/L Normal 136-144 [facility] Comment on above: Order Comment: Speci men Type: BLOOD SPECIMENOrdering Facility: [facility] Address: [address] [place] [address] Performed By: #### 2 4323-8, 05995-2 ####[facility] LABCLIA [id number] [place] [address] [place] Urea nitrogen [Mass/Vol] 13 mg/dL Normal 9-24 [facility] Comment on above: Order Comment: Speci men Type: BLOOD SPECIMENOrdering Facility: [facility] Address: [address] [place] [address] Performed By: #### 2 4323-8, 24428-7 ####[facility] LABCLIA [id number] [place] [address] [place] Lipid 1996 panelon 5 Cholesterol [Mass/Vol] 203 mg/dL High <200 [facility] Comment on above: Order Comment: Speci men Type: BLOOD SPECIMENOrdering Facility: [facility] Address: [address] [place] [address] Result Comment: <200 mg/dL, Desirable 200-239 mg/dL, Borderline high >239 mg/dL, High Performed By: #### 2 4323-8, 06801-6 ####[facility] LABCLIA [id number] [place] [address] [place] Cholesterol in HDL [Mass/Vol] 40 mg/dL Normal >39 [facility] Comment on above: Order Comment: Speci men Type: BLOOD SPECIMENOrdering Facility: [facility] Address: [address] [place] [address] Result Comment: 40-5 9 mg/dL, Acceptable >59 mg/dL, High: Negative risk factor for coronary heart disease <40 mg/dL, Low: Positive risk factor for coronary heart disease Performed By: #### 2 4323-8, 75194-9 ####[facility] LABCLIA [id number] [place] [address] [place] Cholesterol in LDL [Mass/Vol] 139 mg/dL High <100 [facility] Comment on above: Order Comment: Speci men Type: BLOOD SPECIMENOrdering Facility: [facility] Address: [address] [place] [address] Result Comment: <100 mg/dL, Optimal 100-129 mg/dL, Near optimal/above optimal 130-159 mg/dL, Borderline high 160-189 mg/dL, High >189 mg/dL, Very high Secondary prevention optimal LDL Cholesterol levels are recommended to be < 70 mg/dL Performed By: #### 2 4323-8, 58192-0 ####[facility] LABCLIA [id number] [place] [address] [place] Cholesterol in LDL/Cholesterol in HDL [Mass ratio] 3.48 {ratio} High <2.54 [facility] Comment on above: Order Comment: Speci men Type: BLOOD SPECIMENOrdering Facility: [facility] Address: [address] [place] [address] Result Comment: Terrence coppola: 1. National Cholesterol Education Program ATP III Guideline At-A-Glance Quick Desk Reference: National Heart, Lung, and Blood [place]. National Institutes of Health. 2001: NIH Publication No. 01-3305. 2. An International Atherosclerosis Society position paper: global recommendations for the management of dyslipidemia: executive summary, Atherosclerosis. 2014: 232(2):410-413. Performed By: #### 2 4323-8, 15245-0 ####[facility] LABCLIA [id number] [place] [address] [place] Cholesterol in VLDL [Mass/Vol] 24 mg/dL Normal <30 [facility] Comment on above: Order Comment: Speci men Type: BLOOD SPECIMENOrdering Facility: [facility] Address: [address] [place] [address] Performed By: #### 2 4323-8, 67629-1 ####[facility] LABCLIA [id number] [place] [id number] [place] Cholesterol non HDL [Mass/Vol] 163 mg/dL High <130 [facility] Comment on above: Order Comment: Speci men Type: BLOOD SPECIMENOrdering Facility: [facility] Address: [address] [place] [address] Result Comment: <130 mg/dL, Optimal 130-159 mg/dL, Near optimal/above optimal 160-189 mg/dL, Borderline high 190-219 mg/dL, High >219 mg/dL, Very high Secondary prevention optimal non HDL Cholesterol levels are recommended to be <100 mg/dL Performed By: #### 2 4323-8, 15103-9 ####[facility] LABCLIA [id number] [place] [address] [place] Cholesterol.total/C holesterol in HDL [Mass ratio] 5.08 {ratio} Normal <5.10 [facility] Comment on above: Order Comment: Speci men Type: BLOOD SPECIMENOrdering Facility: [facility] Address: [address] [place] [address] Performed By: #### 2 4323-8, 37846-0 ####[facility] LABCLIA [id number] [place] [address] [place] FASTING TIME 12 hrs Normal [facility] Comment on above: Order Comment: Speci men Type: BLOOD SPECIMENOrdering Facility: [facility] Address: [address] [place] [address] Performed By: #### 2 4323-8, 22850-7 ####[facility] LABCLIA [id number] [place] [address] [place] Triglyceride [Mass/Vol] 119 mg/dL Normal <150 [facility] Comment on above: Order Comment: Speci men Type: BLOOD SPECIMENOrdering Facility: [facility] Address: [address] [place] [address] Result Comment: <150 mg/dL, Normal 150-199 mg/dL, Borderline high 200-499 mg/dL, High >499 mg/dL, Very high Performed By: #### 2 4323-8, 07781-2 ####[facility] LABCLIA [id number] [place] [address] [place] PSA/PROSTATE SPECIFIC ANTIGE N SCREENINGon 09-19-2024 Interpretation and review of laboratory results Normal [facility] Prostate specific Ag [Mass/Vol] 1.45 ng/mL NINF - 2.60 ng/mL [facility] Comment on above: Total PSA test metho dology used is the Electrochemiluminescence Immunoassay by Femi Myrio. Total PSA values by differing methodologies cannot be interchanged. [facility] Prostate specific Ag [Mass/Vol] 1.45 ng/mL Normal <2.60 [facility] Comment on above: Order Comment: Speci men Type: BLOOD SPECIMENOrdering Facility: [facility] Address: [address] [place] [address] Result Comment: Tota l PSA test methodology used is the Electrochemiluminescence Immunoassay by [employer]. Total PSA values by differing methodologies cannot be interchanged. Performed By: #### P SAS1 ####[facility] LABCLIA [id number] [address] [place] Sawyer 03-29-2024 ELIEN Telephone (MOE) WILY ARSHAD ([id number]) 1955 M Date Time Provider Department 03/29/24 LUCIA HODGSON During your visit today, we recorded the following information about you: Autumn Johnson LPN 03/29/2024 9:20 AM Signed ----- Message from Dee Hayden APRN.LEAD PONY RIDER sent at 03/25/2024 7:48 AM EDT ----- Based on his age, race, gender, blood pressure, cholesterol, and smoking status, your 10 year risk for having a cardiovascular event such as a stroke or heart attack is 21.2 %. Current guidelines suggest lipid lowering medication at a risk of 7.5%. In addition to low saturated fat diet, 150 minutes of exercise per week I recommend cholesterol lowering medication. Most common side effect of muscle aches. If agreeable will send to pharmacy and then can recheck in 3 months. The rest of his blood w ork is in acceptable ranges. Dee Hayden APRN.ELIE FOR REFERENCE ONLY The 10-year ASCVD risk score (Ness ASIF, et al., 2019) is: 21.2% Values used to calculate the score: Age: 68 years Sex: Male Is Non- : No Diabetic: No Tobacco smoker: Yes Systolic Blood Pressure: 138 mmHg Is BP treated: Yes HDL Cholesterol: 54 mg/dL Total Cholesterol: 161 mg/dL Autumn Johnson LPN 03/29/2024 9:22 AM Signed Spoke with pt and information listed below given. Pt verbalizes understanding. Pt agrees to starting a cholesterol lowering medication. pharmacy updated. MASON Mosqueda Julie, APRN.CNP 03/29/2024 9:25 AM Signed Prescription sent. Labs ordered for 3 months. Dee Hayden APRN.Sanna Cortes RN 03/29/2024 11:05 AM Signed Pt called and is notified of providers results and instructions. Pt voices understanding. Sanna Dawn RN Allergies As of Date: 03/29/2024 (No Known Allergies) Date Reviewed: 03/23/2024 Reviewed by: Mylene Roche LPN - Fully Assessed Reason for Visit: Results [95] Primary Visit Diagnosis:Hyperlipidemia, mixed [E78.2] Order(s):atorvastatin (LIPITOR) 20 mg tabletTake 1 tablet by mouth daily at bedtime. For cholesterol.Disp: 90 tabletRfl: 1 LIPID PANEL BASIC [SQLIPB] Order #: [id number] FUTURE COMPREHENSIVE METABOLIC PANEL [SQCMP] Order #: [id number] FUTURE Prescriptions as of 03/29/2024 - atorvastatin (LIPITOR) 20 mg tablet Take 1 tablet by mouth daily at bedtime. For cholesterol. - hydroCHLOROthiazide 25 mg tablet Take 1 tablet by mouth once daily. - umeclidinium (INCRUSE ELLIPTA) 62.5 mcg/actuation inhaler Inhale 1 Puff as instructed once daily. - albuterol HFA (VENTOLIN HFA) 90 mcg/actuation inhaler Inhale 2 Puffs as instructed every 4 hours as needed for wheezing/shortness of breath. - ipratropium-albuterol (DUONEB) 0.5 mg-3 mg(2.5 mg base)/3 mL nebu IInhale by nebulizer over 5-15 minutes four (4) times a day. - COMPOUNDED PRESCRIPTION 1 Each as needed. NEBULIZER FOR HOME USE. ICD10: J44.9 - COMPOUNDED PRESCRIPTION aerosol nebulizer Dx copd Meds Comments as of 12/27/2019: 12/27/19 Only using Albuterol inhaler and Duoneb. Does not take any other medications. Mary Masterson RN Problem List As Of Date 03/29/2024 Noted Resolved COPD (chronic obstructive pulmonary disease) [J*05/25/2012 Tobacco abuse [Z72.0] 05/25/2012 Right inguinal hernia [K40.90] 11/30/2014 Alcohol abuse [F10.10] Cerebral artery disease [I67.9] Noncompliance [Z91.199] Tobacco use [Z72.0] BPH (benign prostatic hyperplasia) [N40.0] Marijuana use [F12.90] 07/02/2022 Essential hypertension [I10] 08/25/2023 Prescriptions ordered this encounter Disp Refills Start End ATORVASTATIN 20 MG TABLET 90 t* 1 03/29/2024 Route: ORAL Sig: Take 1 tablet by mouth daily at bedtime. For cholesterol. Encounter Status:Closed by SANNA DAWN on 03/29/24 [facility] Auto Differential pane l (Bld)on 03-23-2024 Basophils (Bld) [#/Vol] [facility] Basophils/100 WBC (Bld) 0.3 % [facility] Differential cell count method Nom (Bld) Auto [facility] Eosinophils (Bld) [#/Vol] 0.44 10*3/uL [facility] Eosinophils/100 WBC (Bld) 5.9 % [facility] Erythrocyte distribution width (RBC) [Ratio] 13.7 % 11.5 - 15.0 % [facility] Hematocrit (Bld) [Volume fraction] 42.5 % 39.0 - 51.0 % [facility] Hemoglobin (Bld) [Mass/Vol] 14.1 g/dL 13.0 - 17.0 g/dL [facility] Immature granulocytes (Bld) [#/Vol] 0.03 10*3/uL NINF [facility] Immature granulocytes/100 WBC (Bld) 0.4 % [facility] Interpretation and review of laboratory results Abnormal [facility] Lymphocytes (Bld) [#/Vol] 2.03 10*3/uL [facility] Lymphocytes/100 WBC (Bld) 27.3 % [facility] MCH (RBC) [Entitic mass] 32.0 pg 26.0 - 34.0 pg [facility] MCHC (RBC) [Mass/Vol] 33.2 g/dL 30.5 - 36.0 g/dL [facility] MCV (RBC) [Entitic vol] 96.6 fL 80.0 - 100.0 fL [facility] Monocytes (Bld) [#/Vol] 1.11 10*3/uL [facility] Monocytes/100 WBC (Bld) 14.9 % [facility] Neutrophils (Bld) [#/Vol] 3.80 10*3/uL [facility] Neutrophils/100 WBC (Bld) 51.2 % [facility] Nucleated RBC (Bld) [#/Vol] [facility] Nucleated RBC/100 WBC (Bld) [Ratio] 0.0 % /100 WBC [facility] Platelet mean volume (Bld) [Entitic vol] 10.5 fL 9.0 - 12.7 fL [facility] Platelets (Bld) [#/Vol] 201 10*3/uL [facility] RBC (Bld) [#/Vol] 4.40 10*6/uL 4.20 - 6.0 0 m/uL [facility] WBC (Bld) [#/Vol] 7.43 10*3/uL [facility] Basophils (Bld) [#/Vol] 10*3/uL Normal <0.11 [facility] Comment on above: Order Comment: Speci men Type: BLOOD SPECIMENOrdering Facility: [facility] Address: [address] [place] [address] Performed By: #### 5 7021-8 ####[facility] LABCLIA [id number] [place] [address] [place] Basophils/100 WBC (Bld) 0.3 % Normal [facility] Comment on above: Order Comment: Speci men Type: BLOOD SPECIMENOrdering Facility: [facility] Address: [address] [place] [address] Performed By: #### 5 7021-8 ####[facility] LABCLIA [id number] [place] [address] [place] Differential cell count method Nom (Bld) Auto Normal [facility] Comment on above: Order Comment: Speci men Type: BLOOD SPECIMENOrdering Facility: [facility] Address: [address] [place] [address] Performed By: #### 5 7021-8 ####[facility] LABCLIA [id number] [place] [address] [place] Eosinophils (Bld) [#/Vol] 0.44 10*3/uL Normal <0.46 [facility] Comment on above: Order Comment: Speci men Type: BLOOD SPECIMENOrdering Facility: [facility] Address: [address] [place] [address] Performed By: #### 5 7021-8 ####[facility] LABCLIA [id number] [place] [address] [place] Eosinophils/100 WBC (Bld) 5.9 % Normal [facility] Comment on above: Order Comment: Speci men Type: BLOOD SPECIMENOrdering Facility: [facility] Address: [address] [place] [address] Performed By: #### 5 7021-8 ####[facility] LABCLIA [id number] [place] [address] [place] Erythrocyte distribution width (RBC) [Ratio] 13.7 % Normal 11.5-15.0 [facility] Comment on above: Order Comment: Speci men Type: BLOOD SPECIMENOrdering Facility: [facility] Address: [address] [place] [address] Performed By: #### 5 7021-8 ####[facility] LABCLIA [id number] [place] [address] [place] Hematocrit (Bld) [Volume fraction] 42.5 % Normal 39.0-51.0 [facility] Comment on above: Order Comment: Speci men Type: BLOOD SPECIMENOrdering Facility: [facility] Address: [address] [place] [address] Performed By: #### 5 7021-8 ####[facility] LABIA [id number] [place] [address] [place] Hemoglobin (Bld) [Mass/Vol] 14.1 g/dL Normal 13.0-17.0 [facility] Comment on above: Order Comment: Speci men Type: BLOOD SPECIMENOrdering Facility: [facility] Address: [address] [place] [address] Performed By: #### 5 7021-8 ####[facility] LABIA [id number] [place] [address] [place] Immature granulocytes (Bld) [#/Vol] 0.03 10*3/uL Normal <0.10 [facility] Comment on above: Order Comment: Speci men Type: BLOOD SPECIMENOrdering Facility: [facility] Address: [address] [place] [address] Performed By: #### 5 7021-8 ####[facility] LABCLIA [id number] [place] [address] [place] Immature granulocytes/100 WBC (Bld) 0.4 % Normal [facility] Comment on above: Order Comment: Speci men Type: BLOOD SPECIMENOrdering Facility: [facility] Address: [address] [place] [address] Performed By: #### 5 7021-8 ####[facility] LABCLIA [id number] [place] [address] [place] Lymphocytes (Bld) [#/Vol] 2.03 10*3/uL Normal 1.00-4.00 [facility] Comment on above: Order Comment: Speci men Type: BLOOD SPECIMENOrdering Facility: [facility] Address: [address] [place] [address] Performed By: #### 5 7021-8 ####[facility] LABCLIA [id number] [place] [address] [place] Lymphocytes/100 WBC (Bld) 27.3 % Normal [facility] Comment on above: Order Comment: Speci men Type: BLOOD SPECIMENOrdering Facility: [facility] Address: [address] [place] [address] Performed By: #### 5 7021-8 ####[facility] LABCLIA [id number] [place] [address] [place] MCH (RBC) [Entitic mass] 32.0 pg Normal 26.0-34.0 [facility] Comment on above: Order Comment: Speci men Type: BLOOD SPECIMENOrdering Facility: [facility] Address: [address] [place] [address] Performed By: #### 5 7021-8 ####[facility] LABCLIA [id number] [place] [address] [place] MCHC (RBC) [Mass/Vol] 33.2 g/dL Normal 30.5-36.0 [facility] Comment on above: Order Comment: Speci men Type: BLOOD SPECIMENOrdering Facility: [facility] Address: [address] [place] [address] Performed By: #### 5 7021-8 ####[facility] LABCLIA [id number] [place] [address] [place] MCV (RBC) [Entitic vol] 96.6 fL Normal 80.0-100.0 [facility] Comment on above: Order Comment: Speci men Type: BLOOD SPECIMENOrdering Facility: [facility] Address: [address] [place] [address] Performed By: #### 5 7021-8 ####[facility] LABIA [id number] [place] [address] [place] Monocytes (Bld) [#/Vol] 1.11 10*3/uL High <0.87 [facility] Comment on above: Order Comment: Speci men Type: BLOOD SPECIMENOrdering Facility: [facility] Address: [address] [place] [address] Performed By: #### 5 7021-8 ####[facility] LABIA [id number] [place] [address] [place] Monocytes/100 WBC (Bld) 14.9 % Normal [facility] Comment on above: Order Comment: Speci men Type: BLOOD SPECIMENOrdering Facility: [facility] Address: [address] [place] [address] Performed By: #### 5 7021-8 ####[facility] LABIA [id number] [place] [address] [place] Neutrophils (Bld) [#/Vol] 3.80 10*3/uL Normal 1.45-7.50 [facility] Comment on above: Order Comment: Speci men Type: BLOOD SPECIMENOrdering Facility: [facility] Address: [address] [place] [address] Performed By: #### 5 7021-8 ####[facility] LABCLIA [id number] [place] [address] [place] Neutrophils/100 WBC (Bld) 51.2 % Normal [facility] Comment on above: Order Comment: Speci men Type: BLOOD SPECIMENOrdering Facility: [facility] Address: [address] [place] [address] Performed By: #### 5 7021-8 ####[facility] LABIA [id number] [place] [address] [place] Nucleated RBC (Bld) [#/Vol] 10*3/uL Normal <0.01 [facility] Comment on above: Order Comment: Speci men Type: BLOOD SPECIMENOrdering Facility: [facility] Address: [address] [place] [address] Performed By: #### 5 7021-8 ####[facility] LABIA [id number] [place] [address] [place] Nucleated RBC/100 WBC (Bld) [Ratio] 0.0 /100 WBC Normal [facility] Comment on above: Order Comment: Speci men Type: BLOOD SPECIMENOrdering Facility: [facility] Address: [address] [place] [address] Performed By: #### 5 7021-8 ####[facility] LABIA [id number] [place] [address] [place] Platelet mean volume (Bld) [Entitic vol] 10.5 fL Normal 9.0-12.7 [facility] Comment on above: Order Comment: Speci men Type: BLOOD SPECIMENOrdering Facility: [facility] Address: [address] [place] [address] Performed By: #### 5 7021-8 ####[facility] LABIA [id number] [place] [address] [place] Platelets (Bld) [#/Vol] 201 10*3/uL Normal 150-400 [facility] Comment on above: Order Comment: Speci men Type: BLOOD SPECIMENOrdering Facility: [facility] Address: [address] [place] [address] Performed By: #### 5 7021-8 ####[facility] LABIA [id number] [place] [address] [place] RBC (Bld) [#/Vol] 4.40 10*6/uL Normal 4.20-6.00 [facility] Comment on above: Order Comment: Speci men Type: BLOOD SPECIMENOrdering Facility: [facility] Address: [address] [place] [address] Performed By: #### 5 7021-8 ####[facility] LABIA [id number] [place] [address] [place] WBC (Bld) [#/Vol] 7.43 10*3/uL Normal 3.70-11.00 [facility] Comment on above: Order Comment: Speci men Type: BLOOD SPECIMENOrdering Facility: [facility] Address: [address] [place] [address] Performed By: #### 5 7021-8 ####[facility] LABIA [id number] [place] [address] [place] CNOVon 03-23-2024 CNOV Office Visit (ALEXISWS ) WILY ARSHAD ([id number]) 1955 M Date Time Provider Department 03/23/24 3:20 PM DEE HAYDEN During your visit today, we recorded the following information about you: Pulse Respiration Blood pressure Weight 85/minute 16/minute 138/76 57.5 kg Dee Hayden APRN.CNP 03/23/2024 3:45 PM Signed 03/23/2024 Patient presents with: F/U 6 months SUBJECTIVE: This is a 68 year old that is here today for Above Complaints. Since last office appointment has been in good health without ER visits or hospitalizations. HTN: Patient is compliant with meds No Monitors bp at home: No. Denies side effects: Yes. Chest pain: No. Dyspnea: No. Edema: No. Palpitations: No. Syncope: No. Headache: No. Dizziness: No. COPD: using albuterol as needed. Normally uses ocne a day and when hot out may need to use a second time. Ran of Ellipta so hasn't been using Admits to drinking a couple a beer a day- two (12 ounce) beers a day ALCOHOL USE/ABUSE CAGE ASSESSMENT Two or More Affirmative Responses Suggest a Client is a Problem Drinker. - Have you felt the need to cut down on your drinking? No - Do you feel annoyed by people complaining about your drinking? No - Do you ever feel guilty about your drinking? No - Do you ever drink an eye-administrative services director in the morning to relieve shakes? No Continues to smoke a pack of cigarettes a day. No desire to quit, declining lung cancer screening. Adite to mild SOB with exertion. Denies dyspnea, wheezing, cough, or hemoptysis Weight down about 10# since lat office visit in [facility] Reports hasn't been eating as much. PAST MEDICAL HISTORY No date: Alcohol abuse No date: BPH (benign prostatic hyperplasia) No date: Cerebral artery disease No date: COPD (chronic obstructive pulmonary disease) (HCC) No date: Diastasis recti No date: Essential hypertension No date: Marijuana use Comment: weekly No date: Noncompliance 11/17/2014: Right inguinal hernia No date: Tobacco use ALLERGIES Patient has no known allergies. MEDICATIONS Current Outpatient Medications Medication Sig albuterol HFA (VENTOLIN HFA) 90 mcg/actuation inhaler Inhale 2 Puffs as instructed every 4 hours as needed for wheezing/shortness of breath. ipratropium-albuterol (DUONEB) 0.5 mg-3 mg(2.5 mg base)/3 mL nebu IInhale by nebulizer over 5-15 minutes four (4) times a day. hydroCHLOROthiazide 25 mg tablet Take 1 tablet by mouth once daily. umeclidinium (INCRUSE ELLIPTA) 62.5 mcg/actuation inhaler Inhale 1 Puff as instructed once daily. COMPOUNDED PRESCRIPTION 1 Each as needed. NEBULIZER FOR HOME USE. ICD10: J44.9 COMPOUNDED PRESCRIPTION aerosol nebulizer Dx copd No current facility-administered medications for this visit. Medications and allergies reviewed by this provider. SOCIAL HISTORY Social History Tobacco Use Smoking status: Every Day Current packs/day: 1.00 Average packs/day: 1 pack/day for 50.0 years (50.0 ttl pk-yrs) Types: Cigarettes Smokeless tobacco: Never Vaping Use Vaping status: Never Used Substance Use Topics Alcohol use: Yes Alcohol/week: 60.0 standard drinks of alcohol Types: 60 Cans of Beer (12oz) per week Comment: 6 pack daily, 30 cans on weekend Drug use: Yes Types: Marijuana Comment: occasional REVIEW OF SYSTEMS All other reviewed and negative other than HPI. OBJECTIVE: BP 138/76 Pulse 85 Resp 16 Wt 57.5 kg (126 lb 12.8 oz) SpO2 96% BMI 19.86 kg/m? . Vital signs reviewed by this provider. APPEARANCE Well appearing, alert, in no acute distress, well-hydrated, well nourished. EYES PERRLA, conjunctiva and sclera normal. HEART RRR with normal S1 and S2, no murmurs, no gallops, no JVD appreciated LUNG Diminished throughout without wheezes, rhonchi or rales EXTREMITIES Extremities normal, No deformities, No skin discoloration, and No edema SKIN Skin color, texture, turgor normal, no suspicious rashes or lesions to exposed skin Latest Ref Rng 09/08/2023 Protein, Total 6.3 - 8.0 g/dL 6.9 Albumin 3.9 - 4.9 g/dL 4.4 Calcium 8.5 - 10.2 mg/dL 9.4 Bilirubin, Total 0.2 - 1.3 mg/dL 0.3 Alkaline Phosphatase 38 - 113 U/L 70 AST 14 - 40 U/L 14 ALT 10 - 54 U/L 9 (L) Glucose 74 - 99 mg/dL 76 BUN 9 - 24 mg/dL 19 Creatinine 0.73 - 1.22 mg/dL 0.69 (L) Sodium 136 - 144 mmol/L 141 Potassium 3.7 - 5.1 mmol/L 4.3 Chloride 97 - 105 mmol/L 101 CO2 22 - 30 mmol/L 29 Anion Gap 9 - 18 mmol/L 11 eGFR >=60 mL/min/1.73m? 101 Latest Ref Rng 12/31/2022 01/02/2023 Total Cholesterol, Nonfasting <200 mg/dL 145 Triglycerides, Nonfasting <150 mg/dL 39 HDL Cholesterol, Nonfasting >39 mg/dL 63 LDL Cholesterol, Nonfasting <100 mg/dL 74 Non HDL Cholesterol, Nonfasting <130 mg/dL 82 VLDL Cholesterol, Nonfasting <30 mg/dL 8 Total Chol/HDL Ratio, Nonfasting <5.10 mg/dL 2.30 LDL/HDL Ratio, Nonfasting <2.54 mg/dL 1.17 Hemo (more content not included)... Normal [facility] Comprehensive metabolic 2000 panelon 03-23-2024 Albumin [Mass/Vol] 4.3 g/dL Normal 3.9-4.9 [facility] Comment on above: Order Comment: Speci men Type: BLOOD SPECIMENOrdering Facility: [facility] Address: [address] [place] [address] Performed By: #### L IPNF, 23302-7 ####[facility] LABCLIA [id number] [place] [address] [place] ALP [Catalytic activity/Vol] 60 U/L Normal 38-113 [facility] Comment on above: Order Comment: Speci men Type: BLOOD SPECIMENOrdering Facility: [facility] Address: [address] [place] [address] Performed By: #### L IPNF, 43886-7 ####[facility] LABCLIA [id number] [place] [address] [place] ALT [Catalytic activity/Vol] 18 U/L Normal 10-54 [facility] Comment on above: Order Comment: Speci men Type: BLOOD SPECIMENOrdering Facility: [facility] Address: [address] [place] [address] Performed By: #### L IPNF, 26539-5 ####[facility] LABCLIA [id number] [place] [address] [place] Anion gap [Moles/Vol] 11 mmol/L Normal 8-15 [facility] Comment on above: Order Comment: Speci men Type: BLOOD SPECIMENOrdering Facility: [facility] Address: [address] [place] [address] Performed By: #### L IPNF, 88933-7 ####[facility] LABCLIA [id number] [place] [address] [place] AST [Catalytic activity/Vol] 29 U/L Normal 14-40 [facility] Comment on above: Order Comment: Speci men Type: BLOOD SPECIMENOrdering Facility: [facility] Address: [address] [place] [address] Performed By: #### L IPNF, ####[facility] LABCLIA [id number] [place] [address] [place] Bilirubin [Mass/Vol] 0.6 mg/dL Normal 0.2-1.3 [facility] Comment on above: Order Comment: Speci men Type: BLOOD SPECIMENOrdering Facility: [facility] Address: [address] [place] [address] Performed By: #### L IPNF, ####[facility] LABCLIA [id number] [place] [address] [place] Calcium [Mass/Vol] 9.4 mg/dL Normal 8.5-10.2 [facility] Comment on above: Order Comment: Speci men Type: BLOOD SPECIMENOrdering Facility: [facility] Address: [address] [place] [address] Performed By: #### L IPNF, ####[facility] LABCLIA [id number] [place] [address] [place] Chloride [Moles/Vol] 104 mmol/L Normal 98-107 [facility] Comment on above: Order Comment: Speci men Type: BLOOD SPECIMENOrdering Facility: [facility] Address: [address] [place] [address] Performed By: #### L IPNF, 05665-7 ####[facility] LABCLIA [id number] [place] [id number] [place] CO2 [Moles/Vol] 25 mmol/L Normal 22-30 [facility] Comment on above: Order Comment: Speci men Type: BLOOD SPECIMENOrdering Facility: [facility] Address: [address] [place] [address] Performed By: #### L IPNF, 19010-4 ####[facility] LABCLIA [id number] [place] [address] [place] Creatinine [Mass/Vol] 0.75 mg/dL Normal 0.73-1.22 [facility] Comment on above: Order Comment: Speci men Type: BLOOD SPECIMENOrdering Facility: [facility] Address: [address] [place] [address] Performed By: #### L IPAHSAN, 27499-2 ####[facility] LABIA [id number] [place] [address] [place] Creatinine and Glomerular filtration rate.predicted panel (S/P/Bld) 99 mL/min/1.73m??? Normal >=60 [facility] Comment on above: Order Comment: Speci men Type: BLOOD SPECIMENOrdering Facility: [facility] Address: [address] [place] [address] Result Comment: Marva mated Glomerular Filtration Rate (eGFR) is calculated using the 2020 CKD-EPI creatinine equation. This equation utilizes serum creatinine, sex, and age as parameters. The creatinine assay has traceable calibration to isotope dilution-mass spectrometry. Refer to KDIGO guidelines for clinical interpretation. In patients with unstable renal function, e.g. those with acute kidney injury, the eGFR may not accurately reflect actual GFR. Performed By: #### L IPNF, 00689-4 ####[facility] LABCLIA [id number] [place] [id number] [place] Glucose [Mass/Vol] 88 mg/dL Normal 74-99 [facility] Comment on above: Order Comment: Speci men Type: BLOOD SPECIMENOrdering Facility: [facility] Address: [address] [place] [address] Result Comment: The [place] Diabetes Association (ADA) provides guidance for cutoff values for fasting glucose and random glucose. The ADA defines fasting as no caloric intake for at least 8 hours. Fasting plasma glucose results between 100 to 125 mg/dL indicate increased risk for diabetes (prediabetes). Fasting plasma glucose results greater than or equal to 126 mg/dL meet the criteria for diagnosis of diabetes. In the absence of unequivocal hyperglycemia, results should be confirmed by repeat testing. In a patient with classic symptoms of hyperglycemia or hyperglycemic crisis, random plasma glucose results greater than or equal to 200 mg/dL meet the criteria for diagnosis of diabetes. Reference: Standards of Medical Care in Diabetes 2016, [place] [employer]. Diabetes Care. 2016.39(Suppl 1). Performed By: #### L IPNF, 76307-6 ####[facility] LABCLIA [id number] [place] [address] [place] Potassium [Moles/Vol] 4.1 mmol/L Normal 3.7-5.1 [facility] Comment on above: Order Comment: Edwina men Type: BLOOD SPECIMENOrdering Facility: [facility] Address: [address] [place] [address] Performed By: #### L IPNF, 36174-8 ####[facility] LABCLIA [id number] [place] [address] [place] Protein [Mass/Vol] 6.9 g/dL Normal 6.3-8.0 [facility] Comment on above: Order Comment: Edwina henriquez Type: BLOOD SPECIMENOrdering Facility: [facility] Address: [address] [place] [address] Performed By: #### L IPNF, 00096-4 ####[facility] LABCLIA [id number] [place] [address] [place] Sodium [Moles/Vol] 140 mmol/L Normal 136-144 [facility] Comment on above: Order Comment: Speci men Type: BLOOD SPECIMENOrdering Facility: [facility] Address: [address] [place] [address] Performed By: #### L IPNF, ####[facility] LABCLIA [id number] [place] [id number] [place] Urea nitrogen [Mass/Vol] 13 mg/dL Normal 9-24 [facility] Comment on above: Order Comment: Speci men Type: BLOOD SPECIMENOrdering Facility: [facility] Address: [address] [place] [address] Performed By: #### L IPNF, ####[facility] LABCLIA [id number] [place] [address] [place] LIPID PANEL, NONFASTINGon Cholesterol [Mass/Vol] 161 mg/dL Normal <200 [facility] Comment on above: Order Comment: Speci men Type: BLOOD SPECIMENOrdering Facility: [facility] Address: [address] [place] [address] Result Comment: <200 mg/dL, Desirable 200-239 mg/dL, Borderline high >239 mg/dL, High Performed By: #### L IPNF, ####[facility] LABCLIA [id number] [place] [address] [place] HDL CHOLESTEROL, NF 54 mg/dL Normal >39 [facility] Comment on above: Order Comment: Speci men Type: BLOOD SPECIMENOrdering Facility: [facility] Address: [address] [place] [address] Result Comment: 40-5 9 mg/dL, Acceptable >59 mg/dL, High: Negative risk factor for coronary heart disease <40 mg/dL, Low: Positive risk factor for coronary heart disease Performed By: #### L IPNF, ####[facility] LABCLIA [id number] [place] [address] [place] LDL CHOLESTEROL, NF 96 mg/dL Normal <100 [facility] Comment on above: Order Comment: Marcusderik henriquez Type: BLOOD SPECIMENOrdering Facility: [facility] Address: [address] [place] [address] Result Comment: <100 mg/dL, Optimal 100-129 mg/dL, Near optimal/above optimal 130-159 mg/dL, Borderline high 160-189 mg/dL, High >189 mg/dL, Very high Secondary prevention optimal LDL Cholesterol levels are recommended to be < 70 mg/dL Performed By: #### L IPAHSAN, 60730-1 ####[facility] LABCLIA [id number] [place] [address] [place] LDL/HDL RATIO, NF 1.78 mg/dL Normal <2.54 [facility] Comment on above: Order Comment: Edwina henriquez Type: BLOOD SPECIMENOrdering Facility: [facility] Address: [address] [place] [address] Result Comment: Refe rence: 1. National Cholesterol Education Program ATP III Guideline At-A-Glance Quick Desk Reference: National Heart, Lung, and Blood [place]. National Institutes of Health. 2001: NIH Publication No. 01-3305. 2. An International Atherosclerosis Society position paper: global recommendations for the management of dyslipidemia: executive summary, Atherosclerosis. 2014: 232(2):410-413. Performed By: #### L GABBY, 10658-2 ####[facility] LABCLIA [id number] [place] [address] [place] NON HDL CHOL, NF 107 mg/dL Normal <130 [facility] Comment on above: Order Comment: Edwina florence Type: BLOOD SPECIMENOrdering Facility: [facility] Address: [address] [place] [address] Result Comment: <130 mg/dL, Optimal 130-159 mg/dL, Near optimal/above optimal 160-189 mg/dL, Borderline high 190-219 mg/dL, High >219 mg/dL, Very high Secondary prevention optimal non HDL Cholesterol levels are recommended to be <100 mg/dL Performed By: #### L IPNF, 25346-2 ####[facility] LABCLIA [id number] [place] [address] [place] T CHOL/HDL RATIO NF 2.98 mg/dL Normal <5.10 [facility] Comment on above: Order Comment: Speci men Type: BLOOD SPECIMENOrdering Facility: [facility] Address: [address] [place] [address] Performed By: #### L IPNF, 41977-5 ####[facility] LABCLIA [id number] [place] [address] [place] TRIGLYCERIDES, NF 57 mg/dL Normal <150 [facility] Comment on above: Order Comment: Speci men Type: BLOOD SPECIMENOrdering Facility: [facility] Address: [address] [place] [address] Result Comment: <150 mg/dL, Normal 150-199 mg/dL, Borderline high 200-499 mg/dL, High >499 mg/dL, Very high Performed By: #### L IPAHSAN, 50451-0 ####[facility] LABIA [id number] [place] [address] [place] VLDL CHOLESTEROL, NF 11 mg/dL Normal <30 [facility] Comment on above: Order Comment: Speci men Type: BLOOD SPECIMENOrdering Facility: [facility] Address: [address] [place] [address] Performed By: #### L IPNF, 63336-5 ####[facility] LABCLIA [id number] [place] [address] [place] Comprehensive metabolic 2000 panelon 09-08-2023 Albumin [Mass/Vol] 4.4 g/dL 3.9 - 4.9 g/dL [facility] ALP [Catalytic activity/Vol] 70 U/L 38 - 113 U/L [facility] ALT [Catalytic activity/Vol] 9 U/L Low 10 - 54 U/L [facility] Anion gap [Moles/Vol] 11 mmol/L 9 - 18 mmol/L [facility] AST [Catalytic activity/Vol] 14 U/L 14 - 40 U/L [facility] Bilirubin [Mass/Vol] 0.3 mg/dL 0.2 - 1.3 mg/dL [facility] Calcium [Mass/Vol] 9.4 mg/dL 8.5 - 10. 2 mg/dL [facility] Chloride [Moles/Vol] 101 mmol/L 97 - 105 mmol/L [facility] CO2 [Moles/Vol] 29 mmol/L 22 - 30 mmol/L [facility] Creatinine [Mass/Vol] 0.69 mg/dL Low 0.73 - 1.22 mg/dL [facility] Estimated Glomerular Filtration Rate 101 mL/min/1.73m >=60 mL/min/1.73m [facility] Glucose [Mass/Vol] 76 mg/dL 74 - 99 mg/dL [facility] Potassium [Moles/Vol] 4.3 mmol/L 3.7 - 5.1 mmol/L [facility] Protein [Mass/Vol] 6.9 g/dL 6.3 - 8.0 g/dL [facility] Sodium [Moles/Vol] 141 mmol/L 136 - 144 mmol/L [facility] Urea nitrogen [Mass/Vol] 19 mg/dL 9 - 24 mg/dL [facility] XR Shoulder - right 3 Viewso n 08-26-2023 IMPRESSION: Vascular minimal degenerative joint disease with anterior intra-articular or intrabursal calcified body Investor Relations Associate: XUAN Transcribe Date/Time: Aug 26 2023 5:17P Dictated by : DAXA WILLOUGHBY MD This examination was interpreted and the report reviewed and electronically signed by: DAXA WILLOUGHBY MD on Aug 26 2023 5:18PM [facility] DIVISION OF RADIOLOGY * * *Final Report* * * DATE OF EXAM: Aug 25 2023 3:33PM WOX 5253 - XR SHLDR >/=3V AP/TEREZA AP/OTHR RT / PROCEDURE REASON: multiple diagnoses * * * * Physician Interpretation * * * * Right shoulder HISTORY: Shoulder pain FINDINGS: Three views were performed. There is a 1.9 x 1.1 x 1.7 cm calcified density anterior to the glenohumeral joint. No evidence of acute fracture or dislocation. Glenohumeral joint space: Marked narrowing with hypertrophic spurring. Acromio-humeral interval: within normal limits. No evidence of a subacromial spur. Acromio-clavicular joint: Within normal limits. DIVISION OF RADIOLOGY Provider, Katelynn Brenner [facility] - 08/26/2023 * * *Final Report* * * DATE OF EXAM: Aug 25 2023 3:33PM WOX 5253 - XR SHLDR >/=3V AP/TEREZA AP/OTHR RT / PROCEDURE REASON: multiple diagnoses * * * * Physician Interpretation * * * * Right shoulder HISTORY: Shoulder pain FINDINGS: Three views were performed. There is a 1.9 x 1.1 x 1.7 cm calcified density anterior to the glenohumeral joint. No evidence of acute fracture or dislocation. Glenohumeral joint space: Marked narrowing with hypertrophic spurring. Acromio-humeral interval: within normal limits. No evidence of a subacromial spur. Acromio-clavicular joint: Within normal limits. 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 or intrabursal calcified body Investor Relations Associate: [facility] Transcribe Date/Time: Aug 26 2023 5:17P Dictated by : DAXA WILLOUGHBY MD This examination was interpreted and the report reviewed and electronically signed by: DAXA WILLOUGHBY MD on Aug 26 2023 5:18PM EST [facility] XR Shoulder - right 3 ViewsO rdered By: [facility] Provider on 08-26-2023 [facility] XR Shoulder - right 3 Viewso n 08-25-2023 Radiology Study observation (narrative) [facility] CBC W Auto Differential pane l (Bld)on 12-31-2022 Basophils (Bld) [#/Vol] 0.04 10*3/uL <0.11 k/uL [facility] Basophils/100 WBC (Bld) 0.5 % [facility] Differential cell count method Nom (Bld) Auto [facility] Eosinophils (Bld) [#/Vol] 0.17 10*3/uL <0.46 k/uL [facility] Eosinophils/100 WBC (Bld) 2.0 % [facility] Erythrocyte distribution width (RBC) [Ratio] 12.9 % 11.5 - 15.0 % [facility] Hematocrit (Bld) [Volume fraction] 43.3 % 39.0 - 51.0 % [facility] Hemoglobin (Bld) [Mass/Vol] 14.7 g/dL 13.0 - 17.0 g/dL [facility] Immature granulocytes (Bld) [#/Vol] 0.13 10*3/uL High <0.10 k/uL [facility] Immature granulocytes/100 WBC (Bld) 1.5 % [facility] Lymphocytes (Bld) [#/Vol] 1.71 10*3/uL 1.00 - 4.00 k/uL [facility] Lymphocytes/100 WBC (Bld) 19.9 % [facility] MCH (RBC) [Entitic mass] 33.0 pg 26.0 - 34.0 pg [facility] MCHC (RBC) [Mass/Vol] 33.9 g/dL 30.5 - 36.0 g/dL [facility] MCV (RBC) [Entitic vol] 97.3 fL 80.0 - 100.0 fL [facility] Monocytes (Bld) [#/Vol] 0.76 10*3/uL <0.87 k/uL [facility] Monocytes/100 WBC (Bld) 8.8 % [facility] Neutrophils (Bld) [#/Vol] 5.79 10*3/uL 1.45 - 7.50 k/uL [facility] Neutrophils/100 WBC (Bld) 67.3 % [facility] Nucleated RBC (Bld) [#/Vol] <0.01 k/uL [facility] Nucleated RBC/100 WBC (Bld) [Ratio] 0.0 /100 WBC [facility] Platelet mean volume (Bld) [Entitic vol] 9.9 fL 9.0 - 12.7 fL [facility] Platelets (Bld) [#/Vol] 198 10*3/uL 150 - 400 k/uL [facility] RBC (Bld) [#/Vol] 4.45 10*6/uL 4.20 - 6.0 0 m/uL [facility] WBC (Bld) [#/Vol] 8.60 10*3/uL 3.70 - 11. 00 k/uL [facility] CBC W Auto Differential pane l (Bld)on 12-14-2021 Abs Immature Gran 0.04 k/uL <0.10 k/uL [facility] Basophils (Bld) [#/Vol] 0.04 10*3/uL <0.11 k/uL [facility] Basophils/100 WBC (Bld) 0.6 % [facility] Differential cell count method Nom (Bld) Auto [facility] Eosinophils (Bld) [#/Vol] 0.13 10*3/uL <0.46 k/uL [facility] Eosinophils/100 WBC (Bld) 1.8 % [facility] Erythrocyte distribution width (RBC) [Ratio] 12.8 % 11.5 - 15.0 % [facility] Hematocrit (Bld) [Volume fraction] 45.2 % 39.0 - 51.0 % [facility] Hemoglobin (Bld) [Mass/Vol] 15.1 g/dL 13.0 - 17.0 g/dL [facility] Immature Gran % 0.6 % [facility] Lymphocytes (Bld) [#/Vol] 1.43 10*3/uL 1.00 - 4.00 k/uL [facility] Lymphocytes/100 WBC (Bld) 19.9 % [facility] MCH (RBC) [Entitic mass] 32.9 pg 26.0 - 34.0 pg [facility] MCHC (RBC) [Mass/Vol] 33.4 g/dL 30.5 - 36.0 g/dL [facility] MCV (RBC) [Entitic vol] 98.5 fL 80.0 - 100.0 fL [facility] Monocytes (Bld) [#/Vol] 0.90 10*3/uL High <0.87 k/uL [facility] Monocytes/100 WBC (Bld) 12.6 % [facility] Neutrophils (Bld) [#/Vol] 4.63 10*3/uL 1.45 - 7.50 k/uL [facility] Neutrophils/100 WBC (Bld) 64.5 % [facility] Nucleated RBC (Bld) [#/Vol] 10*3/uL <0.01 k/uL [facility] Nucleated RBC/100 WBC (Bld) [Ratio] 0.0 /100 WBC [facility] Platelet mean volume (Bld) [Entitic vol] 10.3 fL 9.0 - 12.7 fL [facility] Platelets (Bld) [#/Vol] 185 10*3/uL 150 - 400 k/uL [facility] RBC (Bld) [#/Vol] 4.59 10*6/uL 4.20 - 6.0 0 m/uL [facility] WBC (Bld) [#/Vol] 7.17 10*3/uL 3.70 - 11. 00 k/uL [facility] Comprehensive metabolic 2000 panelon 12-14-2021 Albumin [Mass/Vol] 4.6 g/dL 3.9 - 4.9 g/dL [facility] ALP [Catalytic activity/Vol] 68 U/L 38 - 113 U/L [facility] ALT [Catalytic activity/Vol] 21 U/L 10 - 54 U/L [facility] Anion gap [Moles/Vol] 11 mmol/L 9 - 18 mmol/L [facility] AST [Catalytic activity/Vol] 28 U/L 14 - 40 U/L [facility] Bilirubin [Mass/Vol] 0.6 mg/dL 0.2 - 1.3 mg/dL [facility] Calcium [Mass/Vol] 9.4 mg/dL 8.5 - 10. 2 mg/dL [facility] Chloride [Moles/Vol] 100 mmol/L 97 - 105 mmol/L [facility] CO2 [Moles/Vol] 26 mmol/L 22 - 30 mmol/L [facility] Creatinine [Mass/Vol] 0.62 mg/dL Low 0.73 - 1.22 mg/dL [facility] Estimated Glomerular Filtration Rate 106 mL/min/1.73m >=60 mL/min/1.73m [facility] Glucose [Mass/Vol] 86 mg/dL 74 - 99 mg/dL [facility] Potassium [Moles/Vol] 4.7 mmol/L 3.7 - 5.1 mmol/L [facility] Protein [Mass/Vol] 7.4 g/dL 6.3 - 8.0 g/dL [facility] Sodium [Moles/Vol] 137 mmol/L 136 - 144 mmol/L [facility] Urea nitrogen [Mass/Vol] 10 mg/dL 9 - 24 mg/dL [facility] LIPID PANEL, NONFASTINGon Cholesterol [Mass/Vol] 154 mg/dL <200 mg/dL [facility] HDL Cholesterol, Nonfasting 75 mg/dL >39 mg/dL [facility] LDL Cholesterol, Nonfasting 71 mg/dL <100 mg/dL [facility] LDL/HDL Ratio, Nonfasting 0.95 mg/dL <2.54 mg/dL [facility] Non HDL Cholesterol, Nonfasting 79 mg/dL <130 mg/dL [facility] Total Chol/HDL Ratio, Nonfasting 2.05 mg/dL <5.10 mg/dL [facility] Triglycerides, Nonfasting 40 mg/dL <150 mg/dL [facility] VLDL Cholesterol, Nonfasting 8 mg/dL <30 mg/dL [facility] TSH BLDon 12-14-2021 TSH Qn 2.370 m[IU]/L 0.270 - 4.200 mIU/L [facility] XR Chest PA and Lateralon IMPRESSION: No acute radiographic abnormality is evident. Investor Relations Associate: PSCB Transcribe Date/Time: Jan 09 2021 9:18A Dictated by : TORI VELIZ MD This examination was interpreted and the report reviewed and electronically signed by: TORI VELIZ MD on Jan 09 2021 9:21AM [facility] DIVISION OF RADIOLOGY * * *Final Report* * * DATE OF EXAM: Jan 09 2021 8:56AM WOX 5291 - XR CHEST 2V FRONTAL/LAT / PROCEDURE REASON: Weight loss * * * * Physician Interpretation * * * * EXAMINATION: CHEST RADIOGRAPH (2 VIEW FRONTAL & LATERAL) CLINICAL HISTORY: Weight loss MQ: XC2_6 EXAM DATE/TIME: 01/09/2021 8:56 AM COMPARISON: No relevant prior studies available. RESULT: Lines, tubes, and devices: None. Lungs and pleura: No focal consolidation, significant pleural effusion or pneumothorax is identified. Blunting of the LEFT costophrenic angle is most suggestive of pleural thickening and was present on the calculus teacher view from CT exam of 2016. Symmetric bibasilar nodular opacities are thought to most likely represent the patient's nipples. Cardiomediastinal silhouette: Within normal limits. Bones and soft tissues: No acute osseous abnormality is appreciated. DIVISION OF RADIOLOGY Provider, [facility] - 01/09/2021 * * *Final Report* * * DATE OF EXAM: Jan 09 2021 8:56AM WOX 5291 - XR CHEST 2V FRONTAL/LAT / PROCEDURE REASON: Weight loss * * * * Physician Interpretation * * * * EXAMINATION: CHEST RADIOGRAPH (2 VIEW FRONTAL & LATERAL) CLINICAL HISTORY: Weight loss MQ: XC2_6 EXAM DATE/TIME: 01/09/2021 8:56 AM COMPARISON: No relevant prior studies available. RESULT: Lines, tubes, and devices: None. Lungs and pleura: No focal consolidation, significant pleural effusion or pneumothorax is identified. Blunting of the LEFT costophrenic angle is most suggestive of pleural thickening and was present on the calculus teacher view from CT exam of 2016. Symmetric bibasilar nodular opacities are thought to most likely represent the patient's nipples. Cardiomediastinal silhouette: Within normal limits. Bones and soft tissues: No acute osseous abnormality is appreciated. IMPRESSION IMPRESSION: No acute radiographic abnormality is evident. Investor Relations Associate: PSCB Transcribe Date/Time: Jan 09 2021 9:18A Dictated by : TORI VELIZ MD This examination was interpreted and the report reviewed and electronically signed by: TORI VELIZ MD on Jan 09 2021 9:21AM EST [facility] Radiology Study observation (narrative) [facility] XR Chest PA and LateralOrder ed By: [facility] Provider on 01-09-2021 [facility] Large Joint Arthro/Inj: R gl enohumeral [facility] Vital Signs Date Time Vital Sign Value Performing Clinician Faci lity 02-09-2025 10:15-0400 Body temperature 97 [degF] Dr. Justino Hodgson MD Work Phone: [facility] 02-09-2025 10:15-0400 Diastolic blood pressure 73 mm[Hg] Dr. Justino Hodgson MD Work Phone: [facility] 02-09-2025 10:15-0400 Heart rate 74 /min Dr. Justino Hodgson MD Work Phone: [facility] 02-09-2025 10:15-0400 Respiratory rate 16 /min Dr. Justino Hodgson MD Work Phone: [facility] 02-09-2025 10:15-0400 SaO2% (BldA) [Mass fraction] 100 % Dr. Justino Hodgson MD Work Phone: [facility] 02-09-2025 10:15-0400 Systolic blood pressure 124 mm[Hg] Dr. Justino Hodgson MD Work Phone: [facility] 02-09-2025 07:50-0400 Body height 170.[address] Justino Hodgson MD Work Phone: [facility] 02-09-2025 07:50-0400 Body mass index (BMI) [Ratio] 19.9 kg/m2 Dr. Justino Hodgson MD Work Phone: [facility] 02-09-2025 07:50-0400 Body weight 57.[address] Justino Hodgson MD Work Phone: [facility] 01-30-2025 14:25-0400 Body mass index (BMI) [Ratio] 20.2 kg/m2 Kennedy Hartter RN [employer] Work Phone: [facility] 01-30-2025 14:25-0400 Body weight 58.5 kg Kennedy Hartter RN [employer] Work Phone: [facility] 01-30-2025 14:25-0400 Diastolic blood pressure 80 mm[Hg] Kennedy Hartter RN [employer] Work Phone: [facility] 01-30-2025 14:25-0400 Heart rate 77 /min Kennedy Moreno RN [employer] Work Phone: [facility] 01-30-2025 14:25-0400 Respiratory rate 16 /min Kennedy Moreno RN [employer] Work Phone: [facility] 01-30-2025 14:25-0400 SaO2% (BldA) [Mass fraction] 95 % Kennedy Moreno RN [employer] Work Phone: [facility] 01-30-2025 14:25-0400 Systolic blood pressure 122 mm[Hg] Kennedy Hartter RN [employer] Work Phone: [facility] 11-23-2024 12:00-0400 Diastolic blood pressure 89 mm[Hg] Leigh Jacinto MD Work Phone: [facility] 11-23-2024 12:00-0400 Heart rate 83 /min Leigh Jacinto MD Work Phone: [facility] 11-23-2024 12:00-0400 SaO2% (BldA) [Mass fraction] 98 % Leigh Jacinto MD Work Phone: [facility] 11-23-2024 12:00-0400 Systolic blood pressure 169 mm[Hg] Leigh Jacinto MD Work Phone: [facility] 11-23-2024 11:51-0400 Respiratory rate 18 /min Leigh Jacinto MD Work Phone: [facility] 11-23-2024 09:46-0400 Body temperature 97.9 [degF] Leigh Jacinto MD Work Phone: [facility] 10-20-2024 15:13-0400 Body height 170.2 cm Raegan Radu RN [employer] Work Phone: [facility] 10-20-2024 15:13-0400 Body mass index (BMI) [Ratio] 20.67 kg/m2 Raegan Radu RN [employer] Work Phone: [facility] 10-20-2024 15:13-0400 Body temperature 97.81 [degF] Raegan Radu RN [employer] Work Phone: [facility] 10-20-2024 15:13-0400 Body weight 59.88 kg Raegan Radu RN [employer] Work Phone: [facility] 10-20-2024 15:13-0400 Diastolic blood pressure 78 mm[Hg] Raegan Radu RN [employer] Work Phone: [facility] 10-20-2024 15:13-0400 Heart rate 90 /min Raegan Radu RN [employer] Work Phone: [facility] 10-20-2024 15:13-0400 Respiratory rate 14 /min Raegan Radu RN [employer] Work Phone: [facility] 10-20-2024 15:13-0400 SaO2% (BldA) [Mass fraction] 96 % Raegan Gonzalez RN [employer] Work Phone: [facility] 10-20-2024 15:13-0400 Systolic blood pressure 128 mm[Hg] Raegan Gonzalez RN [employer] Work Phone: [facility] 09-19-2024 14:11-0500 Body mass index (BMI) [Ratio] 20.83 kg/m2 Lucia Hodgson MD Work Phone: [facility] 09-19-2024 14:110500 Body weight 60.33 kg Lucia Hodgson MD Work Phone: [facility] 09-19-2024 14:11-0500 Diastolic blood pressure 80 mm[Hg] Lucia Hodgson MD Work Phone: [facility] 09-19-2024 14:11-0500 Heart rate 92 /min Lucia Hodgson MD Work Phone: [facility] 09-19-2024 14:11-0500 Respiratory rate 16 /min Lucia Hodgson MD Work Phone: [facility] 09-19-2024 14:11-0500 SaO2% (BldA) [Mass fraction] 99 % Lucia Hodgson MD Work Phone: [facility] 09-19-2024 14:11-0500 Systolic blood pressure 132 mm[Hg] Lucia Hodgson MD Work Phone: [facility] 03-23-2024 15:06-0400 Body mass index (BMI) [Ratio] 19.86 kg/m2 Dee Hayden RN [employer] Work Phone: [facility] 03-23-2024 15:06-0400 Body weight 57.52 kg Dee Hayden RN [employer] Work Phone: [facility] 03-23-2024 15:06-0400 Diastolic blood pressure 76 mm[Hg] Dee Hayden RN [employer] Work Phone: [facility] 03-23-2024 15:06-0400 Heart rate 85 /min Dee Podlogar RN [employer] Work Phone: [facility] 03-23-2024 15:06-0400 Respiratory rate 16 /min Dee Podlogar RN [employer] Work Phone: [facility] 03-23-2024 15:06-0400 SaO2% (BldA) [Mass fraction] 96 % Dee Podlogar RN [employer] Work Phone: [facility] 03-23-2024 15:06-0400 Systolic blood pressure 138 mm[Hg] Dee Podlogar RN [employer] Work Phone: [facility] 09-23-2023 15:10-0500 Diastolic blood pressure 76 mm[Hg] Lucia Hodgson MD Work Phone: [facility] 09-23-2023 15:10-0500 Heart rate 84 /min Lucia Hodgson MD Work Phone: [facility] 09-23-2023 15:10-0500 Systolic blood pressure 134 mm[Hg] Lucia Hodgson MD Work Phone: [facility] 09-23-2023 14:30-0500 Body weight 62.41 kg Lucia Hodgson MD Work Phone: [facility] 09-23-2023 14:30-0500 Respiratory rate 16 /min Lucia Hodgson MD Work Phone: [facility] 09-23-2023 14:30-0500 SaO2% (BldA) [Mass fraction] 96 % Lucia Hodgson MD Work Phone: [facility] 09-08-2023 13:59-0500 Diastolic blood pressure 73 mm[Hg] Lucia Hodgson MD Work Phone: [facility] 09-08-2023 13:59-0500 Heart rate 78 /min Lucia Hodgson MD Work Phone: [facility] 09-08-2023 13:59-0500 Systolic blood pressure 140 mm[Hg] Lucia Hodgson MD Work Phone: [facility] 09-08-2023 13:43-0500 Body weight 62.14 kg Lucia Hodgson MD Work Phone: [facility] 09-08-2023 13:43-0500 Respiratory rate 18 /min Lucia Hodgson MD Work Phone: [facility] 09-08-2023 13:43-0500 SaO2% (BldA) [Mass fraction] 98 % Lucia Hodgson MD Work Phone: [facility] 12-31-2022 14:50-0400 Body height 170.2 cm Lucia Hodgson MD Work Phone: [facility] 12-31-2022 14:50-0400 Body weight 57.61 kg Lucia Hodgson MD Work Phone: [facility] 12-31-2022 14:50-0400 Diastolic blood pressure 87 mm[Hg] Lucia Hodgson MD Work Phone: [facility] 12-31-2022 14:50-0400 Heart rate 106 /min Lucia Hodgson MD Work Phone: [facility] 12-31-2022 14:50-0400 Respiratory rate 16 /min Lucia Hodgson MD Work Phone: [facility] 12-31-2022 14:50-0400 Systolic blood pressure 142 mm[Hg] Lucia Hodgson MD Work Phone: [facility] 07-02-2022 14:58-0500 Body weight 56.43 kg Lucia Hodgson MD Work Phone: [facility] 07-02-2022 14:58-0500 Diastolic blood pressure 66 mm[Hg] Lucia Hodgson MD Work Phone: [facility] 07-02-2022 14:58-0500 Heart rate 77 /min Lucia Hodgson MD Work Phone: [facility] 07-02-2022 14:58-0500 Respiratory rate 18 /min Lucia Hodgson MD Work Phone: [facility] 07-02-2022 14:58-0500 SaO2% (BldA) [Mass fraction] 99 % Lucia Hodgson MD Work Phone: [facility] 07-02-2022 14:58-0500 Systolic blood pressure 122 mm[Hg] Lucia Hodgson MD Work Phone: [facility] 01-03-2022 12:02-0400 Body temperature 97.39 [degF] Manuela Cali APRN.[employer] Work Phone: [facility] 01-03-2022 12:02-0400 Body weight 53.16 kg Manuela Cali APRN.[employer] Work Phone: [facility] 01-03-2022 12:02-0400 Diastolic blood pressure 84 mm[Hg] Manuela Cali APRN.[employer] Work Phone: [facility] 01-03-2022 12:02-0400 Heart rate 74 /min Manuela Cali APRN.[employer] Work Phone: [facility] 01-03-2022 12:02-0400 Respiratory rate 16 /min Manuela Cali APRN.[employer] Work Phone: [facility] 01-03-2022 12:02-0400 SaO2% (BldA) [Mass fraction] 97 % Manuela Cali APRN.[employer] Work Phone: [facility] 01-03-2022 12:02-0400 Systolic blood pressure 136 mm[Hg] Manuela Cali APRN.[employer] Work Phone: [facility] 12-27-2021 14:56-0400 Diastolic blood pressure 80 mm[Hg] Mi Nurse Work Phone: [facility] 12-27-2021 14:56-0400 Heart rate 92 /min Mi Nurse Work Phone: [facility] 12-27-2021 14:56-0400 Systolic blood pressure 118 mm[Hg] Mi Nurse Work Phone: [facility] 12-14-2021 09:30-0400 Diastolic blood pressure 88 mm[Hg] Lucia Hodgson MD Work Phone: [facility] 12-14-2021 09:30-0400 Systolic blood pressure 144 mm[Hg] Lucia Hodgson MD Work Phone: [facility] 12-14-2021 08:44-0400 Body weight 52.07 kg Lucia Hodgson MD Work Phone: [facility] 12-14-2021 08:44-0400 Heart rate 89 /min Lucia Hodgson MD Work Phone: [facility] 12-14-2021 08:44-0400 Respiratory rate 20 /min Lucia Hodgson MD Work Phone: [facility] 12-14-2021 08:44-0400 SaO2% (BldA) [Mass fraction] 96 % Lucia Hodgson MD Work Phone: [facility] Encounters Encounter Date Encounter Type Care Provider Facility Start: 02-09-2025 ambulatory Justino Camargo lity:[facility] Start: 02-09-2025 Non-patient / Non-visit Phil Crandall nd DO -[facility] Start: 02-09-2025 End: 02-09-2025 Admission to same day surgery center Phil Sands DO -Endoscopy Work Phone: Start: 02-09-2025 End: 02-09-[address] Justino Hodgson MD Work Phone: -Endoscopy Start: 01-30-2025 End: 01-30-2025 Patient encounter procedure Kennedy Moreno APRN.CNP Work Phone: Pulmonary Medicine Comment on above: Encounter for screen ing for lung cancer (Primary Dx); Tobacco use current Start: 01-30-2025 End: 01-30-2025 ambulatory LUCIA HODGSON Facility:[facility] Start: 12-07-2024 End: 12-07-2024 [facility] Start: 12-07-2024 End: 12-07-[address] Justino Hodgson MD Work Phone: [facility] Work Phone: Start: 12-02-2024 End: 02-01-2025 Follow-up encounter Raegan Gonzalez APRN.[employer]ER Work Phone: General Surgery Start: 11-23-2024 ambulatory [facility] Facility:[facility] Start: 11-23-2024 End: 11-23-2024 Subsequent hospital visit by physician Leigh Jacinto MD Work Phone: [facility] End[facility] Comment on above: Colon cancer screeni ng [Z12.11] Start: 10-20-2024 End: 10-20-2024 Patient encounter procedure Raegan Gonzalez APRN.[employer] Work Phone: General Surgery Comment on above: Colon cancer screeni ng (Primary Dx); History of colonic polyps; Family history of colon cancer in father Start: 10-20-2024 End: 10-20-2024 ambulatory RAEGAN GONZALEZ Facility:[facility] Start: 10-14-2024 End: 10-14-2024 ambulatory Dee Hayden APRN.[employer] Work Phone: [facility] Comment on above: Lipid Panel Start: 10-01-2024 End: 10-14-2024 Follow-up encounter Lucia Hodgson MD Work Phone: [facility] [place] Start: 09-30-2024 End: 09-30-2024 ambulatory LUCIA HODGSON Facility:[facility] Start: 09-30-2024 End: 09-30-2024 Subsequent hospital visit by physician [facility] Work Phone: Radiology Comment on above: Screening for abdomi nal aortic aneurysm [Z13.6] Start: 09-21-2024 End: 09-21-2024 Follow-up encounter Lucia Hodgson MD Work Phone: [facility] [place] Start: 09-21-2024 End: 09-21-2024 Telephone encounter Lucia Hodgson MD Work Phone: [facility] [place] Comment on above: patient to get lower tier cost for rx Start: 09-19-2024 End: 09-19-2024 ambulatory LUCIA HODGSON Facility:[facility] Start: 09-19-2024 End: 09-19-2024 Patient encounter procedure Lucia Hodgson MD Work Phone: [facility] [place] Comment on above: Essential hypertensi on (Primary Dx); Benign prostatic hyperplasia with nocturia; COPD (chronic obstructive pulmonary disease) with acute bronchitis (HCC) (HCC); History of colonic polyps; Tobacco use; Screening for abdominal aortic aneurysm; Encounter for screening for lung cancer; Screening for hyperlipidemia; Screening for prostate cancer; Encounter for immunization Start: 09-19-2024 End: 09-20-2024 Telephone encounter Lucia Hodgson MD Work Phone: Family [facility] [place] Comment on above: transportation issue s Start: 08-24-2024 End: 08-24-2024 ambulatory Johny [facility] Start: 07-04-2024 End: 07-04-2024 ambulatory Lucia Hodgson MD Work Phone: [facility] Comment on above: Allied Health Visit (Medication Adherence Outreach ) Start: 05-18-2024 End: 05-18-2024 Refill Lucia Hodgson MD Work Phone: Family [facility] [place] Comment on above: Refill Request Start: 03-29-2024 End: 03-29-2024 Telephone encounter Lucia Hodgson MD Work Phone: [facility] [place] Comment on above: Results Start: 03-23-2024 End: 03-23-2024 Patient encounter procedure Dee Hayden APRN.CNP Work Phone: [facility] [place] Comment on above: Essential hypertensi on (Primary Dx); COPD (chronic obstructive pulmonary disease) with acute bronchitis (HCC) (HCC); Screening for abdominal aortic aneurysm; Screening for hyperlipidemia; Tobacco use; Weight loss Start: 03-23-2024 End: 03-23-2024 ambulatory LUCIA HODGSON Facility:[facility] Start: 12-29-2023 Refill Lucia Hodgson MD Work Phone: [facility] [place] Comment on above: Refill Request Start: 09-23-2023 End: 09-23-2023 Patient encounter procedure Lucia Hodgson MD Work Phone: [facility] [place] Comment on above: Essential hypertensi on (Primary Dx); Chronic right shoulder pain Start: 09-08-2023 End: 09-08-2023 Patient encounter procedure Lucia Hodgson MD Work Phone: [facility] [place] Comment on above: Essential hypertensi on Start: 08-31-2023 End: 08-31-2023 Patient encounter procedure Yehuda Herron MD Work Phone: Orthopaedics Comment on above: Chronic right should er pain; Arthritis of shoulder Start: 08-25-2023 End: 08-25-2023 Subsequent hospital visit by physician Xr [facility] [place] Work Phone: Radiology Comment on above: Chronic right should er pain [M25.511, G89.29] Start: 01-05-2023 Telephone encounter Justino Hodgson MD Work Phone: [facility] Comment on above: Results Start: 12-31-2022 End: 12-31-2022 Patient encounter procedure [facility] Comment on above: COPD (chronic obstru ctive pulmonary disease) with acute bronchitis (HCC) (Primary Dx); Benign prostatic hyperplasia with nocturia; Marijuana use; Tobacco use; Hyperlipidemia, mixed; Encounter for immunization; Alcohol abuse; Elevated BP without diagnosis of hypertension Start: 10-27-2022 Refill [facility] Comment on above: Refill Request Start: 08-05-2022 Refill Lucia Hodgson MD Work Phone: [facility] Comment on above: Refill Request Start: 07-02-2022 End: 07-02-2022 Patient encounter procedure Lucia Hodgson MD Work Phone: [facility] [place] Comment on above: COPD (chronic obstru ctive pulmonary disease) with acute bronchitis (HCC) (Primary Dx); Weight loss; Benign prostatic hyperplasia with nocturia; Tobacco use; Marijuana use Start: 04-03-2022 Refill Lucia Hodgson MD Work Phone: [facility] [place] Comment on above: Refill Request Start: 02-06-2022 Refill Lucia Hodgson MD Work Phone: [facility] [place] Comment on above: Refill Request Start: 01-03-2022 End: 01-03-2022 Patient encounter procedure Manuela Viraj THOMPSONLEAD PONY RIDER Work Phone: [place] [facility] Comment on above: Bilateral impacted c erumen (Primary Dx) Start: 12-27-2021 End: 12-27-2021 Nursing evaluation of patient and report Mi Nurse Work Phone: [facility] [place] Comment on above: Elevated BP without diagnosis of hypertension (Primary Dx) Start: 12-27-2021 Telephone encounter Justino Hodgson MD Work Phone: [facility] [place] Comment on above: Blood Pressure Check Start: 12-17-2021 Telephone encounter Justino Hodgson MD Work Phone: [facility] [place] Comment on above: Results Start: 12-14-2021 End: 12-14-2021 Patient encounter procedure Lucia Hodgson MD Work Phone: [facility] [place] Comment on above: COPD (chronic obstru ctive pulmonary disease) with acute bronchitis (HCC) (Primary Dx); Tobacco abuse; Elevated BP without diagnosis of hypertension; Weight loss; Benign prostatic hyperplasia with nocturia; Hyperlipidemia, mixed; Alcohol abuse Start: 11-18-2021 Refill Lucia Hodgson MD Work Phone: [facility] [place] Comment on above: Refill Request; Appo intment Start: 01-09-2021 End: 01-09-2021 Subsequent hospital visit by physician Xr [facility] [place] Work Phone: Radiology Comment on above: Weight loss [R63.4] Procedures Date Procedure Procedure Detail Performing Clinician Start: 02-09-[address] Marcio Hodgson MD Work Phone: Start: 11-23-2024 Colonoscopy flx dx w /collj spec when pfrmd Raegan Gonzalez RN SURGICAL.[employer] Work Phone: Start: 11-23-2024 Colonoscopy Leigh Jacinto MD Work Phone: Start: 09-30-2024 Us abdominal aorta r eal time screen study aaa Lucia Hodgson MD Work Phone: Start: 09-19-2024 PFIZER-BIONTECH COVI D-19 VACCINE AGE 12+ YR (COMIRNAT) Lucia Hodgson MD Work Phone: Start: 09-19-2024 Lipid 1995 panel - S alan or Plasma Lucia Hodgson MD Work Phone: Start: 03-23-2024 Lipid 1995 panel - S alan or Plasma Lucia Hodgson MD Work Phone: Start: 08-31-2023 Arthrocentesis aspir &/inj major jt/bursa w/o us Yehuda eHrron MD Work Phone: Start: 08-25-2023 Radex shoulder compl ete minimum 2 views Lucia Hodgson MD Work Phone: Start: 12-31-2022 PFIZER-BIONTECH COVI D-19 BIVALENT VACCINE, AGE 12+ YR Lucia Hodgson MD Work Phone: Start: 12-31-2022 Lipid 1995 panel - S alan or Plasma Lucia Hodgson MD Work Phone: Start: 12-14-2021 Adult depression scr eening assessment Lucia Hodgson MD Work Phone: Start: 03-11-2021 Colonoscopy Justino Hodgson MD Work Phone: Start: 01-09-2021 Radiologic exam ches t 2 views Dee Podlogar RN SURGICAL.[employer] Work Phone: Start: 02-25-2018 Adult depression scr eening assessment Lucia Hodgson MD Work Phone: Plan of Treatment Date Care Activity Detail Author Start: 11-23-2029 Screening for malign ant neoplasm of colon [facility] Start: 09-19-2029 Lipid panel Lipid Screening [facility] Start: 09-19-2029 Prostate specific antigen measurement Prostate Cancer Screening Discussion [facility] Start: 03-23-2029 Lipid panel Lipid Screening [facility] Start: 01-01-2028 Lipid panel Lipid Screening [facility] Start: 01-01-2028 LIPID SCREEN LIPID SCREEN [facility] Start: 09-19-2027 Diabetes Screening Diabetes Screenin g [facility] Start: 03-23-2027 Diabetes Screening Diabetes Screenin g [facility] Start: 12-14-2026 LIPID SCREEN LIPID SCREEN [facility] Start: 09-08-2026 Diabetes Screening Diabetes Screenin g [facility] Start: 03-11-2026 Colonoscopy COLONOSCOPY [facility] Start: 03-11-2026 COLORECTAL CANCER SCREENING COLORECTAL CANCER SCREENING [facility] Start: 01-09-2026 LIPID SCREEN LIPID SCREEN [facility] Start: 01-09-2026 PROSTATE CANCER SCREENING DISCUSSION PROSTATE CANCER SCREENING DISCUSSION [facility] Start: 01-09-2026 Prostate specific antigen measurement Prostate Cancer Screening Discussion [facility] Start: 01-02-2026 DIABETES SCREEN DIABETES SCREEN [facility] Start: 10-20-2025 BP Controlled (<130/80) BP Controlle d (<130/80) [facility] Start: 09-19-2025 Annual PCP Team Rescue Worker anthony Disease Visit Annual PCP Team Chronic Disease Visit [facility] Start: 09-19-2025 RSV Vaccine (1 - Ris k 60-74 years 1-dose series) RSV Vaccine (1 - Risk 60-74 years 1-dose series) [facility] Comment on above: Postponed from 05/11 (Declined at this time) Start: 09-19-2025 Shingrix Vaccine (1 of 2) Shingrix Vaccine (1 of 2) [facility] Comment on above: Postponed from 05/11 (Declined at this time) Start: 09-19-2025 Urine microalbumin profile DTaP,Tdap,Td Vaccine (1 - Tdap) [facility] Comment on above: Postponed from 02/26 (Declined at this time) Start: 03-27-2025 Influenza vaccination Influenza Vacc ine (#1) [facility] Start: 03-23-2025 Annual PCP Team Rescue Worker anthony Disease Visit Annual PCP Team Chronic Disease Visit [facility] Start: 03-20-2025 End: 03-20-2025 Patient encounter procedure 03/20/2025 3:00 PM EDT Office Visit [facility] [place] [address] [place], [place] [id number] PodlogarDee APRN.[employer]ER [address] [place], [place] [phone] 6 month follow up [facility] [place] Comment on above: 6 month follow up Start: 03-19-2025 Covid-19 Vaccine () Covid-19 Vaccine () [facility] Start: 02-14-2025 End: 02-14-2025 Patient encounter procedure 02/14/2025 3:40 PM EDT Appointment Cat Scan [address] [place], [place] [id number] Encounter for screening for lung cancer [Z12.2] [facility] Comment on above: Encounter for screen ing for lung cancer [Z12.2] Start: 02-09-2025 [facility] Start: 01-30-2025 End: 01-30-2025 Patient encounter procedure Pulmonary Medicine Comment on above: Encounter for screen ing for lung cancer [Z12.2] PT DOES NOT WANT TO MOVE APPT Encounter for screening for lung cancer [Z12.2] Start: 12-14-2024 DIABETES SCREEN DIABETES SCREEN [facility] Start: 11-23-2024 End: 11-23-2024 Patient encounter procedure 11/23/2024 2:45 PM EDT Appointment [facility] [address] [place] [id number] Leigh Jacinto MD [address] [place] [id number] [facility] Start: 09-30-2024 End: 09-30-2024 Patient encounter procedure 09/30/2024 1:45 PM EST Appointment Radiology [address] [place] [address] Screening for abdominal aortic aneurysm [Z13.6] Radiology Comment on above: Screening for abdomi nal aortic aneurysm [Z13.6] Start: 09-23-2024 Annual PCP Team Rescue Worker anthony Disease Visit Annual PCP Team Chronic Disease Visit [facility] Start: 09-19-2024 End: 09-19-2024 Patient encounter procedure 09/19/2024 2:20 PM EST Office Visit [facility] [place] [address] [place] [id number] Lucia Hodgson MD [address] [place] [address] 6 month follow up [facility] [place] Comment on above: 6 month follow up Start: 09-19-2024 End: 12-19-2024 LIPID PANEL, NONFASTING LIPID PANEL, NONFASTING Lab Routine Screening for hyperlipidemia Expected: 09/19/2024, Expires: 12/19/2024 [facility] Comment on above: Expected: 09/19/2024 , Expires: 12/19/2024 Start: 09-08-2024 Annual PCP Team Rescue Worker anthony Disease Visit Annual PCP Team Chronic Disease Visit [facility] Start: 08-25-2024 Covid-19 Vaccine () Covid-19 Vaccine () [facility] Comment on above: Postponed from 03/27 (Declined at this time) Start: 07-27-2024 Advance Directive Discussion Advance Directive Discussion [facility] Start: 07-27-2024 Medicare Advantage Annual Wellness Visit Medicare Advantage Annual Wellness Visit [facility] Start: 06-28-2024 End: 09-27-2024 Comprehensive metabolic 2000 panel - Serum or Plasma COMPREHENSIVE METABOLIC PANEL Lab Routine Hyperlipidemia, mixed Expected: 06/28/2024, Expires: 09/27/2024 [facility] Comment on above: Expected: 06/28/2024 , Expires: 09/27/2024 Start: 06-28-2024 End: 09-27-2024 Lipid 1996 panel - Serum or Plasma LIPID PANEL BASIC Lab Routine Hyperlipidemia, mixed Expected: 06/28/2024, Expires: 09/27/2024 [facility] Work Phone: Comment on above: Expected: 06/28/2024 , Expires: 09/27/2024 Start: 03-27-2024 Covid-19 Vaccine () Covid-19 Vaccine () [facility] Start: 03-27-2024 Covid-19 Vaccine () Covid-19 Vaccine () [facility] Start: 03-27-2024 Influenza vaccination [facility] Start: 03-23-2024 End: 03-23-2024 Patient encounter procedure 03/23/2024 3:20 PM EDT Office Visit Family [facility] [place] [address] [place], [place] [id number] PodlogarDee APRN.LEAD PONY RIDER [address] [place] [address] 6 month follow up [facility] Comment on above: 6 month follow up Start: 03-23-2024 End: 06-22-2024 Comprehensive metabolic 2000 panel - Serum or Plasma [facility] Comment on above: Expected: 03/23/2024 , Expires: 06/22/2024 Start: 03-23-2024 End: 06-22-2024 LIPID PANEL, NONFASTING [facility] Comment on above: Expected: 03/23/2024 , Expires: 06/22/2024 Start: 01-24-2024 Influenza vaccination Influenza Vacc ine (#1) [facility] Comment on above: Postponed from 03/27 (Declined at this time) Start: 01-10-2024 DIABETES SCREEN DIABETES SCREEN [facility] Start: 01-01-2024 ABDOMINAL AORTIC ANEURYSM SCREENING ABDOMINAL AORTIC ANEURYSM SCREENING [facility] Comment on above: Postponed from 05/11 (Declined at this time) Start: 01-01-2024 Abdominal aortic aneurysm screening Abdominal Aortic Aneurysm Screening [facility] Comment on above: Postponed from 05/11 (Declined at this time) Start: 01-01-2024 ANNUAL PCP TEAM SLOTTER OPERATOR HELPER ANTHONY DISEASE VISIT ANNUAL PCP TEAM CHRONIC DISEASE VISIT [facility] Start: 01-01-2024 COLORECTAL CANCER SCREENING COLORECTAL CANCER SCREENING [facility] Comment on above: Postponed from 05/11 (Declined at this time) Start: 01-01-2024 Pneumococcal Vaccine : 65+ (1 of 2 - PCV) Pneumococcal Vaccine: 65+ (1 of 2 - PCV) [facility] Comment on above: Postponed from 05/11 (Declined at this time) Start: 01-01-2024 PNEUMOCOCCAL: 65+ (1 - PCV) PNEUMOCOCCAL: 65+ (1 - PCV) [facility] Comment on above: Postponed from 05/11 (Declined at this time) Start: 01-01-2024 Screening for malign ant neoplasm of colon Colorectal Cancer Screening [facility] Comment on above: Postponed from 05/11 (Declined at this time) Start: 01-01-2024 SHINGRIX VACCINE (1 of 2) SHINGRIX VACCINE (1 of 2) [facility] Comment on above: Postponed from 05/11 (Declined at this time) Start: 01-01-2024 Urine microalbumin profile [facility] Comment on above: Postponed from 02/26 (Declined at this time) Start: 07-27-2023 Advance Directive Discussion Advance Directive Discussion [facility] Start: 07-27-2023 Behavioral Health Screening Behavioral Health Screening [facility] Start: 07-27-2023 Depression Assessment Depression Ass essment [facility] Start: 07-02-2023 ANNUAL PCP TEAM SLOTTER OPERATOR HELPER ANTHONY DISEASE VISIT ANNUAL PCP TEAM CHRONIC DISEASE VISIT [facility] Start: 07-02-2023 Influenza vaccination LUNG CANCER SC REENING [facility] Comment on above: Postponed from 08/30 (Declined at this time) Start: 03-27-2023 Influenza vaccination INFLUENZA (Sea son Ended) [facility] Start: 01-23-2023 Influenza vaccination INFLUENZA (#1) [facility] Comment on above: Postponed from 03/27 (Declined at this time) Start: 12-31-2022 End: 03-02-2023 Comprehensive metabolic 2000 panel - Serum or Plasma [facility] Work Phone: Comment on above: Expected: 12/31/2022 , Expires: 03/02/2023 Start: 12-31-2022 End: 03-02-2023 LIPID PANEL, NONFASTING [facility] Work Phone: Comment on above: Expected: 12/31/2022 , Expires: 03/02/2023 Start: 12-14-2022 Adult depression screening assessment DEPRESSION SCREENING [facility] Start: 12-14-2022 ANNUAL PCP TEAM SLOTTER OPERATOR HELPER ANTHONY DISEASE VISIT ANNUAL PCP TEAM CHRONIC DISEASE VISIT [facility] Start: 12-14-2022 COVID-19 VACCINE (3 - Booster for Pfizer series) COVID-19 VACCINE (3 - Booster for Pfizer series) [facility] Comment on above: Postponed from 04/14 (Declined at this time) Postponed from 01/07 (Declined at this time) Start: 12-14-2022 PNEUMOCOCCAL: 65+ (1 - PCV) PNEUMOCOCCAL: 65+ (1 - PCV) [facility] Comment on above: Postponed from 05/11 (Declined at this time) Start: 12-14-2022 PNEUMOVAX AGE 65 AND OVER WITH 5YR LOOKBACK (#1) PNEUMOVAX AGE 65 AND OVER WITH 5YR LOOKBACK (#1) [facility] Comment on above: Postponed from 05/11 (Declined at this time) Start: 12-14-2022 SHINGRIX VACCINE (1 of 2) SHINGRIX VACCINE (1 of 2) [facility] Comment on above: Postponed from 05/11 (Declined at this time) Start: 07-27-2022 ADVANCE DIRECTIVE DISCUSSION ADVANCE DIRECTIVE DISCUSSION [facility] Start: 07-27-2022 DEPRESSION ASSESSMENT DEPRESSION ASS ESSMENT [facility] Start: 07-26-2022 [facility] Comment on above: Postponed from 07/27 (Declined at this time) Start: 03-27-2022 Influenza vaccination [facility] Start: 01-09-2022 ANNUAL PCP TEAM SLOTTER OPERATOR HELPER ANTHONY DISEASE VISIT ANNUAL PCP TEAM CHRONIC DISEASE VISIT [facility] Start: 01-09-2022 Urine microalbumin profile DTAP,TDAP,TD (1 - Tdap) [facility] Comment on above: Postponed from 08/03 /2018 (Declined at this time) Start: 07-27-2021 ADVANCE DIRECTIVE DISCUSSION ADVANCE DIRECTIVE DISCUSSION [facility] Start: 2021 PNEUMOVAX AGE 65 AND OVER WITH 5YR LOOKBACK (#1) PNEUMOVAX AGE 65 AND OVER WITH 5YR LOOKBACK (#1) [facility] Start: 04-14-2021 COVID-19 VACCINE (3 - Booster for Pfizer series) COVID-19 VACCINE (3 - Booster for Pfizer series) [facility] Start: 08-30-2019 Influenza vaccination LUNG CANCER SC REENING [facility] Start: 08-30-2019 Screening for malign ant neoplasm of lung Lung Cancer Screening [facility] Start: 02-25-2019 Adult depression screening assessment DEPRESSION SCREENING [facility] Start: 02-26-2018 Urine microalbumin profile [facility] Start: 2016 RSV Vaccine (1 - 1-d ose 60+ series) RSV Vaccine (1 - 1-dose 60+ series) [facility] Start: 2016 RSV Vaccine (1 - Ris k 60-74 years 1-dose series) RSV Vaccine (1 - Risk 60-74 years 1-dose series) [facility] Start: 2006 SHINGRIX VACCINE (1 of 2) SHINGRIX VACCINE (1 of 2) [facility] Start: 2001 COLOGUARD (FIT-DNA) COLOGUARD (FIT-D NA) [facility] Start: 2001 Colonoscopy COLONOSCOPY [facility] Start: [address] COLONOGRAPHY [facility] Start: 2001 FECAL OCCULT BLOOD FECAL OCCULT BLOO D [facility] Start: 2001 Screening for malign ant neoplasm of colon [facility] Start: [address] [facility] Start: 1986 Zoledronic acid therapy ALPHA- 1 ANTITRYPSIN DEFICIENCY SCREENING [facility] Start: 1975 Pneumococcal Vaccine : 50+ (1 of 2 - PCV) Pneumococcal Vaccine: 50+ (1 of 2 - PCV) [facility] Start: 1974 Anxiety Screening Anxiety Screening [facility] Start: 1974 BP Controlled (<130/80) BP Controlle d (<130/80) [facility] Start: 1974 Depression Screening Depression Scre ening [facility] Start: 1962 Pneumococcal Vaccine : 65+ (1 of 2 - PCV) Pneumococcal Vaccine: 65+ (1 of 2 - PCV) [facility] Start: 1956 ABDOMINAL AORTIC ANEURYSM SCREENING ABDOMINAL AORTIC ANEURYSM SCREENING [facility] Start: 1955 Abdominal aortic aneurysm screening Abdominal Aortic Aneurysm Screening [facility] End: 03-01-2026 CT Chest for screening WO contrast CT LUNG SCREEN WO IVCON Radiology Routine Encounter for screening for lung cancer Tobacco use current 1 Occurrences starting 01/30/2025 until 03/01/2026 [facility] Work Phone: Comment on above: 1 Occurrences starti ng 01/30/2025 until 03/01/2026 End: 10-20-2025 Screening colonoscopy COLONOSCOPY SCREENING Endoscopy Routine Colon cancer screening History of colonic polyps 1 Occurrences starting 10/20/2024 until 10/20/2025 [facility] Work Phone: Comment on above: 1 Occurrences starti ng 10/20/2024 until 10/20/2025 Tissue Pathology bio psy report [facility] Work Phone: Comment on above: Release Upon Orderin g for 1 Occurrences starting 11/23/2024, 1 completed End: 04-22-2025 US Abdominal Aorta for screening US SCREENING FOR AAA Radiology Routine Screening for abdominal aortic aneurysm 1 Occurrences starting 03/23/2024 until 04/22/2025 [facility] Work Phone: Comment on above: 1 Occurrences starti ng 03/23/2024 until 04/22/2025 End: 10-19-2025 US Abdominal Aorta for screening US SCREENING FOR AAA Radiology Routine Screening for abdominal aortic aneurysm 1 Occurrences starting 09/19/2024 until 10/19/2025 [facility] Work Phone: Comment on above: 1 Occurrences starti ng 09/19/2024 until 10/19/2025 End: 01-13-2023 Us abdominal aorta real time screen study aaa US SCREENING FOR AAA Radiology Routine Tobacco abuse 1 Occurrences starting 12/14/2021 until 01/13/2023 [facility] Work Phone: Comment on above: 1 Occurrences starti ng 12/14/2021 until 01/13/2023 [facility] Immunizations Immunization Date Immunization Notes Care Provider Fa poonam 09-19-2024 pneumococcal Conjuga te, unspecified formulation Lucia Hodgson MD Work Phone: [facility] 09-19-2024 COVID-19 vaccine, ag e 12+ yr (PFIZER-BIONTECH COMIRNATY) Lucia Hodgson MD Work Phone: [facility] 09-19-2024 influenza, high dose seasonal, preservative-free Lucia Hodgson MD Work Phone: [facility] 09-19-2024 pneumococcal conjuga te (PCV20) vaccine, 20 valent (PREVNAR 20) Lucia Hodgson MD Work Phone: [facility] 09-19-2024 influenza virus vaccine, unspecified formulation Kennedy Moreno APRN.LEAD PONY RIDER Work Phone: [facility] 12-31-2022 COVID-19 vaccine, ag e 12+ yr, bivalent (PFIZER-BIONTECH) Lucia Hodgson MD Work Phone: [facility] 11-12-2020 COVID-19 vaccine, ag e 12+ yr (PFIZER-BIONTECH - PURPLE TOP) Lucia Hodgson MD Work Phone: [facility] 10-22-2020 COVID-19 vaccine, ag e 12+ yr (PFIZER-BIONTECH - PURPLE TOP) Lucia Hodgson MD Work Phone: [facility] 08-30-2018 influenza virus vaccine, unspecified formulation Lucia Hodgson MD Work Phone: [facility] 02-25-2018 tetanus and diphther ia toxoids, adsorbed, preservative free, for adult use (5 Lf of tetanus toxoid and 2 Lf of diphtheria toxoid) Lucia Hodgson MD Work Phone: [facility] Payers Date Payer Category Payer Self-pay 2024 Medicare (Managed Care) [facility] [id number] 2024 Medicare [id number] 2022 Medicare AETNA MEDICARE A ETNA MEDICARE O [id number] 2022-Present [phone] [address] [place] [address] [facility] [id number] 2022 Medicare [id number] 2020 Unknown [facility] [id number] 2020-Present [phone] [address] [place] [address] [facility] [id number] 2020 Unknown [id number] 2014 Unknown [facility] [id number] Medicare MEDICARE PART A B [id number] Self-pay SELF PAY INSURANCE [id number] Unknown [id number] Unknown [id number] Unknown [id number] Unknown [id number] Social History Date Type Detail Facility Start: 02-24-2017 End: 02-07-2025 Tobacco smoking status RIIS Smokes tobacco daily [facility] History of tobacco use Cigarette Smoker [facility] Start: 04-05-2021 End: 09-19-2024 Alcohol intake Current drinker of alcohol (finding) [facility] Start: 04-05-2021 End: 12-31-2022 Alcohol intake [facility] Work Phone: Start: 02-25-2018 History SDOH Alcohol Comment 6 pack daily, 30 cans on weekend [facility] Start: 1955 Sex Assigned At Not on file [facility] Start: 12-10-2020 End: 06-18-2022 Exposure to SARS-CoV-2 (event) Not sure [facility] Start: 02-24-2017 End: 03-23-2024 Tobacco use and exposure Smokeless tobacco non-user [facility] Work Phone: Start: 12-31-2022 End: 09-08-2023 Tobacco use panel [facility] Work Phone: Adult Depression Screening Assessment 0 [facility] Work Phone: Start: 10-20-2024 End: 01-30-2025 Alcoholic beverage intake Ex-drinker (finding) [facility] Start: 12-27-2019 Alcohol Alcohol [facility] Start: 12-27-[address] [facility] Start: 12-27-2019 Tobacco Use Tobacco Use [facility] Start: 1955 Sex Assigned At Male [facility] Start: 01-30-2025 Tobacco Comment Started smoking in Jr. High, currently smoking some days and using Nicorette intermittently 01/30/25 [facility] Procedure Code Equipment Code Equipment Origin al Text Equipment Identifier Dates Colonoscopy CLIP DEVICE,RESOLUTION FDA Start: 03-11-2021 Colonoscopy CLIP DEVICE,RESOLUTION FDA Start: 03-11-2021 Goals Date Patient Goal Desired Activity /State Functional Status Date Assessment Result Facility 01-01-2015 Are you deaf, or do you have serious difficulty hearing No 01/01/2015 3:48 PM EDT [facility] 01-01-2015 Are you blind, or do you have serious difficulty seeing, even when wearing glasses No 01/01/2015 3:48 PM EDT [facility] 01-01-2015 Do you have serious difficulty walking or climbing stairs No 01/01/2015 3:48 PM EDT [facility] 01-01-2015 Do you have difficul ty dressing or bathing No 01/01/2015 3:48 PM EDT [facility] 01-01-2015 Because of a physica l, mental, or emotional condition, do you have difficulty doing errands alone such as visiting a physician's office or shopping No 01/01/2015 3:48 PM EDT [facility] Mental Status Date Assessment Result Facility 02-09-2025 Cognitive function Level Of Cons ciousness Follows Commands;Drowsy [facility] Work Phone: 02-09-2025 Cognitive function Voice/Name [facility] Work Phone: 01-01-2015 Because of a physica l, mental, or emotional condition, do you have serious difficulty concentrating, remembering, or making decisions No 01/01/2015 3:48 PM EDT [facility] Clinical Notes 01-09-2021 to 02-09-2025 Note Date & Type Note Facility 02-09-2025 Consult note [facility] 02-09-2025 Consult note Note Date/Time February 09, 2025 8:42am [facility] Medical Records Department [address] [place] [address] Pre-Anesthesia Evaluation 02/09/25 0841 MR#: [id number] Acct: [id number] Name: WILY ARSHAD Rep #:[id number] : 1955 69 From: Valente Fenton PCP: Dr. Justino Hodgson MD Status :REG SDC Y Race: C Location: [place] [address] ASA Classification* ASA Classification ASA Classification: 3 Assessment & Plan Anesthesia* Anesthesia Assessment Anesthesia Assessment: Discussed sedation and/or anesthesia options, risks, benefits, and alternatives with patient/parents/legal guardian/POA. Questions invited. The patient/parents/legal guardian/POA seems to understand and agrees to proceedwith anesthesia plan. Reviewed the physical assessment, medical history, allergy history and patient home medications list prior to surgery/procedure/anesthetic and documented any changes. Performed airway and anesthesia risk assessments. Anesthesia Type Anesthesia Type: MAC History Source History Obtained from:: Patient and Chart Anesthesia Focused Assessment* Temperature: 99.0 F Pulse Rate: 90 Blood Pressure: 148/81 Respiratory Rate: 16 Pulse Ox: 100 Oxygen Delivery Method: Room Air Airway Assessment Mouth opens: >3 cm Mallampati Score: II Teeth Condition: Missing Neck Range of motion (ROM): Full ROM Labs Anesthesia Preop lab: CBC WBC 7.9 K/mm3 (4.4-11.0) 12/27/19 22:50 12/27/19 RBC 4.02 M/mm3 (4.6-6.2) L 12/27/19 22:50 12/27/19 Hgb 13.2 g/dL (13.0-16.5) 12/27/19 22:50 12/27/19 Hct 39.5 % (40-54) L 12/27/19 22:50 12/27/19 Plt Count 156 K/mm3 (150-450) 12/27/19 22:50 12/27/19 CHEMISTRY Potassium 3.7 mmol/L (3.5-5.1) 12/27/19 22:50 12/27/19 Sodium 139 mmol/L (136-145) 12/27/19 22:50 12/27/19 BUN 7 mg/dL (7-18) 12/27/19 22:50 12/27/19 Creatinine 0.75 mg/dL (0.70-1.30) 12/27/19 22:50 12/27/19 Glucose 91 mg/dL (74-106) 12/27/19 22:50 12/27/19 POC Glucose 93 mg/dL (70-110) 02/18/18 10:30 02/18/18 COAG PT 12.8 SECONDS (11.7-14.9) 02/18/18 10:00 Pre-Assessment Diagnosis/Proposed Procedure Planned Operative Procedure(s): COLONOSCOPY Anesthesia History Anesthesia History - textile dyer: 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 When Was Last Pacemaker Check QUESTION #4 FULL TEXT: You/Your Family Experience fever (hyperthermia) with Anesthesia Last Oral Intake Last Oral intake: Last Oral Intake NPO since 06:15 02/09/25 07:50 Meds taken in AM with sips of Yes 02/09/25 07:50 water? Meds patient instructed to take am of surgery PONV PONV - textile dyer: PONV - textile dyer Female No 02/07/25 09:53 HX of Motion Sickness No 02/07/25 09:53 HX of N/V After Surgery No 02/07/25 09:53 Non-Smoker No 02/07/25 09:53 Duration of Surgery greater No 02/07/25 09:53 than 60 minutes Number of Risk Factors PONV Score Height & Weight Height & Weight: Anesthesia: Height & Weight Height 5 ft 7 in 02/09/25 07:50 Weight: 57.7 kg 02/09/25 07:50 Body Mass Index (BMI) 19.9 02/09/25 07:50 Respiratory Assessment Respiratory Assessment - textile dyer: Respiratory Tract Infection Hx - textile dyer Hx Respiratory Tract Infection No 02/07/25 09:53 STOP Sleep Apnea STOP Sleep Apnea - textile dyer: STOP Sleep Apnea - textile dyer Hx Hypertension Yes 02/07/25 09:53 Hx Sleep Apnea No 02/07/25 09:53 CPAP No 03/11/21 12:56 BIPAP No 11/10/14 10:20 Do you snore loudly (louder No 02/07/25 09:53 than talking or can be heard Do you often feel tired/ No 02/07/25 09:53 fatigued/ sleepy during daytime? Has anyone observed you stop No 02/07/25 09:53 breathing during sleep? STOP Results Negative 02/07/25 09:53 QUESTION #5 FULL TEXT : Do you snore loudly (louder than talking or can be heard through closed doors)? 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 Specify any problems Hx of Preganancy in last 3 N/A 02/07/25 09:53 Months [facility] 02/07/25 09:53 & Questions: Date: 02/07/25 02/07/25 09:53 Time: 10:00 02/07/25 09:53 Patient unable to answer at this time (ie. 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 Hx Now No 02/07/25 09:53 Gestational Age (in weeks): EDC: Hx Hx Para Hx Section SAB No 02/07/25 09:53 Active Medications Active Medications: Current Medications Generic Name Dose Route Start Last Admin Trade Name Freq PRN Reason Stop Dose Admin Lactated Ringer's 1,000 mls @ 15 mls/hr 02/09/25 07:30 02/09/25 07:53 IV 15 mls/hr .Q48H JOSÉ MIGUEL Administration PFSH Medical History Open wound High cholesterol Injury of head and neck Shortness of breath on exertion Wears glasses Alcohol use Smoker Emphysema, unspecified History of echocardiogram Asthma Anemia Shortness of breath Weight loss, unintentional Home Medications ?Medication ?Instructions ?Recorded ?Last Taken ?Type albuterol sulfate 2.5 mg/3 mL 2.5 mg inhalation Q6H ID N PRN Sob 02/18/18 02/09/25 06:30 History (0.083 %) solution for nebulization &/Or Wheezing albuterol sulfate 90 mcg/actuation 1 - 2 puff inhalati on Q4H PRN PRN 02/18/18 02/18/18 History aerosol inhaler Sob &/Or Wheezing atorvastatin 20 mg tablet 20 mg PO QDAY 12/07/24 Unkno wn History lisinopril 20 mg tablet 20 mg PO QDAY 12/07/24 Unkno wn History fluticasone 250 mcg-salmeterol 50 1 ea inhalation BID 02/07/25 Unknown History mcg/dose blistr powdr for inhalation umeclidinium 62.5 mcg/actuation 1 inh inhalation DAILY 02/07/25 02/09/25 06:30 History blister powder for inhalation (Incruse Ellipta) Allergy/AdvReac Type Severity Reaction Status Date / Time No Known Allergies Allergy Verified 02/09/25 07:48 Surgical History History of hernia repair Social History Smoking Status: Current every day smoker tobacco type: cigarettes Tobacco: How many years used: 40 alcohol intake: current alcohol intake frequency: 0-2 drinks per day Alcohol type: beer Review of Systems (Anesthesia) ROS Narrative System reviewed and no additional complaints, except as documented. 02/09/25 0842 <Electronically signed by Valente Jensen MD> Date _ Valente Jensen MD Cosigner Signature: Date CC: ~ Signed [facility] Work Phone: [phone]) 181-193807-17-2025 Procedure note [facility] Medical Records Department [address] [place] [address] Operative Report - CC Letter MR#: [id number] Acct: [id number] Name: WILY ARSHAD Rep #:[id number] : 1955 69 From: Phil Sands DO PCP: Dr. Justino Hdogson MD Status :REG [facility] 02/09/2025 Justino Hodgson Re : Colonoscopy procedure for Wily Arshad Dear Rema This procedure was performed on January. My impressions and recommendations are as follows: Impressions : - Ten 1 to 2 mm polyps in the sigmoid colon, at the splenic flexure, at the hepatic flexure, in the ascending colon and in the cecum, removed piecemeal using a hot snare. Resected and retrieved. - Eight 4 mm polyps at the splenic flexure, at the hepatic flexure and in the ascending colon. Treated with a monopolar probe. - Localized moderate mucosal changes were found at the hepatic flexure secondary to ischemic colitis. Biopsied. Recommendations : - Discharge patient to home. - Resume previous diet. - Continue present medications. - Await pathology results. - Repeat colonoscopy in 1 year for surveillance. My findings are described in the full procedure note, which is enclosed. If I can be of further assistance, please feel free to contact me at . Sincerely, Phil Sands DO 02/09/2025 10:16:08 AM This report has been signed electronically. 02/09/25 1016 Date _ Phil Marie Signature: Date (if indicated) CC: Dr. Justino Hodgson MD; Phil Sands DO ~ Date Dictated: 02/09/25912 Date Transcribed: Investor Relations Associate: RF Signed [facility]07-17-2025 Procedure note [facility] Medical Records Department [address] [place] [address] Colonoscopy Report MR#: [id number] Acct: [id number] Name: WILY ARSHAD Rep #:[id number] : 1955 69 From: Phil Sands DO PCP: Dr. Justino Hodgson MD Status :REG [facility] Patient Name: Wily Arshad Procedure Date: 02/09/2025 9:13 AM Date of : 1955 Age: 69 Procedure: Colonoscopy Indications: High risk colon cancer surveillance: Personal history of colonic polyps Providers: Phil Sands DO Referring MD: Justino Hodgson Medicines: Monitored Anesthesia Care Patient Profile: This is a 69 year old male. Refer to note in patient chart for documentation of history and physical. Last Colonoscopy: several years ago. Complications: No immediate complications. Procedure: Pre-Anesthesia Assessment: - Prior to the procedure, a History and Physical was performed, and patient medications and allergies were reviewed. The patient is competent. The risks and benefits of the procedure and the sedation options and risks were discussed with the patient. All questions were answered and informed consent was obtained. Patient identification and proposed procedure were verified by the physician in the pre-procedure area. Mental Status Examination: alert and oriented. Airway Examination: normal oropharyngeal airway and neck mobility. Respiratory Examination: clear to auscultation. CV Examination: normal. Prophylactic Antibiotics: The patient does not require prophylactic antibiotics. Prior Anticoagulants: The patient has taken no anticoagulant or antiplatelet agents. ASA Grade Assessment: II - A patient with mild systemic disease. After reviewing the risks and benefits, the patient was deemed in satisfactory condition to undergo the procedure. The anesthesia plan was to use monitored anesthesia care (MAC). Immediately prior to administration of medications, the patient was re-assessed for adequacy to receive sedatives. The heart rate, respiratory rate, oxygen saturations, blood pressure, adequacy of pulmonary ventilation, and response to care were monitored throughout the procedure. The physical status of the patient was re-assessed after the procedure. After I obtained informed consent, the scope was passed under direct vision. Throughout the procedure, the patient's blood pressure, pulse, and oxygen saturations were monitored continuously. The Colonoscope was introduced through the anus and advanced to the cecum, identified by appendiceal orifice and ileocecal valve. The colonoscopy was performed without difficulty. The patient tolerated the procedure well. The quality of the bowel preparation was adequate. The ileocecal valve, appendiceal orifice, and rectum were photographed. Scope In: 9:24:02 AM Scope Withdrawal Time 0 hours 32 minutes 46 seconds Scope Out: 10:00:54 AM Total Procedure Duration Time 0 hours 36 minutes 52 seconds Findings: The perianal and digital rectal examinations were normal. Ten sessile polyps were found in the sigmoid colon, splenic flexure, hepatic flexure, ascending colon and cecum. The polyps were 1 to 2 mm in size. These polyps were removed with a piecemeal technique using a hot snare. Resection and retrieval were complete. Verification of patient identification for the specimen was done by the nurse. Estimated blood loss was minimal. To prevent bleeding post-intervention, two hemostatic clips were successfully placed. 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 There was no bleeding at the end of the procedure. Eight sessile polyps were found in the splenic flexure, hepatic flexure and ascending colon. The polyps were 4 mm in size. Coagulation for destruction of remaining portion of lesion using monopolar probe was successful. Estimated blood loss was minimal. Localized moderate mucosal changes characterized by congestion (edema), erosions and erythema were found at the hepatic flexure. Biopsies were taken with a cold forceps for histology. Verification of patient identification for the specimen was done. Estimated blood loss was minimal. Impression: - Ten 1 to 2 mm polyps in the sigmoid colon, at the splenic flexure, at the hepatic flexure, in the ascending colon and in the cecum, removed piecemeal using a hot snare. Resected and retrieved. - Eight 4 mm polyps at the splenic flexure, at the hepatic flexure and in the ascending colon. Treated with a monopolar probe. - Localized moderate mucosal changes were found at the hepatic flexure secondary to ischemic colitis. Biopsied. Recommendation: - Discharge patient to home. - Resume previous diet. - Continue present medications. - Await pathology results. - Repeat colonoscopy in 1 year for surveillance. Procedure Code(s): --- Professional --- 88147, Colonoscopy, flexible; with ablation of tumor(s), polyp(s), or other lesion(s) (includes pre- and post-dilation and guide wire passage, when performed) 66229, 59, Colonoscopy, flexible; with removal of tumor(s), polyp(s), or other lesion(s) by snare technique 62028, 59, Colonoscopy, flexible; with biopsy, single or multiple CPT copyright 2021 [employer]. All rights reserved. The codes documented in this report are preliminary and upon shorthand reporter review may be revised to meet current compliance requirements. Phil Sands DO 02/09/2025 10:16:08 AM This report has been signed electronically. Number of Addenda: 0 Note Initiated On: 02/09/2025 9:13 AM 02/09/25 1016 Date _ Phil Sands DO Cosigner Signature: Date (if indicated) CC: Dr. Justino Hodgson MD; Phil Sands DO ~ Date Dictated: 02/09/25912 Date Transcribed: Investor Relations Associate: VALERY Signed [facility]07-17-2025 Consult note [facility] Medical Records Department [address] [place] [address] Anesthesia Postop Eval I 02/09/25 1014 MR#: [id number] Acct: [id number] Name: WILY ARSHAD Rep #:[id number] : 1955 69 From: Paul Santiago PCP: Dr. Justino Hodgson MD Status :REG SDC Y Race: C Location: [place] [address] Anesthesia: Postop Eval I Current Vital Signs Temperature: 97 F Pulse Rate: 74 Blood Pressure: 124/73 Respiratory Rate: 16 Pulse Ox: 100 Oxygen Delivery Method: Room Air Assessment Airway patent: Yes Spontaneous unlabored respirations: Yes Mental status: Awake and Calm nausea: No Vomiting: No Anesthesia Complication: No Fluid Hydration Crystalloid volume administer (ml): 500 Total IV fluid infused: 500 Progress Note Anesthesia document: Postop Eval 1 completed: Yes 02/09/25 1015 > Date _ Paul Holman Signature: Date CC: ~ Signed [facility]07-17-2025 History and physical note [facility] Medical Records Department [address] [place] [address] History & Physical Exam 02/09/25 0911 MR#: [id number] Acct: [id number] Name: WILY ARSHAD Rep #:[id number] : 1955 69 From: Phil Friend PCP: Dr. Justino Hodgson MD Status :[facility] Location: [place] [address] HPI - General General Date of Admission: 02/09/25 Date of Service: 02/09/25 Chief Complaint: Personal history of polyps HPI Narrative WILY ARSHAD, is a 69 M who presents with the Chief Complaint: large colon polyps Screening colonoscopy 8..; - Two 6 to 7 mm polyps in the rectum and in the descending colon, removed with a hot snare. Resected and retrieved. - Non-bleeding internal hemorrhoids. - The examination was otherwise normal. The polyp that was located in the descending colon I did place a small clip on. I had good hemostasis. He had a very tortuous colon and it did take quite a bit of time to get through it. He would not be a good candidate for anything less then MAC anesthesia. Colonoscopy 4..25; non bleeding internal hemorrhoids, polyps in the cecum, hepatic flexure, transverse colon and descending colon. Path consistent with TA.Large polyps unable to be remove at the proximal cecal rim, pre and post hepaticflexure and sigmoid colon. OV 5.14.25 Pt here today for establishment with [facility] for colonposcy. Pt underwentrecent colonoscopy with [facility] general surgery showed many polyps with a few too large to remove. He denies abd pain, constipation, diarrhea, or blood in her stool. [facility] Medical History Open wound High cholesterol Injury of head and neck Shortness of breath on exertion Wears glasses Alcohol use Smoker Emphysema, unspecified History of echocardiogram Asthma Anemia Shortness of breath Weight loss, unintentional Home Medications ?Medication ?Instructions ?Recorded ?Last Taken ?Type albuterol sulfate 2.5 mg/3 mL 2.5 mg inhalation Q6H ID N PRN Sob 02/18/18 02/09/25 06:30 History (0.083 %) solution for nebulization &/Or Wheezing albuterol sulfate 90 mcg/actuation 1 - 2 puff inhalati on Q4H PRN PRN 02/18/18 02/18/18 History aerosol inhaler Sob &/Or Wheezing atorvastatin 20 mg tablet 20 mg PO QDAY 12/07/24 Unkno wn History lisinopril 20 mg tablet 20 mg PO QDAY 12/07/24 Unkno wn History fluticasone 250 mcg-salmeterol 50 1 ea inhalation BID 02/07/25 Unknown History mcg/dose blistr powdr for inhalation umeclidinium 62.5 mcg/actuation 1 inh inhalation DAILY 02/07/25 02/09/25 06:30 History blister powder for inhalation (Incruse Ellipta) Allergy/AdvReac Type Severity Reaction Status Date / Time No Known Allergies Allergy Verified 02/09/25 07:48 Surgical History History of hernia repair Social History Smoking Status: Current every day smoker tobacco type: cigarettes Tobacco: How many years used: 40 alcohol intake: current alcohol intake frequency: 0-2 drinks per day Alcohol type: beer ROS Constitutional Constitutional: Denies fatigue, fever(s), poor appetite, weight gain or weight loss Gastrointestinal Gastrointestinal: Denies belching, bloating, change in bowel habits, change in stool character, chewing difficulty, coffee ground emesis, constipation, cramping, diarrhea, dyspepsia, dysphagia, earlysatiety, excessive flatus, fecalincontinence, heartburn, hematemesis, hematochezia, hemorrhoids, loose stools, melena, nausea, odynophagia, rectal bleeding, tenesmus, vomiting or weight changes Vital Signs Vital Signs Vital Signs: 02/09/25 07:50 02/09/25 07:50 02/09/25 08:42 Temperature 99.0 F 99.0 F Temperature Source Temporal Pulse Rate 90 90 Respiratory Rate 16 16 Respiratory Pattern Normal Blood Pressure 148/81 H 148/81 H Blood Pressure Mean 103 Blood Pressure Source Monitor Blood Pressure Position Sitting Blood Pressure Location Right Arm Pulse Ox 100 100 Oxygen Delivery Method Room Air Room Air Weight Weight: 127 lb 3.307 oz Body Mass Index (BMI) 19.9 Physical Exam Const alert, oriented x3, no apparent distress and healthy appearing General Appearance: cooperative GI normal to inspection, nondistended, normoactive bowel sounds, soft to palpation,non-tender and non-distended Percussion: normal to percussion Rectal Exam: deferred Assessment & Plan Assessment/Plan (1) Colonic polyp: PLAN: Assessment and Plan Assessment and Plan (1) Colonic polyp: Status: Acute Plan: This is a 69 yo male pt here today after colonoscopy in October 2023 with many polyps (pathology revealing tubular adenomas). Pt had polyps that were too largefor removal. Report does not mention the size of the unresected polyps but locations include the cecal rim, pre and post hepatic flexure and the sigmoid colon. [facility] but preferred to stay local. He will be scheduled for colonoscopy today. -Colonoscopy with polyp resection -f/u after procedure 02/09/25912 Cosigner Signature (if applicable): CC: Dr. Justino Hodgson MD; Phil Sands DO~ Signed [facility]07-17-2025 [facility] Medical Records Department [address] [place] [address] History Physical Exam 02/09/25 0911 MR#: [id number] Acct: [id number] Name: WILY ARSHAD Rep #: [id number] : 1955 69 From: Phil Sands DO PCP: Dr. Justino Hodgson MD Status:[place] [facility] Location: [place] [address] HPI - General General Date of Admission: 02/09/25 Date of Service: 02/09/25 Chief Complaint: Personal history of polyps HPI Narrative WILY ARSHAD, is a 69 M who presents with the Chief Complaint: large colon polyps Screening colonoscopy 03.11.21; - Two 6 to 7 mm polyps in the rectum and in the descending colon, removed with a hot snare. Resected and retrieved. - Non-bleeding internal hemorrhoids. - The examination was otherwise normal. The polyp that was located in the descending colon I did place a small clip on. I had good hemostasis. He had a very tortuous colon and it did take quite a bit of time to get through it. He would not be a good candidate for anything less then MAC anesthesia. Colonoscopy 11.23.24; non bleeding internal hemorrhoids, polyps in the cecum, hepatic flexure, transverse colon and descending colon. Path consistent with TA. Large polyps unable to be remove at the proximal cecal rim, pre and post hepatic flexure and sigmoid colon. OV 5..25 Pt here today for establishment with [facility] for colonposcy. Pt underwent recent colonoscopy with [facility] general surgery showed many polyps with a few too large to remove. He denies abd pain, constipation, diarrhea, or blood in her stool. [facility] Medical History Open wound High cholesterol Injury of head and neck Shortness of breath on exertion Wears glasses Alcohol use Smoker Emphysema, unspecified History of echocardiogram Asthma Anemia Shortness of breath Weight loss, unintentional Home Medications ???Medication ???Instructions ???Recorded ???Last Taken ???Type albuterol sulfate 2.5 mg/3 mL 2.5 mg inhalation Q6H PRN PRN Sob 02/18/18 02/09/25 06:30 History (0.083 %) solution for nebulization /Or Wheezing albuterol sulfate 90 mcg/actuation 1 - 2 puff inhalation Q4H PRN ID N 02/18/18 02/18/18 History aerosol inhaler Sob /Or Wheezing atorvastatin 20 mg tablet 20 mg PO QDAY 12/07/24 Unknown His tory lisinopril 20 mg tablet 20 mg PO QDAY 12/07/24 Unknown His tory fluticasone 250 mcg-salmeterol 50 1 ea inhalation BID 02/07/25 Unkn own History mcg/dose blistr powdr for inhalation umeclidinium 62.5 mcg/actuation 1 inh inhalation DAILY 02/07/25 06:30 History blister powder for inhalation (Incruse Ellipta) Allergy/AdvReac Type Severity Reaction Status Date / Time No Known Allergies Allergy Verified 02/09/25 07:48 Surgical History History of hernia repair Social History Smoking Status: Current every day smoker tobacco type: cigarettes Tobacco: How many years used: 40 alcohol intake: current alcohol intake frequency: 0-2 drinks per day Alcohol type: beer ROS Constitutional Constitutional: Denies fatigue, fever(s), poor appetite, weight gain or weight loss Gastrointestinal Gastrointestinal: Denies belching, bloating, change in bowel habits, change in stool character, chewing difficulty, coffee ground emesis, constipation, cramping, diarrhea, dyspepsia, dysphagia, early satiety, excessive flatus, fecal incontinence, heartburn, hematemesis, hematochezia, hemorrhoids, loose stools, melena, nausea, odynophagia, rectal bleeding, tenesmus, vomiting or weight changes Vital Signs Vital Signs Vital Signs: 02/09/25 07:50 02/09/25 07:50 02/09/25 08:42 Temperature 99.0 F 99.0 F Temperature Source Temporal Pulse Rate 90 90 Respiratory Rate 16 16 Respiratory Pattern Normal Blood Pressure 148/81 H 148/81 H Blood Pressure Mean 103 Blood Pressure Source Monitor Blood Pressure Position Sitting Blood Pressure Location Right Arm Pulse Ox 100 100 Oxygen Delivery Method Room Air Room Air Weight Weight: 127 lb 3.307 oz Body Mass Index (BMI) 19.9 Physical Exam Const alert, oriented x3, no apparent distress and healthy appearing General Appearance: cooperative GI normal to inspection, nondistended, normoactive bowel sounds, soft to palpation, non-tender and non- distended Percussion: normal to percussion Rectal Exam: deferred Assessment Plan Assessment/Plan (1) Colonic polyp: PLAN: Assessment and Plan Assessment and Plan (1) Colonic polyp: Status: Acute Plan: This is a 69 yo male pt here today after colonoscopy in October 2023 with many polyps (pathology revealing tubular adenomas). Pt had polyps (more content not included)...[facility]07-17-2025 Consult note [facility] Medical Records Department [address] [place] [address] Pre-Anesthesia Evaluation 02/09/25 0841 MR#: [id number] Acct: [id number] Name: WILY ARSHAD Rep #:[id number] : 1955 69 From: Valente Fenton PCP: Dr. Justino Hodgson MD Status :REG [facility] Y Race: C Location: [place] [address] ASA Classification* ASA Classification ASA Classification: 3 Assessment & Plan Anesthesia* Anesthesia Assessment Anesthesia Assessment: Discussed sedation and/or anesthesia options, risks, benefits, and alternatives with patient/parents/legal guardian/POA. Questions invited. The patient/parents/legal guardian/POA seems to understand and agrees to proceedwith anesthesia plan. Reviewed the physical assessment, medical history, allergy history and patient home medications list prior to surgery/procedure/anesthetic and documented any changes. Performed airway and anesthesia risk assessments. Anesthesia Type Anesthesia Type: MAC History Source History Obtained from:: Patient and Chart Anesthesia Focused Assessment* Temperature: 99.0 F Pulse Rate: 90 Blood Pressure: 148/81 Respiratory Rate: 16 Pulse Ox: 100 Oxygen Delivery Method: Room Air Airway Assessment Mouth opens: >3 cm Mallampati Score: II Teeth Condition: Missing Neck Range of motion (ROM): Full ROM Labs Anesthesia Preop lab: CBC WBC 7.9 K/mm3 (4.4-11.0) 12/27/19 22:50 12/27/19 RBC 4.02 M/mm3 (4.6-6.2) L 12/27/19 22:50 12/27/19 Hgb 13.2 g/dL (13.0-16.5) 12/27/19 22:50 12/27/19 Hct 39.5 % (40-54) L 12/27/19 22:50 12/27/19 Plt Count 156 K/mm3 (150-450) 12/27/19 22:50 12/27/19 CHEMISTRY Potassium 3.7 mmol/L (3.5-5.1) 12/27/19 22:50 12/27/19 Sodium 139 mmol/L (136-145) 12/27/19 22:50 12/27/19 BUN 7 mg/dL (7-18) 12/27/19 22:50 12/27/19 Creatinine 0.75 mg/dL (0.70-1.30) 12/27/19 22:50 12/27/19 Glucose 91 mg/dL (74-106) 12/27/19 22:50 12/27/19 POC Glucose 93 mg/dL (70-110) 02/18/18 10:30 02/18/18 COAG PT 12.8 SECONDS (11.7-14.9) 02/18/18 10:00 Pre-Assessment Diagnosis/Proposed Procedure Planned Operative Procedure(s): COLONOSCOPY Anesthesia History Anesthesia History - textile dyer: 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 When Was Last Pacemaker Check QUESTION #4 FULL TEXT: You/Your Family Experience fever (hyperthermia) with Anesthesia Last Oral Intake Last Oral intake: Last Oral Intake NPO since 06:15 02/09/25 07:50 Meds taken in AM with sips of Yes 02/09/25 07:50 water? Meds patient instructed to take am of surgery PONV PONV - textile dyer: PONV - textile dyer Female No 02/07/25 09:53 HX of Motion Sickness No 02/07/25 09:53 HX of N/V After Surgery No 02/07/25 09:53 Non-Smoker No 02/07/25 09:53 Duration of Surgery greater No 02/07/25 09:53 than 60 minutes Number of Risk Factors PONV Score Height & Weight Height & Weight: Anesthesia: Height & Weight Height 5 ft 7 in 02/09/25 07:50 Weight: 57.7 kg 02/09/25 07:50 Body Mass Index (BMI) 19.9 02/09/25 07:50 Respiratory Assessment Respiratory Assessment - textile dyer: Respiratory Tract Infection Hx - textile dyer Hx Respiratory Tract Infection No 02/07/25 09:53 STOP Sleep Apnea STOP Sleep Apnea - textile dyer: STOP Sleep Apnea - textile dyer Hx Hypertension Yes 02/07/25 09:53 Hx Sleep Apnea No 02/07/25 09:53 CPAP No 03/11/21 12:56 BIPAP No 11/10/14 10:20 Do you snore loudly (louder No 02/07/25 09:53 than talking or can be heard Do you often feel tired/ No 02/07/25 09:53 fatigued/ sleepy during daytime? Has anyone observed you stop No 02/07/25 09:53 breathing during sleep? STOP Results Negative 02/07/25 09:53 QUESTION #5 FULL TEXT : Do you snore loudly (louder than talking or can be heard through closeddoors)? 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 Specify any problems Hx of Preganancy in last 3 N/A 02/07/25 09:53 Months Nurse Filling Out Transfusion VLEHMAN 02/07/25 09:53 & Questions: Date: 02/07/25 02/07/25 09:53 Time: 10:00 02/07/25 09:53 Patient unable to answer at this time (ie. 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 Hx Now No 02/07/25 09:53 Gestational Age (in weeks): EDC: Hx Hx Para Hx Section SAB No 02/07/25 09:53 Active Medications Active Medications: Current Medications Generic Name Dose Route Start Last Admin Trade Name Freq PRN Reason Stop Dose Admin Lactated Ringer's 1,000 mls @ 15 mls/hr 02/09/25 07:30 02/09/25 07:53 IV 15 mls/hr .Q48H JOSÉ MIGUEL Administration PFS Medical History Open wound High cholesterol Injury of head and neck Shortness of breath on exertion Wears glasses Alcohol use Smoker Emphysema, unspecified History of echocardiogram Asthma Anemia Shortness of breath Weight loss, unintentional Home Medications ?Medication ?Instructions ?Recorded ?Last Taken ?Type albuterol sulfate 2.5 mg/3 mL 2.5 mg inhalation Q6H ID N PRN Sob 02/18/18 02/09/25 06:30 History (0.083 %) solution for nebulization &/Or Wheezing albuterol sulfate 90 mcg/actuation 1 - 2 puff inhalati on Q4H PRN PRN 02/18/18 02/18/18 History aerosol inhaler Sob &/Or Wheezing atorvastatin 20 mg tablet 20 mg PO QDAY 12/07/24 Unkno wn History lisinopril 20 mg tablet 20 mg PO QDAY 12/07/24 Unkno wn History fluticasone 250 mcg-salmeterol 50 1 ea inhalation BID 02/07/25 Unknown History mcg/dose blistr powdr for inhalation umeclidinium 62.5 mcg/actuation 1 inh inhalation DAILY 02/07/25 02/09/25 06:30 History blister powder for inhalation (Incruse Ellipta) Allergy/AdvReac Type Severity Reaction Status Date / Time No Known Allergies Allergy Verified 02/09/25 07:48 Surgical History History of hernia repair Social History Smoking Status: Current every day smoker tobacco type: cigarettes Tobacco: How many years used: 40 alcohol intake: current alcohol intake frequency: 0-2 drinks per day Alcohol type: beer Review of Systems (Anesthesia) ROS Narrative System reviewed and no additional complaints, except as documented. 02/09/25 0842 > Date _ Valente Jensen MD Cosigner Signature: Date CC: ~ Signed [facility]07-07-2025 Instructions* Patient Instructions* Kennedy Moreno APRN.[facility] - 01/30/2025 2:[address] Lung Screen Results The CT scan that you will have done will show if you have any nodules (small spots) in your lungs that are suspicious for cancer. Around 90% of the patients who have this scan done are found to have at least one nodule. Most nodules are benign (not cancer) and of no harm to you at all. A specialistwill make a scientific evaluation about whether or not a nodule is worrisome based on its size and shape. The radiologist who will read your scan will put it into one of four categories: LUNG-RADS Category Description Overall Probability of Malignancy Recommended Follow-Up 1 Negative No nodules and definitely benign (non-cancerous nodules) Essentially 0. 1 Year - Follow-up Low dose CT 2 Benign Appearance or Behavior Nodules with a very low likelihood of becoming cancer due to size or lack of growth Less than 1% 1 Year - Follow-up Low dose CT 3 Probably Benign Probably benign finding, short term follow-up recommended 1 to 2% 6 Months - Follow-up Low dose CT 4 Suspicious Findings for which additional diagnostic testing and/or biopsy is recommended Will be calculated based on nodule characteristics. Dependent on what is seen on the exam. (3 month follow-up CT, PET-CT, or biopsy) 0 Incomplete Findings suggestive of an inflammatory or infectious process AND/OR part of the lung cannot be evaluated Additional lung cancer screening CT imaging needed AND/OR comparison with prior chest CT imaging At times, we may see something outside of the lungs on the scan that could be a health concern. Below are some of the most common findings: S Clinically Significant or Potentially Clinically Significant Findings (non lung cancer) Referral or additional imaging/labs depending on result. Approximately 10% of people receive this result. Coronary Artery Calcifications (Moderate or Severe) - Referral to cardiology for further work-up and recommendations. Thyroid Nodule - TSH level and Thyroid Ultrasound dependent on size, referral to endocrinology. Adrenal Nodule - blood work and referral to endocrinology. Others Lung Cancer Screening hotline: [phone] Lung Cancer Screening [phone] Billing Questions: or [email or web address] Specialist Providers: (Mary Ann Cervantes PA-C; Francheska Pride CNP; Abida Stewart CNP, Sheba Seth LEAD PONY RIDER; Geri Javed CNP; GEOVANNA Rosario; Kennedy Moreno CNP; Tracie Villalobos LEAD PONY RIDER; Yamilet Ellis LEAD PONY RIDER; Klaudia Orantes LEAD PONY RIDER; Dorcas Yoon PA-C; Suyapa Lee PA-C; Jackie Landrum LEAD P[employer]Y RIDER; Alla Mayorga LEAD PONY RIDER; Sanna Valiente LEAD PONY RIDER): [phone] [facility] NoteHNO ID: [id number] Author: KENNEDY MORENO APRN.CNP Service: ? Author Type: Nurse Practitioner Type: Progress Notes Filed: 01/30/2025 16:23 Note Text: LUNG SCREENING VISIT PRIMARY CARE PHYSICIAN: Lucia Hodgson MD PULMONARY PROVIDER: none Results will be communicated via letter or electronic record if applicable. Visit Delivery: In Person Patient Visit Type: New to Screening Current or Ex-smoker? [Current Exam Type: baseline LDCT Number of Pack Years: 53 Current smoker (=0) or Number of Years since Quit: 0 REQUESTER: The referring provider advised the patient to have screening. HISTORY OF PRESENT ILLNESS: Wily Arshad is a 69 year old Active smoker who presents for lung screening. Currently smoking 1/2 PPD. Using nicorette gum. Spoke to his brother Luis and he agrees with recommendation for LDCT. Respiratory symptoms include: SOB: No Chest tightness: No Coughing: Yes: With mucus Clear Hemoptysis: No Wheezing: Yes Fever/Chills: No Recent Respiratory Infection: No Unintentional weight loss: No, drops weight in the summer usually. Never weighed more than 140-150 lbs Last 6 Encounter Wt Readings: Date: Wt: 01/30/2025 58.5 kg (128 lb 15.5 oz) 10/20/2024 59.9 kg (132 lb) 09/19/2024 60.3 kg (133 lb) 03/23/2024 57.5 kg (126 lb 12.8 oz) 09/23/2023 62.4 kg (137 lb 9.6 oz) 09/08/2023 62.1 kg (137 lb) ECOG PERFORMANCE STATUS: 0- Fully active, able to carry on all pre-disease performance w/o restriction. Modified Medical Research [place] Dyspnea Scale (MMRC) I only get breathless with strenous exercise 0 PAST MEDICAL HISTORY Diagnosis Date Alcohol abuse BPH (benign prostatic hyperplasia) Cerebral artery disease COPD (chronic obstructive pulmonary disease) (HCC) Diastasis recti Essential hypertension Marijuana use weekly Noncompliance Right inguinal hernia 11/17/2014 Tobacco use PAST SURGICAL HISTORY Procedure Laterality Date COLSC FLX W/RMVL OF TUMOR POLYP LESION SNARE TQ 03/11/2021 Dr. Sky. 2 polyps. repeat 3-5 years PAST SURGICAL HISTORY OF 11/17/2014 laparoscopic R inguinal herniorrhaphy; Dr. Sky FAMILY HISTORY Problem Relation Age of Onset Stroke Mother other (CKD) Mother COPD Mother Depression Mother other (CHF) Mother other (High cholesterol) Mother Heart Father Stroke Father Coronary Artery Disease Father 80 CABG x4 Prostate Cancer Father Colon Cancer Father Diabetes Sister COPD Sister Asthma Sister other (RLS) Sister other (High cholesterol) Brother Depression Brother Anxiety disorder Brother other (High cholesterol) Brother Hypertension Brother No Known Problems Brother Cancer Maternal Grandmother No Known Problems Maternal Grandfather Diabetes Paternal Grandmother Pancreatic Cancer Paternal Grandfather ipratropium-albuterol (DUONEB) 0.5 mg-3 mg(2.5 mg base)/3 mL nebu IInhale by nebulizer over 5-15 minutes four (4) times a day. fluticasone-salmeterol (ADVAIR DISKUS) 250-50 mcg/dose inhaler Inhale 1 Puff as instructed two times a day. Rinse and gargle mouth after use with water. albuterol HFA (VENTOLIN HFA) 90 mcg/actuation inhaler Inhale 2 Puffs as instructed every 4 hours as needed for wheezing/shortness of breath. atorvastatin (LIPITOR) 20 mg tablet Take 1 tablet by mouth daily at bedtime. For cholesterol. hydroCHLOROthiazide 25 mg tablet Take 1 tablet by mouth once daily. umeclidinium (INCRUSE ELLIPTA) 62.5 mcg/actuation inhaler Inhale 1 Puff as instructed once daily. COMPOUNDED PRESCRIPTION 1 Each as needed. NEBULIZER FOR HOME USE. ICD10: J44.9 COMPOUNDED PRESCRIPTION aerosol nebulizer Dx copd ALLERGIES No Known Allergies The medications and allergies were reviewed and reconciled for this patient and deemed current. Lung Cancer Risk Factors: 1.Tobacco Use: Start Age 16, Quit Age: N/A, Average packs per day 1, Pack Years 54 2. Passive Smoke Exposure: Yes, as an Adult 3. Personal hx of malignancy: No, Type of Cancer: 4. Significant exposures (1 year or more of exposure): Painting, 5. Race: White 6. Education: Less than High School 7. BMI:Body mass index is 20.2 kg/m?. Patient-entered Height: 5'7 Patient-entered Weight: 125 pounds 8. COPD: No 9. Pneumonia in the past 5 years: No 10. Is there a history of lung cancer in a first degree relative? No 11. Is there a history of lung cancer in a non-first degree relative? No 12. Is there a history of any other cancer in a first degree relative? Yes Health Maintenance Immunization History Administered Date(s) Administered COVID-19 original vaccine, age 12+ yr, monovalent (Airtime - PURPLE TOP) 10/22/2020 11/12/2020 COVID-19 vaccine, age 12+ yr (Airtime COMIRNATY) 09/19/2024 COVID-19 vaccine, age 12+ yr, bivalent (Airtime) 12/31/2022 influenza (HD-IIV3) vaccine, age 65+ yr, high dose, trivalent, PF (FLUZONE HIGH-DOSE) 09/19/2024 pneumococcal conjugate (more content not included)...[facility] 01-30-2025 History of Present illness Narrative* Kennedy Moreno APRN.[facility] - 01/30/2025 2:46 PM EDT Images from the original note were not included. LUNG SCREENING VISIT PRIMARY CARE PHYSICIAN: Lucia Hodgson MD PULMONARY PROVIDER: none Results will be communicated via letter or electronic record if applicable. Visit Delivery: In Person Patient Visit Type: New to Screening Current or Ex-smoker? [Current Exam Type: baseline LDCT Number of Pack Years: 53 Current smoker (=0) or Number of Years since Quit: 0 REQUESTER: The referring provider advised the patient to have screening. HISTORY OF PRESENT ILLNESS: Wily Arshad is a 69 year old Active smoker who presents for lung screening. Currently smoking 1/2 PPD. Using nicorette gum. Spoke to his brother Luis and he agrees with recommendation for LDCT. Respiratory symptoms include: SOB: No Chest tightness: No Coughing: Yes: With mucus Clear Hemoptysis: No Wheezing: Yes Fever/Chills: No Recent Respiratory Infection: No Unintentional weight loss: No, drops weight in the summer usually. Never weighed more than 140-150 lbs Last 6 Encounter Wt Readings: Date: Wt: 01/30/2025 58.5 kg (128 lb 15.5 oz) 10/20/2024 59.9 kg (132 lb) 09/19/2024 60.3 kg (133 lb) 03/23/2024 57.5 kg (126 lb 12.8 oz) 09/23/2023 62.4 kg (137 lb 9.6 oz) 09/08/2023 62.1 kg (137 lb) ECOG PERFORMANCE STATUS: 0- Fully active, able to carry on all pre-disease performance w/o restriction. Modified Medical Research [place] Dyspnea Scale (MMRC) I only get breathless with strenous exercise 0 PAST MEDICAL HISTORY Diagnosis Date Alcohol abuse BPH (benign prostatic hyperplasia) Cerebral artery disease COPD (chronic obstructive pulmonary disease) (HCC) Diastasis recti Essential hypertension Marijuana use weekly Noncompliance Right inguinal hernia 11/17/2014 Tobacco use PAST SURGICAL HISTORY Procedure Laterality Date COLSC FLX W/RMVL OF TUMOR POLYP LESION SNARE TQ 03/11/2021 Dr. Sky. 2 polyps. repeat 3-5 years PAST SURGICAL HISTORY OF 11/17/2014 laparoscopic R inguinal herniorrhaphy; Dr. Sky FAMILY HISTORY Problem Relation Age of Onset Stroke Mother other (CKD) Mother COPD Mother Depression Mother other (CHF) Mother other (High cholesterol) Mother Heart Father Stroke Father Coronary Artery Disease Father 80 CABG x4 Prostate Cancer Father Colon Cancer Father Diabetes Sister COPD Sister Asthma Sister other (RLS) Sister other (High cholesterol) Brother Depression Brother Anxiety disorder Brother other (High cholesterol) Brother Hypertension Brother No Known Problems Brother Cancer Maternal Grandmother No Known Problems Maternal Grandfather Diabetes Paternal Grandmother Pancreatic Cancer Paternal Grandfather ipratropium-albuterol (DUONEB) 0.5 mg-3 mg(2.5 mg base)/3 mL nebu IInhale by nebulizer over 5-15 minutes four (4) times a day. fluticasone-salmeterol (ADVAIR DISKUS) 250-50 mcg/dose inhaler Inhale 1 Puff as instructed two times a day. Rinse and gargle mouth after use with water. albuterol HFA (VENTOLIN HFA) 90 mcg/actuation inhaler Inhale 2 Puffs as instructed every 4 hours asneeded for wheezing/shortness of breath. atorvastatin (LIPITOR) 20 mg tablet Take 1 tablet by mouth daily at bedtime. For cholesterol. hydroCHLOROthiazide 25 mg tablet Take 1 tablet by mouth once daily. umeclidinium (INCRUSE ELLIPTA) 62.5 mcg/actuation inhaler Inhale 1 Puff as instructed once daily. COMPOUNDED PRESCRIPTION 1 Each as needed. NEBULIZER FOR HOME USE. ICD10: J44.9 COMPOUNDED PRESCRIPTION aerosol nebulizer Dx copd ALLERGIES No Known Allergies The medications and allergies were reviewed and reconciled for this patient and deemed current. Lung Cancer Risk Factors: 1.Tobacco Use: Start Age 16, Quit Age: N/A, Average packs per day 1, Pack Years 53 2. Passive Smoke Exposure: Yes, as an Adult 3. Personal hx of malignancy: No, Type of Cancer: 4. Significant exposures (1 year or more of exposure): Painting, 5. Race: White 6. Education: Less than High School 7. BMI:Body mass index is 20.2 kg/m . Patient-entered Height: 5'7 Patient-entered Weight: 125 pounds 8. COPD: No 9. Pneumonia in the past 5 years: No 10. Is there a history of lung cancer in a first degree relative? No 11. Is there a history of lung cancer in a non-first degree relative? No 12. Is there a history of any other cancer in a first degree relative? Yes Health Maintenance Immunization History Administered Date(s) Administered COVID-19 original vaccine, age 12+ yr, monovalent (Airtime - PURPLE TOP) 10/22/2020 11/12/2020 COVID-19 vaccine, age 12+ yr (Airtime COMIRNATY) 09/19/2024 COVID-19 vaccine, age 12+ yr, bivalent (Airtime) 12/31/2022 influenza (HD-IIV3) vaccine, age 65+ yr, high dose, trivalent, PF (FLUZONE HIGH-DOSE) 09/19/2024 pneumococcal conjugate (PCV20) vaccine, 20 valent (PREVNAR 20) 09/19/2024 tetanus diphtheria (Td) vaccine, age 7+ yr, 5 Lf tetanus, PF (TENIVAC) 02/25/2018 Colonoscopy: 11/23/2024 Mammogram: DATA REVIEW I have directly visualized the testing documented: Prior Imaging: Last CT/CTA Chest/Lungs No resulted procedures found. Last CT Chest - Impression Only No resulted procedures found. Last XR Chest - Impression Only XR CHEST 2V FRONTAL/LAT Exam End: 01/09/2021 8:56 AM (Final result) Impression: IMPRESSION: No acute radiographic abnormality is evident. ... Pulmonary Function Testing: SPIROMETRY - BASELINE AND POST DILATOR ([id number]) - ordered on 03/08/21 No textual results for order. PHYSICAL EXAM: BP 122/80 Pulse 77 Resp 16 Wt 58.5 kg (128 lb 15.5 oz) SpO2 95% BMI 20.20 kg/m Deferred ASSESSMENT and RECOMMENDATIONS: 1. Screening for lung cancer: Six year risk for lung cancer: 8.3% Https://[email or web address]/[email or web address]/[email or web address] https://youtu.be/[email or web address] I have determined that the patient is eligible for a low dose CT based on age, absence of signs or symptoms of lung cancer, and total pack years: Yes. The patient and I engaged in shared decision making, including the use of one or more decision aids, to include benefits, harms, follow-up diagnostic testing, over-diagnosis, false positive rate, andtotal radiation exposure. The patient understands and feels comfortable with it: Yes. The patient was counseled on the importance of adherence to annual LDCT lung cancer screening, impact of comorbidities and ability or willingness to undergo diagnosis and treatment. The patient understands and feels comfortable with it:Yes. 2. Nicotine dependence: The patient was counseled on the importance of smoking cessation if currentsmoker and, if appropriate, offered additional tobacco cessation counseling services - Smoking Cessation Counseling. SMOKING CESSATION COUNSELING Smoking cessation methods including Nicotine Replacement Therapies and Behavior Modification were discussed with the patient and assistance offered. Has been cutting back. The medical conditions adversely affected by cigarette use include:COPD, Emphysema, and Lung Cancer. The patient is currently not ready to quit. I personally spent 3 minutes in counseling. The time spent in smoking cessation counseling is exclusive of any other counseling during this visit. Kennedy Moreno APRN.CNP NPI #: [id number] 2:46 PM [facility]* Diagnosis Onset Date Resolution Status Admit Date Colonic polyp acute December 07 025 3:31pm Colonic polyp acute February 09, 2025 7:11am [facility] Work Phone: 1(797) 974-390304-30-2025 Attending History and physical note* Leigh Jacinto MD - 11/23/2024 11:45 AM EDT UPDATED HISTORY AND PHYSICAL EXAMINATION SERVICE DATE: 11/23/2024 SERVICE TIME: 11:03 Participation of a fellow, resident, medical student, or advanced practice provider student in performing the sensitive examination was discussed with the patient or authorized indirect sales representative. The patient or authorized indirect sales representative has agreed to proceed with the sensitive examination. PHYSICAL EXAM MUST BE COMPLETED ON ADMISSION The History and Physical (completed in the past 30 days) has been reviewed and the patient has beenexamined. The contents accurately reflect the patient's condition with the following additions or revisions since the H&P was completed. Examination indicates no changes. This H&P can be found in the Electronic Medical Record . Had colonoscopy 3 years ago, Father had colon cancer in his 80s. SIGNATURE: Leigh Jacinto MD PATIENT NAME: Wily Arshad DATE: November 23, 2024 TIME: 11:04 AM Source Note - Leigh Jacinto MD - 11/23/2024 11:45 AM EDT HISTORY AND PHYSICAL Wily Arshad : 1955 REFERRING PHYSICIAN: No referring provider defined for this encounter. CHIEF COMPLAINT: Patient presents with: Consult HPI: Wily is a 69 year old male referred for endoscopy. Wily notes due for screening colonoscopy- hx of polyps (2020) & father with colon cancer. Wily denies abdominal pain.. Wily denies diarrhea. Wily denies constipation. Wily denies a change in bowel habits. Wily denies melena. Wily denies bright red blood per rectum. Wily denies hemorrhoids. Wily denies heartburn. Wily denies dysphagia. Wily denies a history of ulcers/ peptic ulcer disease. Wily has a hx of COPD- uses daily Incruse and advair- Has not needed nebulizer, denies worsening SOB, wheezing, recent illnesses or hospitalizations. COPD is managed by PCP. Wily has undergone prior endoscopy. Last colonoscopy was 02/[address] Sky at [facility]. Sedation:MAC Impression: -Two 6 to 7mm polyps in the rectum and in the descending colon, removed with a hot snare. Resected and retrieved. -Non bleeding internal hemorrhoids. -The examination was otherwise normal. The colon polyp that was located in the descending colon I did place a small clip on. I had good hemostasis. He had a very torturous colon and it did take quitea bit of time to get through it. He would no be a good candidate for anything less than MAC anesthesia. CURRENT MEDICATIONS Current Outpatient Medications Medication Sig fluticasone-salmeterol (ADVAIR DISKUS) 250-50 mcg/dose inhaler Inhale 1 Puff as instructed two times a day. Rinse and gargle mouth after use with water. albuterol HFA (VENTOLIN HFA) 90 mcg/actuation inhaler Inhale 2 Puffs as instructed every 4 hours asneeded for wheezing/shortness of breath. atorvastatin (LIPITOR) 20 mg tablet Take 1 tablet by mouth daily at bedtime. For cholesterol. umeclidinium (INCRUSE ELLIPTA) 62.5 mcg/actuation inhaler Inhale 1 Puff as instructed once daily. ipratropium-albuterol (DUONEB) 0.5 mg-3 mg(2.5 mg base)/3 mL nebu IInhale by nebulizer over 5-15 minutes four (4) times a day. COMPOUNDED PRESCRIPTION 1 Each as needed. NEBULIZER FOR HOME USE. ICD10: J44.9 COMPOUNDED PRESCRIPTION aerosol nebulizer Dx copd peg 3350-Electrolytes (GOLYTELY) 236-22.74-6.74 -5.86 gram suspension Take 4,000 mL by mouth one time only for 1 dose. Refer to printed prep instructions from your provider. hydroCHLOROthiazide 25 mg tablet Take 1 tablet by mouth once daily. No current facility-administered medications for this visit. ALLERGIES: Patient has no known allergies. PAST MEDICAL HISTORY PAST MEDICAL HISTORY Diagnosis Date Alcohol abuse BPH (benign prostatic hyperplasia) Cerebral artery disease COPD (chronic obstructive pulmonary disease) (HCC) Diastasis recti Essential hypertension Marijuana use weekly Noncompliance Right inguinal hernia 11/17/2014 Tobacco use PAST SURGICAL HISTORY PAST SURGICAL HISTORY Procedure Laterality Date COLSC FLX W/RMVL OF TUMOR POLYP LESION SNARE TQ 03/11/2021 Dr. Sky. 2 polyps. repeat 3-5 years PAST SURGICAL HISTORY OF 11/17/2014 laparoscopic R inguinal herniorrhaphy; Dr. Sky FAMILY HISTORY FAMILY HISTORY Problem Relation Age of Onset Stroke Mother other (CKD) Mother COPD Mother Depression Mother other (CHF) Mother other (High cholesterol) Mother Heart Father Stroke Father Coronary Artery Disease Father 80 CABG x4 Prostate Cancer Father Colon Cancer Father Diabetes Sister COPD Sister Asthma Sister other (RLS) Sister other (High cholesterol) Brother Depression Brother Anxiety disorder Brother other (High cholesterol) Brother Hypertension Brother No Known Problems Brother Cancer Maternal Grandmother No Known Problems Maternal Grandfather Diabetes Paternal Grandmother Pancreatic Cancer Paternal Grandfather SOCIAL HISTORY Social History Tobacco Use Smoking status: Every Day Current packs/day: 1.00 Average packs/day: 1 pack/day for 50.0 years (50.0 ttl pk-yrs) Types: Cigarettes Smokeless tobacco: Never Vaping Use Vaping status: Never Used Substance Use Topics Alcohol use: Not Currently Alcohol/week: 21.0 standard drinks of alcohol Types: 21 Cans of beer per week Drug use: Yes Frequency: 2.0 times per week Types: Marijuana REVIEW OF SYMPTOMS: REVIEW OF SYSTEMS: General: The patient denies fatigue, denies weight loss, denies weight gain, denies feeling hot, and feelings of cold. Eyes: The patient denies glaucoma, denies eye injury/surgery, + glasses or contacts. Ear/Nose/Throat: The patient denies allergies, denies hayfever, denies ear infections, and denies bloody noses. Cardiovascular: The patient denies chest pain, denies heart disease, + high blood pressure, + high cholesterol, and denies poor circulation. Respiratory: The patient denies tuberculosis, denies pneumonia, denies frequent cough, + shortness of breath, and denies coughing up blood. Gastrointestinal: The patient denies difficulty swallowing, denies acid reflux, denies ulcers, denies jaundice/hepatitis, denies gallbladder problems, denies vomiting, denies black or tarry stools, denies hemorrhoids, denies bleeding from rectum, denies diverticulitis, denies constipation, denies diarrhea, denies loss of stool control, and denies hernias. Kidney/Bladder: The patient denies kidney stones, denies urine infections, and denies bloody urine. Skin: The patient denies a history of skin cancer, denies bleeding/changing moles, and denies a history of skin rash. Neurologic: The patient denies a history of epilepsy/convulsions, denies headaches, denies head/spinal injuries, and denies stroke/TIA. Psychiatric: The patient denies psychiatric medications, denies depression, and denies voices. Endocrine: The patient denies thyroid disorders, denies diabetes, and denies hormonal problems. Hematologic: The patient denies a history of bruising, denies bleeding, and denies anemia. Infections: The patient denies a history of measles and mumps, denies rheumatic fever, and denies sexually transmitted diseases. Musculoskeletal: The patient denies back pain/injury, + back problems, denies sciatica, denies knee/foot trouble, denies arthritis, or denies gout. PHYSICAL EXAMINATION: General: The patient is 69 year old, male well nourished, well hydrated in no acute distress. The patient is oriented to time, place, and person. VITALS: Blood pressure 128/78, pulse 90, temperature 36.6 C (97.8 F), temperature source Temporal, resp. rate 14, height 170.2 cm (5' 7), weight 59.9 kg (132 lb), SpO2 96%. Body mass index is 20.67 kg/m . HEENT: Normal cephalic, ataumatic, pupils are equally round, sclera are anicteric, mucous membranesare moist, oropharynx is clear. Neck has no masses, asymmetry or lymphadenopathy. Respiratory: Clear to auscultation and percussion. Normal respiratory excursion and pattern. Cardiac: Examination is regular rate and rhythm. Normal S1/S2 Abdominal exam: Soft, nontender, with no palpable masses. No hepatosplenomegaly. No palpable hernias. Extremities: no clubbing, cyanosis or edema. No adenopathy. LABORATORY VALUES: As Noted RADIOLOGIC STUDIES: As Noted Assessment IMPRESSION: screen for colon cancer, history of polyps, family hx of colon cancer in father PLAN: I have reviewed my findings with the surgeon. Will plan for lower endoscopy. We discussed therisks and benefits of the planned endoscopy. I have informed the patient that complications can occur including failure to complete the endoscopy and perforation. Wily had the opportunity to ask questions concerning the planned endoscopy. My staff has also explained the procedure to the patient in understandable terms and has given the patient printed material concerning the procedure. Wily freely consents to surgery. I plan to use Golytely bowel preparation I have explained to the patient the difference between IV conscious sedation and MAC anesthesia - and I have offered either, according to the patient's wishes. I have explained that with IV conscioussedation there is no anesthesia provider available and therefore there is a limitation of the amount of IV medications that can be given and that the patient may wake up in the middle of the procedure and/or experience pain/discomfort during the procedure. Further discussion was done and the patient was given the opportunity to ask questions and all questions were answered. MAC anesthesia. Wily was counseled that if there are changes in his/her medical condition, to let the office knowif surgery should proceed. If there are changes in patient's medical condition from time of this encounter to the day of the procedure that preclude anesthesia, patient may have procedure cancelled for patient's safety. Diagnoses: (Z12.11) Colon cancer screening (primary encounter diagnosis) (Z86.0100) History of colonic polyps (Z80.0) Family history of colon cancer in father Consultation requested by Dr. Hodgson for an opinion regarding screening colonoscopy-hx of polyps. My final recommendations will be communicated back to the requesting physician by way of shared Medical record or letter to requesting physician via US mail. Portions of this documentation were copied and pasted from previous office visit notes in order to provide a cohesive continuity of the history. The note has been reviewed and edited and updated as necessary. Raegan Gonzalez APRN.[facility] Work Phone: [phone]) [phone] History and physical note* Leigh Jacinto MD - 11/23/2024 11:45 AM EDT HISTORY AND PHYSICAL Wily Arshad : 1955 REFERRING PHYSICIAN: No referring provider defined for this encounter. CHIEF COMPLAINT: Patient presents with: Consult HPI: Wily is a 69 year old male referred for endoscopy. Wily notes due for screening colonoscopy- hx of polyps (2020) & father with colon cancer. Wily denies abdominal pain.. Wily denies diarrhea. Wily denies constipation. Wily denies a change in bowel habits. Wily denies melena. Wily denies bright red blood per rectum. Wily denies hemorrhoids. Wily denies heartburn. Wily denies dysphagia. Wily denies a history of ulcers/ peptic ulcer disease. Wily has a hx of COPD- uses daily Incruse and advair- Has not needed nebulizer, denies worsening SOB, wheezing, recent illnesses or hospitalizations. COPD is managed by PCP. Wily has undergone prior endoscopy. Last colonoscopy was 02/[address] Sky at [facility]. Sedation:MAC Impression: -Two 6 to 7mm polyps in the rectum and in the descending colon, removed with a hot snare. Resected and retrieved. -Non bleeding internal hemorrhoids. -The examination was otherwise normal. The colon polyp that was located in the descending colon I did place a small clip on. I had good hemostasis. He had a very torturous colon and it did take quitea bit of time to get through it. He would no be a good candidate for anything less than MAC anesthesia. CURRENT MEDICATIONS Current Outpatient Medications Medication Sig fluticasone-salmeterol (ADVAIR DISKUS) 250-50 mcg/dose inhaler Inhale 1 Puff as instructed two times a day. Rinse and gargle mouth after use with water. albuterol HFA (VENTOLIN HFA) 90 mcg/actuation inhaler Inhale 2 Puffs as instructed every 4 hours asneeded for wheezing/shortness of breath. atorvastatin (LIPITOR) 20 mg tablet Take 1 tablet by mouth daily at bedtime. For cholesterol. umeclidinium (INCRUSE ELLIPTA) 62.5 mcg/actuation inhaler Inhale 1 Puff as instructed once daily. ipratropium-albuterol (DUONEB) 0.5 mg-3 mg(2.5 mg base)/3 mL nebu IInhale by nebulizer over 5-15 minutes four (4) times a day. COMPOUNDED PRESCRIPTION 1 Each as needed. NEBULIZER FOR HOME USE. ICD10: J44.9 COMPOUNDED PRESCRIPTION aerosol nebulizer Dx copd peg 3350-Electrolytes (GOLYTELY) 236-22.74-6.74 -5.86 gram suspension Take 4,000 mL by mouth one time only for 1 dose. Refer to printed prep instructions from your provider. hydroCHLOROthiazide 25 mg tablet Take 1 tablet by mouth once daily. No current facility-administered medications for this visit. ALLERGIES: Patient has no known allergies. PAST MEDICAL HISTORY PAST MEDICAL HISTORY Diagnosis Date Alcohol abuse BPH (benign prostatic hyperplasia) Cerebral artery disease COPD (chronic obstructive pulmonary disease) (HCC) Diastasis recti Essential hypertension Marijuana use weekly Noncompliance Right inguinal hernia 11/17/2014 Tobacco use PAST SURGICAL HISTORY PAST SURGICAL HISTORY Procedure Laterality Date COLSC FLX W/RMVL OF TUMOR POLYP LESION SNARE TQ 03/11/2021 Dr. Sky. 2 polyps. repeat 3-5 years PAST SURGICAL HISTORY OF 11/17/2014 laparoscopic R inguinal herniorrhaphy; Dr. Sky FAMILY HISTORY FAMILY HISTORY Problem Relation Age of Onset Stroke Mother other (CKD) Mother COPD Mother Depression Mother other (CHF) Mother other (High cholesterol) Mother Heart Father Stroke Father Coronary Artery Disease Father 80 CABG x4 Prostate Cancer Father Colon Cancer Father Diabetes Sister COPD Sister Asthma Sister other (RLS) Sister other (High cholesterol) Brother Depression Brother Anxiety disorder Brother other (High cholesterol) Brother Hypertension Brother No Known Problems Brother Cancer Maternal Grandmother No Known Problems Maternal Grandfather Diabetes Paternal Grandmother Pancreatic Cancer Paternal Grandfather SOCIAL HISTORY Social History Tobacco Use Smoking status: Every Day Current packs/day: 1.00 Average packs/day: 1 pack/day for 50.0 years (50.0 ttl pk-yrs) Types: Cigarettes Smokeless tobacco: Never Vaping Use Vaping status: Never Used Substance Use Topics Alcohol use: Not Currently Alcohol/week: 21.0 standard drinks of alcohol Types: 21 Cans of beer per week Drug use: Yes Frequency: 2.0 times per week Types: Marijuana REVIEW OF SYMPTOMS: REVIEW OF SYSTEMS: General: The patient denies fatigue, denies weight loss, denies weight gain, denies feeling hot, and feelings of cold. Eyes: The patient denies glaucoma, denies eye injury/surgery, + glasses or contacts. Ear/Nose/Throat: The patient denies allergies, denies hayfever, denies ear infections, and denies bloody noses. Cardiovascular: The patient denies chest pain, denies heart disease, + high blood pressure, + high cholesterol, and denies poor circulation. Respiratory: The patient denies tuberculosis, denies pneumonia, denies frequent cough, + shortness of breath, and denies coughing up blood. Gastrointestinal: The patient denies difficulty swallowing, denies acid reflux, denies ulcers, denies jaundice/hepatitis, denies gallbladder problems, denies vomiting, denies black or tarry stools, denies hemorrhoids, denies bleeding from rectum, denies diverticulitis, denies constipation, denies diarrhea, denies loss of stool control, and denies hernias. Kidney/Bladder: The patient denies kidney stones, denies urine infections, and denies bloody urine. Skin: The patient denies a history of skin cancer, denies bleeding/changing moles, and denies a history of skin rash. Neurologic: The patient denies a history of epilepsy/convulsions, denies headaches, denies head/spinal injuries, and denies stroke/TIA. Psychiatric: The patient denies psychiatric medications, denies depression, and denies voices. Endocrine: The patient denies thyroid disorders, denies diabetes, and denies hormonal problems. Hematologic: The patient denies a history of bruising, denies bleeding, and denies anemia. Infections: The patient denies a history of measles and mumps, denies rheumatic fever, and denies sexually transmitted diseases. Musculoskeletal: The patient denies back pain/injury, + back problems, denies sciatica, denies knee/foot trouble, denies arthritis, or denies gout. PHYSICAL EXAMINATION: General: The patient is 69 year old, male well nourished, well hydrated in no acute distress. The patient is oriented to time, place, and person. VITALS: Blood pressure 128/78, pulse 90, temperature 36.6 C (97.8 F), temperature source Temporal, resp. rate 14, height 170.2 cm (5' 7), weight 59.9 kg (132 lb), SpO2 96%. Body mass index is 20.67 kg/m . HEENT: Normal cephalic, ataumatic, pupils are equally round, sclera are anicteric, mucous membranesare moist, oropharynx is clear. Neck has no masses, asymmetry or lymphadenopathy. Respiratory: Clear to auscultation and percussion. Normal respiratory excursion and pattern. Cardiac: Examination is regular rate and rhythm. Normal S1/S2 Abdominal exam: Soft, nontender, with no palpable masses. No hepatosplenomegaly. No palpable hernias. Extremities: no clubbing, cyanosis or edema. No adenopathy. LABORATORY VALUES: As Noted RADIOLOGIC STUDIES: As Noted Assessment IMPRESSION: screen for colon cancer, history of polyps, family hx of colon cancer in father PLAN: I have reviewed my findings with the surgeon. Will plan for lower endoscopy. We discussed therisks and benefits of the planned endoscopy. I have informed the patient that complications can occur including failure to complete the endoscopy and perforation. Wily had the opportunity to ask questions concerning the planned endoscopy. My staff has also explained the procedure to the patient in understandable terms and has given the patient printed material concerning the procedure. Wily freely consents to surgery. I plan to use Golytely bowel preparation I have explained to the patient the difference between IV conscious sedation and MAC anesthesia - and I have offered either, according to the patient's wishes. I have explained that with IV conscioussedation there is no anesthesia provider available and therefore there is a limitation of the amount of IV medications that can be given and that the patient may wake up in the middle of the procedure and/or experience pain/discomfort during the procedure. Further discussion was done and the patient was given the opportunity to ask questions and all questions were answered. MAC anesthesia. Wily was counseled that if there are changes in his/her medical condition, to let the office knowif surgery should proceed. If there are changes in patient's medical condition from time of this encounter to the day of the procedure that preclude anesthesia, patient may have procedure cancelled for patient's safety. Diagnoses: (Z12.11) Colon cancer screening (primary encounter diagnosis) (Z86.0100) History of colonic polyps (Z80.0) Family history of colon cancer in father Consultation requested by Dr. Hodgson for an opinion regarding screening colonoscopy-hx of polyps. My final recommendations will be communicated back to the requesting physician by way of shared Medical record or letter to requesting physician via [place] mail. Portions of this documentation were copied and pasted from previous office visit notes in order to provide a cohesive continuity of the history. The note has been reviewed and edited and updated as necessary. Raegan Gonzalez APRN.[facility] [facility] [facility]04-30-2025 History and physical note* Leigh Jacinto MD - 11/23/2024 11:45 AM EDT UPDATED HISTORY AND PHYSICAL EXAMINATION SERVICE DATE: 11/23/2024 SERVICE TIME: 11:03 Participation of a fellow, resident, medical student, or advanced practice provider student in performing the sensitive examination was discussed with the patient or authorized indirect sales representative. The patient or authorized indirect sales representative has agreed to proceed with the sensitive examination. PHYSICAL EXAM MUST BE COMPLETED ON ADMISSION The History and Physical (completed in the past 30 days) has been reviewed and the patient has beenexamined. The contents accurately reflect the patient's condition with the following additions or revisions since the H&P was completed. Examination indicates no changes. This H&P can be found in the Electronic Medical Record . Had colonoscopy 3 years ago, Father had colon cancer in his 80s. SIGNATURE: Leigh Jacinto MD PATIENT NAME: Wily Arshad DATE: November 23, 2024 TIME: 11:04 AM Source Note - Leigh Jacinto MD - 11/23/2024 11:45 AM EDT HISTORY AND PHYSICAL Wily Arshad : 1955 REFERRING PHYSICIAN: No referring provider defined for this encounter. CHIEF COMPLAINT: Patient presents with: Consult HPI: Wily is a 69 year old male referred for endoscopy. Wily notes due for screening colonoscopy- hx of polyps (2020) & father with colon cancer. Wily denies abdominal pain.. Wily denies diarrhea. Wily denies constipation. Wily denies a change in bowel habits. Wily denies melena. Wily denies bright red blood per rectum. Wily denies hemorrhoids. Wily denies heartburn. Wily denies dysphagia. Wily denies a history of ulcers/ peptic ulcer disease. Wily has a hx of COPD- uses daily Incruse and advair- Has not needed nebulizer, denies worsening SOB, wheezing, recent illnesses or hospitalizations. COPD is managed by PCP. Wily has undergone prior endoscopy. Last colonoscopy was 02/[address] Sky at [facility]. Sedation:MAC Impression: -Two 6 to 7mm polyps in the rectum and in the descending colon, removed with a hot snare. Resected and retrieved. -Non bleeding internal hemorrhoids. -The examination was otherwise normal. The colon polyp that was located in the descending colon I did place a small clip on. I had good hemostasis. He had a very torturous colon and it did take quitea bit of time to get through it. He would no be a good candidate for anything less than MAC anesthesia. CURRENT MEDICATIONS Current Outpatient Medications Medication Sig fluticasone-salmeterol (ADVAIR DISKUS) 250-50 mcg/dose inhaler Inhale 1 Puff as instructed two times a day. Rinse and gargle mouth after use with water. albuterol HFA (VENTOLIN HFA) 90 mcg/actuation inhaler Inhale 2 Puffs as instructed every 4 hours asneeded for wheezing/shortness of breath. atorvastatin (LIPITOR) 20 mg tablet Take 1 tablet by mouth daily at bedtime. For cholesterol. umeclidinium (INCRUSE ELLIPTA) 62.5 mcg/actuation inhaler Inhale 1 Puff as instructed once daily. ipratropium-albuterol (DUONEB) 0.5 mg-3 mg(2.5 mg base)/3 mL nebu IInhale by nebulizer over 5-15 minutes four (4) times a day. COMPOUNDED PRESCRIPTION 1 Each as needed. NEBULIZER FOR HOME USE. ICD10: J44.9 COMPOUNDED PRESCRIPTION aerosol nebulizer Dx copd peg 3350-Electrolytes (GOLYTELY) 236-22.74-6.74 -5.86 gram suspension Take 4,000 mL by mouth one time only for 1 dose. Refer to printed prep instructions from your provider. hydroCHLOROthiazide 25 mg tablet Take 1 tablet by mouth once daily. No current facility-administered medications for this visit. ALLERGIES: Patient has no known allergies. PAST MEDICAL HISTORY PAST MEDICAL HISTORY Diagnosis Date Alcohol abuse BPH (benign prostatic hyperplasia) Cerebral artery disease COPD (chronic obstructive pulmonary disease) (HCC) Diastasis recti Essential hypertension Marijuana use weekly Noncompliance Right inguinal hernia 11/17/2014 Tobacco use PAST SURGICAL HISTORY PAST SURGICAL HISTORY Procedure Laterality Date COLSC FLX W/RMVL OF TUMOR POLYP LESION SNARE TQ 03/11/2021 Dr. Sky. 2 polyps. repeat 3-5 years PAST SURGICAL HISTORY OF 11/17/2014 laparoscopic R inguinal herniorrhaphy; Dr. Sky FAMILY HISTORY FAMILY HISTORY Problem Relation Age of Onset Stroke Mother other (CKD) Mother COPD Mother Depression Mother other (CHF) Mother other (High cholesterol) Mother Heart Father Stroke Father Coronary Artery Disease Father 80 CABG x4 Prostate Cancer Father Colon Cancer Father Diabetes Sister COPD Sister Asthma Sister other (RLS) Sister other (High cholesterol) Brother Depression Brother Anxiety disorder Brother other (High cholesterol) Brother Hypertension Brother No Known Problems Brother Cancer Maternal Grandmother No Known Problems Maternal Grandfather Diabetes Paternal Grandmother Pancreatic Cancer Paternal Grandfather SOCIAL HISTORY Social History Tobacco Use Smoking status: Every Day Current packs/day: 1.00 Average packs/day: 1 pack/day for 50.0 years (50.0 ttl pk-yrs) Types: Cigarettes Smokeless tobacco: Never Vaping Use Vaping status: Never Used Substance Use Topics Alcohol use: Not Currently Alcohol/week: 21.0 standard drinks of alcohol Types: 21 Cans of beer per week Drug use: Yes Frequency: 2.0 times per week Types: Marijuana REVIEW OF SYMPTOMS: REVIEW OF SYSTEMS: General: The patient denies fatigue, denies weight loss, denies weight gain, denies feeling hot, and feelings of cold. Eyes: The patient denies glaucoma, denies eye injury/surgery, + glasses or contacts. Ear/Nose/Throat: The patient denies allergies, denies hayfever, denies ear infections, and denies bloody noses. Cardiovascular: The patient denies chest pain, denies heart disease, + high blood pressure, + high cholesterol, and denies poor circulation. Respiratory: The patient denies tuberculosis, denies pneumonia, denies frequent cough, + shortness of breath, and denies coughing up blood. Gastrointestinal: The patient denies difficulty swallowing, denies acid reflux, denies ulcers, denies jaundice/hepatitis, denies gallbladder problems, denies vomiting, denies black or tarry stools, denies hemorrhoids, denies bleeding from rectum, denies diverticulitis, denies constipation, denies diarrhea, denies loss of stool control, and denies hernias. Kidney/Bladder: The patient denies kidney stones, denies urine infections, and denies bloody urine. Skin: The patient denies a history of skin cancer, denies bleeding/changing moles, and denies a history of skin rash. Neurologic: The patient denies a history of epilepsy/convulsions, denies headaches, denies head/spinal injuries, and denies stroke/TIA. Psychiatric: The patient denies psychiatric medications, denies depression, and denies voices. Endocrine: The patient denies thyroid disorders, denies diabetes, and denies hormonal problems. Hematologic: The patient denies a history of bruising, denies bleeding, and denies anemia. Infections: The patient denies a history of measles and mumps, denies rheumatic fever, and denies sexually transmitted diseases. Musculoskeletal: The patient denies back pain/injury, + back problems, denies sciatica, denies knee/foot trouble, denies arthritis, or denies gout. PHYSICAL EXAMINATION: General: The patient is 69 year old, male well nourished, well hydrated in no acute distress. The patient is oriented to time, place, and person. VITALS: Blood pressure 128/78, pulse 90, temperature 36.6 C (97.8 F), temperature source Temporal, resp. rate 14, height 170.2 cm (5' 7), weight 59.9 kg (132 lb), SpO2 96%. Body mass index is 20.67 kg/m . HEENT: Normal cephalic, ataumatic, pupils are equally round, sclera are anicteric, mucous membranesare moist, oropharynx is clear. Neck has no masses, asymmetry or lymphadenopathy. Respiratory: Clear to auscultation and percussion. Normal respiratory excursion and pattern. Cardiac: Examination is regular rate and rhythm. Normal S1/S2 Abdominal exam: Soft, nontender, with no palpable masses. No hepatosplenomegaly. No palpable hernias. Extremities: no clubbing, cyanosis or edema. No adenopathy. LABORATORY VALUES: As Noted RADIOLOGIC STUDIES: As Noted Assessment IMPRESSION: screen for colon cancer, history of polyps, family hx of colon cancer in father PLAN: I have reviewed my findings with the surgeon. Will plan for lower endoscopy. We discussed therisks and benefits of the planned endoscopy. I have informed the patient that complications can occur including failure to complete the endoscopy and perforation. Wily had the opportunity to ask questions concerning the planned endoscopy. My staff has also explained the procedure to the patient in understandable terms and has given the patient printed material concerning the procedure. Wily freely consents to surgery. I plan to use Golytely bowel preparation I have explained to the patient the difference between IV conscious sedation and MAC anesthesia - and I have offered either, according to the patient's wishes. I have explained that with IV conscioussedation there is no anesthesia provider available and therefore there is a limitation of the amount of IV medications that can be given and that the patient may wake up in the middle of the procedure and/or experience pain/discomfort during the procedure. Further discussion was done and the patient was given the opportunity to ask questions and all questions were answered. MAC anesthesia. Wily was counseled that if there are changes in his/her medical condition, to let the office knowif surgery should proceed. If there are changes in patient's medical condition from time of this encounter to the day of the procedure that preclude anesthesia, patient may have procedure cancelled for patient's safety. Diagnoses: (Z12.11) Colon cancer screening (primary encounter diagnosis) (Z86.0100) History of colonic polyps (Z80.0) Family history of colon cancer in father Consultation requested by Dr. Hodgson for an opinion regarding screening colonoscopy-hx of polyps. My final recommendations will be communicated back to the requesting physician by way of shared Medical record or letter to requesting physician via [place] mail. Portions of this documentation were copied and pasted from previous office visit notes in order to provide a cohesive continuity of the history. The note has been reviewed and edited and updated as necessary. Raegan Gonzalez APRN.[employer] * Leigh Jacinto MD - 11/23/2024 11:45 AM EDT HISTORY AND PHYSICAL Wily Arshad : 1955 REFERRING PHYSICIAN: No referring provider defined for this encounter. CHIEF COMPLAINT: Patient presents with: Consult HPI: Wily is a 69 year old male referred for endoscopy. Wily notes due for screening colonoscopy- hx of polyps (2020) & father with colon cancer. Wily denies abdominal pain.. Wily denies diarrhea. Wily denies constipation. Wily denies a change in bowel habits. Wily denies melena. Wily denies bright red blood per rectum. Wily denies hemorrhoids. Wily denies heartburn. Wily denies dysphagia. Wily denies a history of ulcers/ peptic ulcer disease. Wily has a hx of COPD- uses daily Incruse and advair- Has not needed nebulizer, denies worsening SOB, wheezing, recent illnesses or hospitalizations. COPD is managed by PCP. Wily has undergone prior endoscopy. Last colonoscopy was 02/[address] Sky at [facility]. Sedation:MAC Impression: -Two 6 to 7mm polyps in the rectum and in the descending colon, removed with a hot snare. Resected and retrieved. -Non bleeding internal hemorrhoids. -The examination was otherwise normal. The colon polyp that was located in the descending colon I did place a small clip on. I had good hemostasis. He had a very torturous colon and it did take quitea bit of time to get through it. He would no be a good candidate for anything less than MAC anesthesia. CURRENT MEDICATIONS Current Outpatient Medications Medication Sig fluticasone-salmeterol (ADVAIR DISKUS) 250-50 mcg/dose inhaler Inhale 1 Puff as instructed two times a day. Rinse and gargle mouth after use with water. albuterol HFA (VENTOLIN HFA) 90 mcg/actuation inhaler Inhale 2 Puffs as instructed every 4 hours asneeded for wheezing/shortness of breath. atorvastatin (LIPITOR) 20 mg tablet Take 1 tablet by mouth daily at bedtime. For cholesterol. umeclidinium (INCRUSE ELLIPTA) 62.5 mcg/actuation inhaler Inhale 1 Puff as instructed once daily. ipratropium-albuterol (DUONEB) 0.5 mg-3 mg(2.5 mg base)/3 mL nebu IInhale by nebulizer over 5-15 minutes four (4) times a day. COMPOUNDED PRESCRIPTION 1 Each as needed. NEBULIZER FOR HOME USE. ICD10: J44.9 COMPOUNDED PRESCRIPTION aerosol nebulizer Dx copd peg 3350-Electrolytes (GOLYTELY) 236-22.74-6.74 -5.86 gram suspension Take 4,000 mL by mouth one time only for 1 dose. Refer to printed prep instructions from your provider. hydroCHLOROthiazide 25 mg tablet Take 1 tablet by mouth once daily. No current facility-administered medications for this visit. ALLERGIES: Patient has no known allergies. PAST MEDICAL HISTORY PAST MEDICAL HISTORY Diagnosis Date Alcohol abuse BPH (benign prostatic hyperplasia) Cerebral artery disease COPD (chronic obstructive pulmonary disease) (HCC) Diastasis recti Essential hypertension Marijuana use weekly Noncompliance Right inguinal hernia 11/17/2014 Tobacco use PAST SURGICAL HISTORY PAST SURGICAL HISTORY Procedure Laterality Date COLSC FLX W/RMVL OF TUMOR POLYP LESION SNARE TQ 03/11/2021 Dr. Sky. 2 polyps. repeat 3-5 years PAST SURGICAL HISTORY OF 11/17/2014 laparoscopic R inguinal herniorrhaphy; Dr. Sky FAMILY HISTORY FAMILY HISTORY Problem Relation Age of Onset Stroke Mother other (CKD) Mother COPD Mother Depression Mother other (CHF) Mother other (High cholesterol) Mother Heart Father Stroke Father Coronary Artery Disease Father 80 CABG x4 Prostate Cancer Father Colon Cancer Father Diabetes Sister COPD Sister Asthma Sister other (RLS) Sister other (High cholesterol) Brother Depression Brother Anxiety disorder Brother other (High cholesterol) Brother Hypertension Brother No Known Problems Brother Cancer Maternal Grandmother No Known Problems Maternal Grandfather Diabetes Paternal Grandmother Pancreatic Cancer Paternal Grandfather SOCIAL HISTORY Social History Tobacco Use Smoking status: Every Day Current packs/day: 1.00 Average packs/day: 1 pack/day for 50.0 years (50.0 ttl pk-yrs) Types: Cigarettes Smokeless tobacco: Never Vaping Use Vaping status: Never Used Substance Use Topics Alcohol use: Not Currently Alcohol/week: 21.0 standard drinks of alcohol Types: 21 Cans of beer per week Drug use: Yes Frequency: 2.0 times per week Types: Marijuana REVIEW OF SYMPTOMS: REVIEW OF SYSTEMS: General: The patient denies fatigue, denies weight loss, denies weight gain, denies feeling hot, and feelings of cold. Eyes: The patient denies glaucoma, denies eye injury/surgery, + glasses or contacts. Ear/Nose/Throat: The patient denies allergies, denies hayfever, denies ear infections, and denies bloody noses. Cardiovascular: The patient denies chest pain, denies heart disease, + high blood pressure, + high cholesterol, and denies poor circulation. Respiratory: The patient denies tuberculosis, denies pneumonia, denies frequent cough, + shortness of breath, and denies coughing up blood. Gastrointestinal: The patient denies difficulty swallowing, denies acid reflux, denies ulcers, denies jaundice/hepatitis, denies gallbladder problems, denies vomiting, denies black or tarry stools, denies hemorrhoids, denies bleeding from rectum, denies diverticulitis, denies constipation, denies diarrhea, denies loss of stool control, and denies hernias. Kidney/Bladder: The patient denies kidney stones, denies urine infections, and denies bloody urine. Skin: The patient denies a history of skin cancer, denies bleeding/changing moles, and denies a history of skin rash. Neurologic: The patient denies a history of epilepsy/convulsions, denies headaches, denies head/spinal injuries, and denies stroke/TIA. Psychiatric: The patient denies psychiatric medications, denies depression, and denies voices. Endocrine: The patient denies thyroid disorders, denies diabetes, and denies hormonal problems. Hematologic: The patient denies a history of bruising, denies bleeding, and denies anemia. Infections: The patient denies a history of measles and mumps, denies rheumatic fever, and denies sexually transmitted diseases. Musculoskeletal: The patient denies back pain/injury, + back problems, denies sciatica, denies knee/foot trouble, denies arthritis, or denies gout. PHYSICAL EXAMINATION: General: The patient is 69 year old, male well nourished, well hydrated in no acute distress. The patient is oriented to time, place, and person. VITALS: Blood pressure 128/78, pulse 90, temperature 36.6 C (97.8 F), temperature source Temporal, resp. rate 14, height 170.2 cm (5' 7), weight 59.9 kg (132 lb), SpO2 96%. Body mass index is 20.67 kg/m . HEENT: Normal cephalic, ataumatic, pupils are equally round, sclera are anicteric, mucous membranesare moist, oropharynx is clear. Neck has no masses, asymmetry or lymphadenopathy. Respiratory: Clear to auscultation and percussion. Normal respiratory excursion and pattern. Cardiac: Examination is regular rate and rhythm. Normal S1/S2 Abdominal exam: Soft, nontender, with no palpable masses. No hepatosplenomegaly. No palpable hernias. Extremities: no clubbing, cyanosis or edema. No adenopathy. LABORATORY VALUES: As Noted RADIOLOGIC STUDIES: As Noted Assessment IMPRESSION: screen for colon cancer, history of polyps, family hx of colon cancer in father PLAN: I have reviewed my findings with the surgeon. Will plan for lower endoscopy. We discussed therisks and benefits of the planned endoscopy. I have informed the patient that complications can occur including failure to complete the endoscopy and perforation. Wily had the opportunity to ask questions concerning the planned endoscopy. My staff has also explained the procedure to the patient in understandable terms and has given the patient printed material concerning the procedure. Wily freely consents to surgery. I plan to use Golytely bowel preparation I have explained to the patient the difference between IV conscious sedation and MAC anesthesia - and I have offered either, according to the patient's wishes. I have explained that with IV conscioussedation there is no anesthesia provider available and therefore there is a limitation of the amount of IV medications that can be given and that the patient may wake up in the middle of the procedure and/or experience pain/discomfort during the procedure. Further discussion was done and the patient was given the opportunity to ask questions and all questions were answered. MAC anesthesia. Wily was counseled that if there are changes in his/her medical condition, to let the office knowif surgery should proceed. If there are changes in patient's medical condition from time of this encounter to the day of the procedure that preclude anesthesia, patient may have procedure cancelled for patient's safety. Diagnoses: (Z12.11) Colon cancer screening (primary encounter diagnosis) (Z86.0100) History of colonic polyps (Z80.0) Family history of colon cancer in father Consultation requested by Dr. Hodgson for an opinion regarding screening colonoscopy-hx of polyps. My final recommendations will be communicated back to the requesting physician by way of shared Medical record or letter to requesting physician via [place] mail. Portions of this documentation were copied and pasted from previous office visit notes in order to provide a cohesive continuity of the history. The note has been reviewed and edited and updated as necessary. Raegan Gonzalez APRN.[facility] documented in [facility] History of Present illness Narrative* Radu Raegan, MARYSOL.[employer] - 10/20/2024 3:30 PM EDT HISTORY AND PHYSICAL Wily Arshad : 1955 REFERRING PHYSICIAN: No referring provider defined for this encounter. CHIEF COMPLAINT: Patient presents with: Consult HPI: Wily is a 69 year old male referred for endoscopy. Wily notes due for screening colonoscopy- hx of polyps (2020) & father with colon cancer. Wily denies abdominal pain.. Wily denies diarrhea. Wily denies constipation. Wily denies a change in bowel habits. Wily denies melena. Wily denies bright red blood per rectum. Wily denies hemorrhoids. Wily denies heartburn. Wily denies dysphagia. Wily denies a history of ulcers/ peptic ulcer disease. Wily has a hx of COPD- uses daily Incruse and advair- Has not needed nebulizer, denies worsening SOB, wheezing, recent illnesses or hospitalizations. COPD is managed by PCP. Wily has undergone prior endoscopy. Last colonoscopy was 02/[address] Sky at [facility]. Sedation:MAC Impression: -Two 6 to 7mm polyps in the rectum and in the descending colon, removed with a hot snare. Resected and retrieved. -Non bleeding internal hemorrhoids. -The examination was otherwise normal. The colon polyp that was located in the descending colon I did place a small clip on. I had good hemostasis. He had a very torturous colon and it did take quitea bit of time to get through it. He would no be a good candidate for anything less than MAC anesthesia. Current Outpatient Medications Medication Sig fluticasone-salmeterol (ADVAIR DISKUS) 250-50 mcg/dose inhaler Inhale 1 Puff as instructed two times a day. Rinse and gargle mouth after use with water. albuterol HFA (VENTOLIN HFA) 90 mcg/actuation inhaler Inhale 2 Puffs as instructed every 4 hours asneeded for wheezing/shortness of breath. atorvastatin (LIPITOR) 20 mg tablet Take 1 tablet by mouth daily at bedtime. For cholesterol. umeclidinium (INCRUSE ELLIPTA) 62.5 mcg/actuation inhaler Inhale 1 Puff as instructed once daily. ipratropium-albuterol (DUONEB) 0.5 mg-3 mg(2.5 mg base)/3 mL nebu IInhale by nebulizer over 5-15 minutes four (4) times a day. COMPOUNDED PRESCRIPTION 1 Each as needed. NEBULIZER FOR HOME USE. ICD10: J44.9 COMPOUNDED PRESCRIPTION aerosol nebulizer Dx copd peg 3350-Electrolytes (GOLYTELY) 236-22.74-6.74 -5.86 gram suspension Take 4,000 mL by mouth one time only for 1 dose. Refer to printed prep instructions from your provider. hydroCHLOROthiazide 25 mg tablet Take 1 tablet by mouth once daily. No current facility-administered medications for this visit. ALLERGIES: Patient has no known allergies. PAST MEDICAL HISTORY Diagnosis Date Alcohol abuse BPH (benign prostatic hyperplasia) Cerebral artery disease COPD (chronic obstructive pulmonary disease) (HCC) Diastasis recti Essential hypertension Marijuana use weekly Noncompliance Right inguinal hernia 11/17/2014 Tobacco use PAST SURGICAL HISTORY Procedure Laterality Date COLSC FLX W/RMVL OF TUMOR POLYP LESION SNARE TQ 03/11/2021 Dr. Sky. 2 polyps. repeat 3-5 years PAST SURGICAL HISTORY OF 11/17/2014 laparoscopic R inguinal herniorrhaphy; Dr. Sky FAMILY HISTORY Problem Relation Age of Onset Stroke Mother other (CKD) Mother COPD Mother Depression Mother other (CHF) Mother other (High cholesterol) Mother Heart Father Stroke Father Coronary Artery Disease Father 80 CABG x4 Prostate Cancer Father Colon Cancer Father Diabetes Sister COPD Sister Asthma Sister other (RLS) Sister other (High cholesterol) Brother Depression Brother Anxiety disorder Brother other (High cholesterol) Brother Hypertension Brother No Known Problems Brother Cancer Maternal Grandmother No Known Problems Maternal Grandfather Diabetes Paternal Grandmother Pancreatic Cancer Paternal Grandfather Social History Tobacco Use Smoking status: Every Day Current packs/day: 1.00 Average packs/day: 1 pack/day for 50.0 years (50.0 ttl pk-yrs) Types: Cigarettes Smokeless tobacco: Never Vaping Use Vaping status: Never Used Substance Use Topics Alcohol use: Not Currently Alcohol/week: 21.0 standard drinks of alcohol Types: 21 Cans of beer per week Drug use: Yes Frequency: 2.0 times per week Types: Marijuana REVIEW OF SYMPTOMS: REVIEW OF SYSTEMS: General: The patient denies fatigue, denies weight loss, denies weight gain, denies feeling hot, and feelings of cold. Eyes: The patient denies glaucoma, denies eye injury/surgery, + glasses or contacts. Ear/Nose/Throat: The patient denies allergies, denies hayfever, denies ear infections, and denies bloody noses. Cardiovascular: The patient denies chest pain, denies heart disease, + high blood pressure, + high cholesterol, and denies poor circulation. Respiratory: The patient denies tuberculosis, denies pneumonia, denies frequent cough, + shortness of breath, and denies coughing up blood. Gastrointestinal: The patient denies difficulty swallowing, denies acid reflux, denies ulcers, denies jaundice/hepatitis, denies gallbladder problems, denies vomiting, denies black or tarry stools, denies hemorrhoids, denies bleeding from rectum, denies diverticulitis, denies constipation, denies diarrhea, denies loss of stool control, and denies hernias. Kidney/Bladder: The patient denies kidney stones, denies urine infections, and denies bloody urine. Skin: The patient denies a history of skin cancer, denies bleeding/changing moles, and denies a history of skin rash. Neurologic: The patient denies a history of epilepsy/convulsions, denies headaches, denies head/spinal injuries, and denies stroke/TIA. Psychiatric: The patient denies psychiatric medications, denies depression, and denies voices. Endocrine: The patient denies thyroid disorders, denies diabetes, and denies hormonal problems. Hematologic: The patient denies a history of bruising, denies bleeding, and denies anemia. Infections: The patient denies a history of measles and mumps, denies rheumatic fever, and denies sexually transmitted diseases. Musculoskeletal: The patient denies back pain/injury, + back problems, denies sciatica, denies knee/foot trouble, denies arthritis, or denies gout. PHYSICAL EXAMINATION: General: The patient is 69 year old, male well nourished, well hydrated in no acute distress. The patient is oriented to time, place, and person. VITALS: Blood pressure 128/78, pulse 90, temperature 36.6 C (97.8 F), temperature source Temporal, resp. rate 14, height 170.2 cm (5' 7), weight 59.9 kg (132 lb), SpO2 96%. Body mass index is 20.67 kg/m . HEENT: Normal cephalic, ataumatic, pupils are equally round, sclera are anicteric, mucous membranesare moist, oropharynx is clear. Neck has no masses, asymmetry or lymphadenopathy. Respiratory: Clear to auscultation and percussion. Normal respiratory excursion and pattern. Cardiac: Examination is regular rate and rhythm. Normal S1/S2 Abdominal exam: Soft, nontender, with no palpable masses. No hepatosplenomegaly. No palpable hernias. Extremities: no clubbing, cyanosis or edema. No adenopathy. LABORATORY VALUES: As Noted RADIOLOGIC STUDIES: As Noted Assessment IMPRESSION: screen for colon cancer, history of polyps, family hx of colon cancer in father PLAN: I have reviewed my findings with the surgeon. Will plan for lower endoscopy. We discussed therisks and benefits of the planned endoscopy. I have informed the patient that complications can occur including failure to complete the endoscopy and perforation. Wily had the opportunity to ask questions concerning the planned endoscopy. My staff has also explained the procedure to the patient in understandable terms and has given the patient printed material concerning the procedure. Wily freely consents to surgery. I plan to use Golytely bowel preparation I have explained to the patient the difference between IV conscious sedation and MAC anesthesia - and I have offered either, according to the patient's wishes. I have explained that with IV conscioussedation there is no anesthesia provider available and therefore there is a limitation of the amount of IV medications that can be given and that the patient may wake up in the middle of the procedure and/or experience pain/discomfort during the procedure. Further discussion was done and the patient was given the opportunity to ask questions and all questions were answered. MAC anesthesia. Wily was counseled that if there are changes in his/her medical condition, to let the office knowif surgery should proceed. If there are changes in patient's medical condition from time of this encounter to the day of the procedure that preclude anesthesia, patient may have procedure cancelled for patient's safety. Diagnoses: (Z12.11) Colon cancer screening (primary encounter diagnosis) (Z86.0100) History of colonic polyps (Z80.0) Family history of colon cancer in father Consultation requested by Dr. Hodgson for an opinion regarding screening colonoscopy-hx of polyps. My final recommendations will be communicated back to the requesting physician by way of shared Medical record or letter to requesting physician via US mail. Portions of this documentation were copied and pasted from previous office visit notes in order to provide a cohesive continuity of the history. The note has been reviewed and edited and updated as necessary. Raegan Gonzalez APRN.ELIE documented in this encounterM[facility]25 NoteHNO ID: [id number] Author: RAEGAN GONZALEZ APRN.CNP Service: ? Author Type: Nurse Practitioner Type: Progress Notes Filed: 10/20/2024 15:47 Note Text: HISTORY AND PHYSICAL Wily Arshad : 1955 REFERRING PHYSICIAN: No referring provider defined for this encounter. CHIEF COMPLAINT: Patient presents with: Consult HPI: Wily is a 69 year old male referred for endoscopy. Wily notes due for screening colonoscopy- hx of polyps (2020) AND father with colon cancer. Wily denies abdominal pain.. Wily denies diarrhea. Wily denies constipation. Wily denies a change in bowel habits. Wily denies melena. Wily denies bright red blood per rectum. Wily denies hemorrhoids. Wily denies heartburn. Wily denies dysphagia. Wily denies a history of ulcers/ peptic ulcer disease. Wily has a hx of COPD- uses daily Incruse and advair- Has not needed nebulizer, denies worsening SOB, wheezing, recent illnesses or hospitalizations. COPD is managed by PCP. Wily has undergone prior endoscopy. Last colonoscopy was 02/[address] Sky at [facility]. Sedation:MAC Impression: -Two 6 to 7mm polyps in the rectum and in the descending colon, removed with a hot snare. Resected and retrieved. -Non bleeding internal hemorrhoids. -The examination was otherwise normal. The colon polyp that was located in the descending colon I did place a small clip on. I had good hemostasis. He had a very torturous colon and it did take quite a bit of time to get through it. He would no be a good candidate for anything less than MAC anesthesia. Current Outpatient Medications Medication Sig fluticasone-salmeterol (ADVAIR DISKUS) 250-50 mcg/dose inhaler Inhale 1 Puff as instructed two times a day. Rinse and gargle mouth after use with water. albuterol HFA (VENTOLIN HFA) 90 mcg/actuation inhaler Inhale 2 Puffs as instructed every 4 hours as needed for wheezing/shortness of breath. atorvastatin (LIPITOR) 20 mg tablet Take 1 tablet by mouth daily at bedtime. For cholesterol. umeclidinium (INCRUSE ELLIPTA) 62.5 mcg/actuation inhaler Inhale 1 Puff as instructed once daily. ipratropium-albuterol (DUONEB) 0.5 mg-3 mg(2.5 mg base)/3 mL nebu IInhale by nebulizer over 5-15 minutes four (4) times a day. COMPOUNDED PRESCRIPTION 1 Each as needed. NEBULIZER FOR HOME USE. ICD10: J44.9 COMPOUNDED PRESCRIPTION aerosol nebulizer Dx copd peg 3350-Electrolytes (GOLYTELY) 236-22.74-6.74 -5.86 gram suspension Take 4,000 mL by mouth one time only for 1 dose. Refer to printed prep instructions from your provider. hydroCHLOROthiazide 25 mg tablet Take 1 tablet by mouth once daily. No current facility-administered medications for this visit. ALLERGIES: Patient has no known allergies. PAST MEDICAL HISTORY Diagnosis Date Alcohol abuse BPH (benign prostatic hyperplasia) Cerebral artery disease COPD (chronic obstructive pulmonary disease) (HCC) Diastasis recti Essential hypertension Marijuana use weekly Noncompliance Right inguinal hernia 11/17/2014 Tobacco use PAST SURGICAL HISTORY Procedure Laterality Date COLSC FLX W/RMVL OF TUMOR POLYP LESION SNARE TQ 03/11/2021 Dr. Sky. 2 polyps. repeat 3-5 years PAST SURGICAL HISTORY OF 11/17/2014 laparoscopic R inguinal herniorrhaphy; Dr. Sky FAMILY HISTORY Problem Relation Age of Onset Stroke Mother other (CKD) Mother COPD Mother Depression Mother other (CHF) Mother other (High cholesterol) Mother Heart Father Stroke Father Coronary Artery Disease Father 80 CABG x4 Prostate Cancer Father Colon Cancer Father Diabetes Sister COPD Sister Asthma Sister other (RLS) Sister other (High cholesterol) Brother Depression Brother Anxiety disorder Brother other (High cholesterol) Brother Hypertension Brother No Known Problems Brother Cancer Maternal Grandmother No Known Problems Maternal Grandfather Diabetes Paternal Grandmother Pancreatic Cancer Paternal Grandfather Social History Tobacco Use Smoking status: Every Day Current packs/day: 1.00 Average packs/day: 1 pack/day for 50.0 years (50.0 ttl pk-yrs) Types: Cigarettes Smokeless tobacco: Never Vaping Use Vaping status: Never Used Substance Use Topics Alcohol use: Not Currently Alcohol/week: 21.0 standard drinks of alcohol Types: 21 Cans of beer per week Drug use: Yes Frequency: 2.0 times per week Types: Marijuana REVIEW OF SYMPTOMS: REVIEW OF SYSTEMS: General: The patient denies fatigue, denies weight loss, denies weight gain, denies feeling hot, and feelings of cold. Eyes: The patient denies glaucoma, denies eye injury/surgery, + glasses or contacts. Ear/Nose/Throat: The patient denies allergies, denies hayfever, denies ear infections, and denies bloody noses. Cardiovascular: The patient denies chest pain, denies heart disease, + high blood pressure, + high cholesterol, and denies poor circulation. (more content not included)...[facility]03-21-2025 Telephone encounter Note* Telephone Encounter - Kaitlynn Salinas RN - 10/14/2024 2:09 PM EDT Pt's brother Luis called in about the cholesterol testing and notified duplicate and pt does not need another one. [facility]03-21-[facility] Miscellaneous Notes* Telephone Encounter - Kaitlynn Salinas RN - 10/14/2024 2:09 PM EDT Pt's brother Luis called in about the cholesterol testing and notified duplicate and pt does not need another one. * Telephone Encounter - Lucia Hodgson MD - 10/14/2024 1:50 PM EDT Order is a duplicate. He does not need new cholesterol testing at this time. * Telephone Encounter - Verna Ivory MA - 10/14/2024 12:46 PM EDT Please review message. Appears the lab he had done is it a duplicate, can you verify pt does not need to complete this again. Thanks. Verna Ivory MA documented in this encounterMiddletown Hospital03-21-2025 Telephone encounter Note * Telephone Encounter - Lucia Hodgson MD - 10/14/2024 1:50 PM EDT Order is a duplicate. He does not need new cholesterol testing at this time. [facility] Telephone encounter Note* Telephone Encounter - Verna Ivory MA - 10/14/2024 12:46 PM EDT Please review message. Appears the lab he had done is it a duplicate, can you verify pt does not need to complete this again. Thanks. Verna Ivory MA [facility]03-08-2025 Progress note* Result Encounter Note - Genna King LPN - 10/01/2024 9:42 AM EST Pt notified of results and provider message. Genna King LPN [facility]03-08-2025 Miscellaneous Notes* Result Encounter Note - Genna King LPN - 10/01/2024 9:42 AM EST Pt notified of results and provider message. Genna King LPN documented in this encounterMiddletown [facility]03-07-2025 NoteHNO ID: [id number] Author: THAIS LEON RDMS Service: ? Author Type: Family Medicine Resident Type: Progress Notes Filed: 10/03/2024 11:41 Note Text: Radiology Service Progress Note PATIENT NAME: Wily Arshad DATE OF SERVICE: October 03, 2024 TIME: 11:41 AM PATIENT IDENTITY VERIFICATION COMPLETED USING TWO (2) IDENTIFIERS: Name and Date of confirmed by patient verbally. FALL SCREENING: Has the patient had 2 falls in the last year or 1 fall with injury or currently using an Ambulatory Assistive Device (Walker, Cane, Wheelchair, Crutches, etc.)? No PATIENT GENDER DATA: Assigned male at PATIENT RELEVANT IMPLANT DATA REVIEWED: Not Applicable PATIENT PRESENTS WITH AN IMPLANTABLE OR ATTACHED DNA SEQUENCING ASSOCIATE: No RADIOLOGY DEPARTMENT: Ultrasound PERIPHERAL IV DATA: Not applicable SIGNED BY: Thais Leon RDMS RVT October 03, 2024 11:41 [facility]02-26-2025 Telephone encounter Note* Telephone Encounter - Aminata Drake LPN - 09/21/2024 1:17 PM EST [facility] calling asking to try to help patient get lower tier cost for his generic Advair rx. Was asking what diagnosis which gave what was on the rx. Asked if an other medication would work just as well, explained that is what the Dr ordered for the patient to be taking at visit on 09/19/2024. He said this case #[id number] would be going to review and patient would be notified via mail or phone call. [facility]02-26-20[facility] Miscellaneous Notes* Telephone Encounter - Aminata Drake LPN - 09/21/2024 1:17 PM EST [facility] pharmacy calling asking to try to help patient get lower tier cost for his generic Advair rx. Was asking what diagnosis which gave what was on the rx. Asked if an other medication would work just as well, explained that is what the Dr ordered for the patient to be taking at visit on 09/19/2024. He said this case #[id number] would be going to review and patient would be notified via mail or phone call. documented in this encounterMiddletown Hospital02-26-2025 Telephone encounter Note * Telephone Encounter - Autumn Johnson LPN - 09/21/2024 10:47 AM EST Notified with results. Autumn Johnson LPN [facility]02-26-2025 Miscellaneous Notes* Telephone Encounter - Autumn Johnson LPN - 09/21/2024 10:47 AM EST Notified with results. Autumn Johnson LPN * Telephone Encounter - Autumn Johnson LPN - 09/21/2024 10:45 AM EST ----- Message from Lucia Hodgson MD sent at 09/21/2024 7:09 AM EST ----- Normal labs aside from high cholesterol. Recommend he be consistent with his lipitor every day and will recheck level at future OV. documented in this encounterMiddletown [facility]02-26-2025 Telephone encounter Note * Telephone Encounter - Autumn Johnson LPN - 09/21/2024 10:45 AM EST ----- Message from Lucia Hodgson MD sent at 09/21/2024 7:09 AM EST ----- Normal labs aside from high cholesterol. Recommend he be consistent with his lipitor every day and will recheck level at future OV. [facility]02-25-[facility] Telephone encounter Note* Telephone Encounter - Melinda Jung MSW - 09/20/2024 9:14 AM EST Patient and Sw spoke and discussed [employer] for information regarding transit bus and help with discounted transit passes. Sw and patient also discussed [employer]. Sw noted would be helpful for patient to speak with Leigh Ann to discuss community services that could be helpful to patient. Sw provided patient with [employer] phone number and address to reach out to for assistance. Patient notes that [employer] is close to his house and he can stop in there and see about transit stop and also discounted taxi passes. [facility]02-25-[facility] Miscellaneous Notes* Telephone Encounter - Melinda Jung MSW - 09/20/2024 9:14 AM EST Patient and Sw spoke and discussed [employer] for information regarding transit bus and help with discounted transit passes. Sw and patient also discussed [employer] [facility] Agriculture Worker. Sw noted would be helpful for patient to speak with [employer] to discuss community services that could be helpful to patient. James provided patient with [employer] phone number and address to reach out to for assistance. Patient notes that [employer] is close to his house and he can stop in there and see about transit stop and also discounted taxi passes. * Telephone Encounter - Maryse Carmona - 09/19/2024 4:31 PM EST Patient is scheduled for some appointments and has issues with transportation. Please assist. Maryse Carmona documented in this encounterMiddletown [facility]02-24-2025 Telephone encounter Note * Telephone Encounter - Maryse Carmona - 09/19/2024 4:31 PM EST Patient is scheduled for some appointments and has issues with transportation. Please assist. Maryse Carmona [facility]02-24-2025 NoteHNO ID: [id number] Author: LUCIA HODGSON MD Service: ? Author Type: Physician Type: Progress Notes Filed: 09/25/2024 10:42 Note Text: Chief Complaint Patient presents with: Follow Up: 6 month HPI Wily Arshad is a 69 year old male who presents here today for Above Complaints. Accompanied today by his brother. Asking about getting PSA because he found out recently his father had prostate cancer before passing away. History of BPH. Not interested in rx. Getting up 1-2 times per night to urinate. Denies weak stream, straining, dysuria, hematuria. Patient states that he has not taken his HCTZ or lipitor in a few days. States that he forgets to take them. Has a pill box at home, but does not use it. Does not check BP at home. Denies HTN symptoms. COPD: patient using incruse Ellipta on a daily basis which does help with wheezing and SOB. Only on Advair once per day and is using some of his sister's rx. Needs refill today. Using Duoneb about 2 times per day to help with SOB. Still smoking 1 pack per day. Not interested in help with cessation. Refusing EKG for ASCVD risk >20%. Past medical history, appointments, medications, allergies reviewed. Previous Medical History PAST MEDICAL HISTORY Diagnosis Date Alcohol abuse BPH (benign prostatic hyperplasia) Cerebral artery disease COPD (chronic obstructive pulmonary disease) (HCC) Diastasis recti Essential hypertension Marijuana use weekly Noncompliance Right inguinal hernia 11/17/2014 Tobacco use Previous Surgical History PAST SURGICAL HISTORY Procedure Laterality Date COLSC FLX W/RMVL OF TUMOR POLYP LESION SNARE TQ 03/11/2021 Dr. Sky. 2 polyps. repeat 3-5 years PAST SURGICAL HISTORY OF 11/17/2014 laparoscopic R inguinal herniorrhaphy; Dr. Sky Family History FAMILY HISTORY Problem Relation Age of Onset Heart Father Stroke Father Coronary Artery Disease Father 80 CABG x4 Diabetes Sister Diabetes Paternal Grandmother Patient Allergies ALLERGIES No Known Allergies Current Medications Current Outpatient Medications on File Prior to Visit Medication Sig albuterol HFA (VENTOLIN HFA) 90 mcg/actuation inhaler Inhale 2 Puffs as instructed every 4 hours as needed for wheezing/shortness of breath. atorvastatin (LIPITOR) 20 mg tablet Take 1 tablet by mouth daily at bedtime. For cholesterol. umeclidinium (INCRUSE ELLIPTA) 62.5 mcg/actuation inhaler Inhale 1 Puff as instructed once daily. ipratropium-albuterol (DUONEB) 0.5 mg-3 mg(2.5 mg base)/3 mL nebu IInhale by nebulizer over 5-15 minutes four (4) times a day. COMPOUNDED PRESCRIPTION 1 Each as needed. NEBULIZER FOR HOME USE. ICD10: J44.9 COMPOUNDED PRESCRIPTION aerosol nebulizer Dx copd hydroCHLOROthiazide 25 mg tablet Take 1 tablet by mouth once daily. No current facility-administered medications on file prior to visit. Social History Social History Tobacco Use Smoking status: Every Day Current packs/day: 1.00 Average packs/day: 1 pack/day for 50.0 years (50.0 ttl pk-yrs) Types: Cigarettes Smokeless tobacco: Never Vaping Use Vaping status: Never Used Substance Use Topics Alcohol use: Yes Alcohol/week: 60.0 standard drinks of alcohol Types: 60 Cans of Beer (12oz) per week Comment: 6 pack daily, 30 cans on weekend Drug use: Yes Types: Marijuana Comment: occasional Review of Symptoms REVIEW OF SYSTEMS GENERAL: No weight loss, malaise or fevers RESPIRATORY: Negative for cough, hemoptysis, wheezing, COPD, dyspnea or shortness of breath CARDIOVASCULAR: Negative for chest pain, leg swelling, hypertension, CHF or palpitations GI: No nausea, vomiting, or diarrhea SKIN: Negative for lesions, rash, and itching EXAM: BP 132/80 Pulse 92 Resp 16 Wt 60.3 kg (133 lb) SpO2 99% BMI 20.83 kg/m? General Appearance: Well appearing, alert, in no acute distress, well-hydrated, well nourished.. Skin: Skin color, texture, turgor normal, no suspicious rashes or lesions. Lungs: Lungs clear to auscultation. No wheezing, rhonchi, rales.. Heart: RRR without murmur, gallop, or rubs. No ectopy. Abdomen: Normal abdominal exam, Abdomen soft, non-tender. Bowel sounds normal. No masses, organomegaly. Extremities: No deformities, edema, skin discoloration, clubbing or cyanosis. Good capillary refill. . Health Maintenance List Abdominal Aortic Aneurysm Screening Never done Depression Screening Never done Anxiety Screening Never done BP Controlled (<130/80) Never done Pneumococcal Vaccine: 50+(1 of 2 - PCV) Never done Colorectal Cancer Screening Never done Shingrix Vaccine(1 of 2) Never done RSV Vaccine(1 - Risk 60-74 years 1-dose series) Never done DTaP,Tdap,Td Vaccine(1 - Tdap) due on 02/26/2018 Lung Cancer Screening due on 08/30/2019 Influenza Vaccine(1) due on 03/27/2024 Covid-19 Vaccine( season) due on 03/27/2024 Advance Directive Discussion due on 07/27/2024 Annual PCP Tea (more content not included)...[facility] 09-19-2024 History of Present illness Narrative* Lucia Hodgson MD - 09/19/2024 2:13 PM EST Chief Complaint Patient presents with: Follow Up: 6 month HPI Wily Arshad is a 69 year old male who presents here today for Above Complaints. Accompanied today by his brother. Asking about getting PSA because he found out recently his father had prostate cancer before passing away. History of BPH. Not interested in rx. Getting up 1-2 times per night to urinate. Denies weakstream, straining, dysuria, hematuria. Patient states that he has not taken his HCTZ or lipitor in a few days. States that he forgets to take them. Has a pill box at home, but does not use it. Does not check BP at home. Denies HTN symptoms. COPD: patient using incruse Ellipta on a daily basis which does help with wheezing and SOB. Only onAdvair once per day and is using some of his sister's rx. Needs refill today. Using Duoneb about 2 times per day to help with SOB. Still smoking 1 pack per day. Not interested in help with cessation. Refusing EKG for ASCVD risk >20%. Past medical history, appointments, medications, allergies reviewed. Previous Medical History PAST MEDICAL HISTORY Diagnosis Date Alcohol abuse BPH (benign prostatic hyperplasia) Cerebral artery disease COPD (chronic obstructive pulmonary disease) (HCC) Diastasis recti Essential hypertension Marijuana use weekly Noncompliance Right inguinal hernia 11/17/2014 Tobacco use Previous Surgical History PAST SURGICAL HISTORY Procedure Laterality Date COLSC FLX W/RMVL OF TUMOR POLYP LESION SNARE TQ 03/11/2021 Dr. Sky. 2 polyps. repeat 3-5 years PAST SURGICAL HISTORY OF 11/17/2014 laparoscopic R inguinal herniorrhaphy; Dr. Sky Family History FAMILY HISTORY Problem Relation Age of Onset Heart Father Stroke Father Coronary Artery Disease Father 80 CABG x4 Diabetes Sister Diabetes Paternal Grandmother Patient Allergies ALLERGIES No Known Allergies Current Medications Current Outpatient Medications on File Prior to Visit Medication Sig albuterol HFA (VENTOLIN HFA) 90 mcg/actuation inhaler Inhale 2 Puffs as instructed every 4 hours asneeded for wheezing/shortness of breath. atorvastatin (LIPITOR) 20 mg tablet Take 1 tablet by mouth daily at bedtime. For cholesterol. umeclidinium (INCRUSE ELLIPTA) 62.5 mcg/actuation inhaler Inhale 1 Puff as instructed once daily. ipratropium-albuterol (DUONEB) 0.5 mg-3 mg(2.5 mg base)/3 mL nebu IInhale by nebulizer over 5-15 minutes four (4) times a day. COMPOUNDED PRESCRIPTION 1 Each as needed. NEBULIZER FOR HOME USE. ICD10: J44.9 COMPOUNDED PRESCRIPTION aerosol nebulizer Dx copd hydroCHLOROthiazide 25 mg tablet Take 1 tablet by mouth once daily. No current facility-administered medications on file prior to visit. Social History Social History Tobacco Use Smoking status: Every Day Current packs/day: 1.00 Average packs/day: 1 pack/day for 50.0 years (50.0 ttl pk-yrs) Types: Cigarettes Smokeless tobacco: Never Vaping Use Vaping status: Never Used Substance Use Topics Alcohol use: Yes Alcohol/week: 60.0 standard drinks of alcohol Types: 60 Cans of Beer (12oz) per week Comment: 6 pack daily, 30 cans on weekend Drug use: Yes Types: Marijuana Comment: occasional Review of Symptoms REVIEW OF SYSTEMS GENERAL: No weight loss, malaise or fevers RESPIRATORY: Negative for cough, hemoptysis, wheezing, COPD, dyspnea or shortness of breath CARDIOVASCULAR: Negative for chest pain, leg swelling, hypertension, CHF or palpitations GI: No nausea, vomiting, or diarrhea SKIN: Negative for lesions, rash, and itching EXAM: BP 132/80 Pulse 92 Resp 16 Wt 60.3 kg (133 lb) SpO2 99% BMI 20.83 kg/m General Appearance: Well appearing, alert, in no acute distress, well-hydrated, well nourished.. Skin: Skin color, texture, turgor normal, no suspicious rashes or lesions. Lungs: Lungs clear to auscultation. No wheezing, rhonchi, rales.. Heart: RRR without murmur, gallop, or rubs. No ectopy. Abdomen: Normal abdominal exam, Abdomen soft, non-tender. Bowel sounds normal. No masses, organomegaly. Extremities: No deformities, edema, skin discoloration, clubbing or cyanosis. Good capillary refill. . Health Maintenance List Abdominal Aortic Aneurysm Screening Never done Depression Screening Never done Anxiety Screening Never done BP Controlled (<130/80) Never done Pneumococcal Vaccine: 50+(1 of 2 - PCV) Never done Colorectal Cancer Screening Never done Shingrix Vaccine(1 of 2) Never done RSV Vaccine(1 - Risk 60-74 years 1-dose series) Never done DTaP,Tdap,Td Vaccine(1 - Tdap) due on 02/26/2018 Lung Cancer Screening due on 08/30/2019 Influenza Vaccine(1) due on 03/27/2024 Covid-19 Vaccine(2023- season) due on 03/27/2024 Advance Directive Discussion due on 07/27/2024 Annual PCP Team Chronic Disease Visit due on 03/23/2025 Prostate Cancer Screening Discussion due on 01/09/2026 Diabetes Screening due on 03/23/2027 Lipid Screening due on 03/23/2029 Spirometry Completed Hepatitis C Screening Completed Alpha-1 Antitrypsin Deficiency Screening Discontinued Data reviewed Latest Ref Rng 03/23/2024 WBC 3.70 - 11.00 k/uL 7.43 RBC 4.20 - 6.00 m/uL 4.40 Hemoglobin 13.0 - 17.0 g/dL 14.1 Hematocrit 39.0 - 51.0 % 42.5 MCV 80.0 - 100.0 fL 96.6 MCH 26.0 - 34.0 pg 32.0 MCHC 30.5 - 36.0 g/dL 33.2 RDW-CV 11.5 - 15.0 % 13.7 Platelet Count 150 - 400 k/uL 201 MPV 9.0 - 12.7 fL 10.5 Neut% % 51.2 Abs Neut (ANC) 1.45 - 7.50 k/uL 3.80 Lymph% % 27.3 Abs Lymph 1.00 - 4.00 k/uL 2.03 [place]% % 14.9 Abs [place] <0.87 k/uL 1.11 (H) Eosin% % 5.9 Abs Eosin <0.46 k/uL 0.44 Baso% % 0.3 Abs Baso <0.11 k/uL <0.03 Immature Gran % % 0.4 IMMATURE GRANS (ABS) <0.10 k/uL 0.03 NRBC /100 WBC 0.0 Absolute nRBC <0.01 k/uL <0.01 DTYPE Auto Protein, Total 6.3 - 8.0 g/dL 6.9 Albumin 3.9 - 4.9 g/dL 4.3 Calcium 8.5 - 10.2 mg/dL 9.4 Bilirubin, Total 0.2 - 1.3 mg/dL 0.6 Alkaline Phosphatase 38 - 113 U/L 60 AST 14 - 40 U/L 29 ALT 10 - 54 U/L 18 Glucose 74 - 99 mg/dL 88 BUN 9 - 24 mg/dL 13 Creatinine 0.73 - 1.22 mg/dL 0.75 Sodium 136 - 144 mmol/L 140 Potassium 3.7 - 5.1 mmol/L 4.1 Chloride 98 - 107 mmol/L 104 CO2 22 - 30 mmol/L 25 Anion Gap 8 - 15 mmol/L 11 eGFR >=60 mL/min/1.73m 99 Total Cholesterol, Nonfasting <200 mg/dL 161 Triglycerides, Nonfasting <150 mg/dL 57 HDL Cholesterol, Nonfasting >39 mg/dL 54 LDL Cholesterol, Nonfasting <100 mg/dL 96 Non HDL Cholesterol, Nonfasting <130 mg/dL 107 VLDL Cholesterol, Nonfasting <30 mg/dL 11 Total Chol/HDL Ratio, Nonfasting <5.10 mg/dL 2.98 LDL/HDL Ratio, Nonfasting <2.54 mg/dL 1.78 Legend: (H) High ASSESSMENT/PLAN: 1. Essential hypertension - ICD9: 401.9, ICD10: I10 (primary diagnosis) - Controlled - Continue current medications - Recommend home blood pressure monitoring, to bring results to next visit - Encouraged sodium restriction, DASH or Mediterranean diet - Recommend regular aerobic exercise - COMPREHENSIVE METABOLIC PANEL 2. Benign prostatic hyperplasia with nocturia - ICD9: 600.01, 788.43, ICD10: N40.1, R35.1 Refusing rx. Check PSA. Will call with results. 3. COPD (chronic obstructive pulmonary disease) with acute bronchitis (HCC) (HCC) - ICD9: 491.22, ICD10: J44.0, J20.9 Improved on current regimen. Recommend smoking cessation which he is refusing help with today. - FLUTICASONE 250 MCG-SALMETEROL 50 MCG/DOSE BLISTR POWDR FOR INHALATION 4. History of colonic polyps - ICD9: V12.72, ICD10: Z86.0100 Referral for colonoscopy. - CONSULT TO GENERAL SURGERY 5. Tobacco use - ICD9: 305.1, ICD10: Z72.0 - Cessation encouraged. - Physiologic and physical aspects of tobacco addiction as well as strategies for quitting were discussed. - Counseling was given focusing on the harmful effects of this addiction especially given the patient's medical condition(s) which will be worsened because of the chemicals in tobacco. 6. Screening for abdominal aortic aneurysm - ICD9: V81.2, ICD10: Z13.6 - US SCREENING FOR AAA 7. Encounter for screening for lung cancer - ICD9: V76.0, ICD10: Z12.2 - CONSULT LUNG CANCER SCREENING CLINIC 8. Screening for hyperlipidemia - ICD9: V77.91, ICD10: Z13.220 - LIPID PANEL, NONFASTING 9. Screening for prostate cancer - ICD9: V76.44, ICD10: Z12.5 - PSA/PROSTATE SPECIFIC ANTIGEN SCREENING 10. Encounter for immunization - ICD9: V03.89, ICD10: Z23 - [employer] COVID-19 VACCINE AGE 12+ YR (COMIRNATY) - INFLUENZA VACCINE, PRSV FREE, AGE 65+ YR, HIGH DOSE, TRIVALENT (FLUZONE HIGH-DOSE) - PNEUMOCOCCAL VACCINE, 20 VALENT (PREVNAR 20) Lucia Hodgson MD documented in this [facility]01[facility]29[facility] History of Present illness Narrative* Johny Jean Baptiste RPh - 08/24/2024 3:06 PM EST Wily Arshad is identified through a medication adherence outreach initiative based on pharmacyclaims data from [employer] (insurer) for Statin medication(s). Patient is reviewed 07/04/24 due to medication adherence concerns with the following medications (name, strength, sig): atorvastatin 20mg, take 1 tablet daily. Per data/report, last fill date and days supply: due 06/27/24 Per reconcile dispense, last fill date and days supply: filled 03/29/24 for 90 days Per call to pharmacy, last picked up date and days supply: n/a Contacted patient:N/A Outcome of review/outreach: (choose outcome source and status) - Patient/Caregiver declined refill per call to patient/caregiver - per last patient outreach. Patient said he still has osme, admits forgetting to take it every day, not much a pill taker. He said not much complications with the statin but sometimes his hands will cramp up. Has an appointmentin early jul. He will call pharmacy for refill documented in this encounterMiddletown [facility]01-29-2025 NoteHNO ID: [id number] Author: JOHNY JEAN BAPTISTE RPh Service: ? Author Type: Pharmacist Type: Progress Notes Filed: 08/24/2024 15:07 Note Text: Wily Arshad is identified through a medication adherence outreach initiative based on pharmacy claims data from [employer] (insurer) for Statin medication(s). Patient is reviewed 07/04/24 due to medication adherence concerns with the following medications (name, strength, sig): atorvastatin 20mg, take 1 tablet daily. Per data/report, last fill date and days supply: due 06/27/24 Per reconcile dispense, last fill date and days supply: filled 03/29/24 for 90 days Per call to pharmacy, last picked up date and days supply: n/a Contacted patient:N/A Outcome of review/outreach: (choose outcome source and status) - Patient/Caregiver declined refill per call to patient/caregiver - per last patient outreach. Patient said he still has osme, admits forgetting to take it every day, not much a pill taker. He said not much complications with the statin but sometimes his hands will cramp up. Has an appointment in early jul. [facility] NotePatient Outreach (PHPOHE) WILY ARSHAD ([id number]) 1955 Date Time Provider Department 08/24/24 [facility] During your visit today, we recorded the following information about you: Johny Jean Baptiste RPh 08/24/2024 3:07 PM Signed Wily Rosalesless is identified through a medication adherence outreach initiative based on pharmacy claims data from [employer] (insurer) for Statin medication(s). Patient is reviewed 07/04/24 due to medication adherence concerns with the following medications (name, strength, sig): atorvastatin 20mg, take 1 tablet daily. Per data/report, last fill date and days supply: due 06/27/24 Per reconcile dispense, last fill date and days supply: filled 03/29/24 for 90 days Per call to pharmacy, last picked up date and days supply: n/a Contacted patient:N/A Outcome of review/outreach: (choose outcome source and status) - Patient/Caregiver declined refill per call to patient/caregiver - per last patient outreach. Patient said he still has osme, admits forgetting to take it every day, not much a pill taker. He said not much complications with the statin but sometimes his hands will cramp up. Has an appointment in early jul. He will call pharmacy for refill Allergies As of Date: 08/24/2024 (No Known Allergies) Date Reviewed: 03/23/2024 Reviewed by: Mylene Roche LPN - Fully Assessed Prescriptions as of 08/24/2024 - albuterol HFA (VENTOLIN HFA) 90 mcg/actuation inhaler Inhale 2 Puffs as instructed every 4 hours as needed for wheezing/shortness of breath. - atorvastatin (LIPITOR) 20 mg tablet Take 1 tablet by mouth daily at bedtime. For cholesterol. - hydroCHLOROthiazide 25 mg tablet Take 1 tablet by mouth once daily. - umeclidinium (INCRUSE ELLIPTA) 62.5 mcg/actuation inhaler Inhale 1 Puff as instructed once daily. - ipratropium-albuterol (DUONEB) 0.5 mg-3 mg(2.5 mg base)/3 mL nebu IInhale by nebulizer over 5-15 minutes four (4) times a day. - COMPOUNDED PRESCRIPTION 1 Each as needed. NEBULIZER FOR HOME USE. ICD10: J44.9 - COMPOUNDED PRESCRIPTION aerosol nebulizer Dx copd Meds Comments as of 12/27/2019: 12/27/19 Only using Albuterol inhaler and Duoneb. Does not take any other medications. Mary Masterson RN Problem List As Of Date 08/24/2024 Noted Resolved COPD (chronic obstructive pulmonary disease) [J*05/25/2012 Tobacco abuse [Z72.0] 05/25/2012 Right inguinal hernia [K40.90] 11/30/2014 Alcohol abuse [F10.10] Cerebral artery disease [I67.9] Noncompliance [Z91.199] Tobacco use [Z72.0] BPH (benign prostatic hyperplasia) [N40.0] Marijuana use [F12.90] 07/02/2022 Essential hypertension [I10] 08/25/2023 Encounter Status:Closed by JOHNY JEAN BAPTISTE on 08/24/24[facility] 07-04-2024 NoteHNO ID: [id number] Author: ?, ?, ? Service: ? Author Type: ? Type: Progress Notes Filed: 07/04/2024 12:56 Note Text: Wily Arshad is identified through a medication adherence outreach initiative based on pharmacy claims data from [employer] (insurer) for Statin medication(s). Patient is reviewed 07/04/24 due to medication adherence concerns with the following medications (name, strength, sig): atorvastatin 20mg, take 1 tablet daily. Per data/report, last fill date and days supply: due 06/27/24 Per reconcile dispense, last fill date and days supply: filled 03/29/24 for 90 days Per call to pharmacy, last picked up date and days supply: n/a Contacted patient: Spoke to patient Outcome of review/outreach: (choose outcome source and status) - Patient/Caregiver declined refill per call to patient/caregiver Patient said he still has osme, admits forgetting to take it every day, not much a pill taker. He said not much complications with the statin but sometimes his hands will cramp up. Has an appointment in early jul. He will call pharmacy for refill [facility]iel[facility] History of Present illness Narrative* Nichole Montiel - 07/04/2024 12:48 PM EST Wily Arshad is identified through a medication adherence outreach initiative based on pharmacyclaims data from [employer] (insurer) for Statin medication(s). Patient is reviewed 07/04/24 due to medication adherence concerns with the following medications (name, strength, sig): atorvastatin 20mg, take 1 tablet daily. Per data/report, last fill date and days supply: due 06/27/24 Per reconcile dispense, last fill date and days supply: filled 03/29/24 for 90 days Per call to pharmacy, last picked up date and days supply: n/a Contacted patient: Spoke to patient Outcome of review/outreach: (choose outcome source and status) - Patient/Caregiver declined refill per call to patient/caregiver Patient said he still has osme, admits forgetting to take it every day, not much a pill taker. He said not much complications with the statin but sometimes his hands will cramp up. Has an appointmentin early jul. He will call pharmacy for refill Nichole Montiel documented in this encounterM[facility]letown [facility]12-09-2024 NotePatient Outreach (PHPOHE) WILY ARSHAD ([id number]) 1955 M Date Time Provider Department 07/04/24 LUCIA HODGSON PHPOHE During your visit today, we recorded the following information about you: Nichole Montiel 07/04/2024 12:56 PM Signed Wily Thee Arshad is identified through a medication adherence outreach initiative based on pharmacy claims data from [employer] (insurer) for Statin medication(s). Patient is reviewed 07/04/24 due to medication adherence concerns with the following medications (name, strength, sig): atorvastatin 20mg, take 1 tablet daily. Per data/report, last fill date and days supply: due 06/27/24 Per reconcile dispense, last fill date and days supply: filled 03/29/24 for 90 days Per call to pharmacy, last picked up date and days supply: n/a Contacted patient: Spoke to patient Outcome of review/outreach: (choose outcome source and status) - Patient/Caregiver declined refill per call to patient/caregiver Patient said he still has osme, admits forgetting to take it every day, not much a pill taker. He said not much complications with the statin but sometimes his hands will cramp up. Has an appointment in early jul. He will call pharmacy for refill Nichole Montiel Allergies As of Date: 07/04/2024 (No Known Allergies) Date Reviewed: 03/23/2024 Reviewed by: Mylene Roche LPN - Fully Assessed Reason for Visit: Allied Health Visit [5] Cmt: Medication Adherence Outreach Prescriptions as of 07/04/2024 - albuterol HFA (VENTOLIN HFA) 90 mcg/actuation inhaler Inhale 2 Puffs as instructed every 4 hours as needed for wheezing/shortness of breath. - atorvastatin (LIPITOR) 20 mg tablet Take 1 tablet by mouth daily at bedtime. For cholesterol. - hydroCHLOROthiazide 25 mg tablet Take 1 tablet by mouth once daily. - umeclidinium (INCRUSE ELLIPTA) 62.5 mcg/actuation inhaler Inhale 1 Puff as instructed once daily. - ipratropium-albuterol (DUONEB) 0.5 mg-3 mg(2.5 mg base)/3 mL nebu IInhale by nebulizer over 5-15 minutes four (4) times a day. - COMPOUNDED PRESCRIPTION 1 Each as needed. NEBULIZER FOR HOME USE. ICD10: J44.9 - COMPOUNDED PRESCRIPTION aerosol nebulizer Dx copd Meds Comments as of 12/27/2019: 12/27/19 Only using Albuterol inhaler and Duoneb. Does not take any other medications. Mary Masterson RN Problem List As Of Date 07/04/2024 Noted Resolved COPD (chronic obstructive pulmonary disease) [J*05/25/2012 Tobacco abuse [Z72.0] 05/25/2012 Right inguinal hernia [K40.90] 11/30/2014 Alcohol abuse [F10.10] Cerebral artery disease [I67.9] Noncompliance [Z91.199] Tobacco use [Z72.0] BPH (benign prostatic hyperplasia) [N40.0] Marijuana use [F12.90] 07/02/2022 Essential hypertension [I10] 08/25/2023 Encounter Status:Closed by NICHOLE MONTIEL on 07/04/24[facility] Telephone encounter Note* Telephone Encounter - Moon Zaidi - 05/18/2024 10:07 AM EDT Prescription Refill Information The patient has been identified by name and date of : Yes Caregiver verified no other encounters exist for this prescription request: Yes Caregiver confirmed with patient/requestor that no other refills are due, in the near future, with this provider at this time: Yes The last office visit in the department: 03/23/24 Does the patient have a future office visit with this provider/department: Yes Requested Prescriptions Pending Prescriptions Disp Refills albuterol HFA (VENTOLIN HFA) 90 mcg/actuation inhaler 18 g 3 Sig: Inhale 2 Puffs as instructed every 4 hours as needed for wheezing/shortness of breath. Moon Francis May 18, 2024 10:08 AM [facility] Miscellaneous Notes* Telephone Encounter - Moon Zaidi - 05/18/2024 10:07 AM EDT Prescription Refill Information The patient has been identified by name and date of : Yes Caregiver verified no other encounters exist for this prescription request: Yes Caregiver confirmed with patient/requestor that no other refills are due, in the near future, with this provider at this time: Yes The last office visit in the department: 03/23/24 Does the patient have a future office visit with this provider/department: Yes Requested Prescriptions Pending Prescriptions Disp Refills albuterol HFA (VENTOLIN HFA) 90 mcg/actuation inhaler 18 g 3 Sig: Inhale 2 Puffs as instructed every 4 hours as needed for wheezing/shortness of breath. Moon Francis May 18, 2024 10:08 AM documented in this encounterMiddletown [facility]09-03-2024 Telephone encounter Note * Telephone Encounter - Sanna Dawn RN - 03/29/2024 11:05 AM EDT Pt called and is notified of providers results and instructions. Pt voices understanding. Sanna Dawn RN [facility] Miscellaneous Notes* Telephone Encounter - Sanna Dawn RN - 03/29/2024 11:05 AM EDT Pt called and is notified of providers results and instructions. Pt voices understanding. Sanna Dawn RN * Telephone Encounter - Dee Hayden APRN.CNP - 03/29/2024 9:24 AM EDT Prescription sent. Labs ordered for 3 months. Dee Hayden APRN.CNP * Telephone Encounter - Autumn Johnson LPN - 03/29/2024 9:20 AM EDT Spoke with pt and information listed below given. Pt verbalizes understanding. Pt agrees to starting a cholesterol lowering medication. pharmacy updated. Autumn Johnson LPN * Telephone Encounter - Autumn Johnson LPN - 03/29/2024 9:20 AM EDT ----- Message from Dee Hayden APRN.CNP sent at 03/25/2024 7:48 AM EDT ----- Based on his age, race, gender, blood pressure, cholesterol, and smoking status, your 10 year risk for having a cardiovascular event such as a stroke or heart attack is 21.2 %. Current guidelines suggest lipid lowering medication at a risk of 7.5%. In addition to low saturated fat diet, 150 minutes of exercise per week I recommend cholesterol lowering medication. Most common side effect of muscle aches. If agreeable will send to pharmacy and then can recheck in 3 months. The rest of his blood w ork is in acceptable ranges. Dee Hayden APRN.CNP FOR REFERENCE ONLY The 10-year ASCVD risk score (Ness ASIF, et al., 2019) is: 21.2% Values used to calculate the score: Age: 68 years Sex: Male Is Non- : No Diabetic: No Tobacco smoker: Yes Systolic Blood Pressure: 138 mmHg Is BP treated: Yes HDL Cholesterol: 54 mg/dL Total Cholesterol: 161 mg/dL documented in this encounterMiddletown Hospital09-03-2024 Telephone encounter Note * Telephone Encounter - Dee Hayden APRN.CNP - 03/29/2024 9:24 AM EDT Prescription sent. Labs ordered for 3 months. Dee Hayden APRN.CNP [facility] Telephone encounter Note* Telephone Encounter - Autumn Johnson LPN - 03/29/2024 9:20 AM EDT Spoke with pt and information listed below given. Pt verbalizes understanding. Pt agrees to starting a cholesterol lowering medication. pharmacy updated. Autumn Johnson LPN [facility] Telephone encounter Note* Telephone Encounter - Autumn Johnson LPN - 03/29/2024 9:20 AM EDT ----- Message from Dee Hayden APRN.CNP sent at 03/25/2024 7:48 AM EDT ----- Based on his age, race, gender, blood pressure, cholesterol, and smoking status, your 10 year risk for having a cardiovascular event such as a stroke or heart attack is 21.2 %. Current guidelines suggest lipid lowering medication at a risk of 7.5%. In addition to low saturated fat diet, 150 minutes of exercise per week I recommend cholesterol lowering medication. Most common side effect of muscle aches. If agreeable will send to pharmacy and then can recheck in 3 months. The rest of his blood w ork is in acceptable ranges. Dee Hayden APRN.CNP FOR REFERENCE ONLY The 10-year ASCVD risk score (Ness DK, et al., 2019) is: 21.2% Values used to calculate the score: Age: 68 years Sex: Male Is Non- : No Diabetic: No Tobacco smoker: Yes Systolic Blood Pressure: 138 mmHg Is BP treated: Yes HDL Cholesterol: 54 mg/dL Total Cholesterol: 161 mg/dL [facility]08-28-2024 History of Present illness Narrative* Dee Hayden APRN.LEAD PONY RIDER - 03/23/2024 3:20 PM EDT 03/23/2024 Patient presents with: F/U 6 months SUBJECTIVE: This is a 68 year old that is here today for Above Complaints. Since last office appointment has been in good health without ER visits or hospitalizations. HTN: Patient is compliant with meds No Monitors bp at home: No. Denies side effects: Yes. Chest pain: No. Dyspnea: No. Edema: No. Palpitations: No. Syncope: No. Headache: No. Dizziness: No. COPD: using albuterol as needed. Normally uses ocne a day and when hot out may need to use a secondtime. Ran of Ellipta so hasn't been using Admits to drinking a couple a beer a day- two (12 ounce) beers a day ALCOHOL USE/ABUSE CAGE ASSESSMENT Two or More Affirmative Responses Suggest a Client is a Problem Drinker. - Have you felt the need to cut down on your drinking? No - Do you feel annoyed by people complaining about your drinking? No - Do you ever feel guilty about your drinking? No - Do you ever drink an eye-administrative services director in the morning to relieve shakes? No Continues to smoke a pack of cigarettes a day. No desire to quit, declining lung cancer screening. Adite to mild SOB with exertion. Denies dyspnea, wheezing, cough, or hemoptysis Weight down about 10# since lat office visit in [facility] Reports hasn't been eating as much. PAST MEDICAL HISTORY No date: Alcohol abuse No date: BPH (benign prostatic hyperplasia) No date: Cerebral artery disease No date: COPD (chronic obstructive pulmonary disease) (HCC) No date: Diastasis recti No date: Essential hypertension No date: Marijuana use Comment: weekly No date: Noncompliance 11/17/2014: Right inguinal hernia No date: Tobacco use ALLERGIES Patient has no known allergies. MEDICATIONS Current Outpatient Medications Medication Sig albuterol HFA (VENTOLIN HFA) 90 mcg/actuation inhaler Inhale 2 Puffs as instructed every 4 hours asneeded for wheezing/shortness of breath. ipratropium-albuterol (DUONEB) 0.5 mg-3 mg(2.5 mg base)/3 mL nebu IInhale by nebulizer over 5-15 minutes four (4) times a day. hydroCHLOROthiazide 25 mg tablet Take 1 tablet by mouth once daily. umeclidinium (INCRUSE ELLIPTA) 62.5 mcg/actuation inhaler Inhale 1 Puff as instructed once daily. COMPOUNDED PRESCRIPTION 1 Each as needed. NEBULIZER FOR HOME USE. ICD10: J44.9 COMPOUNDED PRESCRIPTION aerosol nebulizer Dx copd No current facility-administered medications for this visit. Medications and allergies reviewed by this provider. SOCIAL HISTORY Social History Tobacco Use Smoking status: Every Day Current packs/day: 1.00 Average packs/day: 1 pack/day for 50.0 years (50.0 ttl pk-yrs) Types: Cigarettes Smokeless tobacco: Never Vaping Use Vaping status: Never Used Substance Use Topics Alcohol use: Yes Alcohol/week: 60.0 standard drinks of alcohol Types: 60 Cans of Beer (12oz) per week Comment: 6 pack daily, 30 cans on weekend Drug use: Yes Types: Marijuana Comment: occasional REVIEW OF SYSTEMS All other reviewed and negative other than HPI. OBJECTIVE: BP 138/76 Pulse 85 Resp 16 Wt 57.5 kg (126 lb 12.8 oz) SpO2 96% BMI 19.86 kg/m . Vital signs reviewed by this provider. APPEARANCE Well appearing, alert, in no acute distress, well-hydrated, well nourished. EYES PERRLA, conjunctiva and sclera normal. HEART RRR with normal S1 and S2, no murmurs, no gallops, no JVD appreciated LUNG Diminished throughout without wheezes, rhonchi or rales EXTREMITIES Extremities normal, No deformities, No skin discoloration, and No edema SKIN Skin color, texture, turgor normal, no suspicious rashes or lesions to exposed skin Latest Ref Rng 09/08/2023 Protein, Total 6.3 - 8.0 g/dL 6.9 Albumin 3.9 - 4.9 g/dL 4.4 Calcium 8.5 - 10.2 mg/dL 9.4 Bilirubin, Total 0.2 - 1.3 mg/dL 0.3 Alkaline Phosphatase 38 - 113 U/L 70 AST 14 - 40 U/L 14 ALT 10 - 54 U/L 9 (L) Glucose 74 - 99 mg/dL 76 BUN 9 - 24 mg/dL 19 Creatinine 0.73 - 1.22 mg/dL 0.69 (L) Sodium 136 - 144 mmol/L 141 Potassium 3.7 - 5.1 mmol/L 4.3 Chloride 97 - 105 mmol/L 101 CO2 22 - 30 mmol/L 29 Anion Gap 9 - 18 mmol/L 11 eGFR >=60 mL/min/1.73m 101 Latest Ref Rng 12/31/2022 01/02/2023 Total Cholesterol, Nonfasting <200 mg/dL 145 Triglycerides, Nonfasting <150 mg/dL 39 HDL Cholesterol, Nonfasting >39 mg/dL 63 LDL Cholesterol, Nonfasting <100 mg/dL 74 Non HDL Cholesterol, Nonfasting <130 mg/dL 82 VLDL Cholesterol, Nonfasting <30 mg/dL 8 Total Chol/HDL Ratio, Nonfasting <5.10 mg/dL 2.30 LDL/HDL Ratio, Nonfasting <2.54 mg/dL 1.17 Hemoglobin A1C 4.3 - 5.6 % 5.1 Estimated Average Glucose mg/dL 100 Latest Ref Rn 12/31/2022 WBC 3.70 - 11.00 k/uL 8.60 RBC 4.20 - 6.00 m/uL 4.45 Hemoglobin 13.0 - 17.0 g/dL 14.7 Hematocrit 39.0 - 51.0 % 43.3 MCV 80.0 - 100.0 fL 97.3 MCH 26.0 - 34.0 pg 33.0 MCHC 30.5 - 36.0 g/dL 33.9 RDW-CV 11.5 - 15.0 % 12.9 Platelet Count 150 - 400 k/uL 198 MPV 9.0 - 12.7 fL 9.9 Neut% % 67.3 Abs Neut (ANC) 1.45 - 7.50 k/uL 5.79 Lymph% % 19.9 Abs Lymph 1.00 - 4.00 k/uL 1.71 [place]% % 8.8 Abs [place] <0.87 k/uL 0.76 Eosin% % 2.0 Abs Eosin <0.46 k/uL 0.17 Baso% % 0.5 Abs Baso <0.11 k/uL 0.04 Immature Gran % % 1.5 IMMATURE GRANS (ABS) <0.10 k/uL 0.13 (H) NRBC /100 WBC 0.0 Absolute nRBC <0.01 k/uL <0.01 DTYPE Auto Abdominal Aortic Aneurysm Screening Never done Pneumococcal Vaccine: 65+(1 of 2 - PCV) Never done Depression Screening Never done Anxiety Screening Never done BP Controlled (<130/80) Never done Colorectal Cancer Screening Never done Shingrix Vaccine(1 of 2) Never done RSV Vaccine(1 - 1-dose 60+ series) Never done DTaP,Tdap,Td Vaccine(1 - Tdap) due on 02/26/2018 Lung Cancer Screening due on 08/30/2019 Advance Directive Discussion due on 07/27/2023 Covid-19 Vaccine( season) due on 08/25/2024 Influenza Vaccine(1) due on 03/27/2024 Annual PCP Team Chronic Disease Visit due on 03/23/2025 Prostate Cancer Screening Discussion due on 01/09/2026 Diabetes Screening due on 09/08/2026 Lipid Screening due on 01/01/2028 Spirometry Completed Hepatitis C Screening Completed Alpha-1 Antitrypsin Deficiency Screening Discontinued ASSESSMENT/PLAN: 1. Essential hypertension - ICD9: 401.9, ICD10: I10 (primary diagnosis) - Controlled - Continue current medications - Recommend home blood pressure monitoring, to bring results to next visit - Encouraged sodium restriction, DASH or Mediterranean diet - Recommend regular aerobic exercise - Smoking cessation encouraged; discussed risks to health and quitting strategies. Patient is not ready to quit - Follow up in 6 months for hypertension visit - HYDROCHLOROTHIAZIDE 25 MG TABLET - COMPREHENSIVE METABOLIC PANEL - COMPLETE BLOOD COUNT AND DIFFERENTIAL 2. COPD (chronic obstructive pulmonary disease) with acute bronchitis (HCC) (HCC) - ICD9: 491.22, ICD10: J44.0, J20.9 - stable - restart Ellipta - INCRUSE ELLIPTA 62.5 MCG/ACTUATION POWDER FOR INHALATION 3. Screening for abdominal aortic aneurysm - ICD9: V81.2, ICD10: Z13.6 - US SCREENING FOR AAA 4. Screening for hyperlipidemia - ICD9: V77.91, ICD10: Z13.220 - LIPID PANEL, NONFASTING 5. Tobacco use - ICD9: 305.1, ICD10: Z72.0 - Cessation encouraged. - Physiologic and physical aspects of tobacco addiction as well as strategies for quitting were discussed. - Counseling was given focusing on the harmful effects of this addiction especially given the patient's medical condition(s) which will be worsened because of the chemicals in tobacco. - declines lung cancer screening 6. Weight loss - ICD9: 783.21, ICD10: R63.4 Would recommend increasing calories - monitor weight and if continues to lose return to office Dee Hayden APRN.ELIE Prescription instructions reviewed with patient as applicable. Patient advised if symptoms do not improve or if symptoms worsen sooner, to contact their primary care physician. Potential red flag symptoms discussed with the patient. Reviewed appropriate action plan to take if red flag symptoms occur. Patient agreeable to treatment plan. Medical Decision Making: Problems: Moderate: 2+ stable chronic illnesses Data: Unique test(s) ordered: 3+ Risk: Moderate: Drug management Medical Decision Making Level: 4 - Moderate documented in [facility] NoteHNO ID: [id number] Author: DEE HAYDEN APRN.CNP Service: ? Author Type: Nurse Practitioner Type: Progress Notes Filed: 03/23/2024 15:45 Note Text: 03/23/2024 Patient presents with: F/U 6 months SUBJECTIVE: This is a 68 year old that is here today for Above Complaints. Since last office appointment has been in good health without ER visits or hospitalizations. HTN: Patient is compliant with meds No Monitors bp at home: No. Denies side effects: Yes. Chest pain: No. Dyspnea: No. Edema: No. Palpitations: No. Syncope: No. Headache: No. Dizziness: No. COPD: using albuterol as needed. Normally uses ocne a day and when hot out may need to use a second time. Ran of Ellipta so hasn't been using Admits to drinking a couple a beer a day- two (12 ounce) beers a day ALCOHOL USE/ABUSE CAGE ASSESSMENT Two or More Affirmative Responses Suggest a Client is a Problem Drinker. - Have you felt the need to cut down on your drinking? No - Do you feel annoyed by people complaining about your drinking? No - Do you ever feel guilty about your drinking? No - Do you ever drink an eye-administrative services director in the morning to relieve shakes? No Continues to smoke a pack of cigarettes a day. No desire to quit, declining lung cancer screening. Adite to mild SOB with exertion. Denies dyspnea, wheezing, cough, or hemoptysis Weight down about 10# since lat office visit in [facility] Reports hasn't been eating as much. PAST MEDICAL HISTORY No date: Alcohol abuse No date: BPH (benign prostatic hyperplasia) No date: Cerebral artery disease No date: COPD (chronic obstructive pulmonary disease) (HCC) No date: Diastasis recti No date: Essential hypertension No date: Marijuana use Comment: weekly No date: Noncompliance 11/17/2014: Right inguinal hernia No date: Tobacco use ALLERGIES Patient has no known allergies. MEDICATIONS Current Outpatient Medications Medication Sig albuterol HFA (VENTOLIN HFA) 90 mcg/actuation inhaler Inhale 2 Puffs as instructed every 4 hours as needed for wheezing/shortness of breath. ipratropium-albuterol (DUONEB) 0.5 mg-3 mg(2.5 mg base)/3 mL nebu IInhale by nebulizer over 5-15 minutes four (4) times a day. hydroCHLOROthiazide 25 mg tablet Take 1 tablet by mouth once daily. umeclidinium (INCRUSE ELLIPTA) 62.5 mcg/actuation inhaler Inhale 1 Puff as instructed once daily. COMPOUNDED PRESCRIPTION 1 Each as needed. NEBULIZER FOR HOME USE. ICD10: J44.9 COMPOUNDED PRESCRIPTION aerosol nebulizer Dx copd No current facility-administered medications for this visit. Medications and allergies reviewed by this provider. SOCIAL HISTORY Social History Tobacco Use Smoking status: Every Day Current packs/day: 1.00 Average packs/day: 1 pack/day for 50.0 years (50.0 ttl pk-yrs) Types: Cigarettes Smokeless tobacco: Never Vaping Use Vaping status: Never Used Substance Use Topics Alcohol use: Yes Alcohol/week: 60.0 standard drinks of alcohol Types: 60 Cans of Beer (12oz) per week Comment: 6 pack daily, 30 cans on weekend Drug use: Yes Types: Marijuana Comment: occasional REVIEW OF SYSTEMS All other reviewed and negative other than HPI. OBJECTIVE: BP 138/76 Pulse 85 Resp 16 Wt 57.5 kg (126 lb 12.8 oz) SpO2 96% BMI 19.86 kg/m? . Vital signs reviewed by this provider. APPEARANCE Well appearing, alert, in no acute distress, well-hydrated, well nourished. EYES PERRLA, conjunctiva and sclera normal. HEART RRR with normal S1 and S2, no murmurs, no gallops, no JVD appreciated LUNG Diminished throughout without wheezes, rhonchi or rales EXTREMITIES Extremities normal, No deformities, No skin discoloration, and No edema SKIN Skin color, texture, turgor normal, no suspicious rashes or lesions to exposed skin Latest Ref Rng 09/08/2023 Protein, Total 6.3 - 8.0 g/dL 6.9 Albumin 3.9 - 4.9 g/dL 4.4 Calcium 8.5 - 10.2 mg/dL 9.4 Bilirubin, Total 0.2 - 1.3 mg/dL 0.3 Alkaline Phosphatase 38 - 113 U/L 70 AST 14 - 40 U/L 14 ALT 10 - 54 U/L 9 (L) Glucose 74 - 99 mg/dL 76 BUN 9 - 24 mg/dL 19 Creatinine 0.73 - 1.22 mg/dL 0.69 (L) Sodium 136 - 144 mmol/L 141 Potassium 3.7 - 5.1 mmol/L 4.3 Chloride 97 - 105 mmol/L 101 CO2 22 - 30 mmol/L 29 Anion Gap 9 - 18 mmol/L 11 eGFR >=60 mL/min/1.73m? 101 Latest Ref Rng 12/31/2022 01/02/2023 Total Cholesterol, Nonfasting <200 mg/dL 145 Triglycerides, Nonfasting <150 mg/dL 39 HDL Cholesterol, Nonfasting >39 mg/dL 63 LDL Cholesterol, Nonfasting <100 mg/dL 74 Non HDL Cholesterol, Nonfasting <130 mg/dL 82 VLDL Cholesterol, Nonfasting <30 mg/dL 8 Total Chol/HDL Ratio, Nonfasting <5.10 mg/dL 2.30 LDL/HDL Ratio, Nonfasting <2.54 mg/dL 1.17 Hemoglobin A1C 4.3 - 5.6 % 5.1 Estimated Average Glucose mg/dL 100 Latest Ref Rng 12/31/2022 WBC 3.70 - 11.00 k/uL 8.60 RBC 4.20 - 6.00 m/uL 4.45 Hemoglobin 13.0 - 17.0 g/dL 14.7 Hematocrit 39.0 - 51.0 % 43.3 MCV 80.0 - 100.0 fL 97.3 MCH 26.0 - 34.0 pg 33. (more content not included)...[facility] 12-29-2023 Telephone encounter Note* Telephone Encounter - Portia Lainez - 12/29/2023 2:01 PM EDT Patient has been identified by name and date of : Yes, Provider Dr. Hodgson Date 12-29-23 Time2:02p Patient phones for refill(s): Requested Prescriptions Pending Prescriptions Disp Refills albuterol HFA (VENTOLIN HFA) 90 mcg/actuation inhaler 18 g 3 Sig: Inhale 2 Puffs as instructed every 4 hours as needed for wheezing/shortness of breath. ipratropium-albuterol (DUONEB) 0.5 mg-3 mg(2.5 mg base)/3 mL nebu 150 mL 3 Sig: IInhale by nebulizer over 5-15 minutes four (4) times a day. Date of last office visit in primary care: 09/23/2023 Date of next office visit in primary care: 03/23/2024 Please advise. Thank you. Portia Francis. [facility]06-04-2024 Miscellaneous Notes* Telephone Encounter - Portia Lainez - 12/29/2023 2:01 PM EDT Patient has been identified by name and date of : Yes, Provider Dr. Hodgson Date 12-29-23 Time2:02p Patient phones for refill(s): Requested Prescriptions Pending Prescriptions Disp Refills albuterol HFA (VENTOLIN HFA) 90 mcg/actuation inhaler 18 g 3 Sig: Inhale 2 Puffs as instructed every 4 hours as needed for wheezing/shortness of breath. ipratropium-albuterol (DUONEB) 0.5 mg-3 mg(2.5 mg base)/3 mL nebu 150 mL 3 Sig: IInhale by nebulizer over 5-15 minutes four (4) times a day. Date of last office visit in primary care: 09/23/2023 Date of next office visit in primary care: 03/23/2024 Please advise. Thank you. Portia Francis. documented in this encounterM[facility] Nurse Note* Mylene Roche LPN - 09/23/2023 4:03 PM EST TEREZA BP average: BP 134/76 P 84 #1 BP 123/76 P 83 #2 BP 131/74 P 83 #3 BP 131/75 P 83 #4 BP 132/74 P 89 #5 BP 137/81 P 86 #6 BP 139/77 P 83 Mylene Roche LPN documented in this encounterM[facility]02-28-[facility]24 History of Present illness Narrative* Lucia Hodgson MD - 09/23/2023 2:50 PM EST Chief Complaint Patient presents with: Blood Pressure HPI Wily Arshad is a 68 year old male who presents here today for BP recheck. At last OV we increased patient's HCTZ from 12.5 to 25 mg daily for uncontrolled HTN. Improved today with Tereza BP reading. Tolerating without side effects. Not checking BP at home. Denies chest pain, SOB, headache, vision changes, LE edema. Requesting refill on meloxicam for chronic right shoulder pain. Pain improved after recent injection by Dr. Herron. Using rarely for pain. Past medical history, appointments, medications, allergies reviewed. Previous Medical History PAST MEDICAL HISTORY Diagnosis Date Alcohol abuse BPH (benign prostatic hyperplasia) Cerebral artery disease COPD (chronic obstructive pulmonary disease) (HCC) Diastasis recti Essential hypertension Marijuana use weekly Noncompliance Right inguinal hernia 11/17/2014 Tobacco use Previous Surgical History PAST SURGICAL HISTORY Procedure Laterality Date COLSC FLX W/RMVL OF TUMOR POLYP LESION SNARE TQ 03/11/2021 Dr. Sky. 2 polyps. repeat 3-5 years PAST SURGICAL HISTORY OF 11/17/2014 laparoscopic R inguinal herniorrhaphy; Dr. Sky Family History FAMILY HISTORY Problem Relation Age of Onset Heart Father Stroke Father Coronary Artery Disease Father 80 CABG x4 Diabetes Sister Diabetes Paternal Grandmother Patient Allergies ALLERGIES No Known Allergies Current Medications Current Outpatient Medications on File Prior to Visit Medication Sig hydroCHLOROthiazide 25 mg tablet Take 1 tablet by mouth once daily. meloxicam (MOBIC) 15 mg tablet Take 1 tablet by mouth once daily. With food. albuterol HFA (VENTOLIN HFA) 90 mcg/actuation inhaler Inhale 2 Puffs as instructed every 4 hours asneeded for wheezing/shortness of breath. ipratropium-albuterol (DUONEB) 0.5 mg-3 mg(2.5 mg base)/3 mL nebu IInhale by nebulizer over 5-15 minutes four (4) times a day. umeclidinium (INCRUSE ELLIPTA) 62.5 mcg/actuation inhaler Inhale 1 Puff as instructed once daily. COMPOUNDED PRESCRIPTION 1 Each as needed. NEBULIZER FOR HOME USE. ICD10: J44.9 COMPOUNDED PRESCRIPTION aerosol nebulizer Dx copd No current facility-administered medications on file prior to visit. Social History Social History Tobacco Use Smoking status: Every Day Packs/day: 1.00 Years: 50.00 Additional pack years: 0.00 Total pack years: 50.00 Types: Cigarettes Smokeless tobacco: Never Vaping Use Vaping Use: Never used Substance Use Topics Alcohol use: Yes Alcohol/week: 60.0 standard drinks of alcohol Types: 60 Cans of Beer (12oz) per week Comment: 6 pack daily, 30 cans on weekend Drug use: Yes Types: Marijuana Comment: occasional Review of Symptoms REVIEW OF SYSTEMS See HPI EXAM: BP 134/76 Pulse 84 Resp 16 Wt 62.4 kg (137 lb 9.6 oz) SpO2 96% BMI 21.55 kg/m General Appearance: Well appearing, alert, in no acute distress, well-hydrated, well nourished.. Skin: Skin color, texture, turgor normal, no suspicious rashes or lesions. Lungs: Lungs clear to auscultation. No wheezing, rhonchi, rales.. Heart: RRR without murmur, gallop, or rubs. No ectopy. Health Maintenance List BP Controlled (<130/80) Never done RSV Vaccine(1 - 1-dose 60+ series) Never done Lung Cancer Screening due on 08/30/2019 Advance Directive Discussion due on 07/27/2023 Depression Assessment due on 07/27/2023 DTaP,Tdap,Td Vaccine(1 - Tdap) due on 01/01/2024 Abdominal Aortic Aneurysm Screening due on 01/01/2024 Colorectal Cancer Screening due on 01/01/2024 Shingrix Vaccine(1 of 2) due on 01/01/2024 Pneumococcal Vaccine: 65+(1 of 2 - PCV) due on 01/01/2024 Influenza Vaccine(1) due on 01/24/2024 Covid-19 Vaccine(4 - season) due on 08/25/2024 Annual PCP Team Chronic Disease Visit due on 09/08/2024 Prostate Cancer Screening Discussion due on 01/09/2026 Diabetes Screening due on 09/08/2026 Lipid Screening due on 01/01/2028 Spirometry Completed Hepatitis C Screening Completed Alpha-1 Antitrypsin Deficiency Screening Discontinued Data reviewed Component Latest Ref Rng & Units 08/25/2023 09/08/2023 Protein, Total 6.3 - 8.0 g/dL 7.0 6.9 Albumin 3.9 - 4.9 g/dL 4.2 4.4 Calcium 8.5 - 10.2 mg/dL 9.7 9.4 Bilirubin, Total 0.2 - 1.3 mg/dL 0.5 0.3 Alkaline Phosphatase 38 - 113 U/L 68 70 AST 14 - 40 U/L 16 14 ALT 10 - 54 U/L 12 9 (L) Glucose 74 - 99 mg/dL 82 76 BUN 9 - 24 mg/dL 13 19 Creatinine 0.73 - 1.22 mg/dL 0.71 (L) 0.69 (L) Sodium 136 - 144 mmol/L 140 141 Potassium 3.7 - 5.1 mmol/L 4.2 4.3 Chloride 97 - 105 mmol/L 101 101 CO2 22 - 30 mmol/L 26 29 Anion Gap 9 - 18 mmol/L 13 11 eGFR >=60 mL/min/1.73m 101 101 ASSESSMENT/PLAN: 1. Essential hypertension - ICD9: 401.9, ICD10: I10 (primary diagnosis) - Controlled - Continue current medications - Recommend home blood pressure monitoring, to bring results to next visit - Encouraged sodium restriction, DASH or Mediterranean diet - Recommend regular aerobic exercise 2. Chronic right shoulder pain - ICD9: 719.41, 338.29, ICD10: M25.511, G89.29 Refill as requested. Discussed rare use for moderate to severe pain. - MELOXICAM 15 MG TABLET Lucia Hodgson MD documented in this encounterM[facility]02-13-[facility]24 History of Present illness Narrative* Lucia Hodgson MD - 09/08/2023 1:46 PM EST Chief Complaint Patient presents with: Blood Pressure: recheck HPI Wily Arshad is a 68 year old male who presents here today for Above Complaints.. Patient started on HCTZ at last OV for uncontrolled HTN. Taking as prescribed without side effects.No checking BP at home. Does not eat high salt diet, but states he drinks a lot of coffee. Denies chest pain, SOB, headache, vision changes, LE edema. Past medical history, appointments, medications, allergies reviewed. Previous Medical History PAST MEDICAL HISTORY Diagnosis Date Alcohol abuse BPH (benign prostatic hyperplasia) Cerebral artery disease COPD (chronic obstructive pulmonary disease) (HCC) Diastasis recti Essential hypertension Marijuana use weekly Noncompliance Right inguinal hernia 11/17/2014 Tobacco use Previous Surgical History PAST SURGICAL HISTORY Procedure Laterality Date COLSC FLX W/RMVL OF TUMOR POLYP LESION SNARE TQ 03/11/2021 Dr. Sky. 2 polyps. repeat 3-5 years PAST SURGICAL HISTORY OF 11/17/2014 laparoscopic R inguinal herniorrhaphy; Dr. Sky Family History FAMILY HISTORY Problem Relation Age of Onset Heart Father Stroke Father Coronary Artery Disease Father 80 CABG x4 Diabetes Sister Diabetes Paternal Grandmother Patient Allergies ALLERGIES No Known Allergies Current Medications Current Outpatient Medications on File Prior to Visit Medication Sig meloxicam (MOBIC) 15 mg tablet Take 1 tablet by mouth once daily. With food. hydroCHLOROthiazide 12.5 mg capsule Take 1 capsule by mouth once daily. albuterol HFA (VENTOLIN HFA) 90 mcg/actuation inhaler Inhale 2 Puffs as instructed every 4 hours asneeded for wheezing/shortness of breath. ipratropium-albuterol (DUONEB) 0.5 mg-3 mg(2.5 mg base)/3 mL nebu IInhale by nebulizer over 5-15 minutes four (4) times a day. COMPOUNDED PRESCRIPTION 1 Each as needed. NEBULIZER FOR HOME USE. ICD10: J44.9 COMPOUNDED PRESCRIPTION aerosol nebulizer Dx copd umeclidinium (INCRUSE ELLIPTA) 62.5 mcg/actuation inhaler Inhale 1 Puff as instructed once daily. No current facility-administered medications on file prior to visit. Social History Social History Tobacco Use Smoking status: Every Day Packs/day: 1.00 Years: 50.00 Additional pack years: 0.00 Total pack years: 50.00 Types: Cigarettes Smokeless tobacco: Never Vaping Use Vaping Use: Never used Substance Use Topics Alcohol use: Yes Alcohol/week: 60.0 standard drinks of alcohol Types: 60 Cans of Beer (12oz) per week Comment: 6 pack daily, 30 cans on weekend Drug use: Yes Types: Marijuana Comment: occasional Review of Symptoms REVIEW OF SYSTEMS See HPI EXAM: BP 140/73 Pulse 78 Resp 18 Wt 62.1 kg (137 lb) SpO2 98% BMI 21.46 kg/m General Appearance: Well appearing, alert, in no acute distress, well-hydrated, well nourished.. Skin: Skin color, texture, turgor normal, no suspicious rashes or lesions. Lungs: Lungs clear to auscultation. No wheezing, rhonchi, rales.. Heart: RRR without murmur, gallop, or rubs. No ectopy. Extremities: No deformities, edema, skin discoloration, clubbing or cyanosis. Good capillary refill. . Health Maintenance List BP Controlled (<130/80) Never done RSV Vaccine(1 - 1-dose 60+ series) Never done Lung Cancer Screening due on 08/30/2019 Advance Directive Discussion due on 07/27/2023 Depression Assessment due on 07/27/2023 DTaP,Tdap,Td Vaccine(1 - Tdap) due on 01/01/2024 Abdominal Aortic Aneurysm Screening due on 01/01/2024 Colorectal Cancer Screening due on 01/01/2024 Shingrix Vaccine(1 of 2) due on 01/01/2024 Pneumococcal Vaccine: 65+(1 of 2 - PCV) due on 01/01/2024 Influenza Vaccine(1) due on 01/24/2024 Covid-19 Vaccine(4 - season) due on 08/25/2024 Annual PCP Team Chronic Disease Visit due on 08/25/2024 Prostate Cancer Screening Discussion due on 01/09/2026 Diabetes Screening due on 08/25/2026 Lipid Screening due on 01/01/2028 Spirometry Completed Hepatitis C Screening Completed Alpha-1 Antitrypsin Deficiency Screening Discontinued ASSESSMENT/PLAN: 1. Essential hypertension - ICD9: 401.9, ICD10: I10 - Improving control - Increase hydrochlorothiazide - Recommend home blood pressure monitoring, to bring results to next visit - Encouraged sodium restriction, DASH or Mediterranean diet - Recommend regular aerobic exercise - Follow up in 2 weeks for hypertension visit - HYDROCHLOROTHIAZIDE 25 MG TABLET - COMP METABOLIC PANEL Lucia Hodgson MD documented in this [facility] History of Present illness Narrative* Yehuda Herron MD - 08/31/2023 10:05 AM ESTAssociated Order(s): Large Joint Arthro/Inj: R glenohumeral Post-Procedure Diagnose(s): Chronic right shoulder pain; Arthritis of shoulder Yehuda Herron MD Department of Orthopaedics Orthopaedics [address] [facility] [address] Dept: [phone] Dept August 31, 2023 CHIEF COMPLAINT: New Patient and Pain of the Right Shoulder HPI Patient has been having troubles with the right shoulder for a while now. More than a year. No injury or specific incident. At times it can be 8 out of 10 depending on his activities. There is some component of pain radiating from the neck and down the arm and he has had consultation with pain management for this portion. He has been trying [id number]. ASSESSMENT: M25.511, G89.29 Chronic right shoulder pain M19.019 Arthritis of shoulder PLAN: Moderate arthritis of the right glenohumeral joint. He like to try cortisone injection at this time. FOLLOW UP INSTRUCTIONS: As needed Mr. Wily Arshad was advised as to contrast therapies and/or to take analgesics/anti-inflammatories as needed and all contraindications were reviewed. OBJECTIVE: Mr. Wily Arshad is a pleasant 68 year old in no apparent distress. Gen:There were no vitals taken for this visit. nl development, non obese, no deformities ENT: Normocephalic, normal hearing, moist mucosa CV: Pulses:Radial= 2+ and symmetric, capillary refill < 2 secs, no peripheral edema/varicosities Skin: no rash, bruising or lesions. Good turgor. Psych: cooperative and appropriate, alert and oriented x 3, good mood and affect. Musculoskeletal: Mild limitations with range of motion of the cervical spine without pain. Spurling signs are negative. No atrophy of the deltoid and shoulder musculature. Right shoulder is nontender to palpation over the SC joint, clavicle and AC joint. No tenderness to palpation over the posterior shoulder, minimal anterior lateral corner of the shoulder and greater tuberosity. Mild tenderness at the anterior joint line. Active range of motion is 150 of forward elevation, 40 external rotation, and internal rotation to the mid lumbar spine. Passive range of motion is symmetrical, respectively. No laxity withanterior and posterior stress. Negative Neer and Arango impingement signs. 5/5 strength with supras pinatus, infraspinatus and subscapularis. Sensation is intact in the axillary, radial, median and ulnar nerve distribution Large Joint Arthro/Inj: R glenohumeral Informed Consent Consent Obtained: Verbal [place] Protocol A moment to CARE was completed. SIGN IN Personnel directly involved with the procedure wore the appropriate PPE. Special Equipment: N/A Patient/Surrogate Stated/Verified: Patient name, Date of , Relevant allergies and Intended procedure TIME OUT Intended patient and procedure match the source document(s). Consent documented and matches the intended procedure. Relevant labs, photos, and/or imaging studies have been reviewed. Correct side/site marked and visible. Medications required for procedure verified. No fire risk assessment and interventions applicable. No implant(s) inserted. 08/31/2023 10:21 AM The procedure site was prepped in the usual sterile fashion. Site: R glenohumeral Medications: 6 mg betamethasone acetate-betamethasone sodium phosphate 6 mg/mL Anesthetics: 4 mL lidocaine (PF) 10 mg/mL (1 %) Outcome: Tolerated well, no immediate complications Post-injection instructions were reviewed with the patient and the patient voiced understanding of these instructions. SIGN OUT All instruments, equipment, possible retained foreign bodies accounted for. IMAGING: IMPRESSION: Vascular minimal degenerative joint disease with anterior intra-articular or intrabursal calcified body Investor Relations Associate: XUAN Transcribe Date/Time: Aug 26 2023 5:17P Dictated by : DAXA WILLOUGHBY MD This examination was interpreted and the report reviewed and electronically signed by: DAXA WILLOUGHBY MD on Aug 26 2023 5:18PM EST Results-Findings * * *Final Report* * * DATE OF EXAM: Aug 25 2023 3:33PM WOX [id number] - XR SHLDR >/=3V AP/TEREZA AP/OTHR RT / PROCEDURE REASON: multiple diagnoses * * * * Physician Interpretation * * * * Right shoulder HISTORY: Shoulder pain FINDINGS: Three views were performed. There is a 1.9 x 1.1 x 1.7 cm calcified density anterior to the glenohumeral joint. No evidence of acute fracture or dislocation. Glenohumeral joint space: Marked narrowing with hypertrophic spurring. Acromio-humeral interval: within normal limits. No evidence of a subacromial spur. Acromio-clavicular joint: Within normal limits. Supporting Subjective Information Below: Past Medical History: PAST MEDICAL HISTORY Diagnosis Date Alcohol abuse BPH (benign prostatic hyperplasia) Cerebral artery disease COPD (chronic obstructive pulmonary disease) (HCC) Diastasis recti Essential hypertension Marijuana use weekly Noncompliance Right inguinal hernia 11/17/2014 Tobacco use Past Surgical History: PAST SURGICAL HISTORY Procedure Laterality Date COLSC FLX W/RMVL OF TUMOR POLYP LESION SNARE TQ 03/11/2021 Dr. Sky. 2 polyps. repeat 3-5 years PAST SURGICAL HISTORY OF 11/17/2014 laparoscopic R inguinal herniorrhaphy; Dr. Sky Family History: FAMILY HISTORY Problem Relation Age of Onset Heart Father Stroke Father Coronary Artery Disease Father 80 CABG x4 Diabetes Sister Diabetes Paternal Grandmother Social History: Social History Tobacco Use Smoking status: Every Day Packs/day: 1.00 Years: 50.00 Additional pack years: 0.00 Total pack years: 50.00 Types: Cigarettes Smokeless tobacco: Never Vaping Use Vaping Use: Never used Substance Use Topics Alcohol use: Yes Alcohol/week: 60.0 standard drinks of alcohol Types: 60 Cans of Beer (12oz) per week Comment: 6 pack daily, 30 cans on weekend Drug use: Yes Types: Marijuana Comment: occasional Medications: Current Outpatient Medications Medication Sig meloxicam (MOBIC) 15 mg tablet Take 1 tablet by mouth once daily. With food. albuterol HFA (VENTOLIN HFA) 90 mcg/actuation inhaler Inhale 2 Puffs as instructed every 4 hours asneeded for wheezing/shortness of breath. ipratropium-albuterol (DUONEB) 0.5 mg-3 mg(2.5 mg base)/3 mL nebu IInhale by nebulizer over 5-15 minutes four (4) times a day. COMPOUNDED PRESCRIPTION 1 Each as needed. NEBULIZER FOR HOME USE. ICD10: J44.9 COMPOUNDED PRESCRIPTION aerosol nebulizer Dx copd hydroCHLOROthiazide 12.5 mg capsule Take 1 capsule by mouth once daily. umeclidinium (INCRUSE ELLIPTA) 62.5 mcg/actuation inhaler Inhale 1 Puff as instructed once daily. No current facility-administered medications for this visit. Allergies: Patient has no known allergies. ROS: General (negative for fatigue, malaise, weight loss/gain) HEENT (negative for headache, earache, recent vision changes, sinus pain, sore throat) Respiratory (no recent shortness of breath, hemoptysis) CV (negative for chest tightness, palpitations) Musculoskeletal (see HPI) Psych (no depression, anxiety) REFERRING PHYSICIAN: Consultation requested by Dr. Hodgson for an opinion regarding right shoulder pain. My final recommendations will be communicated back to the requesting physician by way of shared Medical record or letter to requesting physician via US mail. Lucia Hodgson MD [id number] [facility] [id number] Yehuda Herron MD documented in this encounterM[facility]01-30-2024 History of Present illness Narrative* Kathy Jonas, RT(R) - 08/25/2023 3:20 PM EST Radiology Service Progress Note PATIENT NAME: Wily Arshad DATE OF SERVICE: August 25, 2023 TIME: 3:21 PM PATIENT IDENTITY VERIFICATION COMPLETED USING TWO (2) IDENTIFIERS: Name and Date of confirmedby patient verbally. FALL SCREENING: Has the patient had 2 falls in the last year or 1 fall with injury or currently using an Ambulatory Assistive Device (Walker, Cane, Wheelchair, Crutches, etc.)? No PATIENT GENDER DATA: Male PATIENT RELEVANT IMPLANT DATA REVIEWED: Yes PATIENT PRESENTS WITH AN IMPLANTABLE OR ATTACHED DNA SEQUENCING ASSOCIATE: No RADIOLOGY DEPARTMENT: General X-ray: Exam(s) Completed: Upper Extremity X- Ray(s): Shoulder, AP / TRUE AP / AXILLARY right PERIPHERAL IV DATA: Not applicable SIGNED BY: RT Pearl(R) August 25, 2023 3:21 PM documented in this [facility]06-14-2023 Miscellaneous Notes* Telephone Encounter - Autumn Johnson LPN - 01/07/2023 3:30 PM EDT Spoke with pt and information listed below given. Pt verbalizes understanding. Autumn Johnson LPN * Telephone Encounter - Kala Alvarado MA - 01/06/2023 10:17 AM EDT LM for patient to contact office. Kala Alvarado MA * Telephone Encounter - Mylene Roche LPN - 01/05/2023 9:43 AM EDT Message left for patient to call office back for update. Mylene Roche LPN * Telephone Encounter - Mylene Roche LPN - 01/05/2023 9:43 AM EDT ----- Message from Lucia Hodgson MD sent at 01/05/2023 9:06 AM EDT ----- A1c in the normal range. No changes to regimen. documented in this encounterM[facility]06-07-2023 History of Present illness Narrative* Lucia Hodgson MD - 12/31/2022 2:55 PM EDT Chief Complaint Patient presents with: F/U 6 months HPI Wily Arshad is a 67 year old male who presents here today for Above Complaints.. COPD: Patient has not had follow up with Dr. Solis since February 2021. They noted he may benefit from long acting anticholinergic inhaler therapy at their last OV. Also recommended low dose CT scan for lung cancer screening which he is refusing. Ran out of his Advair and Spiriva several months ago. Using albuterol and Duoneb for SOB about 2 times per day Denies cough or wheezing. Still smoking 1/2pack per day. Has more than 50 pack year history. Refusing help with cessation. Still smoking marijuana once per month instead of weekly. Does not want help with cessation. Drinking 12 pack of beer per week or 2 beers per day. Has diagnosis of alcohol abuse with more than30 beers on a weekend. Denies drinking this much now. Not want help with cessation. BPH: getting up once per night to urinate. Without rx, denies weak stream, straining, dysuria, hematuria. PHQ-2 / Depression screen He in the past two weeks denies having felt down, depressed, hopeless or with little interest or pleasure in doing things. Does not have living will or DPOA. FULL CODE. Past medical history, appointments, medications, allergies reviewed. Previous Medical History PAST MEDICAL HISTORY Diagnosis Date Alcohol abuse BPH (benign prostatic hyperplasia) Cerebral artery disease COPD (chronic obstructive pulmonary disease) (HCC) Marijuana use weekly Noncompliance Right inguinal hernia 11/17/2014 Tobacco use Previous Surgical History PAST SURGICAL HISTORY Procedure Laterality Date COLSC FLX W/RMVL OF TUMOR POLYP LESION SNARE TQ 03/11/2021 Dr. Sky PAST SURGICAL HISTORY OF 11/17/2014 laparoscopic R inguinal herniorrhaphy; Dr. Sky Family History FAMILY HISTORY Problem Relation Age of Onset Heart Father Stroke Father Coronary Artery Disease Father 80 CABG x4 Diabetes Sister Diabetes Paternal Grandmother Patient Allergies ALLERGIES No Known Allergies Current Medications Current Outpatient Medications on File Prior to Visit Medication Sig albuterol HFA (VENTOLIN HFA) 90 mcg/actuation inhaler Inhale 2 Puffs as instructed every 4 hours asneeded for wheezing/shortness of breath. ipratropium-albuterol (DUONEB) 0.5 mg-3 mg(2.5 mg base)/3 mL nebu IInhale by nebulizer over 5-15 minutes four (4) times a day. fluticasone-salmeterol (ADVAIR DISKUS) 250-50 mcg/dose inhaler Inhale 1 Puff as instructed twice daily. Rinse and gargle mouth after use with water. COMPOUNDED PRESCRIPTION 1 Each as needed. NEBULIZER FOR HOME USE. ICD10: J44.9 COMPOUNDED PRESCRIPTION aerosol nebulizer Dx copd tiotropium bromide (SPIRIVA RESPIMAT) 2.5 mcg/actuation inhaler Inhale 2 Puffs as instructed once daily. Inhale two puffs once daily. No current facility-administered medications on file prior to visit. Social History Social History Tobacco Use Smoking status: Every Day Packs/day: 1.00 Years: 50.00 Pack years: 50.00 Types: Cigarettes Smokeless tobacco: Never Vaping Use Vaping Use: Never used Substance Use Topics Alcohol use: Yes Alcohol/week: 150.0 standard drinks Types: 60 Cans of Beer (12oz) per week Comment: 6 pack daily, 30 cans on weekend Drug use: Yes Types: Marijuana Comment: occasional Review of Symptoms REVIEW OF SYSTEMS GENERAL: No weight loss, malaise or fevers RESPIRATORY: See HPI CARDIOVASCULAR: Negative for chest pain, leg swelling, hypertension, CHF or palpitations GI: No nausea, vomiting, or diarrhea SKIN: Negative for lesions, rash, and itching EXAM: BP 142/87 Pulse 106 Resp 16 Ht 170.2 cm (5' 7) Wt 57.6 kg (127 lb) BMI 19.89 kg/m General Appearance: Well appearing, alert, in no acute distress, well-hydrated, well nourished.. Skin: Skin color, texture, turgor normal, no suspicious rashes or lesions. Lungs: Lungs clear to auscultation. No wheezing, rhonchi, rales.. Heart: RRR without murmur, gallop, or rubs. No ectopy. Abdomen: Normal abdominal exam, Abdomen soft, non-tender. Bowel sounds normal. No masses, organomegaly. Extremities: No deformities, edema, skin discoloration, clubbing or cyanosis. Good capillary refill. . Health Maintenance List ABDOMINAL AORTIC ANEURYSM SCREENING Never done PNEUMOCOCCAL: 65+(1 - PCV) Never done ALPHA-1 ANTITRYPSIN DEFICIENCY SCREENING Never done COLORECTAL CANCER SCREENING Never done SHINGRIX VACCINE(1 of 2) Never done DTAP,TDAP,TD(1 - Tdap) due on 02/26/2018 COVID-19 VACCINE(3 - Booster for Pfizer series) due on 01/07/2021 ADVANCE DIRECTIVE DISCUSSION Never done DEPRESSION ASSESSMENT Never done LUNG CANCER SCREENING due on 07/02/2023 INFLUENZA(Season Ended) due on 03/27/2023 ANNUAL PCP TEAM CHRONIC DISEASE VISIT due on 07/02/2023 DIABETES SCREEN due on 12/14/2024 PROSTATE CANCER SCREENING DISCUSSION due on 01/09/2026 LIPID SCREEN due on 12/14/2026 SPIROMETRY Completed HEPATITIS C SCREENING Completed Data reviewed Component Latest Ref Rng & Units 12/14/2021 WBC 3.70 - 11.00 k/uL 7.17 RBC 4.20 - 6.00 m/uL 4.59 Hemoglobin 13.0 - 17.0 g/dL 15.1 Hematocrit 39.0 - 51.0 % 45.2 MCV 80.0 - 100.0 fL 98.5 MCH 26.0 - 34.0 pg 32.9 MCHC 30.5 - 36.0 g/dL 33.4 RDW-CV 11.5 - 15.0 % 12.8 Platelet Count 150 - 400 k/uL 185 MPV 9.0 - 12.7 fL 10.3 Neut% % 64.5 Abs Neut (ANC) 1.45 - 7.50 k/uL 4.63 Lymph% % 19.9 Abs Lymph 1.00 - 4.00 k/uL 1.43 [place]% % 12.6 Abs [place] <0.87 k/uL 0.90 (H) Eosin% % 1.8 Abs Eosin <0.46 k/uL 0.13 Baso% % 0.6 Abs Baso <0.11 k/uL 0.04 Immature Gran % % 0.6 IMMATURE GRANS (ABS) <0.10 k/uL 0.04 NRBC /100 WBC 0.0 Absolute nRBC <0.01 k/uL <0.01 DTYPE Auto Protein, Total 6.3 - 8.0 g/dL 7.4 Albumin 3.9 - 4.9 g/dL 4.6 Calcium 8.5 - 10.2 mg/dL 9.4 Bilirubin, Total 0.2 - 1.3 mg/dL 0.6 Alkaline Phosphatase 38 - 113 U/L 68 AST 14 - 40 U/L 28 ALT 10 - 54 U/L 21 Glucose 74 - 99 mg/dL 86 BUN 9 - 24 mg/dL 10 Creatinine 0.73 - 1.22 mg/dL 0.62 (L) Sodium 136 - 144 mmol/L 137 Potassium 3.7 - 5.1 mmol/L 4.7 Chloride 97 - 105 mmol/L 100 CO2 22 - 30 mmol/L 26 Anion Gap 9 - 18 mmol/L 11 eGFR >=60 mL/min/1.73m 106 Total Cholesterol, Nonfasting <200 mg/dL 154 Triglycerides, Nonfasting <150 mg/dL 40 HDL Cholesterol, Nonfasting >39 mg/dL 75 LDL Cholesterol, Nonfasting <100 mg/dL 71 Non HDL Cholesterol, Nonfasting <130 mg/dL 79 VLDL Cholesterol, Nonfasting <30 mg/dL 8 Total Chol/HDL Ratio, Nonfasting <5.10 mg/dL 2.05 LDL/HDL Ratio, Nonfasting <2.54 mg/dL 0.95 TSH 0.270 - 4.200 mIU/L 2.370 ASSESSMENT/PLAN: 1. COPD (chronic obstructive pulmonary disease) with acute bronchitis (HCC) - ICD9: 491.22, ICD10: J44.0, J20.9 (primary diagnosis) Worsening symptoms off of advair and spiriva. Will refill. Continue albuterol/duoneb PRN. Recommended smoking cessation. F/u with pulmonology. - FLUTICASONE 250 MCG-SALMETEROL 50 MCG/DOSE BLISTR POWDR FOR INHALATION - SPIRIVA RESPIMAT 2.5 MCG/ACTUATION SOLUTION FOR INHALATION 2. Benign prostatic hyperplasia with nocturia - ICD9: 600.01, 788.43, ICD10: N40.1, R35.1 Asymptomatic. 3. Marijuana use - ICD9: 305.20, ICD10: F12.90 Refusing help with cessation. 4. Tobacco use - ICD9: 305.1, ICD10: Z72.0 - Cessation encouraged. - Physiologic and physical aspects of tobacco addiction as well as strategies for quitting were discussed. - Counseling was given focusing on the harmful effects of this addiction especially given the patient's medical condition(s) which will be worsened because of the chemicals in tobacco. 5. Hyperlipidemia, mixed - ICD9: 272.2, ICD10: E78.2 - Continue current medications - Counseled on healthy diet and regular exercise - CBC + DIFF - COMP METABOLIC PANEL - LIPID PANEL, NONFASTING 6. Encounter for immunization - ICD9: V03.89, ICD10: Z23 - PFI[employer]ER[employer] COVID-19 BIVALENT VACCINE, AGE 12+ YR 7. Alcohol abuse - ICD9: 305.00, ICD10: F10.10 Still drinking regularly. Refusing help with cessation. Offered information for AA, Avani Galindo, 180. Discussed risks of continued drinking and benefits of cessation. 8. Elevated BP without diagnosis of hypertension - ICD9: 796.2, ICD10: R03.0 - Encouraged dietary sodium restriction/DASH diet - Recommended regular aerobic exercise. - Recommend home blood pressure monitoring, to bring results in on next visit - Follow up in 2 weeks for BP recheck. Lucia Hodgson MD documented in this encounterM[facility]04-03-2023 Miscellaneous Notes* Telephone Encounter - Autumn Johnson LPN - 10/27/2022 9:45 AM EDT Pt called and [facility] does not have the medication below. Pt called [facility] and they have medication. Please advise pt when this has been sent to the pharmacy. Patient has been identified by name and date of : Yes, Provider Dr. Hodgson Date 10/27/22 Time 9:47 Patient phones for refill(s): Requested Prescriptions Pending Prescriptions Disp Refills ipratropium-albuterol (DUONEB) 0.5 mg-3 mg(2.5 mg base)/3 mL nebu 150 mL 3 Sig: IInhale by nebulizer over 5-15 minutes four (4) times a day. Date of last office visit in primary care: 07/02/22 next apt 12/31/22 Last 2 Encounter Wt Readings: Date: Wt: 07/02/2022 56.4 kg (124 lb 6.4 oz) 01/03/2022 53.2 kg (117 lb 3.2 oz) Previous labs/tests for medication: Not applicable Please advise. Thank you. Autumn Johnson LPN documented in this encounterM[facility]01-10-2023 Miscellaneous Notes* Telephone Encounter - [facility] - 08/05/2022 8:56 AM EST Patient has been identified by name and date of : Yes Requested Prescriptions Pending Prescriptions Disp Refills albuterol HFA (VENTOLIN HFA) 90 mcg/actuation inhaler 18 g 3 Sig: Inhale 2 Puffs as instructed every 4 hours as needed for wheezing/shortness of breath. ipratropium-albuterol (DUONEB) 0.5 mg-3 mg(2.5 mg base)/3 mL nebu 150 mL 3 Sig: IInhale by nebulizer over 5-15 minutes four (4) times a day. RX INSTRUCTIONS: Patient has enough medication through only today. Patient aware RX will be sent to pharmacy. No need to notify patient. [facility] documented in this encounterM[facility]12-07-2022 History of Present illness Narrative* Lucia Hodgson MD - 07/02/2022 3:19 PM EST Chief Complaint Patient presents with: Follow Up: 6 month HPI Wily Arshad is a 67 year old male who presents here today for 6 month follow up. COPD: following up with Dr. Solis with last OV in February 2021. They noted he may benefit from long acting anticholinergic inhaler therapy. Also recommended low dose CT scan for lung cancer screening which he is refusing. Added on Advair at his last OV here which he states has helped his symptoms. In the last couple of weeks, has only needed his albuterol for SOB 1-2 times per day down from 3-4 delores es per day. Same with his Duoneb. Denies cough or wheezing. Weight up 10 lbs in the last 6 months, but was weighed with his boots on. Eating 1 good meal per day and snacking in between. Still smoking marijuana every other weekend. Still smoking about 1/2 pack per day. Does not want help with cessation. BPH: getting up once per night to urinate. Without rx, denies weak stream, straining, dysuria, hematuria. Discussed need for influenza, Prevnar 20, COVID vaccine. Not interested in vaccination today. Past medical history, appointments, medications, allergies reviewed. Previous Medical History PAST MEDICAL HISTORY Diagnosis Date Alcohol abuse BPH (benign prostatic hyperplasia) Cerebral artery disease COPD (chronic obstructive pulmonary disease) (HCC) Marijuana use weekly Noncompliance Right inguinal hernia 11/17/2014 Tobacco use Previous Surgical History PAST SURGICAL HISTORY Procedure Laterality Date COLSC FLX W/RMVL OF TUMOR POLYP LESION SNARE TQ 03/11/2021 Dr. Sky PAST SURGICAL HISTORY OF 11/17/2014 laparoscopic R inguinal herniorrhaphy; Dr. Sky Family History FAMILY HISTORY Problem Relation Age of Onset Heart Father Stroke Father Coronary Artery Disease Father 80 CABG x4 Diabetes Sister Diabetes Paternal Grandmother Patient Allergies ALLERGIES No Known Allergies Current Medications Current Outpatient Medications on File Prior to Visit Medication Sig albuterol HFA (VENTOLIN HFA) 90 mcg/actuation inhaler Inhale 2 Puffs as instructed every 4 hours asneeded for wheezing/shortness of breath. ipratropium-albuterol (DUONEB) 0.5 mg-3 mg(2.5 mg base)/3 mL nebu IInhale by nebulizer over 5-15 minutes four (4) times a day. fluticasone-salmeterol (ADVAIR DISKUS) 250-50 mcg/dose inhaler Inhale 1 Puff as instructed twice daily. Rinse and gargle mouth after use with water. COMPOUNDED PRESCRIPTION 1 Each as needed. NEBULIZER FOR HOME USE. ICD10: J44.9 COMPOUNDED PRESCRIPTION aerosol nebulizer Dx copd No current facility-administered medications on file prior to visit. Social History Social History Tobacco Use Smoking status: Every Day Packs/day: 1.00 Years: 50.00 Pack years: 50.00 Types: Cigarettes Smokeless tobacco: Never Vaping Use Vaping Use: Never used Substance Use Topics Alcohol use: Yes Alcohol/week: 150.0 standard drinks Types: 60 Cans of Beer (12oz) per week Comment: 6 pack daily, 30 cans on weekend Drug use: Yes Types: Marijuana Comment: occasional Review of Symptoms REVIEW OF SYSTEMS GENERAL: No weight loss, malaise or fevers RESPIRATORY: See HPI CARDIOVASCULAR: Negative for chest pain, leg swelling, hypertension, CHF or palpitations GI: No nausea, vomiting, or diarrhea SKIN: Negative for lesions, rash, and itching EXAM: BP 122/66 Pulse 77 Resp 18 Wt 56.4 kg (124 lb 6.4 oz) SpO2 99% BMI 19.48 kg/m General Appearance: Well appearing, alert, in no acute distress, well-hydrated, well nourished.. Skin: Skin color, texture, turgor normal, no suspicious rashes or lesions. Lungs: scattered wheezing bilaterally with good air entry. No rales or rhonchi. Heart: RRR without murmur, gallop, or rubs. No ectopy. Abdomen: Abdomen soft, non-tender. Bowel sounds normal. No masses, organomegaly. Lipoma noted on LUQ Extremities: No deformities, edema, skin discoloration, clubbing or cyanosis. Good capillary refill. . Health Maintenance List ABDOMINAL AORTIC ANEURYSM SCREENING Never done ALPHA-1 ANTITRYPSIN DEFICIENCY SCREENING Never done DTAP,TDAP,TD(1 - Tdap) due on 02/26/2018 LUNG CANCER SCREENING due on 08/30/2019 ADVANCE DIRECTIVE DISCUSSION Never done DEPRESSION ASSESSMENT Never done INFLUENZA(1) due on 03/27/2022 SHINGRIX VACCINE(1 of 2) due on 12/14/2022 COVID-19 VACCINE(3 - Booster for Pfizer series) due on 12/14/2022 PNEUMOCOCCAL: 65+(1 - PCV) due on 12/14/2022 ANNUAL PCP TEAM CHRONIC DISEASE VISIT due on 12/14/2022 DIABETES SCREEN due on 12/14/2024 PROSTATE CANCER SCREENING DISCUSSION due on 01/09/2026 COLORECTAL CANCER SCREENING due on 03/11/2026 LIPID SCREEN due on 12/14/2026 SPIROMETRY Completed HEPATITIS C SCREENING Completed Data reviewed Component Latest Ref Rng & Units 12/14/2021 WBC 3.70 - 11.00 k/uL 7.17 RBC 4.20 - 6.00 m/uL 4.59 Hemoglobin 13.0 - 17.0 g/dL 15.1 Hematocrit 39.0 - 51.0 % 45.2 MCV 80.0 - 100.0 fL 98.5 MCH 26.0 - 34.0 pg 32.9 MCHC 30.5 - 36.0 g/dL 33.4 RDW-CV 11.5 - 15.0 % 12.8 Platelet Count 150 - 400 k/uL 185 MPV 9.0 - 12.7 fL 10.3 Neut% % 64.5 Abs Neut (ANC) 1.45 - 7.50 k/uL 4.63 Lymph% % 19.9 Abs Lymph 1.00 - 4.00 k/uL 1.43 [place]% % 12.6 Abs [place] <0.87 k/uL 0.90 (H) Eosin% % 1.8 Abs Eosin <0.46 k/uL 0.13 Baso% % 0.6 Abs Baso <0.11 k/uL 0.04 Immature Gran % % 0.6 IMMATURE GRANS (ABS) <0.10 k/uL 0.04 NRBC /100 WBC 0.0 Absolute nRBC <0.01 k/uL <0.01 DTYPE Auto Protein, Total 6.3 - 8.0 g/dL 7.4 Albumin 3.9 - 4.9 g/dL 4.6 Calcium 8.5 - 10.2 mg/dL 9.4 Bilirubin, Total 0.2 - 1.3 mg/dL 0.6 Alkaline Phosphatase 38 - 113 U/L 68 AST 14 - 40 U/L 28 ALT 10 - 54 U/L 21 Glucose 74 - 99 mg/dL 86 BUN 9 - 24 mg/dL 10 Creatinine 0.73 - 1.22 mg/dL 0.62 (L) Sodium 136 - 144 mmol/L 137 Potassium 3.7 - 5.1 mmol/L 4.7 Chloride 97 - 105 mmol/L 100 CO2 22 - 30 mmol/L 26 Anion Gap 9 - 18 mmol/L 11 eGFR >=60 mL/min/1.73m 106 Total Cholesterol, Nonfasting <200 mg/dL 154 Triglycerides, Nonfasting <150 mg/dL 40 HDL Cholesterol, Nonfasting >39 mg/dL 75 LDL Cholesterol, Nonfasting <100 mg/dL 71 Non HDL Cholesterol, Nonfasting <130 mg/dL 79 VLDL Cholesterol, Nonfasting <30 mg/dL 8 Total Chol/HDL Ratio, Nonfasting <5.10 mg/dL 2.05 LDL/HDL Ratio, Nonfasting <2.54 mg/dL 0.95 TSH 0.270 - 4.200 mIU/L 2.370 ASSESSMENT/PLAN: 1. COPD (chronic obstructive pulmonary disease) with acute bronchitis (HCC) - ICD9: 491.22, ICD10: J44.0, J20.9 (primary diagnosis) Symptoms improved, but still needing rescue inhaler 1-2 times daily. Add on Spiriva. F/u with pulmonology and call if symptoms not improving with new inhaler. Discussed need to quit smoking. - SPIRIVA RESPIMAT 2.5 MCG/ACTUATION SOLUTION FOR INHALATION 2. Weight loss - ICD9: 783.21, ICD10: R63.4 Improved. Continue to work on healthy diet, 3 meals per day. 3. Benign prostatic hyperplasia with nocturia - ICD9: 600.01, 788.43, ICD10: N40.1, R35.1 Asymptomatic without rx. 4. Tobacco use - ICD9: 305.1, ICD10: Z72.0 - Cessation encouraged. - Physiologic and physical aspects of tobacco addiction as well as strategies for quitting were discussed. - Counseling was given focusing on the harmful effects of this addiction especially given the patient's medical condition(s) which will be worsened because of the chemicals in tobacco. 5. Marijuana use - ICD9: 305.20, ICD10: F12.90 Cessation encouraged. Discussed risks of continued use and benefits of cessation. Lucia Hodgson MD documented in this encounterM[facility]09-08-2022 Miscellaneous Notes* Telephone Encounter - Sweetie Hutchinson LPN - 04/03/2022 10:21 AM EDT NIKKO 12/14/21 NOV 06/20/22 * Telephone Encounter - Moon Garber [facility] - 04/03/2022 9:05 AM EDT Patient has been identified by name and date of : Yes Requested Prescriptions Pending Prescriptions Disp Refills ipratropium-albuterol (DUONEB) 0.5 mg-3 mg(2.5 mg base)/3 mL nebu 150 mL 1 Sig: IInhale by nebulizer over 5-15 minutes four (4) times a day. RX INSTRUCTIONS: Patient aware RX will be sent to pharmacy. No need to notify patient. Moon Garber Pss documented in this encounterMiddletown Hospital07-14-2022 Miscellaneous Notes* Telephone Encounter - Portia Reveles Pss - 02/06/2022 9:01 AM EDT Pharmacy verified in Epic Patient has been identified by name and date of : Yes Patient aware RX will be sent to pharmacy. No need to notify patient. Patient phones for refill(s): Pending Prescriptions Disp Refills ALBUTEROL SULFATE HFA 90 MCG/ACTUATION AEROSOL INHALER 18 g 1 Sig: Inhale 2 Puffs as instructed every 4 hours as needed for wheezing/shortness of breath. MARCUS: No Date of last office visit : 12/14/2021 Labs-12/14/21 Date of next office visit : 06/20/2022 Last 2 Encounter Wt Readings: Date: Wt: 01/03/2022 53.2 kg (117 lb 3.2 oz) 12/14/2021 52.1 kg (114 lb 12.8 oz) Please advise. Portia Reveles Pss documented in this encounterMiddletown Hospital06-10-2022 History of Present illness Narrative* Manuela Cali APRN.LE[facility]ER - 01/03/2022 12:19 PM EDT Patient came in with complaints of left ear feeling clogged. patient has history of cerumen impaction. Said it feels the same denies any other issues/symptoms at this time. Left ear completely obstructed by cerumen and right ear has a partial obstruction of cerumen. PAST MEDICAL HISTORY Diagnosis Date Alcohol abuse BPH (benign prostatic hyperplasia) Cerebral artery disease COPD (chronic obstructive pulmonary disease) (HCC) Marijuana use weekly Noncompliance Right inguinal hernia 11/17/2014 Tobacco use PAST SURGICAL HISTORY Procedure Laterality Date COLSC FLX W/RMVL OF TUMOR POLYP LESION SNARE TQ 03/11/2021 Dr. Sky PAST SURGICAL HISTORY OF 11/17/2014 laparoscopic R inguinal herniorrhaphy; Dr. Sky ALLERGIES Patient has no known allergies. MEDICATIONS fluticasone-salmeterol (ADVAIR DISKUS) 250-50 mcg/dose inhaler Inhale 1 Puff as instructed twice daily. Rinse and gargle mouth after use with water. albuterol HFA (VENTOLIN HFA) 90 mcg/actuation inhaler Inhale 2 Puffs as instructed every 4 hours asneeded for wheezing/shortness of breath. ipratropium-albuterol (DUONEB) 0.5 mg-3 mg(2.5 mg base)/3 mL nebu IInhale by nebulizer over 5-15 minutes four (4) times a day. COMPOUNDED PRESCRIPTION 1 Each as needed. NEBULIZER FOR HOME USE. ICD10: J44.9 COMPOUNDED PRESCRIPTION aerosol nebulizer Dx copd FAMILY HISTORY Problem Relation Age of Onset Heart Father Stroke Father Coronary Artery Disease Father 80 CABG x4 Diabetes Sister Diabetes Paternal Grandmother Social History Tobacco Use Smoking status: Current Every Day Smoker Packs/day: 1.00 Years: 50.00 Pack years: 50.00 Types: Cigarettes Smokeless tobacco: Never Used Vaping Use Vaping Use: Never used Substance Use Topics Alcohol use: Yes Alcohol/week: 150.0 standard drinks Types: 60 Cans of Beer (12oz) per week Comment: 6 pack daily, 30 cans on weekend Drug use: Yes Types: Marijuana Comment: occasional ASSESSMENT/PLAN: 1. Bilateral impacted cerumen - ICD9: 380.4, ICD10: H61.23 bilaterally ear irrigated after procedure explained to patient, allergies reviewed, and verbal consent given. Warm tap water and 3% hydrogen peroxide mixed with 10% being peroxide used for irrigation. staff auditor irrigated. Unable to obtain all of the wax instructed to use debrox at home for 5 days and return for flushing. Provider Did obtain a very small amount from right eat with curet. Manuela Cali APRN.ELIE documented in this encounterMiddletown Hospital06-07-2022 Miscellaneous Notes* Telephone Encounter - LESLIE Ruiz - 12/31/2021 10:00 AM EDT Third attempt to reach patient with no answer. Left message to return call to office. Letter also sent to patients address. Closing encounter. LESLIE Ruiz * Telephone Encounter - Sweetie Hutchinson LPN - 12/30/2021 1:36 PM EDT Message left for patient to return call to receive update. Advised to speak to a nurse. * Telephone Encounter - Rosalia Grayson MA - 12/27/2021 3:49 PM EDT Unable to reach patient. Left VM to return call to office. Please read below and advise. Rosalia Grayson MA * Telephone Encounter - Lucia Hodgson MD - 12/27/2021 3:06 PM EDT Repeat BP in good range. No change to regimen. * Telephone Encounter - Leigh Ann Diaz LPN - 12/27/2021 2:53 PM EDT Manual Readin/80 Pulse: 92 Reason for blood pressure check - Last BP elevated Patient is: Taking medication as prescribed Yes Took medication today Yes If no, date medication last taken N/A Experiencing side effects No BP was elevated at last appt 12/14/21. No BP medication changes were made at that time. Taking all medications as prescribed. Denies any chest pain, unusual shortness of breath, dizziness, or headaches. Daily caffeine use. Current everyday tobacco use. Alert and oriented. Pt has been identified by name and birthdate: Yes Allergies reviewed: Yes Latex allergy: no. Medication - prescribed and OTC reviewed and updated: Yes Do you need any prescription refills prior to your next visit: No Health Maintenance: Reviewed and not up to date and provider notified Patient advised to continue with current medications and would be contacted if any further instructions after review by PCP. Leigh Ann Diaz LPN documented in this encounterMiddletown Hospital06-03-2022 History of Present illness Narrative* Leigh Ann Diaz LPN - 12/27/2021 2:52 PM EDT Manual Readin/80 Pulse: 92 Reason for blood pressure check - Last BP elevated Patient is: Taking medication as prescribed Yes Took medication today Yes If no, date medication last taken N/A Experiencing side effects No BP was elevated at last appt 12/14/21. No BP medication changes were made at that time. Taking all medications as prescribed. Denies any chest pain, unusual shortness of breath, dizziness, or headaches. Daily caffeine use. Current everyday tobacco use. Alert and oriented. Pt has been identified by name and birthdate: Yes Allergies reviewed: Yes Latex allergy: no. Medication - prescribed and OTC reviewed and updated: Yes Do you need any prescription refills prior to your next visit: No Health Maintenance: Reviewed and not up to date and provider notified Patient advised to continue with current medications and would be contacted if any further instructions after review by PCP. Leigh Ann Diaz LPN documented in this encounterMiddletown Hospital05-26-2022 Miscellaneous Notes* Telephone Encounter - Sweetie Hutchinson LPN - 12/19/2021 11:19 AM EDT Phoned patient and updated him with results. He voiced understanding. * Telephone Encounter - Loly Osuna Ma - 12/18/2021 8:27 AM EDT Tried to reach pt again. Message left for pt to call back. Loly Osuna Ma * Telephone Encounter - Mylene Roche LPN - 12/17/2021 12:26 PM EDT Patient telephoned. Message left to call back for results. Mylene Roche LPN * Telephone Encounter - Mylene Roche LPN - 12/17/2021 12:26 PM EDT ----- Message from Lucia Hodgson MD sent at 12/16/2021 8:05 AM EDT ----- Your lab results are normal. Please follow up as scheduled. Lucia Hodgson MD documented in this encounterMiddletown Hospital05-21-2022 History of Present illness Narrative* Lucia Hodgson MD - 12/14/2021 8:54 AM EDT Chief Complaint Patient presents with: Physical HPI Wily Arshad is a 66 year old male who presents here today for routine follow up. BP elevated on initial check today without history of HTN. States he did drink 3 cups of coffee this morning. Patient admits to smoking about a pack/day currently and has smoked for about 50 years. Has not thought about quitting smoking and is not ready today. COPD: following up with Dr. Solis with last OV in February. They noted he may benefit from long acting anticholinergic inhaler therapy. Also recommended low dose CT scan for lung cancer screening whichhe is refusing States that he does use his duoneb 3-4 times per day for SOB and ventolin at least 4times per day. Does improve his symptoms. Weight down 7 lbs since last OV. States that he does not eat 3 meals per day. Not trying to lose weight. Denies night sweats, fever/chills. Up to date on cancer screening aside from lung cancer screen. Still smoking marijuana every other weekend. Does not want help with cessation. PHQ-2 / Depression screen He in the past two weeks denies having felt down, depressed, hopeless or with little interest or pleasure in doing things. Discussed need for Prevnar 20, COVID, and Shingrix vaccine. Not interested in vaccination today. Past medical history, appointments, medications, allergies reviewed. Previous Medical History PAST MEDICAL HISTORY Diagnosis Date Alcohol abuse BPH (benign prostatic hyperplasia) Cerebral artery disease COPD (chronic obstructive pulmonary disease) (HCC) Marijuana use weekly Noncompliance Right inguinal hernia 11/17/2014 Tobacco use Previous Surgical History PAST SURGICAL HISTORY Procedure Laterality Date COLSC FLX W/RMVL OF TUMOR POLYP LESION SNARE TQ 03/11/2021 Dr. Sky PAST SURGICAL HISTORY OF 11/17/2014 laparoscopic R inguinal herniorrhaphy; Dr. Sky Family History FAMILY HISTORY Problem Relation Age of Onset Heart Father Stroke Father Coronary Artery Disease Father 80 CABG x4 Diabetes Sister Diabetes Paternal Grandmother Patient Allergies ALLERGIES No Known Allergies Current Medications Current Outpatient Medications on File Prior to Visit Medication Sig albuterol HFA (VENTOLIN HFA) 90 mcg/actuation inhaler Inhale 2 Puffs as instructed every 4 hours asneeded for wheezing/shortness of breath. ipratropium-albuterol (DUONEB) 0.5 mg-3 mg(2.5 mg base)/3 mL nebu IInhale by nebulizer over 5-15 minutes four (4) times a day. COMPOUNDED PRESCRIPTION 1 Each as needed. NEBULIZER FOR HOME USE. ICD10: J44.9 polyethylene glycol 3350 (MIRALAX, GLYCOLAX) 17 gram/dose powder Use as directed for Miralax / Gatorade Bowel Prep Kit Gatorade Sports Drink Use as directed for Miralax / Gatorade Bowel Prep Kit Bisacodyl (DULCOLAX) 5 mg tab Use as directed for Miralax / Gatorade Bowel Prep Kit guaiFENesin (MUCINEX) 600 mg 12 hr tablet Take 2 tablets by mouth twice daily. aspirin, enteric coated (ASPIRIN, ENTERIC COATED) 81 mg EC tablet Take 81 mg by mouth once daily. COMPOUNDED PRESCRIPTION aerosol nebulizer Dx copd No current facility-administered medications on file prior to visit. Social History Social History Tobacco Use Smoking status: Current Every Day Smoker Packs/day: 1.00 Years: 50.00 Pack years: 50.00 Types: Cigarettes Smokeless tobacco: Never Used Vaping Use Vaping Use: Never used Substance Use Topics Alcohol use: Yes Alcohol/week: 150.0 standard drinks Types: 60 Cans of Beer (12oz) per week Comment: 6 pack daily, 30 cans on weekend Drug use: Yes Types: Marijuana Comment: occasional Review of Symptoms REVIEW OF SYSTEMS GENERAL: No weight loss, malaise or fevers RESPIRATORY: Negative for cough, hemoptysis, wheezing, COPD, dyspnea or shortness of breath CARDIOVASCULAR: Negative for chest pain, leg swelling, hypertension, CHF or palpitations GI: No nausea, vomiting, or diarrhea : No history of dysuria, frequency or incontinence, No difficulty urinating, nocturia > 1 timeper night or hematuria SKIN: Negative for lesions, rash, and itching EXAM: BP 152/102 Pulse 89 Resp 20 Wt 52.1 kg (114 lb 12.8 oz) SpO2 96% BMI 17.98 kg/m General Appearance: Well appearing, alert, in no acute distress, well-hydrated, well nourished.. Skin: Skin color, texture, turgor normal, no suspicious rashes or lesions. Lungs: Mild scattered wheezing bilaterally with good air entry. . Heart: RRR without murmur, gallop, or rubs. No ectopy. Abdomen: Normal abdominal exam, Abdomen soft, non-tender. Bowel sounds normal. No masses, organomegaly. Extremities: No deformities, edema, skin discoloration, clubbing or cyanosis. Good capillary refill. . Health Maintenance List ABDOMINAL AORTIC ANEURYSM SCREENING Never done SHINGRIX VACCINE(1 of 2) Never done DEPRESSION SCREENING due on 02/25/2019 LUNG CANCER SCREENING due on 08/30/2019 COVID-19 VACCINE(3 - Booster for Pfizer series) due on 04/14/2021 PNEUMOVAX AGE 65 AND OVER WITH 5YR LOOKBACK(1) Never done ADVANCE DIRECTIVE DISCUSSION Never done DTAP,TDAP,TD(1 - Tdap) due on 01/09/2022 ANNUAL PCP TEAM CHRONIC DISEASE VISIT due on 01/09/2022 INFLUENZA(Season Ended) due on 03/27/2022 DIABETES SCREEN due on 01/10/2024 LIPID SCREEN due on 01/09/2026 PROSTATE CANCER SCREENING DISCUSSION due on 01/09/2026 COLORECTAL CANCER SCREENING due on 03/11/2026 SPIROMETRY Completed HEPATITIS C SCREENING Completed HIV SCREENING Completed MENINGOCOCCAL CONJUGATE Aged Out Data reviewed Component Latest Ref Rng & Units 01/09/2021 Protein, Total 6.3 - 8.0 g/dL 6.7 Albumin 3.9 - 4.9 g/dL 4.5 Calcium 8.5 - 10.2 mg/dL 9.5 Bilirubin, Total 0.2 - 1.3 mg/dL 0.5 Alkaline Phosphatase 38 - 113 U/L 72 AST 14 - 40 U/L 21 Glucose 74 - 99 mg/dL 88 BUN 9 - 24 mg/dL 17 Creatinine 0.73 - 1.22 mg/dL 0.76 Sodium 136 - 144 mmol/L 140 Potassium 3.7 - 5.1 mmol/L 4.7 Chloride 97 - 105 mmol/L 102 CO2 22 - 30 mmol/L 25 Anion Gap 9 - 18 mmol/L 13 ALT 10 - 54 U/L 16 eGFR- >60 eGFR-All Other Races . >60 WBC 3.70 - 11.00 k/uL 7.90 RBC 4.20 - 6.00 m/uL 4.60 Hemoglobin 13.0 - 17.0 g/dL 15.3 Hematocrit 39.0 - 51.0 % 45.6 MCV 80.0 - 100.0 fL 99.1 MCH 26.0 - 34.0 pG 33.3 MCHC 30.5 - 36.0 g/dL 33.6 RDW-CV 11.5 - 15.0 % 13.0 Platelet Count 150 - 400 k/uL 188 MPV 9.0 - 12.7 fL 10.2 Absolute nRBC <0.01 k/uL <0.01 Total Cholesterol, Nonfasting <200 mg/dL 140 Triglycerides, Nonfasting <150 mg/dL 36 HDL Cholesterol, Nonfasting >39 mg/dL 67 LDL Cholesterol, Nonfasting <100 mg/dL 66 Non HDL Cholesterol, Nonfasting <130 mg/dL 73 VLDL Cholesterol, Nonfasting <30 mg/dL 7 Total Chol/HDL Ratio, Nonfasting <5.10 mg/dL 2.09 LDL/HDL Ratio, Nonfasting <2.54 mg/dL 0.99 Folate >4.7 ng/mL 8.1 Vitamin B1 (TDP), Whole Blood 84.0 - 213.0 nmol/L 169.9 PSA Screening 0.00 - 2.59 ng/mL 2.05 ASSESSMENT/PLAN: 1. COPD (chronic obstructive pulmonary disease) with acute bronchitis (HCC) - ICD9: 491.22, ICD10: J44.0, J20.9 (primary diagnosis) Uncontrolled. Scattered wheezing on exam with frequent albuterol use. Will add on Advair to regimenand have patient call if symptoms not improving in the next 1-2 weeks. - FLUTICASONE 250 MCG-SALMETEROL 50 MCG/DOSE BLISTR POWDR FOR INHALATION 2. Tobacco abuse - ICD9: 305.1, ICD10: Z72.0 - Cessation encouraged. - Physiologic and physical aspects of tobacco addiction as well as strategies for quitting were discussed. - Counseling was given focusing on the harmful effects of this addiction especially given the patient's medical condition(s) which will be worsened because of the chemicals in tobacco. - US SCREENING FOR AAA 3. Elevated BP without diagnosis of hypertension - ICD9: 796.2, ICD10: R03.0 - Encouraged dietary sodium restriction/DASH diet - Recommended regular aerobic exercise. - Recommend home blood pressure monitoring, to bring results in on next visit - Follow up in 1 month for BP recheck. 4. Weight loss - ICD9: 783.21, ICD10: R63.4 Obtain labs as ordered. Discussed 3 meals per day and supplementing with Boost/Ensure 1-2 times perday. Weigh at home and call if weight loss continuing. - TSH BLD - CBC + DIFF 5. Benign prostatic hyperplasia with nocturia - ICD9: 600.01, 788.43, ICD10: N40.1, R35.1 No complaints without rx. 6. Hyperlipidemia, mixed - ICD9: 272.2, ICD10: E78.2 - to be determined upon return of lab results - Continue current medication. - Encouraged following a low fat, low cholesterol diet. - Discussed the benefits of regular aerobic exercise and weight loss. - CBC - COMP METABOLIC PANEL - LIPID PANEL, NONFASTING 7. Alcohol abuse - ICD9: 305.00, ICD10: F10.10 Drinking 6 pack daily, 30 cans on weekend. Discussed cessation and risks of continued use. Lucia Hodgson MD documented in this encounterMiddletown Hospital05-04-2022 Miscellaneous Notes* Telephone Encounter - Autumn Johnson LPN - 11/27/2021 11:53 AM EDT Letter mailed. Autumn Johnson LPN * Telephone Encounter - Autumn Johnson LPN - 11/25/2021 12:24 PM EDT Left a message for pt to call the office and ask to speak to a triage nurse. Autumn Johnson LPN * Telephone Encounter - Autunm Johnson LPN - 11/20/2021 10:05 AM EDT Left a message for pt to call the office and ask to speak to a triage nurse. Autumn Johnson LPN * Telephone Encounter - LESLIE Ruiz - 11/18/2021 1:37 PM EDT TC to patient with no answer. Left message to return call and ask to speak with a nurse to set up afollow up appointment with PCP. LESLIE Ruiz * Telephone Encounter - Lucia Hodgson MD - 11/18/2021 11:41 AM EDT Rx sent. Has been more than 6 months since last OV, recommend he follow up in 1- 2 months. * Telephone Encounter - Donna Francis - 11/18/2021 11:16 AM EDT Patient has been identified by name and date of : Yes Pending Prescriptions Disp Refills ALBUTEROL SULFATE HFA 90 MCG/ACTUATION AEROSOL INHALER 18 g 5 Sig: Inhale 2 Puffs as instructed every 4 hours as needed for wheezing/shortness of breath. MARCUS: No IPRATROPIUM 0.5 MG-ALBUTEROL 3 MG (2.5 MG BASE)/3 ML NEBULIZATION SOLN 150 mL 5 Sig: IInhale by nebulizer over 5-15 minutes four (4) times a day. MARCUS: No RX INSTRUCTIONS: Patient is out of medications and needs today by 2:30 PM, he is going to the Pharmacy after work. Patient aware RX will be sent to pharmacy. No need to notify patient. Donna Kim Pss documented in this encounterMiddletown Hospital06-16-2021 History of Present illness Narrative* Kathy Jonas RT(R) - 01/09/2021 8:50 AM EDT Radiology Service Progress Note PATIENT NAME: Wily Arshad DATE OF SERVICE: January 09, 2021 TIME: 8:50 AM PATIENT IDENTITY VERIFICATION COMPLETED USING TWO (2) IDENTIFIERS: Name and Date of confirmedby patient verbally. FALL SCREENING: Has the patient had 2 falls in the last year or 1 fall with injury or currently using an Ambulatory Assistive Device (Walker, Cane, Wheelchair, Crutches, etc.)? No PATIENT GENDER DATA: Male PATIENT RELEVANT IMPLANT DATA REVIEWED: Yes RADIOLOGY DEPARTMENT: General X-ray: Exam(s) Completed: Chest X-Ray PERIPHERAL IV DATA: Not applicable SIGNED BY: RT Pearl(R) January 09, 2021 8:50 AM documented in this encounterMiddletown HospitalConsult note Author BLAINE Santiago [facility] Note Date/Time February 09, 2025 10:1 [facility] [address] [place] [address] Anesthesia Postop Eval I 02/09/25 1014 MR#: [id number] Acct: [id number] Name: WILY ARSHAD Rep #:[id number] : 1955 69 From: Paul Santiago PCP: Dr. Justino Hodgson MD Status :REG SDC Y Race: C Location: [place] [address] Anesthesia: Postop Eval I Current Vital Signs Temperature: 97 F Pulse Rate: 74 Blood Pressure: 124/73 Respiratory Rate: 16 Pulse Ox: 100 Oxygen Delivery Method: Room Air Assessment Airway patent: Yes Spontaneous unlabored respirations: Yes Mental status: Awake and Calm nausea: No Vomiting: No Anesthesia Complication: No Fluid Hydration Crystalloid volume administer (ml): 500 Total IV fluid infused: 500 Progress Note Anesthesia document: Postop Eval 1 completed: Yes 02/09/25 1015 <Electronically signed by Paul Santiago > Date _ Paul Shethignjuli Signature: Date CC: ~ Signed [facility] Work Phone: Consult note Author Valente Jensen [facility] Note Date/Time February 09, 2025 11:0 2am [facility] Medical Records Department [address] [place] [address] Anesthesia Postop Eval II 02/09/25 1044 MR#: [id number] Acct: [id number] Name: WILY ARSHAD Rep #:[id number] : 1955 69 From: Valente Fenton PCP: Dr. Justino Hodgson MD Status :REG [facility] [place] Race: C Location: [place] [address] Anesthesia Postop Eval I Sum Postop Eval Completion status Anesthesia document: Postop Eval 1 completed: Yes Anesthesia Postop Eval I Summary Anesthesia Postop Eval I Summary: Anesthesia Postop Eval I: Assessment Summary Airway patent Yes 02/09/25 10:15 [email or web address] Spontaneous unlabored Yes 02/09/25 10:15 [email or web address] respirations Mental status Awake,Calm 02/09/25 10:15 [email or web address] nausea No 02/09/25 10:15 [email or web address] Vomiting No 02/09/25 10:15 [email or web address] Anesthesia Postop Eval I: Fluid Summary Crystalloid volume administer 500 02/09/25 10:15 [email or web address] (ml) Colloids volume administered ( ml) Blood Product volume administered (ml) Total IV fluid infused 500 02/09/25 10:15 [email or web address] Anesthesia Postop Eval I: Summary Notes Anesthesia Complication No 02/09/25 10:15 [email or web address] Anesthesia Complication Comment: Post-operative progress note Anesthesia: Postop Eval II Evaluation Mental status: Awake and Calm Pain Level: 1 nausea: No Vomiting: No Complications Anesthesia Complication: No 02/09/25 1044 <Electronically signed by Valente Jensen MD> Date _ Valente Jensen MD Cosigner Signature: Date CC: ~ Signed [facility] Work Phone: Evaluation note* Diagnosis COPD (chronic obstructive pulmonary disease) with acute bronchitis (HCC) Obstructive chronic bronchitis with acute bronchitis Other emphysema (HCC) Other emphysema documented in this encounter [facility]* Diagnosis COPD (chronic obstructive pulmonary disease) with acute bronchitis (HCC)- Primary Obstructive chronic bronchitis with acute bronchitis Tobacco abuse Tobacco use disorder Elevated BP without diagnosis of hypertension Weight loss Loss of weight Benign prostatic hyperplasia with nocturia Hyperlipidemia, mixed Mixed hyperlipidemia Alcohol abuse Alcohol abuse, unspecified [facility] Elevated BP without diagnosis of hypertension- Primary [facility] Diagnosis Bilateral impacted cerumen- Primary Impacted cerumen [facility] Diagnosis COPD (chronic obstructive pulmonary disease) with acute bronchitis (HCC) Obstructive chronic bronchitis with acute bronchitis [facility] Diagnosis COPD (chronic obstructive pulmonary disease) with acute bronchitis (HCC) Obstructive chronic bronchitis with acute bronchitis Other emphysema (HCC) Other emphysema [facility] Diagnosis COPD (chronic obstructive pulmonary disease) with acute bronchitis (HCC)- Primary Obstructive chronic bronchitis with acute bronchitis Weight loss Loss of weight Benign prostatic hyperplasia with nocturia Tobacco use Tobacco use disorder Marijuana use Cannabis abuse, unspecified [facility] COPD (chronic obstructive pulmonary disease) with acute bronchitis (HCC) Obstructive chronic bronchitis with acute bronchitis Other emphysema (HCC) Other emphysema [facility] Diagnosis COPD (chronic obstructive pulmonary disease) with acute bronchitis (HCC) Obstructive chronic bronchitis with acute bronchitis Other emphysema (HCC) Other emphysema [facility] Diagnosis COPD (chronic obstructive pulmonary disease) with acute bronchitis (HCC)- Primary Obstructive chronic bronchitis with acute bronchitis Benign prostatic hyperplasia with nocturia Marijuana use Cannabis abuse, unspecified Tobacco use Tobacco use disorder Hyperlipidemia, mixed Mixed hyperlipidemia Encounter for immunization Need for other specified prophylactic vaccination against single bacterial disease Alcohol abuse Alcohol abuse, unspecified Elevated BP without diagnosis of hypertension [facility] Diagnosis Essential hypertension Unspecified essential hypertension [facility] Diagnosis Chronic right shoulder pain Pain in joint, shoulder region Arthritis of shoulder Unspecified arthropathy, shoulder region [facility] Diagnosis Essential hypertension- Primary Unspecified essential hypertension Chronic right shoulder pain Pain in joint, shoulder region [facility] Diagnosis COPD (chronic obstructive pulmonary disease) with acute bronchitis (HCC) (HCC) Obstructive chronic bronchitis with acute bronchitis Other emphysema (HCC) Other emphysema [facility] Diagnosis Essential hypertension- Primary Unspecified essential hypertension COPD (chronic obstructive pulmonary disease) with acute bronchitis (HCC) (HCC) Obstructive chronic bronchitis with acute bronchitis Screening for abdominal aortic aneurysm Screening for other and unspecified cardiovascular conditions Screening for hyperlipidemia Screening for lipoid disorders Tobacco use Tobacco use disorder Weight loss Loss of weight [facility] Diagnosis Hyperlipidemia, mixed- Primary Mixed hyperlipidemia [facility] Diagnosis Chronic right shoulder pain Pain in joint, shoulder region [facility] Diagnosis Weight loss Loss of weight [facility] Diagnosis COPD (chronic obstructive pulmonary disease) with acute bronchitis (HCC) (HCC) Obstructive chronic bronchitis with acute bronchitis [facility] Diagnosis Essential hypertension- Primary Unspecified essential hypertension Benign prostatic hyperplasia with nocturia COPD (chronic obstructive pulmonary disease) with acute bronchitis (HCC) (HCC) Obstructive chronic bronchitis with acute bronchitis History of colonic polyps Personal history of colonic polyps Tobacco use Tobacco use disorder Screening for abdominal aortic aneurysm Screening for other and unspecified cardiovascular conditions Encounter for screening for lung cancer Screening for hyperlipidemia Screening for lipoid disorders Screening for prostate cancer Special screening for malignant neoplasm of prostate Encounter for immunization Need for other specified prophylactic vaccination against single bacterial disease [facility] Diagnosis Screening for abdominal aortic aneurysm Screening for other and unspecified cardiovascular conditions [facility] Diagnosis Colon cancer screening- Primary Special screening for malignant neoplasms, colon History of colonic polyps Personal history of colonic polyps Family history of colon cancer in father [facility] Diagnosis Colon cancer screening Special screening for malignant neoplasms, colon History of colonic polyps Personal history of colonic polyps [facility] Diagnosis Onset Date Resolution Status Admit Date Colonic polyp acute December 07, 2 025 3:31pm [employer] Work Phone: Evaluation note* Diagnosis Encounter for screening for lung cancer- Primary Tobacco use current [facility] Author Phil Sands [facility] Note Date/Time February 09, 2025 9:13 am [facility] Medical Records Department [address] [place] [id number] History & Physical Exam 02/09/25 0911 MR#: [id number] Acct: [id number] Name: WILY ARSHAD Rep #:[id number] : [id number] 69 From: Phil Sands DO PCP: Dr. Justino Hodgson MD Status :[facility] Location: [place] [address] HPI - General General Date of Admission: 02/09/25 Date of Service: 02/09/25 Chief Complaint: Personal history of polyps HPI Narrative WILY ARSHAD, is a 69 M who presents with the Chief Complaint: large colon polyps Screening colonoscopy 03.11.21; - Two 6 to 7 mm polyps in the rectum and in the descending colon, removed with a hot snare. Resected and retrieved. - Non-bleeding internal hemorrhoids. - The examination was otherwise normal. The polyp that was located in the descending colon I did place a small clip on. I had good hemostasis. He had a very tortuous colon and it did take quite a bit of time to get through it. He would not be a good candidate for anything less then MAC anesthesia. Colonoscopy 11.23.; non bleeding internal hemorrhoids, polyps in the cecum, hepatic flexure, transverse colon and descending colon. Path consistent with TA.Large polyps unable to be remove at the proximal cecal rim, pre and post hepaticflexure and sigmoid colon. OV 5.14.25 Pt here today for establishment with [facility] for colonposcy. Pt underwent[facility] general surgery showed many polyps with a few too large to remove. He denies abd pain, constipation, diarrhea, or blood in her stool. [facility] Medical History Open wound High cholesterol Injury of head and neck Shortness of breath on exertion Wears glasses Alcohol use Smoker Emphysema, unspecified History of echocardiogram Asthma Anemia Shortness of breath Weight loss, unintentional Home Medications ?Medication ?Instructions ?Recorded ?Last Taken ?Type albuterol sulfate 2.5 mg/3 mL 2.5 mg inhalation Q6H ID N PRN Sob 02/18/18 02/09/25 06:30 History (0.083 %) solution for nebulization &/Or Wheezing albuterol sulfate 90 mcg/actuation 1 - 2 puff inhalati on Q4H PRN PRN 02/18/18 02/18/18 History aerosol inhaler Sob &/Or Wheezing atorvastatin 20 mg tablet 20 mg PO QDAY 12/07/24 Unkno wn History lisinopril 20 mg tablet 20 mg PO QDAY 12/07/24 Unkno wn History fluticasone 250 mcg-salmeterol 50 1 ea inhalation BID 02/07/25 Unknown History mcg/dose blistr powdr for inhalation umeclidinium 62.5 mcg/actuation 1 inh inhalation DAILY 02/07/25 02/09/25 06:30 History blister powder for inhalation (Incruse Ellipta) Allergy/AdvReac Type Severity Reaction Status Date / Time No Known Allergies Allergy Verified 02/09/25 07:48 Surgical History History of hernia repair Social History Smoking Status: Current every day smoker tobacco type: cigarettes Tobacco: How many years used: 40 alcohol intake: current alcohol intake frequency: 0-2 drinks per day Alcohol type: beer ROS Constitutional Constitutional: Denies fatigue, fever(s), poor appetite, weight gain or weight loss Gastrointestinal Gastrointestinal: Denies belching, bloating, change in bowel habits, change in stool character, chewing difficulty, coffee ground emesis, constipation, cramping, diarrhea, dyspepsia, dysphagia, early satiety, excessive flatus, fecalincontinence, heartburn, hematemesis, hematochezia, hemorrhoids, loose stools, melena, nausea, odynophagia, rectal bleeding, tenesmus, vomiting or weight changes Vital Signs Vital Signs Vital Signs: 02/09/25 07:50 02/09/25 07:50 02/09/25 08:42 Temperature 99.0 F 99.0 F Temperature Source Temporal Pulse Rate 90 90 Respiratory Rate 16 16 Respiratory Pattern Normal Blood Pressure 148/81 H 148/81 H Blood Pressure Mean 103 Blood Pressure Source Monitor Blood Pressure Position Sitting Blood Pressure Location Right Arm Pulse Ox 100 100 Oxygen Delivery Method Room Air Room Air Weight Weight: 127 lb 3.307 oz Body Mass Index (BMI) 19.9 Physical Exam Const alert, oriented x3, no apparent distress and healthy appearing General Appearance: cooperative GI normal to inspection, nondistended, normoactive bowel sounds, soft to palpation,non-tender and non-distended Percussion: normal to percussion Rectal Exam: deferred Assessment & Plan Assessment/Plan (1) Colonic polyp: PLAN: Assessment and Plan Assessment and Plan (1) Colonic polyp: Status: Acute Plan: This is a 69 yo male pt here today after colonoscopy in October 2023 with many polyps (pathology revealing tubular adenomas). Pt had polyps that were too largefor removal. Report does not mention the size of the unresected polyps but locations include the cecal rim, pre and post hepatic flexure and the sigmoid colon. He was referred [facility] but preferred to stay local. He will be scheduled for colonoscopy today. -Colonoscopy with polyp resection -f/u after procedure 02/09/25 0913 <Electronically signed by Phil Friend DO> Cosigner Signature (if applicable): CC: Dr. Justino Hodgson MD; Phil Friend, DO~ Signed [facility] Work Phone: [facility] for referral (narrative)* Diagnostic Procedure Only (Routine) - Pending Review Specialty Diagnoses / Procedures Referred By Contac t Referred To Contact US IMAGING Diagnoses Tobacco abuse Procedures US SCREENING FOR AAA (2017) US ABDOMINAL AORTA REAL TIME SCREEN STUDY AAA Lucia Hodgson MD [address] [place] [address] [facility] Referral ID Status Reason Start Date Expiration Date Visits Requested Visits Authorized [id number] Pending Review Auto-Generat ed Referral 12/14/2021 01/13/2023 1 1 [facility] for referral (narrative)* Diagnostic Procedure Only (Routine) - New Request Specialty Diagnoses / Procedures Referred By Contac t Referred To Contact [facility] IM[facility] Diagnoses Screening for abdominal aortic aneurysm Procedures US SCREENING FOR AAA US ABDOMINAL AORTA REAL TIME SCREEN STUDY AAA Dee Hayden APRN.CNP [address] [place] [id number] [place] [address] Referral ID Status Reason Start Date Expiration Date Visits Requested Visits Authorized [id number] New Request Auto-Generat ed Referral 03/23/2024 04/22/2025 1 1 [facility] for referral (narrative)* Diagnostic Procedure Only (Routine) - Closed Specialty Diagnoses / Procedures Referred By Contac t Referred To Contact XR IMAGING Diagnoses Chronic right shoulder pain Procedures XR SHOULDER GENERAL 3V OR MORE AP/TRUE AP/OTHER RIGHT RADEX SHOULDER COMPLETE MINIMUM 2 VIEWS Lucia Hodgson MD [address] [place] [address] [place] [address] Referral ID Status Reason Start Date Expiration Date V isits Requested Visits Authorized [id number] Closed Auto-Generate d Referral 08/25/2023 09/23/2024 1 1 [facility] for referral (narrative)No reason for referral information [facility] Work Phone: Reason for visit Narrative* Diagnostic Procedure Only (Routine) - Closed Specialty Diagnoses / Procedures Referred By Johan t Referred To Contact XR IMAGING Diagnoses Chronic right shoulder pain Procedures XR SHOULDER GENERAL 3V OR MORE AP/TRUE AP/OTHER RIGHT RADEX SHOULDER COMPLETE MINIMUM 2 VIEWS Lucia Hodgson MD [address] [place] [address] [place] [address] Referral ID Status Reason Start Date Expiration Date V isits Requested Visits Authorized [id number] Closed Auto-Generate d Referral 08/25/2023 09/23/2024 1 1 [facility] for visit Narrative* Diagnostic Procedure Only (Routine) - Closed Specialty Diagnoses / Procedures Referred By Napoleonac t Referred To Contact US IMAGING Diagnoses Screening for abdominal aortic aneurysm Procedures US SCREENING FOR AAA US ABDOMINAL AORTA REAL TIME SCREEN STUDY AAA Lucia Hodgson MD [address] [place] [address] Phone: tel: fax: [place] [address] Referral ID Status Reason Start Date Expiration Date V isits Requested Visits Authorized [id number] Closed Auto-Generate d Referral 09/19/2024 10/19/2025 1 1 [facility] for visit Narrative* Outpatient Procedure (Routine) - Closed Specialty Diagnoses / Procedures Referred By Contac t Referred To Contact [facility] Diagnoses Colon cancer screening History of colonic polyps Procedures COLONOSCOPY SCREENING COLONOSCOPY FLX DX W/COLLJ SPEC WHEN PFGAILD Raegan Gonzalez APRN.LEAD [employer] RIDER [address] [place] [address] Phone: tel: fax: [facility] [address] [place] [address] Referral ID Status Reason Start Date Expiration Date V isits Requested Visits Authorized [id number] Closed Auto-Generate d Referral 10/20/2024 10/20/2025 1 1 [facility] Reason for Referral Specialty Diagnoses / Procedures Referred By Contac t Referred To Contact Diagnoses COPD (chronic obstructive pulmonary disease) with acute bronchitis (HCC) (HCC) Other emphysema (HCC) Lucia Hodgson MD [address] [place] [address] Referral ID Status Reason Start Date Expiration Date Visits Re quested Visits Authorized [id number] Closed 1 1 Summary Purpose Family History No Family History Records Found Relationship Condition Age at Onset Recorded Date/T deepak Unknown Family History?Cancer Unknown January 252017 4:54pm Family History?Unknown Unknown February 18, 2018 4:54pm Advance Directives No Advanced Directives Records Found Advance Directive Response Recorded Date/ Time Advance Directives No November 10 10:20am Advance Directive Response Recorded Date/ Time Do you have a Healthcare Power of Community Health Advocate? No February 07, 2025 9:53am Advance Directives No November 10 10:20am Chief Complaint and Reason for Visit Chief Complaint Admit Date needs another colonoscopy December 07, 2024 3:31pm Reason for Visit Admit Date Colonic polyp December 07, 2024 3:31p m Reason for Visit Admit Date Colonic polyp December 07, 2024 3:31p m Colonic polyp February 09, 2025 7:11 am Additional Source Comments Source Comments (unrecognize d section and content) In the event this informatio n is protected by the Federal Confidentiality of Alcohol and Drug Abuse Patient Records regulations: The Federal rules restrict any use of the information to criminally investigate or prosecute any alcohol or drug abuse patient.[facility] the event this information is protected by the Federal Confidentiality of Alcohol and Drug Abuse Patient Records regulations: The Federal rules restrict any use of the information to criminally investigate or prosecute any alcohol or drug abuse patient.[facility] the event this information is protected by the Federal Confidentiality of Alcohol and Drug Abuse Patient Records regulations: The Federal rules restrict any use of the information to criminally investigate or prosecute any alcohol or drug abuse patient.[facility] the event this information is protected by the Federal Confidentiality of Alcohol and Drug Abuse Patient Records regulations: The Federal rules restrict any use of the information to criminally investigate or prosecute any alcohol or drug abuse patient.[facility] the event this information is protected by the Federal Confidentiality of Alcohol and Drug Abuse Patient Records regulations: The Federal rules restrict any use of the information to criminally investigate or prosecute any alcohol or drug abuse patient.[facility] the event this information is protected by the Federal Confidentiality of Alcohol and Drug Abuse Patient Records regulations: The Federal rules restrict any use of the information to criminally investigate or prosecute any alcohol or drug abuse patient.[facility] the event this information is protected by the Federal Confidentiality of Alcohol and Drug Abuse Patient Records regulations: The Federal rules restrict any use of the information to criminally investigate or prosecute any alcohol or drug abuse patient.[facility] the event this information is protected by the Federal Confidentiality of Alcohol and Drug Abuse Patient Records regulations: The Federal rules restrict any use of the information to criminally investigate or prosecute any alcohol or drug abuse patient.[facility] the event this information is protected by the Federal Confidentiality of Alcohol and Drug Abuse Patient Records regulations: The Federal rules restrict any use of the information to criminally investigate or prosecute any alcohol or drug abuse patient.[facility] the event this information is protected by the Federal Confidentiality of Alcohol and Drug Abuse Patient Records regulations: The Federal rules restrict any use of the information to criminally investigate or prosecute any alcohol or drug abuse patient.[facility] the event this information is protected by the Federal Confidentiality of Alcohol and Drug Abuse Patient Records regulations: The Federal rules restrict any use of the information to criminally investigate or prosecute any alcohol or drug abuse patient.[facility] the event this information is protected by the Federal Confidentiality of Alcohol and Drug Abuse Patient Records regulations: The Federal rules restrict any use of the information to criminally investigate or prosecute any alcohol or drug abuse patient.[facility] the event this information is protected by the Federal Confidentiality of Alcohol and Drug Abuse Patient Records regulations: The Federal rules restrict any use of the information to criminally investigate or prosecute any alcohol or drug abuse patient.[facility] the event this information is protected by the Federal Confidentiality of Alcohol and Drug Abuse Patient Records regulations: The Federal rules restrict any use of the information to criminally investigate or prosecute any alcohol or drug abuse patient.[facility] the event this information is protected by the Federal Confidentiality of Alcohol and Drug Abuse Patient Records regulations: The Federal rules restrict any use of the information to criminally investigate or prosecute any alcohol or drug abuse patient.[facility] the event this information is protected by the Federal Confidentiality of Alcohol and Drug Abuse Patient Records regulations: The Federal rules restrict any use of the information to criminally investigate or prosecute any alcohol or drug abuse patient.[facility] the event this information is protected by the Federal Confidentiality of Alcohol and Drug Abuse Patient Records regulations: The Federal rules restrict any use of the information to criminally investigate or prosecute any alcohol or drug abuse patient.[facility] the event this information is protected by the Federal Confidentiality of Alcohol and Drug Abuse Patient Records regulations: The Federal rules restrict any use of the information to criminally investigate or prosecute any alcohol or drug abuse patient.[facility] the event this information is protected by the Federal Confidentiality of Alcohol and Drug Abuse Patient Records regulations: The Federal rules restrict any use of the information to criminally investigate or prosecute any alcohol or drug abuse patient.[facility]In the event this information is protected by the Federal Confidentiality of Alcohol and Drug Abuse Patient Records regulations: The Federal rules restrict any use of the information to criminally investigate or prosecute any alcohol or drug abuse patient.[facility] the event this information is protected by the Federal Confidentiality of Alcohol and Drug Abuse Patient Records regulations: The Federal rules restrict any use of the information to criminally investigate or prosecute any alcohol or drug abuse patient.[facility]In the event this information is protected by the Federal Confidentiality of Alcohol and Drug Abuse Patient Records regulations: The Federal rules restrict any use of the information to criminally investigate or prosecute any alcohol or drug abuse patient.[facility] the event this information is protected by the Federal Confidentiality of Alcohol and Drug Abuse Patient Records regulations: The Federal rules restrict any use of the information to criminally investigate or prosecute any alcohol or drug abuse patient.[facility]In the event this information is protected by the Federal Confidentiality of Alcohol and Drug Abuse Patient Records regulations: The Federal rules restrict any use of the information to criminally investigate or prosecute any alcohol or drug abuse patient.[facility]In the event this information is protected by the Federal Confidentiality of Alcohol and Drug Abuse Patient Records regulations: The Federal rules restrict any use of the information to criminally investigate or prosecute any alcohol or drug abuse patient.[facility]In the event this information is protected by the Federal Confidentiality of Alcohol and Drug Abuse Patient Records regulations: The Federal rules restrict any use of the information to criminally investigate or prosecute any alcohol or drug abuse patient.[facility] HospitalIn the event this information is protected by the Federal Confidentiality of Alcohol and Drug Abuse Patient Records regulations: The Federal rules restrict any use of the information to criminally investigate or prosecute any alcohol or drug abuse patient.[facility]In the event this information is protected by the Federal Confidentiality of Alcohol and Drug Abuse Patient Records regulations: The Federal rules restrict any use of the information to criminally investigate or prosecute any alcohol or drug abuse patient.[facility]In the event this information is protected by the Federal Confidentiality of Alcohol and Drug Abuse Patient Records regulations: The Federal rules restrict any use of the information to criminally investigate or prosecute any alcohol or drug abuse patient.[facility]In the event this information is protected by the Federal Confidentiality of Alcohol and Drug Abuse Patient Records regulations: The Federal rules restrict any use of the information to criminally investigate or prosecute any alcohol or drug abuse patient.[facility] HospitalIn the event this information is protected by the Federal Confidentiality of Alcohol and Drug Abuse Patient Records regulations: The Federal rules restrict any use of the information to criminally investigate or prosecute any alcohol or drug abuse patient.[facility] HospitalIn the event this information is protected by the Federal Confidentiality of Alcohol and Drug Abuse Patient Records regulations: The Federal rules restrict any use of the information to criminally investigate or prosecute any alcohol or drug abuse patient.[facility] HospitalIn the event this information is protected by the Federal Confidentiality of Alcohol and Drug Abuse Patient Records regulations: The Federal rules restrict any use of the information to criminally investigate or prosecute any alcohol or drug abuse patient.[facility] HospitalIn the event this information is protected by the Federal Confidentiality of Alcohol and Drug Abuse Patient Records regulations: The Federal rules restrict any use of the information to criminally investigate or prosecute any alcohol or drug abuse patient.[facility] HospitalIn the event this information is protected by the Federal Confidentiality of Alcohol and Drug Abuse Patient Records regulations: The Federal rules restrict any use of the information to criminally investigate or prosecute any alcohol or drug abuse patient.[facility] Reason for Visit (unrecogniz ed section and content) Reason Onset Date Comments Refill Request 11/18/2021 Appointment 11/18/2021 Reason Comments Physical Reason Comments Blood Pressure Check Reason Comments Ear Problem left ear feels clogg ed x 3 days Reason Comments Results Reason Onset Date Comments Refill Request 02/06/2022 Reason Onset Date Comments Refill Request 04/03/2022 Reason Comments Follow Up 6 month Reason Comments Refill Request Reason Onset Date Comments Refill Request 10/27/2022 Reason Comments F/U 6 months Reason Comments Blood Pressure recheck Reason Comments New Patient Pain Specialty Diagnoses / Procedures Referred By Contact Referred To Contact Orthopedics / CARDIOLOGY Diagnoses Chronic right shoulder pain Arthritis of shoulder Procedures CONSULT TO ORTHOPAEDICS OFFICE/OUTPATIENT [facility] [place] 60 MINUTES Lucia Hodgson MD [address] [place] [address] [facility] [address] [place] [address] Referral ID Status Reason Start Date Expiration Date V isits Requested Visits Authorized [id number] Closed PCP Requested Referral 07/27/2023 07/26/2024 1 1 Reason Comments Blood Pressure Reason Onset Date Comments Refill Request 12/29/2023 Reason Comments F/U 6 months Reason Onset Date Comments Refill Request 05/18/2024 Reason Onset Date Comments Allied Health Visit 07/04/2024 Medication A dherence Outreach Reason Comments transportation issues Reason Comments patient to get lower tier cost for rx Reason Comments Follow Up 6 month Reason Comments Consult Reason Comments Counseling Care Teams (unrecognized sec tion and content) Industrial Technology Teacher Relationship Specialty Start Date End Date Lucia Hodgson MD [address] [place] [address] PCP - General Family Practice 02/24/17 Industrial Technology Teacher Relationship Specialty Start Date End Date Lucia Hodgson MD [address] [place] [address] PCP - General Family Practice 02/24/17 Industrial Technology Teacher Relationship Specialty Start Date End Date Lucia Hodgson MD [address] [place] [address] PCP - General Family Practice 02/24/17 Industrial Technology Teacher Relationship Specialty Start Date End Date Lucia Hodgson MD [address] [place] [address] PCP - General Family Practice 02/24/17 Industrial Technology Teacher Relationship Specialty Start Date End Date Lucia Hodgson MD [address] [place] [address] PCP - General Family Practice 02/24/17 Industrial Technology Teacher Relationship Specialty Start Date End Date Lucia Hodgson MD [address] [place] [address] PCP - General Family Practice 02/24/17 Industrial Technology Teacher Relationship Specialty Start Date End Date Lucia Hodgson MD [address] [place] [address] PCP - General Family Medicine 02/24/17 Industrial Technology Teacher Relationship Specialty Start Date End Date Lucia Hodgson MD [address] [place] [address] PCP - General Family Medicine 02/24/17 Industrial Technology Teacher Relationship Specialty Start Date End Date Lucia Hodgson MD [address] [place] [address] PCP - General Family Medicine 02/24/17 Industrial Technology Teacher Relationship Specialty Start Date End Date Lucia Hodgson MD [address] [place] [address] PCP - General Family Medicine 02/24/17 Industrial Technology Teacher Relationship Specialty Start Date End Date Lucia Hodgson MD [address] [place] [address] PCP - General Family Medicine 02/24/17 Industrial Technology Teacher Relationship Specialty Start Date End Date Lucia Hodgson MD [address] [place] [address] PCP - General Family Medicine 02/24/17 Industrial Technology Teacher Relationship Specialty Start Date End Date Lucia Hodgson MD [address] [place] [address] PCP - General Family Medicine 02/24/17 Industrial Technology Teacher Relationship Specialty Start Date End Date Lucia Hodgson MD [address] [place] [address] PCP - General Family Medicine 02/24/17 Industrial Technology Teacher Relationship Specialty Start Date End Date Lucia Hodgson MD [address] [place] [address] PCP - General Family Medicine 02/24/17 Industrial Technology Teacher Relationship Specialty Start Date End Date Lucia Hdogson MD [address] [place] [address] PCP - General Family Medicine 02/24/17 Industrial Technology Teacher Relationship Specialty Start Date End Date Lucia Hodgson MD [address] [place] [address] PCP - General Family Medicine 02/24/17 Industrial Technology Teacher Relationship Specialty Start Date End Date Lucia Hodgson MD [address] [place] [address] PCP - General Family Medicine 02/24/17 Industrial Technology Teacher Relationship Specialty Start Date End Date Lucia Hodgson MD [address] [place] [address] PCP - General Family Medicine 02/24/17 Industrial Technology Teacher Relationship Specialty Start Date End Date Lucia Hodgson MD [address] [place] [address] PCP - General Family Medicine 02/24/17 Dee Hayden APRN.CNP [address] [place] [address] [facility] Industrial Technology Teacher Relationship Specialty Start Date End Date Lucia Hodgson MD [address] [place] [address] PCP - General Family Medicine 02/24/17 Podlogar, LIZZETH PriceN.LEAD PONY RIDER [address] [place] [address] [facility]ly [facility] 07/02/24 Industrial Technology Teacher Relationship Specialty Start Date End Date Lucia Hodgson MD [address] [place] [address] PCP - General Family Medicine 02/24/17 Podlogar, Dee RN SURGICAL.[facility] [address] [address] [place] [address] [facility] Industrial Technology Teacher Relationship Specialty Start Date End Date Lucia Hodgson MD [address] [place] [address] PCP - General Family Medicine 02/24/17 Podlogar, Dee, RN SURGICAL.[facility] [address] [place] [address] [facility]ly [facility] 07/02/24 Industrial Technology Teacher Relationship Specialty Start Date End Date Lucia Hodgson MD [address] [place] [address] PCP - General Family Medicine 02/24/17 Podlogar, Dee, RN SURGICAL.[facility] [address] [place] [address] [facility] 07/02/24 Industrial Technology Teacher Relationship Specialty Start Date End Date Lucia Hodgson MD [address] [place], [place] [address] [phone] PCP - General Family Medicine 02/24/17 Podlogar, Dee RN SURGICAL.[facility] [address] [address] [place] [address] [facility] 07/02/24 Industrial Technology Teacher Relationship Specialty Start Date End Date Lucia Hodgson MD [address] [place] [address] PCP - General Family Medicine 02/24/17 Podlogar, Dee RN SURGICAL.[facility] [address] [address] [place] [address] [facility] 07/02/24 Gladis Lopez RN SURGICAL.[facility] [address] [place] [address] Formerly [facility] 10/07/24 Industrial Technology Teacher Relationship Specialty Start Date End Date Lucia Hodgson MD [address] [place] [address] PCP - General Family Medicine 02/24/17 Podlogar, Dee RN SURGICAL.[facility] [address] [address] [place] [address] [facility] 07/02/24 Gladis Lopez APRN.LE[employer] [address] [place] [address] Formerly [facility] 10/07/24 Industrial Technology Teacher Relationship Specialty Start Date End Date Lucia Hodgson MD [address] [place], [place] [address] PCP - General Family Medicine 02/24/17 PodlogarDee RN SURGICAL.[facility] [address] [address] [place], [place] [address] [facility] 07/02/24 Gladis Lopez RN SURGICAL.[facility] [address] [address] [place], [place] [address] [facility]ly [facility] 10/17/24 Industrial Technology Teacher Relationship Specialty Start Date End Date Lucia Hodgson MD [address] [place], [place] [address] PCP - General Family Medicine 02/24/17 PodlogarDee, RN SURGICAL.[facility] [address] [address] [place], [place] [address] [facility] 07/02/24 Gladis Lopez, RN SURGICAL.[facility] [address] [place], [place] [address] [facility]ly [facility] 10/17/24 Team Status: Active Member Role Status Dates Justino Cook MD Family Provider Active Dr. Justino Hodgson MD Primary Care Provider Acti ve Team Status: Inactive Member Role Status Dates Dr. Justino Hodgson MD Primary Care Provider Acti ve Start: December 07, 2024 End: December 07, 2024 Dr. Justino Hodgson MD Referring Provider Active Start: December 07, 2024 End: December 07, 2024 REFUGIO Hameed Attending Provider Active Start: December 07, 2024 End: December 07, 2024 Industrial Technology Teacher Relationship Specialty Start Date End Date Lucia Hodgson MD [address] [facility], [place] [address] PCP - General Family Medicine 02/24/17 PodlogDee cameron, RN SURGICAL.[facility] [address] [place] [address] Rn Angiography Family Medicine 07/02/24 Gladis Lopez APRN.LE[employer] [address] [facility] [place] [address] [facility] 01/05/25 Industrial Technology Teacher Relationship Specialty Start Date End Date Lucia Hodgson MD [address] [place] [address] PCP - General Family Medicine 02/24/17 PodlogDee cameron, RN SURGICAL.[facility] [address] [place] [address] Rn Angiography Family Medicine 07/02/24 Gladis Lopez, RN SURGICAL.[facility] [address] [facility] [place] [address] Rn Angiography Family Medicine 10/17/24 12/11/24 Gladis Lopez RN SURGICAL.[facility] [address] [facility] [place] [address] [facility] 01/05/25 Team Status: Active Member Role/Relationship Status Dates Dr. Justino Hodgson MD Primary Care Provider Acti ve Team Status: Inactive Member Role/Relationship Status Dates Dr. Justino Hodgson MD Primary Care Provider Acti ve Start: December 07, 2024 End: December 07, 2024 Dr. Justino Hodgson MD Referring Provider Active Start: December 07, 2024 End: December 07, 2024 REFUGIO Hameed Attending Provider Active Start: December 07, 2024 End: December 07, 2024 Team Status: Inactive Member Role/Relationship Status Dates Dr. Justino Hodgson MD Primary Care Provider Acti ve Start: February 09, 2025 End: February 09, 2025 Dr. Justino Hodgson MD Referring Provider Active Start: February 09, 2025 End: February 09, 2025 Dr. Phil Sands DO Attending Provider Active Start: February 09, 2025 End: February 09, 2025 Team Status: Active Member Role/Relationship Status Dates Dr. Justino Hodgson MD Primary Care Provider Acti ve Start: February 09, 2025 Dr. Justino Hodgson MD Referring Provider Active Start: February 09, 2025 Dr. Phil Sands DO Attending Provider Active Start: February 09, 2025 Dr. Phil Sands DO Other Provider Active St art: February 09, 2025 Inactive Administered Medications - up to 3 most recent administrations Administered Medications (un recognized section and content) Medication Order MAR Action Action Date Dose Rate Site betamethasone acetate-betamethasone sodium phosphate 6 mg injection (CELESTONE) 6 mg, Injection - FOR ORTHO USE ONLY, ONCE, 1 dose, Starting on Thu08/31/23 at 1021, Until Thu08/31/23 at 1021 Given 08/31/2023 10:21 AM EST 6 mg Shoulder, Right lidocaine (PF) 10 mg/mL (1 %) 4 mL injection (XYLOCAINE) 4 mL, Injection - FOR ORTHO USE ONLY, ONCE, 1 dose, Starting on Thu08/31/23 at 1021, Until Thu08/31/23 at 1021 Given 08/31/2023 10:21 AM EST 4 mL Shoulder, Right (unrecognized sect ion and content) No Status Records FoundNo Status Records FoundNo Status Records Found INFORMATION SOURCE (unrecogn ized section and content) DATE CREATED AUTHOR 11/24/2024 [facility] DATE CREATED AUTHOR AUTHOR'S ORGANIZ ATION 02/03/2025 [facility] DATE CREATED AUTHOR AUTHOR'S ORGANIZ ATION 02/11/2025 [facility] Goals (unrecognized section and content) Goals may be documented in a n alternate section FOR RECORDS PERTAINING TO PATIENTS WHO ARE OR HAVE BEEN ENROLLED IN A CHEMICAL DEPENDENCY/SUBSTANCEABUSE PROGRAM, SOME INFORMATION MAY BE OMITTED. This clinical summary was aggregated from multiple sources. Caution should be exercised in using it in the provision of clinical care. This summary normalizes information from multiple sources, and as a consequence, information in this document may materially change the coding, format and clinical context of patient data. In addition, data may be omitted in some cases. CLINICAL DECISIONS SHOULD BE BASED ON THE PRIMARY CLINICAL RECORDS. [facility] [facility]. provides no warranty or guarantee of the accuracy or completeness of information in this document.
[2025-02-11 14:12] LABS: Hematocrit 38.1 % (40-54); Hemoglobin 13.2 g/dL (13.0-16.5); Immature Granulocytes Count 0.050 X10^3/uL (0.0-0.0); Mean Corp Hgb Conc 34.6 g/dL (32-36); Mean Corpuscular Volume 96.2 fL (80-94); Mean Platelet Vol. 9.6 fl (6.2-12.0); NRBC Flagged by Analyzer 0 % (0-5); Platelet Count 165 K/mm3 (150-450); RBC Distribution Width CV 11.9 % (11.6-14.6); RBC Distribution Width SD 41.9 fl (35.1-43.9); Red Blood Count 3.96 M/mm3 (4.6-6.2); White Blood Count 9.3 K/mm3 (4.4-11.0)
[2025-02-11 14:24] LABS: Anion Gap 12 (5-15); BUN 8 mg/dL (4-19); BUN/Creat Ratio 9.6 RATIO (10-20); Calcium,Total 9.0 mg/dL (7.6-11.0); Carbon Dioxide 21.7 mmol/L (21.0-32.0); Chloride 103 mmol/L (98-108); Estimated Creatinine Clearance 71.12 ml/min (50-250); Glucose 81 mg/dL (70-99); Potassium 4.0 mmol/L (3.3-5.1)
--- NOTE | 2025-02-11 14:30 | CM.ED ---
Social Work Date of referral: 02/11/25 Reason for referral: No Advanced Care Directives (ACD's) on file Referred by: Social Work identification Patient provided consent to social work visit. Patient's sister, Argelia was also present. Patient stated he doesn't have any recollection of having any ACD's. Car Loader provided education about getting them completed at [facility] if ever interested which patient expressed appreciation for. No other services requested at this time. Portia Nicole, JEWELRY SALES REPRESENTATIVE, PANEL ASSEMBLER
[2025-02-11 15:21] VITALS: BP 144/77; PULSE 65; RESP 16; O2SAT 98
[2025-02-11] MEDS: Lactated Ringers 1,000 ML 999 ML IV ×2 (15:56→17:07)
[2025-02-11] MEDS: metroNIDAZOLE 500 MG/100 ML BAG 100 MG IV (15:56)
[2025-02-11 17:00] VITALS: BP 164/84; PULSE 82; RESP 16; O2SAT 99
[2025-02-11 18:22] VITALS: BP 165/88; PULSE 72; RESP 16; TEMP 36.6; O2SAT 99
== END 2025-02-11 18:23 | disposition home or self-care (01) ==
PROVIDERS: Emergency Provider Emergency Medicine; PCP Family Medicine; Visit Provider Emergency Medicine
DX: K52.9 Noninfective gastroenteritis and colitis, unspecified (principal); E78.00 Pure hypercholesterolemia, unspecified; J45.909 Unspecified asthma, uncomplicated; F17.210 Nicotine dependence, cigarettes, uncomplicated; Z90.49 Acquired absence of other specified parts of digestive tract; Z79.51 Long term (current) use of inhaled steroids; Z79.899 Other long term (current) drug therapy; Z98.890 Other specified postprocedural states
CPT/HCPCS: 74177; 80048; 85025; 96361; 96365; 96367; 99283; Q9967; A4216; J0744